=== PATIENT | female | born 1940 | race Caucasian/White ===

== ENCOUNTER → 2017-03-11 | Outpatient (CLI) | payer MEDICARE ==
[~2017-03-11] MED LIST: ALBU0.63 IH; ASPI-808 PO; CITA10TA7 PO; FLUT1AER IH; FLUT9.9S NS; HYDR-3812 PO; HYDR12.5 PO; HYDR25TA4 PO; LEVO25TA5 PO; LORA0.5T PO; LORA1TAB PO; PRD10T PO; RT-ALBUINH IH; TIOT18CA2 IH; TRAZ-28 PO; TRAZ150T72 PO
--- NOTE | 2017-03-11 12:02 | Diagnostic Imaging Report ---
INDICATION: Abdominal distention. FINDINGS: A supine view of the abdomen reveals gaseous distention of the stomach and small bowel. There is a moderate amount of stool in the right colon. There is no evidence of transition point or pneumoperitoneum. There is mild left basilar atelectasis or scarring. IMPRESSION: Gaseous distention of the stomach. Consideration could be given to nasogastric tube decompression or an upper GI series. Otherwise, no acute abnormality is seen in the abdomen although there does appear to be mild left basilar atelectasis and/or scarring. Dictated by: Dictated on workstation # [id number]
== END ==
LOC: RAD 11:43
PROVIDERS: ATTEND Nurse Practitioner Family
DX: K31.89 Other diseases of stomach and duodenum (principal)
CPT/HCPCS: 74000

== ENCOUNTER → 2018-01-01 | Outpatient (CLI) | payer MEDICARE ==
[~2018-01-01] MED LIST changes: +ACHD5005 PO; +BARIUM SUSPENSION 105% (LIQUID POLIBAR PLUS) 240 ML/DOSE PO ONE; +BARIUM SUSPENSION 60% (LIQUID EZ PAQUE) 240 ML DOSE PO ONE; -HYDR-3812 PO
--- NOTE | 2018-01-01 11:39 | Diagnostic Imaging Report ---
INDICATION: Dysphagia and history of gastroesophageal reflux disease. FINDINGS: The patient ingested effervescent crystals as well as thin and thick barium and imaging of the esophagus was performed. One minute and 43 seconds of fluoroscopic time was utilized. The esophagus has a fairly smooth contour. No mass or strictures identified. Occasional tertiary contractions are noted. There is a small hiatal hernia present. No significant gastroesophageal reflux was demonstrated during today's exam. IMPRESSION: Small hiatal hernia. The study is otherwise unremarkable. Dictated by: Dictated on workstation # [id number]
== END ==
LOC: RAD 09:58
PROVIDERS: ATTEND Nurse Practitioner Family
DX: K44.9 Diaphragmatic hernia without obstruction or gangrene (principal); K21.9 Gastro-esophageal reflux disease without esophagitis
CPT/HCPCS: 74220

== ENCOUNTER → 2019-03-24 | Outpatient (CLI) | payer MEDICARE ==
[~2019-03-24] MED LIST changes: -BARIUM SUSPENSION 105% (LIQUID POLIBAR PLUS) 240 ML/DOSE PO ONE; -BARIUM SUSPENSION 60% (LIQUID EZ PAQUE) 240 ML DOSE PO ONE; +HOLD METFORMIN - RECEIVED CONTRAST 20 ML VIAL IV SCH; +IOHEXOL 350 MG/ML 100 ML (OMNIPAQUE 350) VIAL IV ONE; +TRAZ-189 PO; -TRAZ-28 PO
--- NOTE | 2019-03-24 11:11 | Diagnostic Imaging Report ---
PROCEDURE: CT abdomen and pelvis with contrast. TECHNIQUE: Multiple contiguous axial images were obtained through the abdomen and pelvis after administration of intravenous contrast. Auto Exposure Controls were utilized during the CT exam to meet ALARA standards for radiation dose reduction. INDICATION: Generalized abdominal pain. Constipation. COMPARISON: CT chest dated 07/03/2016. FINDINGS: Included portions of lung bases show course interstitial lung markings as well as bibasilar atelectasis. Subpleural micronodule is noted within the lateral margins of the left lower lobe. Measures 6 mm. This is stable compared to 07/03/2016. CT ABDOMEN: Small bowel loops are nondistended. Normal appendix is identified. The kidneys, adrenal glands, spleen, pancreas, and liver have a normal CT appearance. There is no loculated fluid collection, free fluid, nor free air within the abdomen. No abnormal mesenteric or retroperitoneal adenopathy is seen. There is moderate diffuse calcified aortic and arterial atherosclerosis. Bony structures show no acute abnormalities. CT PELVIS: Urinary bladder is grossly unremarkable. There is no loculated fluid collection, free fluid, or free air within the pelvis. No abnormal lymph nodes are identified. Osseous structures show no acute abnormalities. IMPRESSION: 1. No acute abnormality within the abdomen or pelvis. 2. Bibasilar chronic appearing interstitial lung disease and atelectasis. 3. Small micronodule within the left lower lobe. Stability compared to 07/03/2016 suggest benignity. Dictated by: Dictated on workstation # [id number]
== END ==
LOC: RAD 10:00
PROVIDERS: ATTEND Nurse Practitioner Family
DX: K59.00 Constipation, unspecified (principal); J98.11 Atelectasis; R91.1 Solitary pulmonary nodule
CPT/HCPCS: 74177

== ENCOUNTER 2019-08-09 10:07 | Emergency (ER) | payer MEDICARE ==
[~2019-08-09] VITALS: Ht 165.1 cm; Wt 77.2 kg
[~2019-08-09 10:07] MED LIST changes: -HOLD METFORMIN - RECEIVED CONTRAST 20 ML VIAL IV SCH; -IOHEXOL 350 MG/ML 100 ML (OMNIPAQUE 350) VIAL IV ONE; -TRAZ-189 PO; +TRAZ-222 PO
--- NOTE | 2019-08-09 10:41 | ED Lower Extremity ---
General Chief Complaint: Lower Extremity Stated Complaint: R FOOT INJ Nursing Triage Note: Pt to ED in wheelchair. Pt reports tripping and falling over oxygen tubing last night at approximately 2355. Pt reports pain is on outer top of foot. Pt reports taking aleve at 0530 this am. Pt had foot and ankle wrapped upon arrival to ED. Nursing Sepsis Screen: No Definite Risk Source: patient Exam Limitations: no limitations History of Present Illness Date Seen by Provider: Aug 09, 2019 Time Seen by Provider: 10:22 Initial Comments Here with report of right ankle and foot pain after tripping over her oxygen tubing last night and rolling her ankle medially. Denies other injury. States that she did not hit her head or hurt anything else. Pain got worse but now is a little better after ice packs at home. Her friend gave her right here. Onset: other (last night just before midnight.) Pain/Injury Location: right foot, right ankle Method of Injury: fell, twisted Modifying Factors: Improves With Immobilization; Worse With Movement; Improves With Pain Medication Allergies and Home Medications Allergies Coded Allergies: No Known Drug Allergies (Unverified , 02/28/16) Home Medications Albuterol Sulfate 0.63 Mg/3 Ml Vial.neb, 0.63 MG IH Q4H PRN for SHORTNESS OF B REATH, (Reported) Albuterol Sulfate 18 Gm Hfa.aer.ad, 1-2 PUFF IH Q4H PRN for SHORTNESS OF BREATH, (Reported) Aspirin 325 Mg Tablet, 650 MG PO DAILY PRN for PAIN, (Reported) Citalopram Hydrobromide 10 Mg Tablet, 10 MG PO DAILY, (Reported) Fluticasone Propionate 9.9 Ml [place]ura [place].susp, 2 SPRAYS NS DAILY, (Reported) Fluticasone/Vilanterol 1 Each Blst.w.dev, 1 PUFF IH DAILY, (Reported) Hydrochlorothiazide 25 Mg Tablet, 12.5 MG PO DAILY, (Reported) Levothyroxine Sodium 25 Mcg Tablet, 25 MCG PO DAILY, (Reported) Lorazepam 1 Mg Tablet, 0.5 MG PO BID, (Reported) TAKES 1/2 OF A (1 MG) TABLET Tiotropium [place] 1 Inh Aerp, 1 PUFF IH DAILY, (Reported) Trazodone HCl 150 Mg Tablet, 50 MG PO HS, (Reported) TAKES 1/3 OF A (150 MG) TABLET Patient Home Medication List Home Medication List Reviewed: Yes Review of Systems Constitutional: no symptoms reported Respiratory: No hemoptysis; wheezing Cardiovascular: no symptoms reported Gastrointestinal: no symptoms reported Musculoskeletal: see HPI, joint pain, joint swelling, muscle pain Skin: change in color; No lesions Psychiatric/Neurological: Denies Numbness, Denies Tingling Past Qcputnd-Yxkkbc-Ftobop Hx Past Med/Social Hx: Reviewed Nursing Past Med/Soc Hx Patient Social History Alcohol Use: Denies Use Recreational Drug Use: No Smoking Status: Current Everyday Smoker Type Used: Cigarettes 2nd Hand Smoke Exposure: Yes Recent Foreign Travel: No Contact w/Someone Who Travel: No Recent Infectious Disease Expo: No Physical Abuse: No Sexual Abuse: No Immunizations Up To Date Date of Pneumonia Vaccine: Mar 01, 2016 Seasonal Allergies Seasonal Allergies: No Past Medical History Surgeries: Yes Hysterectomy Respiratory: Yes (WEARS 2L O2 AT NIGHT AND DURGING THE DAY PRN) Sleep Apnea, COPD, Emphysema Currently Using CPAP: No Currently Using BIPAP: No Cardiac: Yes (HX OF SLIGHT HEART MURMUR) Neurological: No Reproductive Disorders: No Female Reproductive Disorders: Denies Sexually Transmitted Disease: No HIV/AIDS: No Gastrointestinal: Yes (TAKES MIRILAX NEEDED) Gastroesophageal Reflux, Chronic Constipation Musculoskeletal: Yes (COMP FX T6) Arthritis, Chronic Back Pain Endocrine: Yes Hypothyroidsim Loss of Vision: Bilateral Hearing Impairment: Hard of Hearing, Bilateral Hearing Aide Cancer: No Psychosocial: Yes Sleep Difficulties, Anxiety, Depression Integumentary: No Blood Disorders: No Adverse Reaction/Blood Tranf: No Family Medical History Reviewed Nursing Family Hx Hypertension G8 SISTER Neoplasm 19 MOTHER (LUNG CA) G8 BROTHER (LUNG CA) Heart Disease, Hypertension Physical Exam Vital Signs Vital Signs - First Documented 08/09/19 10:10 Temp 37.7 Pulse 85 Resp 20 B/P (MAP) 112/75 (87) Pulse Ox 93 O2 Delivery Room Air Capillary Refill : Less Than 3 Seconds Height, Weight, BMI Height: 5'0.00" Weight: 159lbs. 0.0oz. 72.301796qw; 23.00 BMI Method: General Appearance: WD/WN, no apparent distress Cardiovascular: regular rate, rhythm, no murmur Respiratory: no accessory muscle use, wheezing, expiration (scattered) Knees: right knee non-tender, right knee normal inspection, right knee normal range of motion Ankles: right ankle pain (lateral aspect), right ankle soft tissue tenderness (lateral and forefoot), right ankle swelling (lateral aspect) Feet: right foot pain, right foot soft tissue tenderness (forefoot over the fourth and fifth metatarsal base.) Neurologic/Psychiatric: alert, oriented x 3 Skin: normal color, warm/dry Progress/Results/Core Measures Results/Orders My Orders Orders - SEDRICK SEGURA MD Foot, Right, 3 View (08/09/19 10:30) Ankle, Right, 3 Views (08/09/19 10:30) Vital Signs/I&O 08/09/19 10:10 Temp 37.7 Pulse 85 Resp 20 B/P (MAP) 112/75 (87) Pulse Ox 93 O2 Delivery Room Air Blood Pressure Mean: 87 Progress Progress Note : Progress Note Seen and evaluated. X-ray right foot and ankle. Patient declined pain medicine. Monitor patient. 1135: No acute fracture. Perez wrap and gel splint applied. Patient has access to a walker and will use that at home and will continue ice at home. Discharged home with return precautions. Patient verbalize understanding instructions and agreement with plan. Diagnostic Imaging Diagonstic Imaging: Xray Plain Films/CT/US/NM/MRI: other Comments NAME: ZHAO RICHARDSON MED REC#: [id number] PT STATUS: REG ER : 1940 PHYSICIAN: SEDRICK SEGURA MD ADMIT DATE: 08/09/19/ER Draft Date of Exam:08/09/19 FOOT, RIGHT, 3 VIEW INDICATION: Fall. Pain to the right foot. FINDINGS: 3 views. There are no fractures or dislocation. There is degenerative disease of the first MP joint. No periosteal reactive changes. IMPRESSION: Degenerative changes right foot with no acute abnormality. Dictated on workstation # [id number] Dict: 08/09/19 1120 Trans: 08/09/19 1128 [facility] [id number] Interpreted by: RACHEL PEREZ MD Electronically signed by: Diagonstic Imaging: Xray Plain Films/CT/US/NM/MRI: ankle Comments [facility], [place] NAME: ZHAO RICHARDSON [facility] REC#: [id number] PT STATUS: REG ER : 1940 PHYSICIAN: SEDRICK SEGURA MD ADMIT DATE: 08/09/19/ER Draft Date of Exam:08/09/19 ANKLE, RIGHT, 3 VIEWS INDICATION: Tripped. Right ankle pain. FINDINGS: Three views. There is some swelling over the lateral malleolus. Ankle mortise is intact. Articulating surfaces are smooth. No fractures are demonstrated. IMPRESSION: Soft tissue swelling over the lateral malleolus otherwise negative. Dictated on workstation # [id number] Dict: 08/09/19 1121 Trans: 08/09/19 1130 [id number] Interpreted by: RACHEL PEREZ MD Electronically signed by: Departure Impression Primary Impression: Right ankle sprain Qualified Codes: S93.491A - Sprain of other ligament of right ankle, initial encounter Disposition: HOME, SELF-CARE Condition: Stable Departure-Patient Inst. Decision time for Depature: 11:39 Referrals: ANABELA PORTER MD (PCP/Family) Primary Care Physician Patient Instructions: Ankle Sprain (DC) Add. Discharge Instructions: All discharge instructions reviewed with patient and/or family. Voiced understanding. Use Perez wrap and splint as needed over the next several days. Use good supporting shoes when walking. You may use ice pack over area of concern 20 minutes per hour for the next 24-36 hours as needed. Elevate the foot as much as possible. Return for worse pain, weakness, numbness, difficulty with walking or other concerns as needed. You may take Tylenol/acetaminophen 1000 mg every 6-8 hours as needed for pain. SEDRICK SEGURA MD Aug 09, 2019 10:41
--- NOTE | 2019-08-09 11:29 | Diagnostic Imaging Report ---
INDICATION: Fall. Pain to the right foot. FINDINGS: 3 views. There are no fractures or dislocation. There is degenerative disease of the first MP joint. No periosteal reactive changes. IMPRESSION: Degenerative changes right foot with no acute abnormality. Dictated by: Dictated on workstation # [id number]
--- NOTE | 2019-08-09 11:30 | Diagnostic Imaging Report ---
INDICATION: Tripped. Right ankle pain. FINDINGS: Three views. There is some swelling over the lateral malleolus. Ankle mortise is intact. Articulating surfaces are smooth. No fractures are demonstrated. IMPRESSION: Soft tissue swelling over the lateral malleolus otherwise negative. Dictated by: Dictated on workstation # [id number]
[2019-08-09 11:45] VITALS: BP 112/75
== END 2019-08-09 11:45 | disposition home or self-care (01) ==
LOC: EDUNIT# 10:07 → ER 10:08
DX: S93.491A Sprain of other ligament of right ankle, initial encounter (principal); J43.9 Emphysema, unspecified; K21.9 Gastro-esophageal reflux disease without esophagitis; E03.9 Hypothyroidism, unspecified; F41.9 Anxiety disorder, unspecified; F32.9 Major depressive disorder, single episode, unspecified; F17.210 Nicotine dependence, cigarettes, uncomplicated; Z99.81 Dependence on supplemental oxygen; Z90.710 Acquired absence of both cervix and uterus; Z79.82 Long term (current) use of aspirin; Z79.51 Long term (current) use of inhaled steroids; Z82.49 Family history of ischemic heart disease and other diseases of the circulatory system; Z80.1 Family history of malignant neoplasm of trachea, bronchus and lung; W01.0XXA Fall on same level from slipping, tripping and stumbling without subsequent striking against object, initial encounter; X50.1XXA Overexertion from prolonged static or awkward postures, initial encounter
CPT/HCPCS: 73610; 73630

== ENCOUNTER → 2021-01-26 | Outpatient (CLI) | payer MEDICARE ==
[~2021-01-26] MED LIST changes: -TRAZ-222 PO; +TRZ50T PO
--- NOTE | 2021-01-26 12:19 | Diagnostic Imaging Report ---
INDICATION: COPD and cough. Time of exam 12:08 p.m. Comparison is made to prior chest from 03/06/2016. Heart size is normal. Lungs are hyperinflated consistent with COPD. No infiltrates are seen. There is no effusion or pneumothorax. Kyphoplasty changes in the upper thoracic spine are noted. IMPRESSION: COPD. No acute cardiopulmonary process is detected. Dictated by: Dictated on workstation # [id number]
== END ==
LOC: RAD 11:32
PROVIDERS: ATTEND Nurse Practitioner Family
DX: J44.9 Chronic obstructive pulmonary disease, unspecified (principal)
CPT/HCPCS: 71046

== ENCOUNTER → 2021-03-20 | Outpatient (CLI) | payer MEDICARE ==
--- NOTE | 2021-03-20 19:18 | Diagnostic Imaging Report ---
PROCEDURE: CT sinuses without contrast TECHNIQUE: Multiple contiguous axial images were obtained through the sinuses without the use of intravenous contrast. Coronal and sagittal reformations were then performed. Auto Exposure Controls were utilized during the CT exam to meet ALARA standards for radiation dose reduction. INDICATION: Chronic sinusitis, chronic nasal drainage COMPARISON: None available FINDINGS: The frontal sinuses are clear. Frontoethmoidal recesses are clear. Very minimal mucosal thickening within scattered ethmoidal air cells. Mucosal thickening versus small mucous retention cyst within the left sphenoid sinus. The maxillary sinuses are clear. No significant mariano bullosa. The visualized portions of the mastoid air cells and middle ear cavities are clear. Mild leftward nasal septal deviation. The ostiomeatal complexes are patent. The patient is edentulous within the [id number]-[id number]-ihjo. No temporomandibular joint dislocation with significant degenerative changes of the right temporomandibular joint. No acute facial fracture. The right ocular lens is absent. The left orbit is unremarkable. Parapharyngeal fat appears symmetric. Visualized portions of the muscles of mastication are unremarkable. IMPRESSION: Minimal mucosal thickening/mucous retention cyst within the left sphenoid sinus laterally. No significant air-fluid level within the paranasal sinuses. Additional findings as described above. Dictated by: Dictated on workstation # [id number]
== END ==
LOC: RAD 14:49
PROVIDERS: ATTEND Otolaryngology Otolaryngology/Facial Plastic Surgery
DX: J34.1 Cyst and mucocele of nose and nasal sinus (principal); J32.9 Chronic sinusitis, unspecified; J34.89 Other specified disorders of nose and nasal sinuses
CPT/HCPCS: 70486

== ENCOUNTER 2021-07-26 10:16 | Outpatient (CLI) | payer MEDICARE ==
[~2021-07-26] VITALS: Ht 154.9 cm; Wt 74.8 kg
[2021-07-26] MEDS ORDERED: MONT10TA32 PO (11:08)
[2021-07-26] MEDS ORDERED: HYDR25TA4 PO (11:08)
[2021-07-26] MEDS ORDERED: LORA-405 SL (11:08)
[2021-07-26] MEDS ORDERED: LEVO50CA4 PO (11:08)
== END 2021-07-26 14:04 | disposition home or self-care (01) ==
LOC: PREOP 10:16
PROVIDERS: ATTEND Surgery
DX: Z01.818 Encounter for other preprocedural examination (principal)

== ENCOUNTER 2021-07-28 11:41 | Day surgery (SDC) | payer MEDICARE ==
[~2021-07-28] VITALS: Ht 154.9 cm; Wt 74.8 kg
[~2021-07-28 11:41] MED LIST changes: +LEVO50CA4 PO; +LORA-405 SL; +MONT10TA32 PO
[2021-07-28] MEDS ORDERED: LACTATED RINGERS 1,000 ML IV ONE (12:01)
[2021-07-28] MEDS ORDERED: LACTATED RINGERS 1,000 ML IV STA (12:14)
[2021-07-28] MEDS ORDERED: LIDOCAINE JELLY 2% 6 ML SYRINGE MM PRN (12:15)
--- NOTE | 2021-07-28 12:25 | Progress Note-Pre Operative ---
Pre-Operative Progress Note H&P Reviewed The H&P was reviewed, patient examined and no changes noted. Date Seen by Provider: Jul 28, 2021 Time Seen by Provider: 12:00 Date H&P Reviewed: Jul 28, 2021 Time H&P Reviewed: 12:00 Pre-Operative Diagnosis: screening PRIETO Dickens MD Jul 28, 2021 12:25
--- NOTE | 2021-07-28 12:26 | Discharge Inst-Surgical ---
D/C Lap Instructions-GIANLUCA Follow Up Activity as tolerated High Fiber Diet 25g or more per day Avoid Alcohol, Caffeine, Spicy [place] and Acid foods. Drink 64 fluid oz or more of fluids per day. Symptoms to Report: Fever over 101 degree F, Nausea/Vomiting If any problems/questions: Contact your physician or go to Emergency Room PRIETO HOUGH MD Jul 28, 2021 12:26
[2021-07-28] MEDS ORDERED: ONDANSETRON 4 MG/2 ML (SDV) Z0FRAN IVP PRN (12:30)
[2021-07-28] MEDS ORDERED: ONDANSETRON 4 MG (ZOFRAN) ORAL DISSOLVE TAB PO PRN (12:30)
[2021-07-28 12:34] VITALS: BP 112/76
[2021-07-28] MEDS ORDERED: PROPOFOL INJECTION 50 ML IV ONE (13:03)
[2021-07-28 13:30] VITALS: BP 86/54
[2021-07-28 13:35] VITALS: BP 97/55
[2021-07-28 13:40] VITALS: BP 122/60
[2021-07-28 13:45] VITALS: BP 122/60
[2021-07-28 14:03] VITALS: BP 115/62
--- NOTE | 2021-07-28 14:16 | Anesthesia-General Post-Op ---
MAC Patient Condition Mental Status/LOC: Same as Preop Cardiovascular: Satisfactory Nausea/Vomiting: Absent Respiratory: Satisfactory Pain: Controlled Complications: Absent Post Op Complications Complications None Follow Up Care/Instructions Patient Instructions None needed. Anesthesiology Discharge Order Discharge Order Patient is doing well, no complaints, stable vital signs, no apparent adverse anesthesia problems. No complications reported per nursing. JR CHAMORRO CRNA Jul 28, 2021 14:16
--- NOTE | 2021-07-28 16:37 | OPERATIVE REPORT ---
DATE OF SERVICE: 07/28/2021 ATTENDING PRIMARY CARE PHYSICIAN: Tamra Campos MD PREOPERATIVE DIAGNOSIS: Screening colonoscopy. POSTOPERATIVE DIAGNOSIS: Chronic between stage II and III external and internal hemorrhoids. PROCEDURE: Colonoscopy. SURGEON: Prieto Hough MD. ANESTHESIA: Monitored anesthesia care. ESTIMATED BLOOD LOSS: Minimal. FINDINGS: Same as postoperative diagnosis. DISPOSITION: The patient tolerated the procedure well. INDICATIONS: The patient is a 81-year-old female referred over to us for screening colonoscopy. She reports that her last colonoscopy was greater than 10 years ago and does not report any lesions identified. She states she does have some issues with hemorrhoids with occasional bleeding. She does not report any major issues with diarrhea nor constipation as well as no red blood per rectum nor any dark tarry stools. She also does not report any recent inadvertent weight loss. She also does not have a family history of colon cancer. DESCRIPTION OF PROCEDURE: The patient was brought to the endoscopy suite, laid in left lateral decubitus position. After adequate IV pain and sedative medications and monitored anesthesia care, a digital rectal examination was performed. Chronic between stage II and III external and internal hemorrhoids were identified, which were not actively edematous nor inflamed and no bleeding. Normal sphincter tone was felt and there were no palpable masses. The endoscope was then intubated and anus and rectum gently insufflated. The endoscope was then advanced through the valves of [place] of the rectum with no polyps or any neoplasms identified. We then proceeded through the sigmoid colon where no diverticulosis identified. We then proceeded through the remainder of the descending, transverse and ascending colon to the cecum. These segments were normal. No polyps or any neoplasms identified throughout the colon or rectum. The endoscope was then slowly withdrawn while taking a second look and suctioning of residual air with no additional findings. The patient tolerated the procedure well. We will recommend continued medical management with incorporation of a high-fiber diet with a fiber supplement, which should equal or exceed 25 grams daily and promote soft stools on a daily basis and prevent episodes of hard formed stools. She does not need another colonoscopy for another 10 years. Job ID: [id number] DocumentID: [id number] Dictated Date: 07/28/2021 13:32:02 Moss Picker Date: 07/28/2021 16:36:29 Dictated By: PRIETO HOUGH MD
--- NOTE | 2021-07-28 17:59 | Progress Note-Post Operative ---
Post-Operative Progess Note Surgeon (s)/Spun Paste Machine Operator (s) Surgeon PRIETO HOUGH MD Spun Paste Machine Operator: none Pre-Operative Diagnosis screening colo Post-Operative Diagnosis chronic stage 3 ext and int hemorrhoids. Procedure & Operative Findings Date of Procedure 07/28/21 Procedure Performed/Findings colonoscopy. Anesthesia Type mac Estimated Blood Loss Estimated blood loss (mL): minimal Specimens/Packing Specimens Removed none PRIETO HOUGH MD Jul 28, 2021 17:59
== END 2021-07-28 14:10 | disposition home or self-care (01) ==
LOC: ENDO 11:41
PROVIDERS: ATTEND Surgery
DX: Z12.11 Encounter for screening for malignant neoplasm of colon (principal); K64.2 Third degree hemorrhoids; I10 Essential (primary) hypertension; F17.210 Nicotine dependence, cigarettes, uncomplicated; G47.33 Obstructive sleep apnea (adult) (pediatric); J44.9 Chronic obstructive pulmonary disease, unspecified; E11.9 Type 2 diabetes mellitus without complications; E03.9 Hypothyroidism, unspecified; F41.9 Anxiety disorder, unspecified; Z79.899 Other long term (current) drug therapy; Z99.81 Dependence on supplemental oxygen

== ENCOUNTER 2021-10-25 04:02 | Inpatient (IN) | payer MEDICARE ==
[~2021-10-25] VITALS: Ht 165 cm; Wt 77.0 kg
[2021-10-25] VITALS (10 sets, daily range): BP systolic 124–148; BP diastolic 62–82
[~2021-10-25 04:02] MED LIST changes: -CITA10TA7 PO; +CITA10TA9 PO; -FLUT9.9S NS; +FLUT9.9S NSEACH; +MONT-40 PO; -MONT10TA32 PO
[2021-10-25] MEDS ORDERED: fentaNYL INJ 100 MCG/2 ML AMP IVP STA (04:06)
--- NOTE | 2021-10-25 04:14 | ED Abdominal Pain ---
General Stated Complaint: UPPER ABD PAIN,LOW O2 SAT,ELEVATED HR Source of Information: Patient (VERY HARD OF HEARING), EMS History of Present Illness Date Seen by Provider: Oct 25, 2021 Time Seen by Provider: 03:59 Initial Comments PT ARRIVES VIA EMS FROM HOME C/O ABDOMINAL PAIN AND DISTENTION SINCE YESTERDAY C/O NAUSEA, NO VOMITING. DECREASED APPETITE HAD BM YESTERDAY, BUT NOT IS NOT PASSING ANY GAS NO FEVER NO URINARY SYMPTOMS AND VOIDING A NORMAL AMOUNT PT WEARS HOME O2 AT 2L/NC--O2 SAT 94% FOR EMS, 100% ON 5L/NC ON ARRIVAL HERE PCP: DR. PORTER Allergies and Home Medications Allergies Coded Allergies: No Known Drug Allergies (Unverified , 02/28/16) Patient Home Medication List Home Medication List Reviewed: Yes Albuterol Sulfate (Ventolin Hfa) 18 Gm Hfa.aer.ad, 1-2 PUFF IH Q4H PRN for SHORTNESS OF BREATH, (Reported) Entered as Reported by: SHERI RIOS on 02/21/16 1415 Citalopram Hydrobromide (Citalopram HBr) 10 Mg Tablet, 10 MG PO DAILY, (Reported) Entered as Reported by: SHERI RIOS on 02/21/16 1415 Fluticasone Propionate (Flonase Allergy Relief) 9.9 Ml [place].susp, 2 SPRAYS NS DAILY, (Reported) Entered as Reported by: SHERI RIOS on 02/21/16 1415 Hydrochlorothiazide (Hydrochlorothiazide) 25 Mg Tablet, 25 MG PO DAILY, (Reported) Entered as Reported by: CARMEN OLIVER on 07/26/21 110 Levothyroxine Sodium (Levothyroxine) 50 Mcg Capsule, 50 MCG PO DAILY, (Reported) Entered as Reported by: CARMEN OLIVER on 07/26/21 110 Lorazepam (Ativan) 1 Mg Tablet, 1 MG SL PRN, (Reported) Entered as Reported by: CARMEN OLIVER on 07/26/21 110 Montelukast Sodium (Montelukast Sodium) 10 Mg Tablet, 10 MG PO DAILY, (Reported) Entered as Reported by: CARMEN OLIVER on 07/26/21 110 Trazodone HCl (Trazodone HCl) 150 Mg Tablet, 50 MG PO HS, (Reported) Entered as Reported by: MARKO TORRES on 02/29/16 1056 Review of Systems Review of Systems Constitutional: no symptoms reported EENTM: Other (HARD OF HEARING ) Respiratory: See HPI; Denies Cough, Denies Shortness of Air Cardiovascular: No Symptoms Reported; Denies Chest Pain Gastrointestinal: See HPI, Abdomen Distended, Abdominal Pain, Nausea, Poor Appetite; Denies Vomiting Genitourinary: No Symptoms Reported Musculoskeletal: no symptoms reported Skin: no symptoms reported Psychiatric/Neurological: No Symptoms Reported Endocrine: No Symptoms Reported Hematologic/Lymphatic: No Symptoms Reported Past [id number] Hx Patient Social History Tobacco Use?: Yes Tobacco type used: Cigarettes Seasonal Allergies Seasonal Allergies: No Past Medical History Surgeries: Yes Hysterectomy, Orthopedic Respiratory: Yes (WEARS 3L O2 AT NIGHT AND 2L/NC CONTINOUSLY; R PNEUMOTHORAX P OST OP) Sleep Apnea, COPD, Emphysema Currently Using CPAP: No Currently Using BIPAP: No Cardiac: Yes Hypertension Neurological: No Reproductive Disorders: No Female Reproductive Disorders: Denies Sexually Transmitted Disease: No HIV/AIDS: No Genitourinary: No Gastrointestinal: Yes (TAKES MIRILAX NEEDED) Gastroesophageal Reflux, Chronic Constipation Musculoskeletal: Yes (COMP FX T6) Arthritis, Chronic Back Pain, Fractures Endocrine: Yes Hypothyroidsim HEENT: Yes Loss of Vision: Bilateral Hearing Impairment: Hard of Hearing, Bilateral Hearing Aide Cancer: No Psychosocial: Yes Sleep Difficulties, Anxiety, Depression Integumentary: No Blood Disorders: No Adverse Reaction/Blood Tranf: No Family Medical History Hypertension G8 SISTER Neoplasm 19 MOTHER (LUNG CA) G8 BROTHER (LUNG CA) Heart Disease, Hypertension SOCIAL HISTORY: -SMOKED HEAVY X 72 YEARS. -DENIES ETOH PAST SURGICAL HISTORY: -T6 VERTEBROPLASTY 2015, WITH POST OP RIGHT PNEUMOTHORAX AND RIGHT CHEST TUBE PLACEMENT -HYSTERECTOMY -COLONOSCOPY 07/28/[address] HOUGH Physical Exam Vital Signs Vital Signs - First Documented 10/25/21 04:02 Temp 36.6 Pulse 67 Resp 16 B/P (MAP) 137/72 (93) Pulse Ox 98 O2 Delivery Nasal Cannula O2 Flow Rate 3.00 Capillary Refill : Height/Weight/BMI Height: 5'0.00" Weight: 159lbs. 0.0oz. 72.291201gm; 31.17 BMI Method: General Appearance: WD/WN, no apparent distress, other (KEEPS EYES CLOSED AT ALL TIMES; EXTREMELY HARD OF HEARING) Respiratory: normal breath sounds, no respiratory distress, no accessory muscle use Cardiovascular: regular rate, rhythm, no murmur Gastrointestinal: abnormal bowel sounds (RARE, HIGH PITCHED), distended, tenderness (DIFFUSE TENDERNESS), other (DISTENDED, FIRM) Extremities: normal inspection, no pedal edema, normal capillary refill Back: no CVA tenderness Neurologic/Psychiatric: no motor/sensory deficits, alert, normal mood/affect, oriented x 3 Skin: normal color, warm/dry Focused Exam Lactate Level 10/25/21 04:20: Lactic Acid Level 0.83 Lactic Acid Level Laboratory Tests Test 10/25/21 04:20 Lactic Acid Level 0.83 MMOL/L (0.50-2.00) Progress/Results/Core Measures Results/Orders Lab Results Laboratory Tests Test 10/25/21 04:20 10/25/21 04:30 Range/Units White Blood Count 10.9 4.3-11.0 10^3/uL Red Blood Count 5.06 3.80-5.11 10^6/uL Hemoglobin 14.5 11.5-16.0 g/dL Hematocrit 47 35-52 % Mean Corpuscular Volume 92 80-99 fL Mean Corpuscular Hemoglobin 29 25-34 pg Mean Corpuscular Hemoglobin Concent 31 L 32-36 g/dL Red Cell Distribution Width 14.1 10.0-14.5 % Platelet Count 202 130-400 10^3/uL Mean Platelet Volume 10.5 9.0-12.2 fL Immature Granulocyte % (Auto) 0 % Neutrophils (%) (Auto) 89 H 42-75 % Lymphocytes (%) (Auto) 8 L 12-44 % Monocytes (%) (Auto) 3 0-12 % Eosinophils (%) (Auto) 0 0-10 % Basophils (%) (Auto) 0 0-10 % Neutrophils # (Auto) 9.7 H 1.8-7.8 10^3/uL Lymphocytes # (Auto) 0.8 L 1.0-4.0 10^3/uL Monocytes # (Auto) 0.3 0.0-1.0 10^3/uL Eosinophils # (Auto) 0.0 0.0-0.3 10^3/uL Basophils # (Auto) 0.0 0.0-0.1 10^3/uL Immature Granulocyte # (Auto) 0.0 0.0-0.1 10^3/uL Sodium Level 138 135-145 MMOL/L Potassium Level 4.2 3.6-5.0 MMOL/L Chloride Level 95 L 98-107 MMOL/L Carbon Dioxide Level 28 21-32 MMOL/L Anion Gap 15 H 5-14 MMOL/L Blood Urea Nitrogen 19 H 7-18 MG/DL Creatinine 1.02 0.60-1.30 MG/DL Estimat Glomerular Filtration Rate 52 BUN/Creatinine Ratio 19 Glucose Level 166 H 70-105 MG/DL Lactic Acid Level 0.83 0.50-2.00 MMOL/L Calcium Level 10.3 H 8.5-10.1 MG/DL Corrected Calcium 10.1 8.5-10.1 MG/DL Magnesium Level 2.3 1.6-2.4 MG/DL Total Bilirubin 0.4 0.1-1.0 MG/DL Aspartate Amino Transf (AST/SGOT) 18 5-34 U/L Alanine Aminotransferase (ALT/SGPT) 19 0-55 U/L Alkaline Phosphatase 71 40-136 U/L Total Protein 8.8 H 6.4-8.2 GM/DL Albumin 4.2 3.2-4.5 GM/DL Amylase Level 57 25-125 U/L Lipase 11 8-78 U/L Procalcitonin 0.06 <0.10 NG/ML Urine Color YELLOW Urine Clarity CLEAR Urine pH 5.5 5-9 Urine Specific [place] >=1.030 1.016-1.022 Urine Protein TRACE H NEGATIVE Urine Glucose (UA) NEGATIVE NEGATIVE Urine Ketones NEGATIVE NEGATIVE Urine Nitrite NEGATIVE NEGATIVE Urine Bilirubin 1+ H NEGATIVE Urine Urobilinogen 1.0 < = 1.0 MG/DL Urine Leukocyte Esterase NEGATIVE NEGATIVE Urine RBC (Auto) NEGATIVE NEGATIVE Urine RBC NONE /HPF Urine WBC NONE /HPF Urine Squamous Epithelial Cells RARE /HPF Urine Crystals NONE /LPF Urine Bacteria NEGATIVE /HPF Urine Casts NONE /LPF Urine Mucus LARGE H /LPF Urine Culture Indicated NO My Orders Orders - RENATO SALAZAR DO Ed Iv/Invasive Line Start (10/25/21 04:06) Catheter(Urinary) Insert & Ass 03,15 (10/25/21 04:06) O2 (10/25/21 04:06) Monitor-Rhythm Ecg Trace Only (10/25/21 04:06) Amylase (10/25/21 04:06) Cbc With Automated Diff (10/25/21 04:06) Comprehensive Metabolic Panel (10/25/21 04:06) Lipase (10/25/21 04:06) Magnesium (10/25/21 04:06) Ua Culture If Indicated (10/25/21 04:06) Ct Abdomen/Pelvis Wo (10/25/21 04:06) Chest 1 View, Ap/Pa Only (10/25/21 04:06) Ed Iv/Invasive Line Start (10/25/21 04:06) Lactated Ringers (Lr 1000 Ml Iv Solution (10/25/21 04:15) Ondansetron Injection (Zofran Injectio (10/25/21 04:15) Fentanyl Inj (Sublimaze Injection) (10/25/21 04:06) Lactic Acid Analyzer (10/25/21 04:19) Procalcitonin (Pct) (10/25/21 04:19) Medications Given in ED Current Medications Medications Dose Ordered Sig/Joao Route Start Time Stop Time Status Last Admin Dose Admin Lactated Ringer's 1,000 ml @ 0 mls/hr Q0M ONCE IV 10/25/21 04:15 10/25/21 04:16 DC 10/25/21 04:25 999 MLS/HR Ondansetron HCl 4 mg ONCE ONCE IVP 10/25/21 04:15 10/25/21 04:16 DC 10/25/21 04:25 4 MG Vital Signs/I&O 10/25/21 10/25/21 04:02 04:02 Temp 36.6 Pulse 67 Resp 16 B/P (MAP) 137/72 (93) Pulse Ox 98 O2 Delivery Nasal Cannula Nasal Cannula O2 Flow Rate 3.00 3.00 Progress Progress Note : Progress Note GIVEN ZOFRAN AND FENTANYL WITH MUCH IMPROVEMENT IN SYMPTOMS NO DETERIORATION IN PT'S CONDITION DURING ER STAY Diagnostic Imaging Comments CT ABDOMEN/PELVIS--PER RADIOLOGIST REPORT AT 0525 FINDINGS: There are diffusely distended and fluid-filled small bowel loops throughout the abdomen with normal caliber seen in the right lower quadrant extending to the level of the terminal ileum. There appears to be a likely transition point within the right aspect of the pelvis on images 61 through 64. There is no evidence for free air. There is no significant free fluid. Minimal free fluid noted in the pelvis. The colon appears decompressed. The appendix is unremarkable. Small fat-containing anterior abdominal wall hernia noted. There is atherosclerotic disease. There are multiple stones within the gallbladder without surrounding inflammatory change. The liver, spleen, and pancreas unremarkable. Adrenal glands unremarkable. There is no acute process in either kidney. Within the visualized lung bases diffuse coarsened interstitial markings noted bilaterally with areas of atelectasis and/or scarring. There is mild bronchiectasis in the left lower lobe. There are tiny nodules subpleural in nature, left greater than right. There is no acute osseous abnormality. IMPRESSION: 1. Findings suspicious for small bowel obstruction with transition point in the right lower quadrant. 2. Coarsened interstitial markings and areas of bronchiectasis within the visualized lung bases, left greater than right. An atypical pneumonia is not excluded. Additionally tiny nodule seen at both lung bases which should be followed using the Fleischner criteria. 3. Cholelithiasis with other incidental findings as above. CXR--PER RADIOLOGIST REPORT AT 0525 FINDINGS: There are coarsened interstitial markings at both lung bases, left worse than right. The heart is unremarkable. Pulmonary vasculature normal. No pneumothorax. IMPRESSION: 1. Suspected infiltrate at the left lung base, otherwise chronic findings noted. Reviewed: Reviewed by Me Departure Communication (Admissions) 525--SPOKE WITH DR. SOLIS, SURGEON, ADVISES TO ADMIT TO MEDICINE AND HE WILL SEE PT IN CONSULT 526--SPOKE WITH DR. PORTER, ACCEPTS PT FOR ADMIT Impression Primary Impression: Small bowel obstruction Disposition: ADMITTED INPATIENT Condition: Improved Admissions Decision to Admit Reason: Admit from ER (General) Decision to Admit/Date: Oct 25, 2021 Time/Decision to Admit Time: 05:30 Departure-Patient Inst. Referrals: ANABELA PORTER MD (PCP/Family) Primary Care Physician RENATO SALAZAR DO Oct 25, 2021 04:14
[2021-10-25] MEDS ORDERED: ONDANSETRON 4 MG/2 ML (SDV) Z0FRAN IVP ONE (04:15)
[2021-10-25] MEDS ORDERED: LACTATED RINGERS 1,000 ML IV ONE (04:15)
[2021-10-25 04:32] LABS: BASOPHILS % (AUTO) 0 % (0-10); EOSINOPHILS % (AUTO) 0 % (0-10); HEMATOCRIT 47 % (35-52); HEMOGLOBIN 14.5 g/dL (11.5-16.0); LYMPHOCYTES # (AUTO) 0.8 10^3/uL (1.0-4.0); LYMPHOCYTES % (AUTO) 8 % (12-44); MEAN CORPUSCULAR HEMOGLOBIN 29 pg (25-34); MEAN CORPUSCULAR HGB CONC 31 g/dL (32-36); MEAN CORPUSCULAR VOLUME 92 fL (80-99); MEAN PLATELET VOLUME 10.5 fL (9.0-12.2); MONOCYTES # (AUTO) 0.3 10^3/uL (0.0-1.0); MONOCYTES % (AUTO) 3 % (0-12); NEUTROPHILS # (AUTO) 9.7 10^3/uL (1.8-7.8); NEUTROPHILS % (AUTO) 89 % (42-75); PLATELET COUNT 202 10^3/uL (130-400); WHITE BLOOD COUNT 10.9 10^3/uL (4.3-11.0)
[2021-10-25 04:42] LABS: CLARITY,URINE CLEAR; COLOR,URINE YELLOW; GLUCOSE, URINE (UA) NEGATIVE (NEGATIVE); KETONES,URINE NEGATIVE (NEGATIVE); LEUKOCYTE ESTERASE ,URINE NEGATIVE (NEGATIVE); NITRITE,URINE NEGATIVE (NEGATIVE); PH,URINE 5.5 (5-9); PROTEIN,URINE TRACE (NEGATIVE)
[2021-10-25 04:50] LABS: BACTERIA,URINE NEGATIVE /HPF; BILIRUBIN,URINE 1+ (NEGATIVE); SQUAMOUS EPITHELIAL CELL,UR RARE /HPF
[2021-10-25 05:14] LABS: ALBUMIN 4.2 GM/DL (3.2-4.5); BILIRUBIN,TOTAL 0.4 MG/DL (0.1-1.0); CALCIUM 10.3 MG/DL (8.5-10.1); CREATININE SERUM 1.02 MG/DL (0.60-1.30); MAGNESIUM 2.3 MG/DL (1.6-2.4); POTASSIUM 4.2 MMOL/L (3.6-5.0); TOTAL PROTEIN 8.8 GM/DL (6.4-8.2)
--- NOTE | 2021-10-25 05:20 | Diagnostic Imaging Report ---
PROCEDURE: CT abdomen and pelvis without contrast. TECHNIQUE: Multiple contiguous axial images were obtained through the abdomen and pelvis without the use of intravenous contrast. Auto Exposure Controls were utilized during the CT exam to meet ALARA standards for radiation dose reduction. INDICATION: Abdominal pain and distention EXAMINATION: CT abdomen and pelvis without contrast 10/25/2021 COMPARISON: 03/24/2019 FINDINGS: There are diffusely distended and fluid-filled small bowel loops throughout the abdomen with normal caliber seen in the right lower quadrant extending to the level of the terminal ileum. There appears to be a likely transition point within the right aspect of the pelvis on images 61 through 64. There is no evidence for free air. There is no significant free fluid. Minimal free fluid noted in the pelvis. The colon appears decompressed. The appendix is unremarkable. Small fat-containing anterior abdominal wall hernia noted. There is atherosclerotic disease. There are multiple stones within the gallbladder without surrounding inflammatory change. The liver, spleen, and pancreas unremarkable. Adrenal glands unremarkable. There is no acute process in either kidney. Within the visualized lung bases diffuse coarsened interstitial markings noted bilaterally with areas of atelectasis and/or scarring. There is mild bronchiectasis in the left lower lobe. There are tiny nodules subpleural in nature, left greater than right. There is no acute osseous abnormality. IMPRESSION: 1. Findings suspicious for small bowel obstruction with transition point in the right lower quadrant. 2. Coarsened interstitial markings and areas of bronchiectasis within the visualized lung bases, left greater than right. An atypical pneumonia is not excluded. Additionally tiny nodule seen at both lung bases which should be followed using the Fleischner criteria. 3. Cholelithiasis with other incidental findings as above. Dictated by: Dictated on workstation # [id number]
--- NOTE | 2021-10-25 05:22 | Diagnostic Imaging Report ---
INDICATION: Dyspnea EXAMINATION: Chest 10/25/2021 FINDINGS: There are coarsened interstitial markings at both lung bases, left worse than right. The heart is unremarkable. Pulmonary vasculature normal. No pneumothorax. IMPRESSION: 1. Suspected infiltrate at the left lung base, otherwise chronic findings noted. Dictated by: Dictated on workstation # [id number]
[2021-10-25] MEDS ORDERED: ONDANSETRON 4 MG/2 ML (SDV) Z0FRAN IV PRN (06:15)
[2021-10-25] MEDS: D5 1/2 NS W/KCL 20 MEQ/L 1,000 ML IV SCH ×4 (06:33→23:29)
--- NOTE | 2021-10-25 07:43 | Consultation - Surgery ---
ANSHUL STACK 10/25/21 0743: History of Present Illness History of Present Illness Patient Consulted On(james/time) 10/25/21 07:36 Date Seen by Provider: Oct 25, 2021 Time Seen by Provider: 07:01 History of Present Illness Vilma Thorpe is a 81y/o F with a PMH of COPD, HTN, hypothyroidism, and hysterectomy that presents with abdominal pain. Pt reports that she began having abdominal pain yesterday morning after she ate breakfast. States that the pain worsened throughout the day until eventually last night the pain become severe. Rates the pain at its worst last night as a 10/10. Says that her abdomen was very distended last night. Also had severe nausea with the abdominal pain. Denies any vomiting. The abdominal pain and nausea has improved since she was given pain medications and Zofran. States that the abdominal distention has improved since NG tube has been placed. Had 1 small BM yesterday. Reports having one episode of flatus this morning.Currently NPO Denies any other concerns when asked. Allergies and Home Medications Allergies Coded Allergies: No Known Drug Allergies (Unverified , 02/28/16) Patient Home Medication List Albuterol Sulfate (Ventolin Hfa) 18 Gm Hfa.aer.ad, 1-2 PUFF IH Q4H PRN for SHORTNESS OF BREATH, (Reported) Entered as Reported by: SHERI RIOS on 02/21/161414 Citalopram Hydrobromide (Citalopram HBr) 10 Mg Tablet, 10 MG PO DAILY, (Reported) Entered as Reported by: SHERI RIOS on 02/21/16 141 Fluticasone Propionate (Flonase Allergy Relief) 9.9 Ml [place].susp, 2 SPRAYS NS DAILY, (Reported) Entered as Reported by: SHERI RIOS on 02/21/16 141 Hydrochlorothiazide (Hydrochlorothiazide) 25 Mg Tablet, 25 MG PO DAILY, (Reported) Entered as Reported by: CARMEN OLIVER on 07/26/21 110 Levothyroxine Sodium (Levothyroxine) 50 Mcg Capsule, 50 MCG PO DAILY, (Reported) Entered as Reported by: CARMEN OLIVER on 07/26/211107 Lorazepam (Ativan) 1 Mg Tablet, 1 MG SL PRN, (Reported) Entered as Reported by: CARMEN OLIVER on 07/26/21 1108 Montelukast Sodium (Montelukast Sodium) 10 Mg Tablet, 10 MG PO DAILY, (Reported) Entered as Reported by: CARMEN OLIVER on 07/26/21 1108 Trazodone HCl (Trazodone HCl) 150 Mg Tablet, 50 MG PO HS, (Reported) Entered as Reported by: MARKO TORRES on 02/29/16 1056 Past Nofgdkf-Ngwzsm-Hbfzpx Hx Patient Social History Smoking Status: Current Everyday Smoker Type Used: Cigarettes 2nd Hand Smoke Exposure: Yes Recent Hopitalizations: No Alcohol Use?: No Have you traveled recently?: No Immunizations Up To Date Date of Pneumonia Vaccine: Mar 01, 2016 Date of Influenza Vaccine: Oct 14, 2021 Seasonal Allergies Seasonal Allergies: No Surgeries History of Surgeries: Yes Surgeries: Hysterectomy, Orthopedic Respiratory History of Respiratory Disorde: Yes (WEARS 3L O2 AT NIGHT AND 2L/NC CONTINOUSLY; R PNEUMOTHORAX POST OP) Respiratory Disorders: Sleep Apnea, COPD, Emphysema Cardiovascular History of Cardiac Disorders: Yes Cardiac Disorders: Hypertension Neurological History of Neurological Disord: No Reproductive System Hx Reproductive Disorders: No Sexually Transmitted Disease: No HIV/AIDS: No Female Reproductive Disorders: Denies Genitourinary History of Genitourinary Disor: No Gastrointestinal History of Gastrointestinal Di: Yes (TAKES MIRILAX NEEDED) Gastrointestinal Disorders: Gastroesophageal Reflux, Chronic Constipation Musculoskeletal History of Musculoskeletal Dis: Yes (COMP FX T6) Musculoskeletal Disorders: Arthritis, Chronic Back Pain, Fractures Endocrine History of Endocrine Disorders: Yes Endocrine Disorders: Hypothyroidsim HEENT History of HEENT Disorders: Yes Loss of Vision: Bilateral Hearing Impairment: Hard of Hearing, Bilateral Hearing Aide Cancer History of Cancer: No Psychosocial History of Psychiatric Problem: Yes Behavioral Health Disorders: Sleep Difficulties, Anxiety, Depression Integumentary History of Skin or Integumenta: No Blood Transfusions History of Blood Disorders: No Adverse Reaction to a Blood Tr: No Family Medical History Significant Family History: Heart Disease, Hypertension Family Medial History: Hypertension G8 SISTER Neoplasm 19 MOTHER (LUNG CA) G8 BROTHER (LUNG CA) Review of Systems-General Constitutional: No chills, No fever EENTM: hearing loss; No ear pain, No blurred vision Respiratory: No cough, No short of breath Cardiovascular: No chest pain, No palpitations Gastrointestinal: abdominal pain, nausea; No vomiting Genitourinary: No discharge, No dysuria, No frequency Musculoskeletal: back pain; No joint pain, No muscle pain; muscle cramps Psychiatric/Neurological: Denies Numbness, Denies Paresthesia Physical Exam-General Problems Physical Exam Vital Signs Vital Signs - First Documented 10/25/21 04:02 Temp 36.6 Pulse 67 Resp 16 B/P (MAP) 137/72 (93) Pulse Ox 98 O2 Delivery Nasal Cannula O2 Flow Rate 3.00 Capillary Refill : Less Than 3 Seconds General Appearance: WD/WN, no apparent distress HEENT: PERRL/EOMI; No photophobia Neck: non-tender, supple Respiratory: lungs clear, normal breath sounds, no respiratory distress Cardiovascular: normal peripheral pulses, regular rate, rhythm Gastrointestinal: abnormal bowel sounds (hyperactive BS both lower quadrants), distended, tenderness (diffuse, worse LLQ) Extremities: non-tender, no pedal edema, normal capillary refill Neurologic/Psychiatric: alert, normal mood/affect Skin: normal color, warm/dry Lymphatic: no adenopathy (cervical) Data Review Labs Laboratory Tests 10/25/21 04:20: White Blood Count 10.9, Red Blood Count 5.06, Hemoglobin 14.5, Hematocrit 47, Mean Corpuscular Volume 92, Mean Corpuscular Hemoglobin 29, Mean Corpuscular Hem oglobin Concent 31L, Red Cell Distribution Width 14.1, Platelet Count 202, Mean Platelet Volume 10.5, Immature Granulocyte % (Auto) 0, Neutrophils (%) (Auto) 89H, Lymphocytes (%) (Auto) 8L, Monocytes (%) (Auto) 3, Eosinophils (%) (Auto) 0, Basophils (%) (Auto) 0, Neutrophils # (Auto) 9.7H, Lymphocytes # (Auto) 0.8L, Monocytes # (Auto) 0.3, Eosinophils # (Auto) 0.0, Basophils # (Auto) 0.0, Immature Granulocyte # (Auto) 0.0, Sodium Level 138, Potassium Level 4.2, Chloride Level 95L, Carbon Dioxide Level 28, Anion Gap 15H, Blood Urea Nitrogen 19H, Creatinine 1.02, Estimat Glomerular Filtration Rate 52, BUN/Creatinine Ratio 19, Glucose Level 166H, Lactic Acid Level 0.83, Calcium Level 10.3H, Corrected Calcium 10.1, Magnesium Level 2.3, Total Bilirubin 0.4, Aspartate Amino Transf (AST/SGOT) 18, Alanine Aminotransferase (ALT/SGPT) 19, Alkaline Phosphatase 71, Total Protein 8.8H, Albumin 4.2, Amylase Level 57, Lipase 11, Procalcitonin 0.06 10/25/21 04:30: Urine Color YELLOW, Urine Clarity CLEAR, Urine pH 5.5, Urine Specific [place] >=1.030, Urine Protein TRACEH, Urine Glucose (UA) NEGATIVE, Urine Ketones NEGATIVE, Urine Nitrite NEGATIVE, Urine Bilirubin 1+H, Urine Urobilinogen 1.0, Urine Leukocyte Esterase NEGATIVE, Urine RBC (Auto) NEGATIVE, Urine RBC NONE, Urine WBC NONE, Urine Squamous Epithelial Cells RARE, Urine Crystals NONE, Urine Bacteria NEGATIVE, Urine Casts NONE, Urine Mucus LARGEH, Urine Culture Indicated NO Radiology CXR 10/25- IMPRESSION: 1. Suspected infiltrate at the left lung base, otherwise chronic findings noted. CT abdomen/pelvis 10/25 IMPRESSION: 1. Findings suspicious for small bowel obstruction with transition point in the right lower quadrant. 2. Coarsened interstitial markings and areas of bronchiectasis within the visualized lung bases, left greater than right. An atypical pneumonia is not excluded. Additionally tiny nodule seen at both lung bases which should be followed using the Fleischner criteria. 3. Cholelithiasis with other incidental findings as above. Assessment/Plan Assessment/Plan Assessment/Plan Assessment Abdominal pain SBO Nausea COPD HTN GERD Arthritis Hypothyroidism Anxiety, Depression Plan Continue NG tube suctioning, NPO diet. Continue pain medications and anti-emetic PRN. Continue monitoring for episodes of flatus and bowel movements Do abdominal XR tomorrow morning RACHEL SOLIS DO 10/25/21 1330: History of Present Illness History of Present Illness Time Seen by Provider: 12:55 History of Present Illness Surgery asked to consult regarding PSBO. HPI per ED: PT ARRIVES VIA EMS FROM HOME C/O ABDOMINAL PAIN AND DISTENTION SINCE YESTERDAY, C/O NAUSEA, NO VOMITING. DECREASED APPETITE, HAD BM YESTERDAY, BUT NOT IS NOT PASSING ANY GAS NO FEVER, NO URINARY SYMPTOMS AND VOIDING A NORMAL AMOUNT, PT WEARS HOME O2 AT 2L/NC--O2 SAT 94% FOR EMS, 100% ON 5L/NC ON ARRIVAL HERE When I saw pt this afternoon she was starting to have increasing pain again, the only thing that helps is pain meds. She denies ever having pain like this before. Pain is all across the abdomen and associated with nausea. Son states she usually has to watch what she eats, "she gets bad indigestion". Pt actually asked me if we could take out her gallbladder at the same time, "cause I have gallstones and don't want to have to come back.". Allergies and Home Medications Allergies Coded Allergies: No Known Drug Allergies (Unverified , 02/28/16) Patient Home Medication List Home Medication List Reviewed: Yes Albuterol Sulfate (Ventolin Hfa) 18 Gm Hfa.aer.ad, 1-2 PUFF IH Q4H PRN for SHORTNESS OF BREATH, (Reported) Entered as Reported by: SHERI RIOS on 02/21/16 141 Citalopram Hydrobromide (Citalopram HBr) 10 Mg Tablet, 10 MG PO DAILY, (Reported) Entered as Reported by: SHERI RIOS on 02/21/16 141 Fluticasone Propionate (Flonase Allergy Relief) 9.9 Ml [place].susp, 2 SPRAYS NS DAILY, (Reported) Entered as Reported by: SHERI RIOS on 02/21/16 1415 Hydrochlorothiazide (Hydrochlorothiazide) 25 Mg Tablet, 25 MG PO DAILY, (Reported) Entered as Reported by: CARMEN OLIVER on 07/26/21 1108 Levothyroxine Sodium (Levothyroxine) 50 Mcg Capsule, 50 MCG PO DAILY, (Reported) Entered as Reported by: CARMEN OLIVER on 07/26/21 1108 Lorazepam (Ativan) 1 Mg Tablet, 1 MG SL PRN, (Reported) Entered as Reported by: CARMEN OLIVER on 07/26/21 1108 Montelukast Sodium (Montelukast Sodium) 10 Mg Tablet, 10 MG PO DAILY, (Reported) Entered as Reported by: CARMEN OLIVER on 07/26/21 1108 Trazodone HCl (Trazodone HCl) 150 Mg Tablet, 50 MG PO HS, (Reported) Entered as Reported by: MARKO TORRES on 02/29/16 1056 Past Isjwwyp-Iautnp-Spnzab Hx Patient Social History Smoking Status: Current Everyday Smoker Sexual Abuse: No Surgeries History of Surgeries: Yes Surgeries: Hysterectomy, Orthopedic Respiratory History of Respiratory Disorde: Yes Respiratory Disorders: Sleep Apnea, COPD, Emphysema Cardiovascular History of Cardiac Disorders: Yes Cardiac Disorders: Hypertension Gastrointestinal History of Gastrointestinal Di: Yes Gastrointestinal Disorders: Gastroesophageal Reflux, Chronic Constipation, Gall Bladder Disease Musculoskeletal History of Musculoskeletal Dis: Yes Musculoskeletal Disorders: Arthritis, Chronic Back Pain, Fractures Endocrine History of Endocrine Disorders: Yes Endocrine Disorders: Hypothyroidsim HEENT History of HEENT Disorders: No Loss of Vision: Denies Hearing Impairment: Hard of Hearing, Bilateral Hearing Aide Cancer History of Cancer: No Psychosocial History of Psychiatric Problem: Yes Behavioral Health Disorders: Sleep Difficulties, Anxiety, Depression Family Medical History Significant Family History: Heart Disease, Hypertension Family Medial History: Hypertension G8 SISTER Neoplasm 19 MOTHER (LUNG CA) G8 BROTHER (LUNG CA) Review of Systems-General Constitutional: No chills, No fever EENTM: hearing loss; No ear pain, No blurred vision, No epistaxis Respiratory: No cough, No short of breath Cardiovascular: No chest pain, No palpitations Gastrointestinal: abdominal pain, heartburn, nausea; No vomiting Genitourinary: No discharge, No dysuria, No frequency Musculoskeletal: back pain; No joint pain; joint swelling; No muscle pain; mus melissa stiffness, muscle cramps Skin: No change in color, No change in hair/nails Psychiatric/Neurological: Denies Anxiety; Depressed; Denies Numbness, Denies Paresthesia Physical Exam-General Problems Physical Exam General Appearance: WD/WN Eyes: Bilateral Eye PERRL, Bilateral Eye EOMI HEENT: pharynx normal; No scleral icterus (R), No scleral icterus (L), No photophobia Neck: non-tender, supple Respiratory: lungs clear, normal breath sounds, no respiratory distress Cardiovascular: regular rate, rhythm, no murmur Gastrointestinal: abnormal bowel sounds (hyperactive BS both lower quadrants), distended, tenderness (diffuse, worse LLQ), hernia (umbilical) Back: no CVA tenderness, no vertebral tenderness Extremities: non-tender, no pedal edema, no calf tenderness, normal capillary refill Neurologic/Psychiatric: alert, normal mood/affect, oriented x 3 Skin: normal color, warm/dry Lymphatic: no adenopathy (neck, axilla or groin) Data Review Radiology Date of Exam:10/25/21 CT ABDOMEN/PELVIS WO PROCEDURE: CT abdomen and pelvis without contrast. TECHNIQUE: Multiple contiguous axial images were obtained through the abdomen and pelvis without the use of intravenous contrast. Auto Exposure Controls were utilized during the CT exam to meet ALARA standards for radiation dose reduction. INDICATION: Abdominal pain and distention EXAMINATION: CT abdomen and pelvis without contrast 10/25/2021 COMPARISON: 03/24/2019 FINDINGS: There are diffusely distended and fluid-filled small bowel loops throughout the abdomen with normal caliber seen in the right lower quadrant extending to the level of the terminal ileum. There appears to be a likely transition point within the right aspect of the pelvis on images 61 through 64. There is no evidence for free air. There is no significant free fluid. Minimal free fluid noted in the pelvis. The colon appears decompressed. The appendix is unremarkable. Small fat-containing anterior abdominal wall hernia noted. There is atherosclerotic disease. There are multiple stones within the gallbladder without surrounding inflammatory change. The liver, spleen, and pancreas unremarkable. Adrenal glands unremarkable. There is no acute process in either kidney. Within the visualized lung bases diffuse coarsened interstitial markings noted bilaterally with areas of atelectasis and/or scarring. There is mild bronchiectasis in the left lower lobe. There are tiny nodules subpleural in nature, left greater than right. There is no acute osseous abnormality. IMPRESSION: 1. Findings suspicious for small bowel obstruction with transition point in the right lower quadrant. 2. Coarsened interstitial markings and areas of bronchiectasis within the visualized lung bases, left greater than right. An atypical pneumonia is not excluded. Additionally tiny nodule seen at both lung bases which should be followed using the Fleischner criteria. 3. Cholelithiasis with other incidental findings as above. Dictated by: Dictated on workstation # [id number] Dict: 10/25/21 0507 Trans: 10/25/21 0722 [facility] [id number] Interpreted by: SIA KAY MD Electronically signed by: SIA KAY MD 10/25/21 0722 Assessment/Plan Assessment/Plan Assessment/Plan SBO probable complete Nausea COPD HTN GERD Arthritis Hypothyroidism Anxiety, Depression Plan Continue NG tube suctioning, NPO, Continue pain medications and anti-emetic PRN. I reviewed the CT myself and the decompressed small bowel is very small and I don't believe this is going to resolve on its own. I recommended pt have surgery to relieve this with probable small bowel resection. Discussed risks and complications, not limited to pain, bleeding, infection, scar, damage to bowel and need for further procedure. All questions answered to her satisfaction. Will get consent for Exploratory laparotomy with possible small bowel resection. Supervisory-Addendum Brief Verification & Attestation Participated in pt care: history, MDM, physical Personally performed: exam, history, MDM, supervision of care Care discussed with: Medical Student Procedures: n/a Verification and Attestation of Medical Student E/M Service A medical student performed and documented this service. I then reviewed and verified all information documented by the medical student and made modifications to such information, when appropriate. I personally performed a physical exam, medical decision making and then discussed any differences between the notes and made revisions as necessary to create one note. Rachel Solis , 10/25/21 , 13:35 ANSHUL STACK Oct 25, 2021 07:43 RACHEL SOLIS DO Oct 25, 2021 13:30
--- NOTE | 2021-10-25 08:04 | History & Physical ---
History of Present Illness History of Present Illness Reason for visit/HPI PT IS A 81 Y/O FEMALE WHO IS KNOWN TO ME FROM CLINIC. SHE REPORTS THAT SHE WAS FEELING FINE ON Saturday NIGHT, HOWEVER SHE STARTED to haVE PAIN ON SATURDAY. SHE REPORTS THAT ON Saturday MORNING SHE HAD ABDOMINAL DISCOMFORT THAT SLOWLY ESCALATED AND SHE THEN STARTED TO HAVE BLOATING THAT WORSENED TO THE POINT THAT SHe WAS UNABLE TO EAT AND WAS IN so MUCH PAIN THAT SHE CALLED THE AMBULANCE TO P ICK HER UP. SHE DENIES HAVING ANY EXPOSURE TO OTHER INDiVIDUALS WITH ILLNESS OR COVID. SHE DENIES DIARRHEA. Date of Admission Oct 25, 2021 at 05:30 Date Seen by a Provider: Oct 25, 2021 Time Seen by a Provider: 08:00 I consulted on this patient on 10/25/21 08:04 Attending Physician Anabela Campos MD Admitting Physician Anabela Campos MD Consult DR. SOLIS Allergies and Home Medications Allergies Coded Allergies: No Known Drug Allergies (Unverified , 02/28/16) Patient Home Medication List Home Medication List Reviewed: Yes Albuterol Sulfate (Ventolin Hfa) 18 Gm Hfa.aer.ad, 1-2 PUFF IH Q4H PRN for SHORTNESS OF BREATH, (Reported) Entered as Reported by: SHERI RIOS on 02/21/161414 Last Action: Held Citalopram Hydrobromide (Citalopram HBr) 10 Mg Tablet, 10 MG PO DAILY, (Reported) Entered as Reported by: SHERI RIOS on 02/21/161414 Last Action: Held Fluticasone Propionate (Flonase Allergy Relief) 9.9 Ml [place].susp, 2 SPRAYS NS DAILY, (Reported) Entered as Reported by: SHERI RIOS on 02/21/161414 Last Action: Held Hydrochlorothiazide (Hydrochlorothiazide) 25 Mg Tablet, 25 MG PO DAILY, (Reported) Entered as Reported by: CARMEN OLIVER on 07/26/211107 Last Action: Held Levothyroxine Sodium (Levothyroxine) 50 Mcg Capsule, 50 MCG PO DAILY, (Reported) Entered as Reported by: CARMEN OLIVER on 07/26/211107 Last Action: Held Lorazepam (Ativan) 1 Mg Tablet, 1 MG SL PRN, (Reported) Entered as Reported by: CARMEN OLIVER on 07/26/21 110 Last Action: Held Montelukast Sodium (Montelukast Sodium) 10 Mg Tablet, 10 MG PO DAILY, (Reported) Entered as Reported by: CARMEN OLIVER on 07/26/21 110 Last Action: Held Trazodone HCl (Trazodone HCl) 150 Mg Tablet, 50 MG PO HS, (Reported) Entered as Reported by: MARKO TORRES on 02/29/16 105 Last Action: Held Past Wfzpkvq-Vbvubc-Fctzym Hx Patient Social History Marrital Status: Living Status: LIVES AT HOME WITH HER son Employed/Student: retired Tobacco Use?: Yes Tobacco type used: Cigarettes Smoking Status: Current Everyday Smoker Substance use?: No Alcohol Use?: No Pt feels they are or have been: No Immunizations Up To Date Date of Influenza Vaccine: Oct 14, 2021 First/Initial COVID19 Vaccinat: STATES HAS HAD "3 COVID SHOTS" Second COVID19 Vaccination Vishnu: STATES HAS HAD "3 COVID SHOTS" Date of Pneumonia Vaccine: Mar 01, 2016 Seasonal Allergies Seasonal Allergies: No Current Status status: No status: No Communicates: Verbally Primary Language: Moroccan Preferred Spoken Language: Moroccan Sensory deficits: Vision impairment, Hearing impairment Implanted or Applied Medical D: None Past Medical History Surgeries: Hysterectomy, Orthopedic Sleep Apnea, COPD, Emphysema Currently Using CPAP: No Currently Using BIPAP: No Hypertension Sexually Transmitted Disease: No HIV/AIDS: No Gastroesophageal Reflux, Chronic Constipation Arthritis, Chronic Back Pain, Fractures Hypothyroidsim Loss of Vision: Bilateral Hearing Impairment: Hard of Hearing, Bilateral Hearing Aide Sleep Difficulties, Anxiety, Depression Blood Disorders: No Adverse Reaction/Blood Tranf: No Family Medical History Reviewed and Corrections made Hypertension G8 SISTER Neoplasm 19 MOTHER (LUNG CA) G8 BROTHER (LUNG CA) Heart Disease, Cancer, Hypertension SOCIAL HISTORY: -SMOKED HEAVY X 72 YEARS. -DENIES ETOH PAST SURGICAL HISTORY: -T6 VERTEBROPLASTY 2015, WITH POST OP RIGHT PNEUMOTHORAX AND RIGHT CHEST TUBE PLACEMENT -HYSTERECTOMY -COLONOSCOPY 07/28/[address] HOUGH Review of Systems Constitutional: No chills, No diaphoresis, No dizziness, No fever, No malaise, No weakness EENTM: hearing loss; No hoarseness, No throat pain Respiratory: No cough, No dyspnea on exertion Cardiovascular: No chest pain, No edema, No syncope; other Gastrointestinal: abdominal pain (DIfFUSELy), loss of appetite, nausea Genitourinary: no symptoms reported Musculoskeletal: joint pain (ARTHRITIS) Skin: no symptoms reported Psychiatric/Neurological: No Symptoms Reported All Other Systems Reviewed Negative Unless Noted: Yes Physical Exam Vital Signs Vital Signs - First Documented 10/25/21 04:02 Temp 36.6 Pulse 67 Resp 16 B/P (MAP) 137/72 (93) Pulse Ox 98 O2 Delivery Nasal Cannula O2 Flow Rate 3.00 Capillary Refill : Less Than 3 Seconds Height, Weight, BMI Height: 5'0.00" Weight: 159lbs. 0.0oz. 72.961632gh; 27.43 BMI Method: General Appearance: WD/WN, Mild Distress (DUE TO ABDOMINAL PAIN) HEENT: PERRL/EOMI, Pharynx Normal Neck: Full Range of Motion, Non Tender, Supple Respiratory: Chest Non Tender, Lungs Clear, Normal Breath Sounds, No Accessory Muscle Use, No Respiratory Distress Cardiovascular: Regular Rate, Rhythm, Systolic Murmur (II/ GUILHERME) Gastrointestinal: Guarding, Tenderness (DIFFUSELY), Other (NG TUBE IN RIGHT NARE) Rectal: Deferred Back: No CVA Tenderness Extremity: Normal Capillary Refill, Normal Inspection, Normal Range of Motion, Non Tender, No Calf Tenderness, No Pedal Edema Neurologic/Psychiatric: Alert, Oriented x3, No Motor/Sensory Deficits, Normal Mood/Affect, pharmacy service associate II-XII Norm as Tested Skin: Normal Color, Warm/Dry Lymphatic: No Adenopathy Assessment/Plan Assessment and Plan SMALL BOWEL OBSTRUCTION ABDOMINAL PAIN NAUSEA HYPOTHYROIDISM HYPERTENSION DEPRESSION SMALL BOWEL OBSTRUCTION WITH NAUSEA AND ABDOMINAL PAIN - DEFER TO DR. SOLIS - NG TUBE IN PLACE - MONITOR SYMPTOMS CLOSELY HYPOTHYROIDISM - PT TO CONTINUE WITH LEVOTHYROXINE SOON SHE IS ABLE TO TAKE PO HYPERTENSION - HOLD HCTZ AND MONITOR BP, WILL TREAT NEEDED DEPRESSION - HOLD SSRI FOR NOW, ONCE ABLE TO TAKE PO MEDICATIONS WILL RESTART. DVT PROPHYLAXIS - WILL START LOVENOX TOMORROW START ON SCD'S TONIGHT GI PROPHYLAXIS WITH PPI Admission Diagnosis SMALL BOWEL OBSTRUCTION ABDOMINAL PAIN NAUSEA HYPOTHYROIDISM HYPERTENSION DEPRESSION Admission Status: Inpatient Order (span 2 midnights) Reason for Inpatient Admission: INpT ADMISSION FOR SMALL BOWEl OBSTRUCTION -wILL REQUIRE AT LEAST 48 -72 HOURS [facility] ANABELA CAMPOS MD Oct 25, 2021 08:04
[2021-10-25] MEDS: fentaNYL INJ 100 MCG/2 ML AMP IV PRN ×4 (09:50→21:19)
[2021-10-25] MEDS ORDERED: ONDANSETRON 4 MG/2 ML (SDV) Z0FRAN ONE (13:20)
[2021-10-25] MEDS ORDERED: LIDOCAINE PF 2% 5 ML (XYLOCAINE) VIAL ONE (13:20)
[2021-10-25] MEDS ORDERED: ROCURONIUM 50 MG/5 ML (ZEMURON) VIAL IV ONE (13:20)
[2021-10-25] MEDS ORDERED: SEVOFLURANE (ULTANE) 15 ML INHAL SOLN ONE (13:20)
[2021-10-25] MEDS ORDERED: proPOfol 200 MG/20 ML (DIPRIVAN) VIAL IV ONE (13:20)
[2021-10-25] MEDS ORDERED: fentaNYL INJ 100 MCG/2 ML AMP ONE ×2 (13:21→15:29)
[2021-10-25] MEDS ORDERED: LACTATED RINGERS 1,000 ML IV PRN (14:00)
[2021-10-25] MEDS ORDERED: ceFAZolin INJECTION 2,000 MG ONE (14:19)
[2021-10-25] MEDS ORDERED: NALOXONE 0.4 MG/ML 1 ML (NARCAN) VIAL ONE (15:01)
--- NOTE | 2021-10-25 15:02 | Progress Note-Post Operative ---
Post-Operative Progess Note Surgeon (s)/Foster Care Social Worker (s) Surgeon RACHEL SOLIS DO Foster Care Social Worker: Miles Pre-Operative Diagnosis small bowel obstruction Post-Operative Diagnosis same secondary to adhesions Procedure & Operative Findings Date of Procedure 10/25/21 Procedure Performed/Findings 1) Ex lap with MARCO 2) Manual decompression of small bowel Anesthesia Type GET Estimated Blood Loss Estimated blood loss (mL): less than 50ml Specimens/Packing Specimens Removed none Packing: appx 1L of fecal material out of small bowel, thru NGT RACHEL SOLIS DO Oct 25, 2021 15:02
[2021-10-25] MEDS ORDERED: ONDANSETRON 4 MG/2 ML (SDV) Z0FRAN IVP PRN (15:45)
[2021-10-25] MEDS ORDERED: fentaNYL INJ 100 MCG/2 ML AMP IVP ONE (15:45)
[2021-10-25] MEDS ORDERED: morphine INJ 10 MG/ML 1ML (SYR OR VIAL) IVP ONE (15:45)
[2021-10-26 00:11] VITALS: BP 125/75
--- NOTE | 2021-10-26 00:24 | OPERATIVE REPORT ---
DATE OF SERVICE: 10/25/2021 PREOPERATIVE DIAGNOSES: Partial small bowel obstruction, almost complete as well as hypertension, hypothyroid. POSTOPERATIVE DIAGNOSES: Partial small bowel obstruction, almost complete as well as hypertension, hypothyroid. PROCEDURE: 1. Exploratory laparotomy with lysis of adhesion. 2. Manual decompression of small bowel. SURGEON: Jeremiah Dixon DO JIG BORE OPERATOR: Mauricio Aquino DO. ANESTHESIA: General endotracheal tube. SPECIMENS: None. BLOOD LOSS: Less than 50 mL. FLUIDS: Per anesthesia. POSTOPERATIVE CONDITION: Stable. INDICATION FOR PROCEDURE: The patient is a 81-year-old female who came in with severe abdominal pain, not really getting better except with pain medications. CT showed at least partial small-bowel obstruction. I thought it might be almost complete and probably would not resolve on its own. FINDINGS: The patient had two adhesions one down in the pelvis and one in the middle, almost like an internal hernia or small intestine basically like wrapped around itself. These were very decompressed. This was not going to resolve on its own. PROCEDURE NOTE: After informed consent was obtained, the patient was brought to the operating room, placed on the table in supine position. She was sterilely prepped and draped in normal fashion. I made a midline incision #10 blade, carried down through the skin into subcutaneous tissue, then deepened down to subcutaneous tissue with Bovie electrocautery down to the fascia and then bluntly entered the abdomen and then increased the incision superiorly and inferiorly with Bovie electrocautery down to just above the abdominal crease and about 1 to 2 inches above the umbilicus. Upon entering, encountered some very distended small bowel. There was also omentum that was stuck on the abdominal wall. This was carefully taken down, so we could get into the abdomen. Once in the abdomen, felt an adhesion down the pelvis, able to get down here and then cut this off. This was a portion of small bowel and terminal ileum proximal to this. This adhesion was cut off, it was attached to the portion of small bowel that was basically terminal ileum and proximal to this was completely decompressed, allow this to then pull-up. We started running the small bowel, found another adhesion. This was almost in the middle. Almost like it was wrapped around itself like an internal hernia and released this adhesion and then able to run the small bowel all the way up to the ligament of Treitz. No other adhesions, no other obvious pathology was found. At this point, then elected to manually decompress the small bowel and milked the small bowel from the terminal ileum all the way to ligament of Treitz, pushed all of this liquid and air into the stomach. Stomach very distended, able to have the TRICK RODEO RIDER change position of the NG tube and then we got out about 1100 mL of fecal fluid. Small bowel was very decompressed and at this point, we then elected to end the procedure. We irrigated with a liter of warm normal saline, suctioned this out. I then brought the omentum down over the intestine and then closed the midline incision with #1 double stranded PDS suture running from the superior portion to inferior portion tying to itself. Irrigated the incision, then closed the incision with shmuel. The area was cleaned and dried, pressure dressing placed. The patient tolerated the procedure. Sponge, instrument and needle count correct at the end of the case. Dr. Aquino assisted in this case helping to make incisions, close the incision, identify anatomy, hold anatomy out of the way. Job ID: [id number] DocumentID: [id number] Dictated Date: 10/25/2021 16:59:46 Voltage Inspector Date: 10/26/2021 00:23:17 Dictated By: JEREMIAH DIXON DO
[2021-10-26] MEDS: fentaNYL INJ 100 MCG/2 ML AMP IV PRN ×5 (01:18→20:57)
[2021-10-26] MEDS ORDERED: CHLORASEPTIC SPRAY 177 ML LIQUID MC PRN (01:45)
[2021-10-26 03:37] VITALS: BP 121/59
[2021-10-26] MEDS: D5 1/2 NS W/KCL 20 MEQ/L 1,000 ML IV SCH ×3 (06:15→20:51)
[2021-10-26 06:39] LABS: BASOPHILS % (AUTO) 0 % (0-10); EOSINOPHILS % (AUTO) 0 % (0-10); HEMATOCRIT 41 % (35-52); HEMOGLOBIN 12.6 g/dL (11.5-16.0); LYMPHOCYTES # (AUTO) 0.9 10^3/uL (1.0-4.0); LYMPHOCYTES % (AUTO) 18 % (12-44); MEAN CORPUSCULAR HEMOGLOBIN 28 pg (25-34); MEAN CORPUSCULAR HGB CONC 31 g/dL (32-36); MEAN CORPUSCULAR VOLUME 92 fL (80-99); MEAN PLATELET VOLUME 10.4 fL (9.0-12.2); MONOCYTES # (AUTO) 0.6 10^3/uL (0.0-1.0); MONOCYTES % (AUTO) 11 % (0-12); NEUTROPHILS # (AUTO) 3.7 10^3/uL (1.8-7.8); NEUTROPHILS % (AUTO) 70 % (42-75); PLATELET COUNT 183 10^3/uL (130-400); WHITE BLOOD COUNT 5.2 10^3/uL (4.3-11.0)
[2021-10-26 06:56] LABS: CALCIUM 8.3 MG/DL (8.5-10.1); CREATININE SERUM 0.74 MG/DL (0.60-1.30); POTASSIUM 4.6 MMOL/L (3.6-5.0)
--- NOTE | 2021-10-26 07:24 | Progress Note - Surgery ---
ANSHUL STACK 10/26/21 0724: Subjective Date Seen by a Provider: Oct 26, 2021 Time Seen by a Provider: 06:31 Subjective/Events-last exam Pt reports that she had quite a bit of pain last night. Improved slightly this morning after receiving her pain medication. She states that she did not have an y episodes of flatus or bowel movements last night or this morning. NG tube is still in place and draining stomach contents. Pt is NPO. Complaining of a sore throat that does improve with phenol spray. Review of Systems General: Chills, Fatigue HEENT: No Head Aches, No Visual Changes Pulmonary: No Dyspnea, No Cough Cardiovascular: No: Chest Pain, Palpitations Gastrointestinal: Abdominal Pain; No: Nausea, Vomiting Neurological: No: Weakness, Numbness Focused Exam Lactate Level 10/25/21 04:20: Lactic Acid Level 0.83 Objective Exam Vital Signs Date Time Temp Pulse Resp B/P (MAP) Pulse Ox O2 Delivery O2 Flow Rate FiO2 10/26/21 03:37 36.4 64 18 121/59 (79) 96 Nasal Cannula 2.00 10/26/21 01:00 60 10/26/21 00:11 36.3 81 18 125/75 (92) 95 Nasal Cannula 2.00 10/25/21 20:00 37.0 70 20 133/66 (88) 94 Nasal Cannula 2.00 10/25/21 19:50 Nasal Cannula 2.00 10/25/21 19:00 62 10/25/21 16:00 36.1 21 125/72 (89) 99 3 10/25/21 16:00 37.2 63 22 133/62 (85) 92 Nasal Cannula 5.00 10/25/21 16:00 OxyMask 3 10/25/21 15:50 OxyMask 3 10/25/21 15:50 22 140/71 (94) 98 OxyMask 3 10/25/21 15:40 OxyMask 4 10/25/21 15:40 16 140/76 (97) 97 OxyMask 4 10/25/21 15:30 19 148/77 (100) 98 OxyMask 10 10/25/21 15:23 OxyMask 10 10/25/21 15:20 22 131/82 (98) 98 OxyMask 10 10/25/21 15:08 36.1 16 148/79 (102) 100 OxyMask 10 10/25/21 15:08 OxyMask 10 10/25/21 13:00 69 10/25/21 12:00 36.6 65 18 124/78 (93) 98 Nasal Cannula 5.00 10/25/21 09:18 Nasal Cannula 4.00 10/25/21 08:00 Nasal Cannula 4.00 10/25/21 08:00 36.6 66 20 130/79 (96) 98 Nasal Cannula 5.00 I & O 10/26/21 07:00 Intake Total 2020 ml Output Total 1855 ml Balance 165 ml Capillary Refill : Less Than 3 SecondsLess Than 3 Seconds General Appearance: WD/WN, Mild Distress (due to abdominal pain) Neck: Non Tender, Supple Respiratory: Lungs Clear, Normal Breath Sounds, No Accessory Muscle Use, No Respiratory Distress Cardiovascular: Regular Rate, Rhythm, Normal Peripheral Pulses Gastrointestinal: abnormal bowel sounds (hypoactive bowel sounds), distended, tenderness (diffuse) Extremity: Normal Capillary Refill, Non Tender, No Calf Tenderness, No Pedal Edema Neurologic/Psychiatric: Alert, Oriented x3 Skin: Normal Color, Warm/Dry Lymphatic: No Adenopathy (cervical ) Results Lab Laboratory Tests 10/26/21 06:07: White Blood Count 5.2, Red Blood Count 4.45, Hemoglobin 12.6, Hematocrit 41, Mean Corpuscular Volume 92, Mean Corpuscular Hemoglobin 28, Mean Corpuscular Hemoglobin Concent 31L, Red Cell Distribution Width 14.2, Platelet Count 183, Mean Platelet Volume 10.4, Immature Granulocyte % (Auto) 0, Neutrophils (%) (Auto) 70, Lymphocytes (%) (Auto) 18, Monocytes (%) (Auto) 11, Eosinophils (%) (Auto) 0, Basophils (%) (Auto) 0, Neutrophils # (Auto) 3.7, Lymphocytes # (Auto) 0.9L, Monocytes # (Auto) 0.6, Eosinophils # (Auto) 0.0, Basophils # (Auto) 0.0, Immature Granulocyte # (Auto) 0.0, Sodium Level 137, Potassium Level 4.6, Chlor manuel Level 102, Carbon Dioxide Level 26, Anion Gap 9, Blood Urea Nitrogen 10, Creatinine 0.74, Estimat Glomerular Filtration Rate 76, BUN/Creatinine Ratio 14, Glucose Level 139H, Calcium Level 8.3L Assessment/Plan Assessment/Plan Assessment/Plan SBO S/P ex lap 10/25 COPD HTN GERD Arthritis Hypothyroidism Anxiety, Depression Plan Continue NG tube suctioning, NPO until pt is able to have episodes of flatus and bowel movements Continue pain medications and anti-emetic PRN. Continue monitoring of incision site and dressing changes JEREMIAH DIXON DO 10/26/21 1012: Subjective Time Seen by a Provider: 09:21 Subjective/Events-last exam Pt seen and examined, states she is too weak to move and has abdominal pain. Denies flatus or BM. She really wants her NGT out. Review of Systems General: Fatigue Pulmonary: No Dyspnea, No Cough Cardiovascular: No: Chest Pain, Palpitations Gastrointestinal: Abdominal Pain; No: Nausea, Vomiting Objective Exam General Appearance: Mild Distress (due to abdominal pain), Obese Respiratory: Lungs Clear, Normal Breath Sounds, No Accessory Muscle Use, No Respiratory Distress Cardiovascular: Regular Rate, Rhythm, No Murmur Gastrointestinal: soft, abnormal bowel sounds (hypoactive bowel sounds), tenderness (diffuse) Assessment/Plan Assessment/Plan Assessment/Plan SBO - S/P ex lap 10/25 COPD, HTN, GERD, Arthritis Hypothyroidism Anxiety, Depression Plan Continue NG tube suctioning, NPO until pt is able to have episodes of flatus and bowel movements Continue pain medications and anti-emetic PRN. Continue monitoring of incision site and dressing changes Supervisory-Addendum Brief Verification & Attestation Participated in pt care: history, MDM, physical Personally performed: exam, history, MDM, supervision of care Care discussed with: Medical Student Procedures: n/a Verification and Attestation of Medical Student E/M Service A medical student performed and documented this service. I then reviewed and verified all information documented by the medical student and made modifications to such information, when appropriate. I personally performed a physical exam, medical decision making and then discussed any differences between the notes and made revisions as necessary to create one note. Jeremiah Dixon , 10/26/21 , 10:13 ANSHUL STACK Oct 26, 2021 07:24 JEREMIAH DIXON DO Oct 26, 2021 10:12
[2021-10-26 08:00] VITALS: BP 127/61
--- NOTE | 2021-10-26 08:40 | Progress Note ---
Subjective Subjective Date Seen by Provider: Oct 26, 2021 Time Seen by Provider: 08:30 PT IRRITABLE THIS MORNING PT COMPLAINING OF SIGNIFICANT PAIN IN HER STOMACH. SHE DENIES CHEST PAIN SHE DENIES DIZZINESS, NAUSEA, COMPLAINS OF PAIN FROM NG TUBE Review of Systems General: Chills, Fatigue HEENT: No Head Aches, No Visual Changes Pulmonary: No Dyspnea, No Cough Cardiovascular: No: Chest Pain, Palpitations Gastrointestinal: Abdominal Pain; No: Nausea, Vomiting Neurological: No: Weakness, Numbness All Other Systems Reviewed All Other Systems Reviewed: Yes Objective Exam Vital Signs Vital Signs Date Time Temp Pulse Resp B/P (MAP) Pulse Ox O2 Delivery O2 Flow Rate FiO2 10/26/21 08:00 36.4 77 14 127/61 (83) 96 Nasal Cannula 2.00 10/26/21 07:57 Nasal Cannula 2.00 10/26/21 07:00 68 10/26/21 03:37 36.4 64 18 121/59 (79) 96 Nasal Cannula 2.00 10/26/21 01:00 60 10/26/21 00:11 36.3 81 18 125/75 (92) 95 Nasal Cannula 2.00 10/25/21 20:00 37.0 70 20 133/66 (88) 94 Nasal Cannula 2.00 10/25/21 19:50 Nasal Cannula 2.00 10/25/21 19:00 62 10/25/21 16:00 36.1 21 125/72 (89) 99 3 10/25/21 16:00 37.2 63 22 133/62 (85) 92 Nasal Cannula 5.00 10/25/21 16:00 OxyMask 3 10/25/21 15:50 OxyMask 3 10/25/21 15:50 22 140/71 (94) 98 OxyMask 3 10/25/21 15:40 OxyMask 4 10/25/21 15:40 16 140/76 (97) 97 OxyMask 4 10/25/21 15:30 19 148/77 (100) 98 OxyMask 10 10/25/21 15:23 OxyMask 10 10/25/21 15:20 22 131/82 (98) 98 OxyMask 10 10/25/21 15:08 36.1 16 148/79 (102) 100 OxyMask 10 10/25/21 15:08 OxyMask 10 10/25/21 13:00 69 10/25/21 12:00 36.6 65 18 124/78 (93) 98 Nasal Cannula 5.00 10/25/21 09:18 Nasal Cannula 4.00 I & O 10/26/21 07:00 Intake Total 2020 ml Output Total 1855 ml Balance 165 ml General Appearance: WD/WN, Mild Distress (due to abdominal pain) Eyes: Bilateral Eye PERRL, Bilateral Eye EOMI Neck: Non Tender, Supple Respiratory: Lungs Clear, Normal Breath Sounds, No Accessory Muscle Use, No Respiratory Distress Cardiovascular: Regular Rate, Rhythm, Normal Peripheral Pulses Gastrointestinal: Guarding, Tenderness (DIFFUSELY), Other (NG TUBE IN RIGHT NARE) Rectal: Deferred Back: No CVA Tenderness Extremity: Normal Capillary Refill, Non Tender, No Calf Tenderness, No Pedal Edema Neurologic/Psychiatric: Alert, Oriented x3 Skin: Normal Color, Warm/Dry Lymphatic: No Adenopathy (cervical ) Results Lab Laboratory Tests 10/26/21 06:07: White Blood Count 5.2, Red Blood Count 4.45, Hemoglobin 12.6, Hematocrit 41, Mean Corpuscular Volume 92, Mean Corpuscular Hemoglobin 28, Mean Corpuscular Hemoglobin Concent 31L, Red Cell Distribution Width 14.2, Platelet Count 183, Mean Platelet Volume 10.4, Immature Granulocyte % (Auto) 0, Neutrophils (%) (Auto) 70, Lymphocytes (%) (Auto) 18, Monocytes (%) (Auto) 11, Eosinophils (%) (Auto) 0, Basophils (%) (Auto) 0, Neutrophils # (Auto) 3.7, Lymphocytes # (Auto) 0.9L, Monocytes # (Auto) 0.6, Eosinophils # (Auto) 0.0, Basophils # (Auto) 0.0, Immature Granulocyte # (Auto) 0.0, Sodium Level 137, Potassium Level 4.6, Chloride Level 102, Carbon Dioxide Level 26, Anion Gap 9, Blood Urea Nitrogen 10, Creatinine 0.74, Estimat Glomerular Filtration Rate 76, BUN/Creatinine Ratio 14, Glucose Level 139H, Calcium Level 8.3L Assessment/Plan Assessment/Plan Admission Dx SMALL BOWEL OBSTRUCTION ABDOMINAL PAIN NAUSEA HYPOTHYROIDISM HYPERTENSION DEPRESSION Assessment and Plan SMALL BOWEL OBSTRUCTION ABDOMINAL PAIN NAUSEA HYPOTHYROIDISM HYPERTENSION DEPRESSION ANXIOLYTIC THROAT PAIN SMALL BOWEL OBSTRUCTION WITH NAUSEA AND ABDOMINAL PAIN - DEFER TO DR. SOLIS - NG TUBE IN PLACE - MONITOR SYMPTOMS CLOSELY HYPOTHYROIDISM - PT TO CONTINUE WITH LEVOTHYROXINE SOON SHE IS ABLE TO TAKE PO HYPERTENSION - HOLD HCTZ AND MONITOR BP, WILL TREAT NEEDED WITH IV MEDICATIONS DEPRESSION - HOLD SSRI FOR NOW, ONCE ABLE TO TAKE PO MEDICATIONS WILL RESTART. EXTREME ANXIETY - PT RECEIVING PRN ANXIOLYTICS DVT PROPHYLAXIS - WILL START LOVENOX TOMORROW START ON SCD'S TONIGHT GI PROPHYLAXIS WITH PPI Admission Dx SMALL BOWEL OBSTRUCTION ABDOMINAL PAIN NAUSEA HYPOTHYROIDISM HYPERTENSION DEPRESSION Clinical Quality Measures Admission Status Admission Dx SMALL BOWEL OBSTRUCTION ABDOMINAL PAIN NAUSEA HYPOTHYROIDISM HYPERTENSION DEPRESSION ANABELA PORTER MD Oct 26, 2021 08:40
[2021-10-26] MEDS: PANTOPRAZOLE 40 MG (PROTONIX) VIAL IV SCH (09:40)
[2021-10-26] MEDS: ENOXAPARIN 40 MG/0.4 ML (LOVENOX) SYR SC SCH (09:40)
[2021-10-26] MEDS: LORazepam INJ 2 MG/ML (ATIVAN) VIAL IVP PRN ×3 (10:00→23:38)
[2021-10-26] MEDS ORDERED: TRZ50T PO (10:37)
[2021-10-26] MEDS ORDERED: ARFO15VI3 IH (10:37)
[2021-10-26] MEDS ORDERED: LEVO50TA6 PO (10:37)
[2021-10-26] MEDS ORDERED: POLY17PO6 PO (10:37)
[2021-10-26] MEDS ORDERED: LORA-405 PO (10:37)
[2021-10-26] MEDS ORDERED: NAPR220T66 PO (10:37)
[2021-10-26 12:00] VITALS: BP 120/58
--- NOTE | 2021-10-26 14:40 | Anesthesia-General Post-Op ---
General Patient Condition Mental Status/LOC: Same as Preop Cardiovascular: Satisfactory Nausea/Vomiting: Absent Respiratory: Satisfactory Pain: Controlled Complications: Absent Post Op Complications Complications None Follow Up Care/Instructions Patient Instructions None needed. Anesthesia/Patient Condition Patient Condition Patient is doing well, no complaints, stable vital signs, no apparent adverse anesthesia problems. No complications reported per nursing. ARIANA NOLEN CRNA Oct 26, 2021 14:40
[2021-10-26 16:00] VITALS: BP 127/78
[2021-10-26 20:00] VITALS: BP 143/80
[2021-10-27 00:02] VITALS: BP 132/80
[2021-10-27 03:39] VITALS: BP 150/85
[2021-10-27] MEDS: fentaNYL INJ 100 MCG/2 ML AMP IV PRN ×6 (03:59→22:39)
[2021-10-27] MEDS ORDERED: CHLORASEPTIC LOZENGE MM PRN (05:45)
[2021-10-27] MEDS ORDERED: RT-ALBUTEROL SULF 2.5 MG/3 ML PRE-MIX VIAL INH PRN (05:45)
[2021-10-27] MEDS: LORazepam INJ 2 MG/ML (ATIVAN) VIAL IVP PRN ×5 (06:33→20:19)
--- NOTE | 2021-10-27 07:37 | Progress Note - Surgery ---
ANSHUL STACK 10/27/21 0737: Subjective Date Seen by a Provider: Oct 27, 2021 Time Seen by a Provider: 06:46 Subjective/Events-last exam Pt reports that she has not had any episodes of flatus or bowel movements in the last 24 hours. She is still NPO. NG tube is still in place States that her abd ominal pain is better than it was yesterday. Says that the pain medications helps to reduce the pain when she gets it. Unsure if her abdomen is more distended than it was yesterday. She is having some throat pain from the NG tube. Reports that the chloraseptic lozenge she is getting has helped with the throat pain. Review of Systems General: No Chills, No Night Sweats HEENT: No Head Aches, No Visual Changes; Sore Throat Pulmonary: No Dyspnea, No Cough Cardiovascular: No: Chest Pain, Palpitations Gastrointestinal: Abdominal Pain; No: Nausea, Vomiting Musculoskeletal: No: shoulder pain, back pain Neurological: No: Weakness, Numbness Focused Exam Lactate Level 10/25/21 04:20: Lactic Acid Level 0.83 Objective Exam Vital Signs Date Time Temp Pulse Resp B/P (MAP) Pulse Ox O2 Delivery O2 Flow Rate FiO2 10/27/21 06:15 93 Nasal Cannula 2.00 10/27/21 03:39 37.1 94 20 150/85 (106) 95 Nasal Cannula 2.00 10/27/21 01:00 96 10/27/21 00:02 36.5 94 20 132/80 (97) 94 Nasal Cannula 2.00 10/26/21 20:00 36.7 105 20 143/80 (101) 92 Nasal Cannula 2.00 10/26/21 20:00 Nasal Cannula 2.00 10/26/21 19:00 112 10/26/21 16:00 37.1 82 20 127/78 (94) 95 Nasal Cannula 2.00 10/26/21 13:00 81 10/26/21 12:00 36.9 83 16 120/58 (78) 94 Nasal Cannula 2.00 10/26/21 08:00 36.4 77 14 127/61 (83) 96 Nasal Cannula 2.00 10/26/21 07:57 Nasal Cannula 2.00 I & O 10/27/21 07:00 Intake Total 0 ml Output Total 1550 ml Balance -1550 ml Capillary Refill : Less Than 3 SecondsLess Than 3 Seconds General Appearance: No Apparent Distress, WD/WN HEENT: PERRL/EOMI; No Photophobia Neck: Non Tender, Supple Respiratory: Lungs Clear, No Respiratory Distress, Wheezing (late expiratory wheeze) Cardiovascular: Regular Rate, Rhythm, No Murmur, Normal Peripheral Pulses Gastrointestinal: soft, abnormal bowel sounds (hypoactive bowel sounds), distended, tenderness (both lower quadrants) Extremity: Normal Capillary Refill, Non Tender, No Calf Tenderness, No Pedal Edema Neurologic/Psychiatric: Alert, Oriented x3 Skin: Normal Color, Warm/Dry Lymphatic: No Adenopathy (cervical ) Assessment/Plan Assessment/Plan Assessment/Plan SBO S/P ex lap 10/25 COPD, HTN, GERD, Arthritis Hypothyroidism Anxiety, Depression Plan Continue NG tube suctioning, NPO until pt is able to have episodes of flatus and bowel movements Continue pain medications and anti-emetic PRN. Continue monitoring of incision site and dressing changes SARAY AQUINO DO 10/27/212037: Subjective Subjective/Events-last exam Patient n.p.o.. NG tube in place. No flatus or bowel movement. Patient abdominal pain is tolerable at this time. Mild distention. Patient sitting up in chair. Has complaints of pain in her throat from NG tube. Not using incentive spirometer. Objective Exam General Appearance: No Apparent Distress (Sitting in chair), WD/WN HEENT: PERRL/EOMI Neck: Non Tender, Supple Respiratory: Chest Non Tender, No Accessory Muscle Use, No Respiratory Distress Cardiovascular: Regular Rate, Rhythm, No JVD Gastrointestinal: distended, tenderness (Mostly incisional) Extremity: Normal Capillary Refill, Non Tender, No Calf Tenderness Neurologic/Psychiatric: Alert, Oriented x3 Skin: Normal Color, Warm/Dry Lymphatic: No Adenopathy (cervical ) Assessment/Plan Assessment/Plan Assessment/Plan SBO - S/P ex lap 10/25 COPD, HTN, GERD, Arthritis Hypothyroidism Anxiety, Depression Plan Continue NG tube suctioning, NPO until flatus or BM Continue pain medications and anti-emetic PRN. Continue monitoring of incision site and dressing changes Encourage patient to use incentive spirometer. Encourage patient to continue to increase activity. Supervisory-Addendum Brief Verification & Attestation Participated in pt care: history, MDM, physical Personally performed: exam, history, MDM, supervision of care Care discussed with: Medical Student Procedures: n/a Results interpretation: Verified all documentation Verification and Attestation of Medical Student E/M Service A medical student performed and documented this service in my presence. I reviewed and verified all information documented by the medical student and made modifications to such information, when appropriate. I personally performed the physical exam and medical decision making. Saray Aquino, Oct 27, 2021,20:38 ANSHUL STACK Oct 27, 2021 07:37 SARAY AQUINO DO Oct 27, 2021 20:38
[2021-10-27] MEDS: D5 1/2 NS W/KCL 20 MEQ/L 1,000 ML IV SCH ×3 (07:49→19:02)
[2021-10-27 08:00] VITALS: BP 141/83
[2021-10-27] MEDS: PANTOPRAZOLE 40 MG (PROTONIX) VIAL IV SCH (08:12)
[2021-10-27] MEDS: ENOXAPARIN 40 MG/0.4 ML (LOVENOX) SYR SC SCH (08:12)
[2021-10-27] MEDS ORDERED: FUROSEMIDE 40 MG/4 ML INJ (LASIX) IVP ONE (09:30)
--- NOTE | 2021-10-27 09:57 | Progress Note ---
Subjective Subjective Date Seen by Provider: Oct 27, 2021 Time Seen by Provider: 09:10 PT IRRITABLE THIS MORNING PT COMPLAINING OF SIGNIFICANT PAIN IN HER STOMACH. AND SHE COMPLAINS ABOUT ANXIETY AND THROAT PAIN. SHE STATES "I WOULD BE BETTER IF PEOPLE EVER CAME INTO THE ROOM OR IF THEY COULD GET AHOLD OF YOU AT NIGHT" - BUT NOTE SHOULD BE MADE THAT I WAS CALLED LAST NIGHT ABOUT HER ANXIETY. Review of Systems General: Chills, Fatigue HEENT: No Head Aches, No Visual Changes Pulmonary: No Dyspnea, No Cough Cardiovascular: No: Chest Pain, Palpitations Gastrointestinal: Abdominal Pain; No: Nausea, Vomiting Musculoskeletal: No: shoulder pain, back pain Neurological: No: Weakness, Numbness All Other Systems Reviewed All Other Systems Reviewed: Yes Objective Exam Vital Signs Vital Signs Date Time Temp Pulse Resp B/P (MAP) Pulse Ox O2 Delivery O2 Flow Rate FiO2 10/27/21 08:00 36.6 91 20 141/83 (102) 94 Nasal Cannula 2.00 10/27/21 07:00 95 10/27/21 06:15 93 Nasal Cannula 2.00 10/27/21 03:39 37.1 94 20 150/85 (106) 95 Nasal Cannula 2.00 10/27/21 01:00 96 10/27/21 00:02 36.5 94 20 132/80 (97) 94 Nasal Cannula 2.00 10/26/21 20:00 36.7 105 20 143/80 (101) 92 Nasal Cannula 2.00 10/26/21 20:00 Nasal Cannula 2.00 10/26/21 19:00 112 10/26/21 16:00 37.1 82 20 127/78 (94) 95 Nasal Cannula 2.00 10/26/21 13:00 81 10/26/21 12:00 36.9 83 16 120/58 (78) 94 Nasal Cannula 2.00 I & O 10/27/21 07:00 Intake Total 0 ml Output Total 1550 ml Balance -1550 ml General Appearance: WD/WN, Mild Distress (DUE TO ABDOMINAL PAIN AND ANXIETY) Eyes: Bilateral Eye PERRL, Bilateral Eye EOMI HEENT: PERRL/EOMI; No Photophobia Neck: Non Tender, Supple Respiratory: Lungs Clear, Normal Breath Sounds, No Accessory Muscle Use, No Respiratory Distress Cardiovascular: Regular Rate, Rhythm, Normal Peripheral Pulses Gastrointestinal: Guarding, Tenderness (DIFFUSELY), Other (NG TUBE IN RIGHT NARE) Rectal: Deferred Back: No CVA Tenderness Extremity: Normal Capillary Refill, Non Tender, No Calf Tenderness, No Pedal Edema Neurologic/Psychiatric: Alert, Oriented x3 Skin: Normal Color, Warm/Dry Lymphatic: No Adenopathy (cervical ) Assessment/Plan Assessment/Plan Admission Dx SMALL BOWEL OBSTRUCTION ABDOMINAL PAIN NAUSEA HYPOTHYROIDISM HYPERTENSION DEPRESSION Assessment and Plan SMALL BOWEL OBSTRUCTION ABDOMINAL PAIN NAUSEA HYPOTHYROIDISM HYPERTENSION DEPRESSION ANXIOLYTIC THROAT PAIN SMALL BOWEL OBSTRUCTION WITH NAUSEA AND ABDOMINAL PAIN - DEFER TO DR. SOLIS - NG TUBE IN PLACE - MONITOR SYMPTOMS CLOSELY HYPOTHYROIDISM - PT TO CONTINUE WITH LEVOTHYROXINE SOON SHE IS ABLE TO TAKE PO HYPERTENSION - HOLD HCTZ AND MONITOR BP, WILL TREAT NEEDED WITH IV MEDICATIONS DEPRESSION - HOLD SSRI FOR NOW, ONCE ABLE TO TAKE PO MEDICATIONS WILL RESTART. EXTREME ANXIETY - PT RECEIVING PRN ANXIOLYTICS IV AND WILL INCREASE FREQUENCY SINCE SHE IS HAVING SO MUCH TROUBLE WITH HER ANXIETY. THROAT PAIN - PRN CHLORASEPTIC LOZENGES AND SPRAY - DUE TO NG TUBE, WILL DEFER REMOVAL TO DR. SOLIS DVT PROPHYLAXIS - WILL START LOVENOX TOMORROW START ON SCD'S TONIGHT GI PROPHYLAXIS WITH PPI Admission Dx SMALL BOWEL OBSTRUCTION ABDOMINAL PAIN NAUSEA HYPOTHYROIDISM HYPERTENSION DEPRESSION Clinical Quality Measures Admission Status Admission Dx SMALL BOWEL OBSTRUCTION ABDOMINAL PAIN NAUSEA HYPOTHYROIDISM HYPERTENSION DEPRESSION ANABELA PORTER MD Oct 27, 2021 09:57
[2021-10-27] MEDS ORDERED: RT-ALBUTEROL SULF 2.5 MG/3 ML PRE-MIX VIAL IH PRN (10:00)
[2021-10-27] MEDS ORDERED: ARFORMOTEROL 15 MCG/2 ML (BROVANA) INH SOLUTIION IH PRN (10:00)
[2021-10-27] MEDS ORDERED: LORazepam INJ 2 MG/ML (ATIVAN) VIAL IVP ONE (10:15)
--- NOTE | 2021-10-27 10:29 | Physical Therapy Progress Note ---
Therapy Progress Note Order for PT fausto received. Nurse requests that PT come back in the afternoon because patient has extreme anxiety now and she just got back to bed. Will check back this afternoon. ULISES MIRANDA PT Oct 27, 2021 10:29
--- NOTE | 2021-10-27 10:40 | Occ Therapy Progress Note ---
Therapy Progress Note OT orders received, chart reviewed. Pt's nurse requests OT to check back later today, as pt has extreme anxiety and just returned to bed. OT will attempt evaluation later today. ROSY CARD OT Oct 27, 2021 10:40
--- NOTE | 2021-10-27 13:36 | Physical Therapy Evaluation ---
PT Evaluation-General Medical Diagnosis Admission Date Oct 25, 2021 at 05:30 Medical Diagnosis: SBO s/p ex lap Onset Date: Oct 25, 2021 Therapy Diagnosis Therapy Diagnosis: impaired mobility, strength, endurance Height/Weight Height (Feet): 5 Height (Inches): 0.00 Weight (Pounds): 159 Weight (Ounces): 0.0 Precautions Precautions/Isolations: Fall Prevention, Standard Precautions Referral Physician: Beth Reason for Referral: Evaluation/Treatment Medical History Pertinent Medical History: Arthritis, GERD, Hypothroidism, Smoking Additional Medical History Past Medical History Surgeries: Hysterectomy, Orthopedic Sleep Apnea, COPD, Emphysema Currently Using CPAP: No Currently Using BIPAP: No Hypertension Sexually Transmitted Disease: No HIV/AIDS: No Gastroesophageal Reflux, Chronic Constipation Arthritis, Chronic Back Pain, Fractures Hypothyroidsim Loss of Vision: Bilateral Hearing Impairment: Hard of Hearing, Bilateral Hearing Aide Sleep Difficulties, Anxiety, Depression Reviewed History: Yes Social History unsure, patient had difficulty communicating due to [place]GO[place] and/or anxiousness Prior Prior Level of Function SCALE: Activities may be completed with or without assistive devices. 5-Bkmndirefi-zkofbtq completes the activity by him/herself with no assistance from a helper. 5-Set-up or Clean-up Assistance-helper sets up or cleans up; patient completes activity. [place] assists only prior to or following the activity. 4-Supervision or Touching Assistance-helper provides verbal cues and/or touching/steadying and/or contact guard assistance as patient completes activity. Assistance may be provided throughout the activity or intermittently. 3-Partial/Moderate Assistance-helper does LESS THAN HALF the effort. [place] lifts, holds or supports trunk or limbs, but provides less than half the effort. 2-Substantial/Maximal Assistance-helper does MORE THAN HALF the effort. [place] lifts or holds trunk or limbs and provides more than half the effort. 0-Zurbblwrh-xawtuv does ALL the effort. Patient does none of the effort to complete the activity. Or, the assistance of 2 or more helpers is required for the patient to complete the activity. If activity was not attempted, code reason: 7-Patient Refused. 9-Not Applicable-not attempted and the patient did not perform the activity before the current illness, exacerbation or injury. 10-Not Attempted due to Environmental Limitations-(lack of equipment, weather restraints, etc.). 88-Not Attempted due to Medical Conditions or Safety Concerns. unknown PT Evaluation-Current Subjective Patient in bed pre tx, agrees to PT, has unrated abdominal pain Pt/Family Goals none stated Objective Patient Orientation: Person, Unable to Assess Attachments: NG Tube, SCD's, Oxygen, Guzman Catheter Transfers Roll Left to Right (QC): 3 Lying to Sitting/Side of Bed(Q: 3 Sit to Stand (QC): 4 Chair/Tcv-oy-Gfonm Xfer(QC): 4 Gait Distance: 5' Gait Assistive Device: Handheld Assist Balance Sitting Static: Normal Sitting Dynamic: Normal Standing Static: Fair Standing Dynamic: Poor Assessment/Needs Patient in recliner post tx, has family in the room, family member states he will stay in the room with her to take care of her needs and notify the nurse if she needs to get up. He says she wont or cant use the nurse button. Nurse notified she is in the recliner. She has impaired mobility, strength, endurance. Patient has extreme anxiety, and is impulsive, she stands up from the bed impulsively, seemingly unaware of her lines and ignores safety cues, ambulates to the recliner grabbing onto therapist and basically whatever she can grap onto. Poor safety awareness. Rehab Potential: Guarded PT Land Planner Goals Land Planner Goals PT Snf Goals Time Frame: Nov 03, 2021 Roll Left & Right (QC): 4 Sit to Lying (QC): 4 Lying-Sitting on Side/Bed(QC): 4 Sit to Stand (QC): 5 Chair/Mnv-hb-Cbxea Xfer(QC): 5 Walk 10 feet (QC): 5 Walk 50ft with 2 Turns (QC): 5 PT Plan Problem List Problem List: Activity Tolerance, Functional Strength, Safety, Balance, Gait, Transfer, Bed Mobility, ROM Treatment/Plan Treatment Plan: Continue Plan of Care Treatment Plan: Bed Mobility, Education, Functional Activity Garo, Functional Strength, Gait, Safety, Therapeutic Exercise, Transfers Treatment Duration: Nov 03, 2021 Frequency: 6 times per week Estimated Hrs Per Day: .25 hour per day Patient and/or Family Agrees t: Yes Safety Risks/Education Patient Education: Gait Training, Transfer Techniques, Correct Positioning, Safety Issues Teaching Recipient: Patient Teaching Methods: Demonstration, Discussion Response to Teaching: Reinforcement Needed Discharge Recommendations Plan Patient will perform bed mobility and transfer training, balance and endurance training, functional strengthening, gait training, and education, to improve functional mobility and independence at home. Therapy Discharge Recommendati: Scheduled Assistance, Home & Family, Post Acute PT Time/GCodes Time In: 1302 Time Out: 1310 Total Billed Treatment Time: 8 Total Billed Treatment 1 visit KUMAR 8' ULISES MIRANDA PT Oct 27, 2021 13:36
--- NOTE | 2021-10-27 13:42 | Occupational Therapy Eval ---
OT Evaluation-General/PLF Medical Diagnosis Admission Date Oct 25, 2021 at 05:30 Medical Diagnosis: small bowel obstruction Onset Date: Oct 25, 2021 Therapy Diagnosis Therapy Diagnosis: decreased ADL Status Height/Weight Height (Feet): 5 Height (Inches): 0.00 Weight (Pounds): 159 Weight (Ounces): 0.0 Precautions Precautions/Isolations: Fall Prevention, Standard Precautions Referral Physician: Leandra Referral Reason: Evaluation/Treatment Medical History Pertinent Medical History: Arthritis, GERD, Hypothroidism, Smoking Additional Medical History chronic back pain, anxiety/depression Current History pain Tues with Abdominal discomfort, slowly escalated, bloating, unable to eat. Called EMS. 10/25 s/p EX Lap with MARCO, manual decompression small bowel Social History Home: Single Level ADL-Prior Level of Function SCALE: Activities may be completed with or without assistive devices. 9-Sixthowjnw-zbngigr completes the activity by him/herself with no assistance from a helper. 5-Set-up or Clean-up Assistance-helper sets up or cleans up; patient completes activity. [place] assists only prior to or following the activity. 4-Supervision or Touching Assistance-helper provides verbal cues and/or jenifer candelario/steadying and/or contact guard assistance as patient completes activity. Assistance may be provided throughout the activity or intermittently. 3-Partial/Moderate Assistance-helper does LESS THAN HALF the effort. [place] lifts, holds or supports trunk or limbs, but provides less than half the effort. 2-Substantial/Maximal Assistance-helper does MORE THAN HALF the effort. [place] lifts or holds trunk or limbs and provides more than half the effort. 3-Imshwmoxt-oaynfy does ALL the effort. Patient does none of the effort to complete the activity. Or, the assistance of 2 or more helpers is required for the patient to complete the activity. If activity was not attempted, code reason: 7-Patient Refused. 9-Not Applicable-not attempted and the patient did not perform the activity before the current illness, exacerbation or injury. 10-Not Attempted due to Environmental Limitations-(lack of equipment, weather restraints, etc.). 88-Not Attempted due to Medical Conditions or Safety Concerns. ADL PLOF Comments Pt does not provide information about PLOF or home set up. Self Care: Unknown Functional Cognition: Unknown OT Current Status Subjective Pt laying in bed, during tx pt appeared anxious. She requests this therapist to talk slower and not talk so loud. Pt has unrated abdominal pain with movement. Mental Status/Objective Patient Orientation: Person, Place, Time, Situation Attachments: Guzman Catheter, IV, NG Tube, Oxygen, SCD's Current Upper Extremity ROM WFL, BUE shoulder flexion to approx 140 degrees Upper Extremity Coordination WFL Upper Extremity Strength grossly 3/5 ADL-Treatment Lower Body Dressing (QC): 7 On/Off Footwear (QC): 7 Toileting Hygiene (QC): 1 (catheter) Other Treatments Pt in bed, transferred supine to sit EOB, QC 3. Pt completed sit to stand and transferred to recliner with OPTICAL LABORATORY MANAGER, 5'. Pt impulsive, unaware of lines and ignoring safety cues. Pt transferred to recliner, grabbing onto the therapist and whatever else she can grab onto, poor safety awareness. Pt appears extremely anxious. Family member present in the room, states he will take care of pt's needs. Pt declined having the call light beside her, prefers it on bed out of reach. Pt's family member says she won't/can't use the call light and will notify nurse if she needs to get up. Post tx, pt in recliner, all needs met. Education OT Patient Education: Correct positioning, Energy conservation, Modified ADL techniques, Progress toward Goal/Update tx plan, Purpose of tx/functional activities, Rehab process Teaching Recipient: Patient Teaching Methods: Discussion Response to Teaching: Verbalize Understanding, Reinforcement Needed OT Adjunct Art History Instructor Goals Retirement Goals Time Frame: Nov 10, 2021 Eating (QC): 6 Oral Hygiene (QC): 6 Toileting Hygiene (QC): 4 Shower/Bathe Self (QC): 5 Upper Body Dressing (QC): 4 Lower Body Dressing (QC): 4 On/Off Footwear (QC): 4 Additional Goals: 1-Demonstrate ADL Tasks, 2-Verbalize Understanding, 3- ImproveStrength/Garo 1=Demonstrate adherence to instructed precautions during ADL tasks. 2=Patient will verbalize/demonstrate understanding of assistive devices/modifications for ADL. 3=Patient will improve strength/tolerance for activity to enable patient to perform ADL's. OT Education/Plan Problem List/Assessment Assessment: Decreased Activ Tolerance, Decreased Safety Aware, Decreased UE Strength, Impaired Funct Balance, Impaired I ADL's, Impaired Self-Care Skills Discharge Recommendations Plan/Recommendations: Continue POC Treatment Plan/Plan of Care Patient would benefit from OT for education, treatment and training to promote independence in ADL's, mobility, safety and/or upper extremity function for ADL's. Plan of Care: ADL Retraining, Functional Mobility, UE Funct Exercise/Act Treatment Duration: Nov 10, 2021 Frequency: 3 times per week (3-5 times per week) Estimated Hrs Per Day: .25 hour per day Rehab Potential: Guarded Time/GCodes Start Time: 13:02 Stop Time: 13:10 Total Time Billed (hr/min): 8 Billed Treatment Time 1, ROSY BERGERON OT Oct 27, 2021 13:41
[2021-10-27] MEDS: RT-ALBUTEROL SULF 2.5 MG/3 ML PRE-MIX VIAL IH PRN (14:36)
[2021-10-27 16:00] VITALS: BP 138/67
[2021-10-27 19:58] VITALS: BP 144/73
[2021-10-28] VITALS (8 sets, daily range): BP systolic 114–145; BP diastolic 56–85
[2021-10-28] MEDS: LORazepam INJ 2 MG/ML (ATIVAN) VIAL IVP PRN (04:39)
[2021-10-28] MEDS: fentaNYL INJ 100 MCG/2 ML AMP IV PRN ×2 (05:34→13:41)
[2021-10-28 07:21] LABS: HEMATOCRIT 42 % (35-52); HEMOGLOBIN 12.6 g/dL (11.5-16.0); MEAN CORPUSCULAR HEMOGLOBIN 29 pg (25-34); MEAN CORPUSCULAR HGB CONC 30 g/dL (32-36); MEAN CORPUSCULAR VOLUME 96 fL (80-99); MEAN PLATELET VOLUME 10.5 fL (9.0-12.2); PLATELET COUNT 193 10^3/uL (130-400); WHITE BLOOD COUNT 12.4 10^3/uL (4.3-11.0)
--- NOTE | 2021-10-28 07:37 | Progress Note - Surgery ---
GAURANGKATHERINELANRE HUNG 10/28/21 0737: Subjective Date Seen by a Provider: Oct 28, 2021 Time Seen by a Provider: 06:46 Subjective/Events-last exam Today when I visited the pt, she was sleeping in bed and could not be easily roused. Pt is 3days SPO ex lap with adhesion take down on 10/25/21 Her abdomen remains soft and slightly distended with few bowl sounds, the incision site appears healthy & free of purulence or other evidence of infection. Nursing confirms that the pt has not yet passed flatus or a BM and is reluctant to participate in PT, stating that the patient is very anxious about moving at all. Pt also continues to have pain and discomfort in her throat which is associated with NG tube. Review of Systems General: No Chills, No Night Sweats; Fatigue, Malaise HEENT: No Head Aches, No Visual Changes; Sore Throat Pulmonary: No Dyspnea, No Cough Cardiovascular: No: Chest Pain, Palpitations Gastrointestinal: Abdominal Pain; No: Nausea, Vomiting Genitourinary: No Dysuria Musculoskeletal: No: neck pain, shoulder pain, arm pain Neurological: Weakness; No: Change in speech, Seizures Objective Exam Vital Signs Date Time Temp Pulse Resp B/P (MAP) Pulse Ox O2 Delivery O2 Flow Rate FiO2 10/28/21 04:14 37.0 105 20 144/77 (99) 91 Nasal Cannula 2.00 10/28/21 01:27 36.9 10/28/21 00:11 37.6 104 20 145/69 (94) 91 Nasal Cannula 2.00 10/27/21 20:20 Nasal Cannula 2.00 10/27/21 19:58 37.0 100 20 144/73 (96) 93 Nasal Cannula 2.00 10/27/21 16:00 36.3 96 20 138/67 (90) 94 Nasal Cannula 2.00 10/27/21 14:37 90 Nasal Cannula 2.00 10/27/21 10:37 Nasal Cannula 2.00 10/27/21 08:00 Nasal Cannula 2.00 10/27/21 08:00 36.6 91 20 141/83 (102) 94 Nasal Cannula 2.00 I & O 10/28/21 07:00 Intake Total 0 ml Output Total 2975 ml Balance -2975 ml Capillary Refill : Less Than 3 SecondsLess Than 3 Seconds General Appearance: No Apparent Distress (Sitting in chair), WD/WN Neck: Non Tender, Supple Respiratory: Chest Non Tender, No Accessory Muscle Use, No Respiratory Distress Cardiovascular: Regular Rate, Rhythm, No Murmur, Normal Peripheral Pulses Peripheral Pulses: 2+ Radial Pulses (R), 2+ Radial Pulses (L) Gastrointestinal: distended, tenderness (Mostly incisional) Extremity: Normal Capillary Refill, Normal Range of Motion, Non Tender, No Calf Tenderness Neurologic/Psychiatric: No Motor/Sensory Deficits Skin: Normal Color, Warm/Dry Lymphatic: No Adenopathy (cervical and axillary) Results Lab Laboratory Tests 10/28/21 06:45: White Blood Count 12.4H, Red Blood Count 4.39, Hemoglobin 12.6, Hematocrit 42, Mean Corpuscular Volume 96, Mean Corpuscular Hemoglobin 29, Mean Corpuscular Hemoglobin Concent 30L, Red Cell Distribution Width 14.0, Platelet Count 193, Mean Platelet Volume 10.5 Assessment/Plan Assessment/Plan Assessment/Plan SBO - S/P ex lap 10/25 COPD, HTN, GERD, Arthritis Hypothyroidism Anxiety, Depression Plan Continue NG tube suctioning, NPO until flatus or BM Continue pain medications and anti-emetic PRN. Continue monitoring of incision site and dressing changes Encourage patient to use incentive spirometer. PT with increased activity - this is really important for her recovery SARAY AQUINO DO 10/28/21 1115: Subjective Subjective/Events-last exam Chest x ray worsening bibasilar infiltrates. Patient on bipap due to decreasing 02 saturation. Patient not providing much information. No bowel function. Abdomen still distended and has ng tube in place. Son at bedside. Objective Exam General Appearance: No Apparent Distress (fatigued and on bipap), WD/WN HEENT: Normal ENT Inspection, Pharynx Normal Neck: Non Tender, Supple Respiratory: Chest Non Tender, Other (on bipap) Cardiovascular: Regular Rate, Rhythm, No JVD Gastrointestinal: distended, tenderness (Mostly incisional c/d/i) Extremity: Non Tender, No Calf Tenderness Neurologic/Psychiatric: Alert, No Motor/Sensory Deficits Skin: Normal Color, Warm/Dry Lymphatic: No Adenopathy (cervical and axillary) Assessment/Plan Assessment/Plan Assessment/Plan SBO - S/P ex lap 10/25 COPD, HTN, GERD, Arthritis Hypothyroidism Anxiety, Depression bibasilar infiltrates WBC increasing Ng tube to liws await bowel function bipap to help improve resp status start zosyn npo Supervisory-Addendum Brief Verification & Attestation Participated in pt care: history, MDM, physical Personally performed: exam, history, MDM, supervision of care Care discussed with: Medical Student Procedures: n/a Results interpretation: Verified all documentation Verification and Attestation of Medical Student E/M Service A medical student performed and documented this service in my presence. I reviewed and verified all information documented by the medical student and made modifications to such information, when appropriate. I personally performed the physical exam and medical decision making. Saray Aquino, Oct 28, 2021,11:15 LANRE MCDANIEL Oct 28, 2021 07:37 SARAY AQUINO DO Oct 28, 2021 11:15
[2021-10-28 07:40] LABS: ALBUMIN 3.3 GM/DL (3.2-4.5); BILIRUBIN,TOTAL 0.4 MG/DL (0.1-1.0); CALCIUM 8.4 MG/DL (8.5-10.1); CREATININE SERUM 0.71 MG/DL (0.60-1.30); POTASSIUM 4.1 MMOL/L (3.6-5.0); TOTAL PROTEIN 7.3 GM/DL (6.4-8.2)
[2021-10-28] MEDS ORDERED: methylPREDNISolone 125 MG (Solu-MEDROL) VIAL IM STA (07:48)
[2021-10-28] MEDS ORDERED: FUROSEMIDE 40 MG/4 ML INJ (LASIX) IVP STA (07:48)
[2021-10-28] MEDS ORDERED: FUROSEMIDE 40 MG/4 ML INJ (LASIX) ONE (07:50)
[2021-10-28] MEDS ORDERED: methylPREDNISolone 125 MG (Solu-MEDROL) VIAL ONE (07:50)
[2021-10-28] MEDS: RT-ALBUTEROL SULF 2.5 MG/3 ML PRE-MIX VIAL IH PRN (07:56)
--- NOTE | 2021-10-28 08:21 | Diagnostic Imaging Report ---
Indication: Dyspnea. Comparison: 10/25/2021. Discussion: Single portable upright view of the chest was obtained. Infiltrates within the lung bases are nonspecific and could be seen with atelectasis or pneumonia, increased on the right. Cannot exclude a small right pleural effusion. Normal heart size. No pneumothorax or osseous abnormality. Impression: 1. Worsening bibasal infiltrates. Dictated by: Dictated on workstation # [id number]
[2021-10-28] MEDS: PANTOPRAZOLE 40 MG (PROTONIX) VIAL IV SCH (08:56)
[2021-10-28] MEDS: ENOXAPARIN 40 MG/0.4 ML (LOVENOX) SYR SC SCH (08:56)
--- NOTE | 2021-10-28 10:09 | Physical Therapy Daily Note ---
PT Daily Note-Current Subjective Patient very sleepy, son in room upon PT arrival, agreeable to treatment but notes his mother has been sleeping hard this morning. Nurse enters room and requests no OOB activity for patient as she had some respiratory issues earlier. Transfers SCALE: Activities may be completed with or without assistive devices. 2-Kputhfgopo-sgqciot completes the activity by him/herself with no assistance from a helper. 5-Set-up or Clean-up Assistance-helper sets up or cleans up; patient completes activity. [place] assists only prior to or following the activity. 4-Supervision or Touching Assistance-helper provides verbal cues and/or touching/steadying and/or contact guard assistance as patient completes activity. Assistance may be provided throughout the activity or intermittently. 3-Partial/Moderate Assistance-helper does LESS THAN HALF the effort. [place] lifts, holds or supports trunk or limbs, but provides less than half the effort. 2-Substantial/Maximal Assistance-helper does MORE THAN HALF the effort. [place] lifts or holds trunk or limbs and provides more than half the effort. 1-Wcaartpcl-gqopmp does ALL the effort. Patient does none of the effort to complete the activity. Or, the assistance of 2 or more helpers is required for the patient to complete the activity. If activity was not attempted, code reason: 7-Patient Refused. 9-Not Applicable-not attempted and the patient did not perform the activity bef ore the current illness, exacerbation or injury. 10-Not Attempted due to Environmental Limitations-(lack of equipment, weather r estraints, etc.). 88-Not Attempted due to Medical Conditions or Safety Concerns. Gait Training Does the Patient Walk?: No and Walking Goal IS indicated Exercises Supine Ex: Ankle pumps, Heel Slides, Short Arc Quads, Straight leg raise, Hip abd/add Supine Reps: 20 Assessment Current Status: Poor Progress Patient opened her eyes on a few occasions, however did not reply much to verbal or tactile stimuli. She did not assist with any of the LE exercises. Patient in bed post treatment with all needs met, nursing notified, call light in hand and son in the room. PT Workforce Development Specialist Goals Workforce Development Specialist Goals PT Workforce Development Specialist Goals Time Frame: Nov 03, 2021 Roll Left & Right (QC): 4 Sit to Lying (QC): 4 Lying-Sitting on Side/Bed(QC): 4 Sit to Stand (QC): 5 Chair/Evi-cp-Ipsey Xfer(QC): 5 Walk 10 feet (QC): 5 Walk 50ft with 2 Turns (QC): 5 PT Plan Treatment/Plan Treatment Plan: Continue Plan of Care Treatment Plan: Bed Mobility, Education, Functional Activity Garo, Functional Strength, Gait, Safety, Therapeutic Exercise, Transfers Treatment Duration: Nov 03, 2021 Frequency: 6 times per week Estimated Hrs Per Day: .25 hour per day Patient and/or Family Agrees t: Yes Time/GCodes Time In: 948 Time Out: 1005 Total Billed Treatment Time: 17 Total Billed Treatment Visit, EX ERMELINDA GRANT PT Oct 28, 2021 10:09
[2021-10-28] MEDS ORDERED: meTOprolol 5 MG/5 ML (LOPRESSOR) VIAL IV PRN (11:45)
[2021-10-28] MEDS ORDERED: PIPERACILLIN SODIUM/TAZOBACTAM 4.5 GM in NS (IVPB) 100 ML IV NR (12:00)
--- NOTE | 2021-10-28 13:21 | Progress Note ---
Subjective Subjective Date Seen by Provider: Oct 28, 2021 Time Seen by Provider: 13:12 Upon follow-up for SBO s/p small bowel resection, Vilma is resting supine in bed, with BiPAP and NG tube in place. Patient experienced acute respiratory distress this AM, as evidenced by significant dyspnea and desaturation into the 50s. She also had an elevated WBC of 12.4. CXR demonstrated worsening bibasilar infiltrates since 10/25, suggestive of pneumonia secondary to atelectasis. Vilma was asleep and non-communicative for a majority of the visit, however, she did motion that she was experiencing discomfort from the NG tube and BiPAP mask. She has not had a bowel movement or passed flatus. Urine output is at 250 ml and straw-colored, and has been increased 2/2 to diuresis. Has 150 ml of NG tube output. She is accompanied by her son, Louis. Review of Systems ROS Unable to Obtain: ROS limited as Patient on BiPAP General: Chills, Night Sweats, Fatigue, Malaise HEENT: Sore Throat Pulmonary: Dyspnea Gastrointestinal: Abdominal Pain Neurological: Weakness All Other Systems Reviewed All Other Systems Reviewed: Yes Objective Exam Vital Signs Vital Signs Date Time Temp Pulse Resp B/P (MAP) Pulse Ox O2 Delivery O2 Flow Rate FiO2 10/28/21 11:57 37.2 95 22 126/67 (86) 97 Non Rebreather 15.00 10/28/21 10:23 92 24 95 40.00 10/28/21 08:12 107 27 97 40.00 10/28/21 08:00 NIV Bilevel 40 10/28/21 07:52 98 Non Rebreather 15.00 10/28/21 07:29 37.4 109 26 144/73 (96) 99 Non Rebreather 15.00 10/28/21 04:14 37.0 105 20 144/77 (99) 91 Nasal Cannula 2.00 10/28/21 01:27 36.9 10/28/21 00:11 37.6 104 20 145/69 (94) 91 Nasal Cannula 2.00 10/27/21 20:20 Nasal Cannula 2.00 10/27/21 19:58 37.0 100 20 144/73 (96) 93 Nasal Cannula 2.00 10/27/21 16:00 36.3 96 20 138/67 (90) 94 Nasal Cannula 2.00 10/27/21 14:37 90 Nasal Cannula 2.00 I & O 10/28/21 07:00 Intake Total 0 ml Output Total 2975 ml Balance -2975 ml General Appearance: No Apparent Distress (fatigued and on bipap), WD/WN, Chronically ill Eyes: Bilateral Eye PERRL, Bilateral Eye EOMI HEENT: Normal ENT Inspection, Pharynx Normal Neck: Non Tender, Supple Respiratory: Chest Non Tender, Crackles, Decreased Breath Sounds, Respiratory Distress, Other (on bipap) Cardiovascular: Regular Rate, Rhythm, No JVD Gastrointestinal: Guarding, Tenderness (DIFFUSELY), Other (NG TUBE IN RIGHT NARE) Rectal: Deferred Back: No CVA Tenderness Extremity: Non Tender, No Calf Tenderness Neurologic/Psychiatric: No Motor/Sensory Deficits, Depressed Affect, Disoriented Skin: Normal Color, Warm/Dry Lymphatic: No Adenopathy (cervical and axillary) Results Lab Laboratory Tests 10/28/21 06:45: White Blood Count 12.4H, Red Blood Count 4.39, Hemoglobin 12.6, Hematocrit 42, Mean Corpuscular Volume 96, Mean Corpuscular Hemoglobin 29, Mean Corpuscular Hemoglobin Concent 30L, Red Cell Distribution Width 14.0, Platelet Count 193, Mean Platelet Volume 10.5, Sodium Level 138, Potassium Level 4.1, Chloride Level 98, Carbon Dioxide Level 29, Anion Gap 11, Blood Urea Nitrogen 7, Creatinine 0.71, Estimat Glomerular Filtration Rate 79, BUN/Creatinine Ratio 10, Glucose Level 144H, Calcium Level 8.4L, Corrected Calcium 9.0, Magnesium Level 2.0, Total Bilirubin 0.4, Aspartate Amino Transf (AST/SGOT) 12, Alanine Aminotransferase (ALT/SGPT) 13, Alkaline Phosphatase 65, Troponin I < 0.028, B- Type Natriuretic Peptide 74.4, Total Protein 7.3, Albumin 3.3 Meds Item Value Date Time Piperacillin Sod/ 100 ml @ 25 mls/hr 10/28/21 1800 Tazobactam Sod Q8H/IV 4.5 gm/Sodium Chloride Piperacillin Sod/ 100 ml @ 200 mls/hr 10/28/21 1200 Tazobactam Sod 1200/IV 10/28/21 1138 4.5 gm/Sodium Chloride Metoprolol 5 mg 10/28/21 1145 Tartrate Q6HR PRN/IV (Lopressor Injection) Albuterol Sulfate 2.5 mg 10/27/21 1800 (Proventil Q4H PRN/IH 10/28/21 0756 Pre-Mix Nebs (Rt)) Lorazepam 0.5 mg 10/27/21 1015 (Ativan Q2H PRN/IVP 10/28/21 0439 Injection) Phenol 1 estela 10/27/21 0545 (Chloraseptic Q4H PRN/MM 10/27/21 0633 Lozenge) Pantoprazole 40 mg 10/26/21 0900 (Protonix DAILY/IV 10/28/21 0856 Injection) Enoxaparin Sodium 40 mg 10/26/21 0900 (Lovenox Q24H/SC 10/28/21 0856 Injection) Phenol SPRAY TO THROAT 10/26/21 0145 (Chloraseptic Q2H PRN/MC 10/26/21 0157 Paragon) Fentanyl Citrate 25-50 mcg 10/26/21 0145 (Sublimaze Q2H PRN/IV 10/28/21 0534 Injection) Ondansetron HCl 4 mg 10/25/21 1545 (Zofran Q10M PRN/IVP Injection (Sdv)) Lactated Ringer's 1,000 ml @ 0 mls/hr 10/25/21 1400 Ondansetron HCl 4 mg 10/25/21 0615 (Zofran Q4H PRN/IV Injection (Sdv)) Potassium 1,000 ml @ 50 mls/hr 10/25/21 0615 Chloride/Dextrose/ Q20H/IV 10/27/21 1902 Sod Cl Radiology Date of Exam:10/28/21 CHEST 1 VIEW, AP/PA ONLY Indication: Dyspnea. Comparison: 10/25/2021. Discussion: Single portable upright view of the chest was obtained. Infiltrates within the lung bases are nonspecific and could be seen with atelectasis or pneumonia, increased on the right. Cannot exclude a small right pleural effusion. Normal heart size. No pneumothorax or osseous abnormality. Impression: 1. Worsening bibasal infiltrates. Assessment/Plan Assessment/Plan Admission Dx Admission Status: Inpatient Order (span 2 midnights) Reason for Inpatient Admission: Assessment and Plan 1. Small Bowel Obstruction S/P bowel resection -Managed by Dr. Dixon -Monitor closely -NG tube in place -On LR and Elyte supplementation -Await bowel function 2. Abdominal Pain with Nausea -Zofran 4mg PRN nausea -On pain regimen 3. Acute respiratory Distress -Stable on BiPAP -Monitor Closely 4. Pneumonia -Started Zosyn -Repeat CBC and Chem 7 Q24H -Consider repeat CXR -Monitor very closely 5. Hypothyroidism -Will resume once patient can tolerate PO 6. Hypertension with tachycardia -IV Metoprolol 5mg Q6H PRN when BP >150/90 or HR > 100 7. Depression -Will resume once patient can tolerate PO 8. DVT prophylaxis -SC Lovenox 40 mg Q24H -Has calf compressors on 9. GI prophylaxis -IV Pantoprazole 40 mg daily 10. Throat irritation 2/2 to NG tube -Chloraseptic spray PRN Supervisory-Addendum Brief Verification & Attestation Participated in pt care: history, physical Personally performed: exam, history, supervision of care Care discussed with: Medical Student Procedures: n/a Results interpretation: Verified all documentation Patient seen and assessed. Oxygen saturation much better on BIPAP. Son was not sure is she had a living will and if Dr. Campos may have a copy. I told him Dr. Campos would be back tomorrow. Agree with above assessment and plan. DEEPIKA PERDUE Oct 28, 2021 13:21 FLIP CHRISTIANSEN DO Oct 28, 2021 16:58
[2021-10-28] MEDS: D5 1/2 NS W/KCL 20 MEQ/L 1,000 ML IV SCH (13:42)
[2021-10-28] MEDS: PIPERACILLIN SODIUM/TAZOBACTAM 4.5 GM in NS (IVPB) 100 ML IV SCH (18:19)
[2021-10-29] MEDS: PIPERACILLIN SODIUM/TAZOBACTAM 4.5 GM in NS (IVPB) 100 ML IV SCH ×3 (01:50→17:56)
[2021-10-29] MEDS: RT-ALBUTEROL SULF 2.5 MG/3 ML PRE-MIX VIAL IH PRN ×3 (02:26→12:02)
[2021-10-29 04:00] VITALS: BP 115/72
[2021-10-29 06:08] LABS: BASOPHILS % (AUTO) 0 % (0-10); EOSINOPHILS % (AUTO) 0 % (0-10); HEMATOCRIT 38 % (35-52); HEMOGLOBIN 11.2 g/dL (11.5-16.0); LYMPHOCYTES # (AUTO) 0.8 10^3/uL (1.0-4.0); LYMPHOCYTES % (AUTO) 10 % (12-44); MEAN CORPUSCULAR HEMOGLOBIN 28 pg (25-34); MEAN CORPUSCULAR HGB CONC 30 g/dL (32-36); MEAN CORPUSCULAR VOLUME 95 fL (80-99); MEAN PLATELET VOLUME 10.3 fL (9.0-12.2); MONOCYTES # (AUTO) 0.8 10^3/uL (0.0-1.0); MONOCYTES % (AUTO) 10 % (0-12); NEUTROPHILS # (AUTO) 6.5 10^3/uL (1.8-7.8); NEUTROPHILS % (AUTO) 79 % (42-75); PLATELET COUNT 177 10^3/uL (130-400); WHITE BLOOD COUNT 8.2 10^3/uL (4.3-11.0)
[2021-10-29 06:28] LABS: POTASSIUM 3.9 MMOL/L (3.6-5.0)
[2021-10-29 06:29] LABS: CALCIUM 8.1 MG/DL (8.5-10.1)
[2021-10-29 06:33] LABS: CREATININE SERUM 0.73 MG/DL (0.60-1.30)
[2021-10-29] MEDS: D5 1/2 NS W/KCL 20 MEQ/L 1,000 ML IV SCH (07:56)
[2021-10-29 08:00] VITALS: BP 107/72
--- NOTE | 2021-10-29 08:18 | Progress Note - Surgery ---
VIOLETALANRE 10/29/21 0818: Subjective Date Seen by a Provider: Oct 29, 2021 Time Seen by a Provider: 07:21 Subjective/Events-last exam Pt sitting up in bed and complaining of dry throat due to Bi-PAP RT was in room and giving pt a breathing treatment. Pt continues to have respiratory difficulty with sats droping in to upper 80's and requiring Bi-PAP She has not passed flatus or BM, her abdomen is distended and tender. The incision site is bloody as a result of the pt coughing and disruption of vasculature, but remains closed and free of signs of infection. NG tube remains in place with minimal production. Review of Systems General: No Chills, No Night Sweats; Fatigue HEENT: No Head Aches, No Eye Pain, No Ear Pain; Sinus Congestion, Sore Throat Pulmonary: No Dyspnea; Cough; No Pleuritic Chest Pain Cardiovascular: No: Chest Pain, Palpitations, Orthopnea Gastrointestinal: Abdominal Pain; No: Nausea, Vomiting Genitourinary: No Dysuria; Frequency; No Incontinence Musculoskeletal: No: neck pain, shoulder pain, back pain Neurological: Weakness; No: Numbness, Change in speech, Confusion ross in place Objective Exam Vital Signs Date Time Temp Pulse Resp B/P (MAP) Pulse Ox O2 Delivery O2 Flow Rate FiO2 10/29/21 07:36 96 High Flow N/C 10.00 10/29/21 04:00 36.2 79 20 115/72 (86) 96 High Flow N/C 2.00 10/29/21 02:27 98 High Flow N/C 4.00 10/29/21 00:06 18 10/28/21 23:35 36.7 98 28 134/67 (89) 93 High Flow N/C 6.00 10/28/21 21:35 High Flow N/C 6.00 10/28/21 19:50 36.2 83 20 114/73 (87) 96 Nasal Cannula 10.00 10/28/21 16:00 36.6 86 20 137/85 (102) 98 Nasal Cannula 10.00 10/28/21 14:55 82 16 94 40.00 10/28/21 11:57 37.2 95 22 126/67 (86) 97 Non Rebreather 15.00 10/28/21 10:23 92 24 95 40.00 I & O 10/29/21 07:00 Intake Total 0 ml Output Total 1925 ml Balance -1925 ml Capillary Refill : Less Than 3 SecondsLess Than 3 Seconds General Appearance: No Apparent Distress (fatigued and on bipap), WD/WN, Chronically ill HEENT: Normal ENT Inspection, Pharynx Normal Neck: Full Range of Motion, Non Tender, Supple Respiratory: Chest Non Tender, Crackles, Decreased Breath Sounds, Respiratory Distress, Other (on bipap) Cardiovascular: Regular Rate, Rhythm, No JVD, No Murmur, Normal Peripheral Pulses Peripheral Pulses: 2+ Radial Pulses (R), 2+ Radial Pulses (L) Gastrointestinal: distended, tenderness (Now feeling diffuse abd tenderness) Extremity: Normal Capillary Refill, Normal Range of Motion, Non Tender, No Calf Tenderness Neurologic/Psychiatric: Alert, No Motor/Sensory Deficits, Depressed Affect Skin: Normal Color, Warm/Dry Lymphatic: No Adenopathy (cervical and axillary) Results Lab Laboratory Tests 10/29/21 05:48: White Blood Count 8.2, Red Blood Count 3.94, Hemoglobin 11.2L, Hematocrit 38, Mean Corpuscular Volume 95, Mean Corpuscular Hemoglobin 28, Mean Corpuscular Hemoglobin Concent 30L, Red Cell Distribution Width 13.6, Platelet Count 177, Mean Platelet Volume 10.3, Immature Granulocyte % (Auto) 1, Neutrophils (%) (Auto) 79H, Lymphocytes (%) (Auto) 10L, Monocytes (%) (Auto) 10, Eosinophils (%) (Auto) 0, Basophils (%) (Auto) 0, Neutrophils # (Auto) 6.5, Lymphocytes # (Auto) 0.8L, Monocytes # (Auto) 0.8, Eosinophils # (Auto) 0.0, Basophils # (Auto) 0.0, Immature Granulocyte # (Auto) 0.1, Sodium Level 142, Potassium Level 3.9, Chloride Level 96L, Carbon Dioxide Level 35H, Anion Gap 11, Blood Urea Nitrogen 13, Creatinine 0.73, Estimat Glomerular Filtration Rate 77, BUN/Creatinine Ratio 18, Glucose Level 123H, Calcium Level 8.1L Assessment/Plan Assessment/Plan Assessment/Plan SBO - S/P ex lap 10/25 COPD, HTN, GERD, Arthritis Hypothyroidism Anxiety, Depression PNA w/ bibasilar infiltrates WBC increasing Plan: Continue abx Ng tube to liws await bowel function bipap to help improve resp status npo SARAY AQUINO DO 10/29/21 1117: Subjective Subjective/Events-last exam Patient with some bleeding from incision. Breathing better this morning than yesterday. Off bipap currently. No bm or flatus. Pain controlled. NG tube. Objective Exam General Appearance: No Apparent Distress (fatigued ), Chronically ill HEENT: Normal ENT Inspection, Pharynx Normal Neck: Non Tender, Supple Respiratory: Chest Non Tender, No Accessory Muscle Use, No Respiratory Distress Cardiovascular: Regular Rate, Rhythm, No JVD Gastrointestinal: distended, tenderness (distended, currently incsision is clean dry and intact) Neurologic/Psychiatric: Alert, No Motor/Sensory Deficits, Depressed Affect Skin: Normal Color, Warm/Dry Lymphatic: No Adenopathy (cervical and axillary) Assessment/Plan Assessment/Plan Assessment/Plan SBO - S/P ex lap 10/25 COPD, HTN, GERD, Arthritis Hypothyroidism Anxiety, Depression PNA w/ bibasilar infiltrates continue abx, holding anticoagualation, encouraged IS and increasing ambulation/activity to help with bowel function NPO-await bowel function. Supervisory-Addendum Brief Verification & Attestation Participated in pt care: history, MDM, physical Personally performed: exam, history, MDM, supervision of care Care discussed with: Medical Student Procedures: n/a Results interpretation: Verified all documentation Verification and Attestation of Medical Student E/M Service A medical student performed and documented this service in my presence. I reviewed and verified all information documented by the medical student and made modifications to such information, when appropriate. I personally performed the physical exam and medical decision making. Saray Aquino, Oct 29, 2021,11:23 LANRE MCDANIEL Oct 29, 2021 08:18 SARAY AQUINO DO Oct 29, 2021 11:17
--- NOTE | 2021-10-29 08:53 | Progress Note ---
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 SHE REPORTS THAT SHE IS HAVING TROUBLE BREATHING WHEN SHE GETS UP AND MOVES AROUND. SHE REPORTS THAT SHE REFUSED THE BIPAP AFTER IT "PULLED ON THE TUBE IN MY NOSE" AND ALSO "BECAUSE IT MADE ALL OF THE STUFF IN MY MOUTH AND NOSE CHOKE ME UP AND I COULD NOT GET THE MASK OFF TO SUCTION IT OUT". SHE REPORTS THAT SHE "DID NOT GO THROUGH ALL OF THIS TO JUST GIVE UP" AND SHE WANTS TO BE A FULL CODE. Review of Systems ROS Unable to Obtain: ROS limited as Patient on BiPAP General: No Chills, No Night Sweats; Fatigue HEENT: No Head Aches, No Eye Pain, No Ear Pain; Sinus Congestion, Sore Throat Pulmonary: Dyspnea (WORSE WITH EXERTION), Cough; No Pleuritic Chest Pain Cardiovascular: No: Chest Pain, Palpitations, Orthopnea Gastrointestinal: Abdominal Pain; No: Nausea, Vomiting Genitourinary: No Dysuria; Frequency; No Incontinence Musculoskeletal: back pain; No: neck pain, shoulder pain Neurological: Weakness; No: Numbness, Change in speech, Confusion IRRITABLE, ANGRY BECAUSE SHE CANNOT HEAR/UNDERSTAND PEOPLE WHEN THEY COME IN THE ROOM All Other Systems Reviewed All Other Systems Reviewed: Yes Objective Exam Vital Signs Vital Signs Date Time Temp Pulse Resp B/P (MAP) Pulse Ox O2 Delivery O2 Flow Rate FiO2 10/29/21 07:36 96 High Flow N/C 10.00 10/29/21 04:00 36.2 79 20 115/72 (86) 96 High Flow N/C 2.00 10/29/21 02:27 98 High Flow N/C 4.00 10/29/21 00:06 18 10/28/21 23:35 36.7 98 28 134/67 (89) 93 High Flow N/C 6.00 10/28/21 21:35 High Flow N/C 6.00 10/28/21 19:50 36.2 83 20 114/73 (87) 96 Nasal Cannula 10.00 10/28/21 16:00 36.6 86 20 137/85 (102) 98 Nasal Cannula 10.00 10/28/21 14:55 82 16 94 40.00 10/28/21 11:57 37.2 95 22 126/67 (86) 97 Non Rebreather 15.00 10/28/21 10:23 92 24 95 40.00 I & O 10/29/21 07:00 Intake Total 0 ml Output Total 1925 ml Balance -1925 ml General Appearance: No Apparent Distress, WD/WN, Chronically ill Eyes: Bilateral Eye PERRL, Bilateral Eye EOMI HEENT: Normal ENT Inspection, Pharynx Normal Neck: Full Range of Motion, Non Tender, Supple Respiratory: Chest Non Tender, Crackles, Decreased Breath Sounds, Respiratory Distress Cardiovascular: Regular Rate, Rhythm, No JVD, No Murmur, Normal Peripheral Pulses Gastrointestinal: Guarding, Tenderness (DIFFUSELY), Other (NG TUBE IN RIGHT NARE) Rectal: Deferred Extremity: Normal Capillary Refill, Normal Range of Motion, Non Tender, No Calf Tenderness, No Pedal Edema Neurologic/Psychiatric: Alert, Oriented x3, No Motor/Sensory Deficits, Other (IRRITABLE, YELLS TO TALK) Skin: Normal Color, Warm/Dry Lymphatic: No Adenopathy (cervical and axillary) Results Lab Laboratory Tests 10/29/21 05:48: White Blood Count 8.2, Red Blood Count 3.94, Hemoglobin 11.2L, Hematocrit 38, Mean Corpuscular Volume 95, Mean Corpuscular Hemoglobin 28, Mean Corpuscular Hemoglobin Concent 30L, Red Cell Distribution Width 13.6, Platelet Count 177, Mean Platelet Volume 10.3, Immature Granulocyte % (Auto) 1, Neutrophils (%) (Auto) 79H, Lymphocytes (%) (Auto) 10L, Monocytes (%) (Auto) 10, Eosinophils (%) (Auto) 0, Basophils (%) (Auto) 0, Neutrophils # (Auto) 6.5, Lymphocytes # (Auto) 0.8L, Monocytes # (Auto) 0.8, Eosinophils # (Auto) 0.0, Basophils # (Auto) 0.0, Immature Granulocyte # (Auto) 0.1, Sodium Level 142, Potassium Level 3.9, Chloride Level 96L, Carbon Dioxide Level 35H, Anion Gap 11, Blood Urea Nitrogen 13, Creatinine 0.73, Estimat Glomerular Filtration Rate 77, BUN/Creatinine Ratio 18, Glucose Level 123H, Calcium Level 8.1L Assessment/Plan Assessment/Plan Admission Dx SMALL BOWEL OBSTRUCTION ABDOMINAL PAIN NAUSEA HYPOTHYROIDISM HYPERTENSION DEPRESSION Assessment and Plan SMALL BOWEL OBSTRUCTION ABDOMINAL PAIN NAUSEA HYPOTHYROIDISM HYPERTENSION DEPRESSION ANXIOLYTIC THROAT PAIN SURGICAL SITE BLEEDING RESPIRATORY DISTRESS BIBASILAR INFILTRATES - PNEUMONIA SMALL BOWEL OBSTRUCTION WITH NAUSEA AND ABDOMINAL PAIN - DEFER TO DR. SOLIS - NG TUBE STILL IN PLACE DUE TO NO BOWEL FUNCTION /GAS, STOOL OUTPUT - MONITOR SYMPTOMS CLOSELY BIBASILAR INFILTRATES - PNEUMONIA - PT ON ZOSYN - WILL ASK RT TO BRING IN INCENTIVE SPIROMETRY AND AUTOPAP DEVICE FOR PT TO USE TO HELP IMPROVE AIR FLOW IN BASE OF LUNGS - REPEAT CXR TOMORROW HYPOTHYROIDISM - PT TO CONTINUE WITH LEVOTHYROXINE SOON SHE IS ABLE TO TAKE PO HYPERTENSION - HOLD HCTZ AND MONITOR BP, WILL TREAT NEEDED WITH IV MEDICATIONS DEPRESSION - HOLD SSRI FOR NOW, ONCE ABLE TO TAKE PO MEDICATIONS WILL RESTART. EXTREME ANXIETY - PT RECEIVING PRN ANXIOLYTICS IV AND WILL INCREASE FREQUENCY SINCE SHE IS HAVING SO MUCH TROUBLE WITH HER ANXIETY. THROAT PAIN - PRN CHLORASEPTIC LOZENGES AND SPRAY - DUE TO NG TUBE, WILL DEFER REMOVAL TO DR. SOLIS SURGICAL SITE BLEEDING - WILL HOLD LOVENOX UNTIL 11/01/2021 - FREQUENT DRESSING CHANGES DVT PROPHYLAXIS - WILL START LOVENOX TOMORROW START ON SCD'S TONIGHT GI PROPHYLAXIS WITH PPI DISCUSSION TODAY WITH PT AND HER SON IN THE ROOM - SHE UNDERSTANDS HOW SICK SHE IS, AND CONTINUES TO DESIRE TO BE FULL CODE Admission Dx SMALL BOWEL OBSTRUCTION ABDOMINAL PAIN NAUSEA HYPOTHYROIDISM HYPERTENSION DEPRESSION Clinical Quality Measures Admission Status Admission Dx SMALL BOWEL OBSTRUCTION ABDOMINAL PAIN NAUSEA HYPOTHYROIDISM HYPERTENSION DEPRESSION ANABELA PORTER MD Oct 29, 2021 08:52
[2021-10-29] MEDS ORDERED: SALIVA STIMULANT MOUTH SPRAY (BIOTENE) 1.5 OZ MM PRN (09:00)
[2021-10-29] MEDS: LORazepam INJ 2 MG/ML (ATIVAN) VIAL IVP PRN ×3 (09:38→20:47)
[2021-10-29] MEDS: PANTOPRAZOLE 40 MG (PROTONIX) VIAL IV SCH (09:38)
[2021-10-29] MEDS: ENOXAPARIN 40 MG/0.4 ML (LOVENOX) SYR SC SCH (09:39)
[2021-10-29 16:14] VITALS: BP 111/72
[2021-10-29 20:00] VITALS: BP 115/70
[2021-10-30] VITALS: BP 121/72
[2021-10-30] MEDS: PIPERACILLIN SODIUM/TAZOBACTAM 4.5 GM in NS (IVPB) 100 ML IV SCH ×3 (01:41→18:43)
[2021-10-30 04:00] VITALS: BP 121/73
[2021-10-30 05:43] LABS: HEMATOCRIT 37 % (35-52); HEMOGLOBIN 10.8 g/dL (11.5-16.0); MEAN CORPUSCULAR HEMOGLOBIN 28 pg (25-34); MEAN CORPUSCULAR HGB CONC 29 g/dL (32-36); MEAN CORPUSCULAR VOLUME 97 fL (80-99); PLATELET COUNT 176 10^3/uL (130-400); WHITE BLOOD COUNT 7.1 10^3/uL (4.3-11.0)
[2021-10-30 06:06] LABS: ALBUMIN 2.9 GM/DL (3.2-4.5); POTASSIUM 3.8 MMOL/L (3.6-5.0)
[2021-10-30 06:07] LABS: CALCIUM 8.3 MG/DL (8.5-10.1)
[2021-10-30 06:09] LABS: TOTAL PROTEIN 6.4 GM/DL (6.4-8.2)
[2021-10-30 06:10] LABS: BILIRUBIN,TOTAL 0.6 MG/DL (0.1-1.0)
[2021-10-30 06:12] LABS: CREATININE SERUM 0.73 MG/DL (0.60-1.30)
--- NOTE | 2021-10-30 06:20 | Diagnostic Imaging Report ---
INDICATION: Respiratory distress. Compared 10/28. FINDINGS: There are bibasilar infiltrates, greater right, unchanged. Perihilar and upper lobe pulmonary opacities have cleared. No pneumothorax. OG catheter extends into the stomach. IMPRESSION: Improvements in bilateral infiltrates at the upper lobe levels. No adverse development. OG in good position where visualized. Dictated by: Dictated on workstation # [id number]
[2021-10-30] MEDS: D5 1/2 NS W/KCL 20 MEQ/L 1,000 ML IV SCH (07:00)
--- NOTE | 2021-10-30 07:29 | Progress Note - Surgery ---
LANRE MCDANIEL 10/30/21 0729: Subjective Date Seen by a Provider: Oct 30, 2021 Time Seen by a Provider: 06:36 Subjective/Events-last exam Pt sleeping in bed, easily roused. She states her breathing is improved - CXR also indicates decreasing infiltrates. She has not yet passed flatus or BM. Bleeding yesterday from her abdominal incision has stopped. She reports no diffuse pain from her abdomen, only incisional pain. Review of Systems General: No Chills, No Night Sweats; Fatigue HEENT: No Head Aches, No Visual Changes, No Eye Pain, No Ear Pain Pulmonary: No Dyspnea; Cough Cardiovascular: No: Chest Pain, Palpitations, Orthopnea Gastrointestinal: No: Nausea, Vomiting, Abdominal Pain Genitourinary: No Dysuria, No Frequency Musculoskeletal: No: neck pain, shoulder pain Neurological: No: Weakness, Numbness, Change in speech, Confusion ross in place Objective Exam Vital Signs Date Time Temp Pulse Resp B/P (MAP) Pulse Ox O2 Delivery O2 Flow Rate FiO2 10/30/21 04:00 36.4 91 19 121/73 (89) 97 Nasal Cannula 10.00 10/30/21 00:00 36.1 69 19 121/72 (88) 98 Nasal Cannula 10.00 10/29/21 20:50 High Flow N/C 10.00 10/29/21 20:00 36.6 77 20 115/70 (85) 97 Nasal Cannula 10.00 10/29/21 16:14 36.7 81 18 111/72 (85) 98 High Flow N/C 12.00 10/29/21 12:09 98 High Flow N/C 10.00 10/29/21 12:00 78 22 99 High Flow N/C 2.00 10/29/21 08:00 35.8 82 24 107/72 (84) 97 High Flow N/C 2.00 10/29/21 08:00 High Flow N/C 10.00 10/29/21 07:36 96 High Flow N/C 10.00 I & O 10/30/21 07:00 Intake Total 1200 ml Output Total 1550 ml Balance -350 ml Capillary Refill : Less Than 3 SecondsLess Than 3 Seconds General Appearance: No Apparent Distress (fatigued ), WD/WN, Chronically ill HEENT: PERRL/EOMI, Pharynx Normal Neck: Full Range of Motion, Non Tender, Supple Respiratory: Chest Non Tender, No Accessory Muscle Use, No Respiratory Distress, Crackles, Inspiration Cardiovascular: Regular Rate, Rhythm, No Gallop, No Murmur, Normal Peripheral Pulses Peripheral Pulses: 2+ Radial Pulses (R), 2+ Radial Pulses (L) Gastrointestinal: soft, no organomegaly, no pulsatile mass, distended, tenderness (distended, currently incsision is clean dry and intact), other (Abdominal incision - bandage changed - bleeding stopped) Extremity: Normal Capillary Refill, Normal Range of Motion, Non Tender, No Calf Tenderness, No Pedal Edema Neurologic/Psychiatric: Alert, No Motor/Sensory Deficits, Depressed Affect Skin: Normal Color, Warm/Dry Lymphatic: No Adenopathy (cervical and axillary) Results Lab Laboratory Tests 10/30/21 05:10: White Blood Count 7.1, Red Blood Count 3.81, Hemoglobin 10.8L, Hematocrit 37, Mean Corpuscular Volume 97, Mean Corpuscular Hemoglobin 28, Mean Corpuscular Hemoglobin Concent 29L, Red Cell Distribution Width 13.8, Platelet Count 176, Mean Platelet Volume 10.0, Sodium Level 141, Potassium Level 3.8, Chloride Level 98, Carbon Dioxide Level 35H, Anion Gap 8, Blood Urea Nitrogen 13, Creatinine 0.73, Estimat Glomerular Filtration Rate 77, BUN/Creatinine Ratio 18, Glucose Level 90, Calcium Level 8.3L, Corrected Calcium 9.2, Total Bilirubin 0.6, Aspartate Amino Transf (AST/SGOT) 15, Alanine Aminotransferase (ALT/SGPT) 11, Alkaline Phosphatase 56, Total Protein 6.4, Albumin 2.9L Assessment/Plan Assessment/Plan Assessment/Plan SBO - S/P ex lap 10/25 COPD, HTN, GERD, Arthritis Hypothyroidism Anxiety, Depression PNA w/ bibasilar infiltrates continue abx, holding anticoagualation for one more day, encouraged IS and increasing ambulation/activity to help with bowel function - Pt agrees NPO-await bowel function. SARAY AQUINO DO 10/30/21 1502: Subjective Subjective/Events-last exam Patient sitting in chair. Patient breathing is improved. No bowel function. NPO. No bleeding from incision at this time. Denies nausea vomiting fever sweats chills shortness of breath or chest pain at this time. Son at bedside. Not using incentive spirometer much and not increasing activity much. Objective Exam General Appearance: No Apparent Distress (fatigued ), Chronically ill HEENT: PERRL/EOMI, Normal ENT Inspection Neck: Non Tender, Supple Respiratory: Chest Non Tender, No Accessory Muscle Use, No Respiratory Distress Cardiovascular: Regular Rate, Rhythm, No JVD Gastrointestinal: soft, distended (Minimal), tenderness (distended, currently incsision is clean dry and intact) Extremity: Non Tender, No Calf Tenderness Neurologic/Psychiatric: Alert, No Motor/Sensory Deficits, Depressed Affect Skin: Normal Color, Warm/Dry Lymphatic: No Adenopathy (cervical and axillary) Assessment/Plan Assessment/Plan Assessment/Plan SBO - S/P ex lap 10/25 COPD, HTN, GERD, Arthritis Hypothyroidism Anxiety, Depression PNA w/ bibasilar infiltrates continue abx, holding anticoagualation for one more day, encouraged IS and increasing ambulation/activity to help with bowel function - Pt agrees NPO-await bowel function. If bowel function does not return soon may need to start TPN Supervisory-Addendum Brief Verification & Attestation Participated in pt care: history, MDM, physical Personally performed: exam, history, MDM, supervision of care Care discussed with: Medical Student Procedures: n/a Results interpretation: Verified all documentation Verification and Attestation of Medical Student E/M Service A medical student performed and documented this service in my presence. I reviewed and verified all information documented by the medical student and made modifications to such information, when appropriate. I personally performed the physical exam and medical decision making. Saray Aquino, Oct 30, 2021,15:01 LANRE MCDANIEL Oct 30, 2021 07:29 SARAY AQUINO DO Oct 30, 2021 15:02
[2021-10-30 08:01] VITALS: BP 127/81
--- NOTE | 2021-10-30 08:24 | Progress Note ---
Subjective Subjective Date Seen by Provider: Oct 30, 2021 Time Seen by Provider: 08:20 PT REPORTS THAT SHE IS FRUSTRATED BECAUSE SHE WANTS TO HAVE THE NG TUBE REMOVED. PT REPORTS THAT SHE IS NOT HAVING ANY BOWEL MOVEMENTS OR PASSING GAS THAT SHE CAN FEEL. SHE DENIES CHEST PAIN, ABDOMINAL PAIN IS BETTER. THERAPY NOTES THAT SHE WAS ABLE TO WALK FROM ROOM TO THE END OF THE GILL AND BACK. Review of Systems General: No Chills, No Night Sweats; Fatigue HEENT: No Head Aches, No Visual Changes, No Eye Pain, No Ear Pain Pulmonary: No Dyspnea; Cough Cardiovascular: No: Chest Pain, Palpitations, Orthopnea Gastrointestinal: No: Nausea, Vomiting, Abdominal Pain Genitourinary: No Dysuria, No Frequency Musculoskeletal: No: neck pain, shoulder pain Neurological: No: Weakness, Numbness, Change in speech, Confusion All Other Systems Reviewed All Other Systems Reviewed: Yes Objective Exam Vital Signs Vital Signs Date Time Temp Pulse Resp B/P (MAP) Pulse Ox O2 Delivery O2 Flow Rate FiO2 10/30/21 08:01 36.5 79 20 127/81 (96) 97 High Flow N/C 10.00 10/30/21 04:00 36.4 91 19 121/73 (89) 97 Nasal Cannula 10.00 10/30/21 00:00 36.1 69 19 121/72 (88) 98 Nasal Cannula 10.00 10/29/21 20:50 High Flow N/C 10.00 10/29/21 20:00 36.6 77 20 115/70 (85) 97 Nasal Cannula 10.00 10/29/21 16:14 36.7 81 18 111/72 (85) 98 High Flow N/C 12.00 10/29/21 12:09 98 High Flow N/C 10.00 10/29/21 12:00 78 22 99 High Flow N/C 2.00 I & O 10/30/21 07:00 Intake Total 1200 ml Output Total 1550 ml Balance -350 ml General Appearance: No Apparent Distress (fatigued ), WD/WN, Chronically ill Eyes: Bilateral Eye PERRL, Bilateral Eye EOMI HEENT: PERRL/EOMI, Pharynx Normal Neck: Full Range of Motion, Non Tender, Supple Respiratory: Chest Non Tender, No Accessory Muscle Use, No Respiratory Distress, Crackles, Inspiration Cardiovascular: Regular Rate, Rhythm, No Gallop, No Murmur, Normal Peripheral Pulses Gastrointestinal: Abnormal Bowel Sounds (DECREASED), Tenderness (DIFFUSELY), Other (NG TUBE IN RIGHT NARE) Rectal: Deferred Extremity: Normal Capillary Refill, Normal Range of Motion, Non Tender, No Calf Tenderness, No Pedal Edema Neurologic/Psychiatric: Alert, No Motor/Sensory Deficits, Depressed Affect Skin: Normal Color, Warm/Dry Lymphatic: No Adenopathy (cervical and axillary) Results Lab Laboratory Tests 10/30/21 05:10: White Blood Count 7.1, Red Blood Count 3.81, Hemoglobin 10.8L, Hematocrit 37, Mean Corpuscular Volume 97, Mean Corpuscular Hemoglobin 28, Mean Corpuscular Hemoglobin Concent 29L, Red Cell Distribution Width 13.8, Platelet Count 176, Mean Platelet Volume 10.0, Sodium Level 141, Potassium Level 3.8, Chloride Level 98, Carbon Dioxide Level 35H, Anion Gap 8, Blood Urea Nitrogen 13, Creatinine 0.73, Estimat Glomerular Filtration Rate 77, BUN/Creatinine Ratio 18, Glucose Level 90, Calcium Level 8.3L, Corrected Calcium 9.2, Total Bilirubin 0.6, Aspartate Amino Transf (AST/SGOT) 15, Alanine Aminotransferase (ALT/SGPT) 11, Alkaline Phosphatase 56, Total Protein 6.4, Albumin 2.9L Assessment/Plan Assessment/Plan Admission Dx SMALL BOWEL OBSTRUCTION ABDOMINAL PAIN NAUSEA HYPOTHYROIDISM HYPERTENSION DEPRESSION Assessment and Plan SMALL BOWEL OBSTRUCTION ABDOMINAL PAIN NAUSEA HYPOTHYROIDISM HYPERTENSION DEPRESSION ANXIOLYTIC THROAT PAIN SURGICAL SITE BLEEDING RESPIRATORY DISTRESS BIBASILAR INFILTRATES - PNEUMONIA SMALL BOWEL OBSTRUCTION WITH NAUSEA AND ABDOMINAL PAIN - DEFER TO DR. SOLIS - NG TUBE STILL IN PLACE DUE TO NO BOWEL FUNCTION /GAS, STOOL OUTPUT - MONITOR SYMPTOMS CLOSELY BIBASILAR INFILTRATES - PNEUMONIA - PT ON ZOSYN - WILL ASK RT TO BRING IN INCENTIVE SPIROMETRY AND AUTOPAP DEVICE FOR PT TO USE TO HELP IMPROVE AIR FLOW IN BASE OF LUNGS - REPEAT CXR HYPOTHYROIDISM - PT TO CONTINUE WITH LEVOTHYROXINE SOON SHE IS ABLE TO TAKE PO HYPERTENSION - HOLD HCTZ AND MONITOR BP, WILL TREAT NEEDED WITH IV MEDICATIONS DEPRESSION - HOLD SSRI FOR NOW, ONCE ABLE TO TAKE PO MEDICATIONS WILL RESTART. EXTREME ANXIETY - PT RECEIVING PRN ANXIOLYTICS IV AND WILL INCREASE FREQUENCY SINCE SHE IS HAVING SO MUCH TROUBLE WITH HER ANXIETY. THROAT PAIN - PRN CHLORASEPTIC LOZENGES AND SPRAY - DUE TO NG TUBE, WILL DEFER REMOVAL TO DR. SOLIS SURGICAL SITE BLEEDING - WILL HOLD LOVENOX UNTIL 11/01/2021 - FREQUENT DRESSING CHANGES DVT PROPHYLAXIS - SCD'S, START LOVENOX ON 11/01/2021 GI PROPHYLAXIS WITH PPI Admission Dx SMALL BOWEL OBSTRUCTION ABDOMINAL PAIN NAUSEA HYPOTHYROIDISM HYPERTENSION DEPRESSION Clinical Quality Measures Admission Status Admission Dx SMALL BOWEL OBSTRUCTION ABDOMINAL PAIN NAUSEA HYPOTHYROIDISM HYPERTENSION DEPRESSION ANABELA OPRTER MD Oct 30, 2021 08:23
[2021-10-30] MEDS: PANTOPRAZOLE 40 MG (PROTONIX) VIAL IV SCH (09:23)
[2021-10-30 11:55] VITALS: BP 117/75
[2021-10-30] MEDS: LORazepam INJ 2 MG/ML (ATIVAN) VIAL IVP PRN (12:41)
--- NOTE | 2021-10-30 13:51 | Physical Therapy Daily Note ---
PT Daily Note-Current Subjective Patient in recliner pre tx, agrees to PT, voices no complaints of pain. Appearance Patient in bed post tx with nurse call, phone, tray, all needs met. Mental Status Patient Orientation: Person, Confused Attachments: Oxygen, Guzman Catheter, IV Transfers SCALE: Activities may be completed with or without assistive devices. 6-Hlqeureask-mabumoj completes the activity by him/herself with no assistance from a helper. 5-Set-up or Clean-up Assistance-helper sets up or cleans up; patient completes activity. [place] assists only prior to or following the activity. 4-Supervision or Touching Assistance-helper provides verbal cues and/or touching/steadying and/or contact guard assistance as patient completes activit y. Assistance may be provided throughout the activity or intermittently. 3-Partial/Moderate Assistance-helper does LESS THAN HALF the effort. [place] lifts, holds or supports trunk or limbs, but provides less than half the effort. 2-Substantial/Maximal Assistance-helper does MORE THAN HALF the effort. [place] lifts or holds trunk or limbs and provides more than half the effort. 6-Taazsftun-rogpls does ALL the effort. Patient does none of the effort to complete the activity. Or, the assistance of 2 or more helpers is required for the patient to complete the activity. If activity was not attempted, code reason: 7-Patient Refused. 9-Not Applicable-not attempted and the patient did not perform the activity before the current illness, exacerbation or injury. 10-Not Attempted due to Environmental Limitations-(lack of equipment, weather restraints, etc.). 88-Not Attempted due to Medical Conditions or Safety Concerns. Roll Left & Right (QC): 4 Sit to Lying (QC): 3 Sit to Stand (QC): 4 Chair/Hle-qc-Vzvpt Xfer(QC): 4 Gait Training Distance: 100' Walk 10 feet (QC): 4 Walk 50 ft with 2 Turns(QC): 4 Gait Persons Needed: 1 Gait Assistive Device: FWW CGA, patient has unsteady moments and needs steadying assist, she also needs some assist guiding her walker, she tends to drift to the left side Exercises Supine Reps: 20 Treatments bed mobility and transfers, ambulation Assessment Current Status: Fair Progress improving functional mobility PT Communications Project Manager Goals Snf Goals PT Snf Goals Time Frame: Nov 03, 2021 Roll Left & Right (QC): 4 Sit to Lying (QC): 4 Lying-Sitting on Side/Bed(QC): 4 Sit to Stand (QC): 5 Chair/Jlm-gq-Rboic Xfer(QC): 5 Walk 10 feet (QC): 5 Walk 50ft with 2 Turns (QC): 5 PT Plan Problem List Problem List: Activity Tolerance, Functional Strength, Safety, Balance, Gait, Transfer, Bed Mobility, ROM Treatment/Plan Treatment Plan: Continue Plan of Care Treatment Plan: Bed Mobility, Education, Functional Activity [place], Functional Strength, Gait, Safety, Therapeutic Exercise, Transfers Treatment Duration: Nov 03, 2021 Frequency: 6 times per week Estimated Hrs Per Day: .25 hour per day Patient and/or Family Agrees t: Yes Safety Risks/Education Patient Education: Gait Training, Transfer Techniques, Correct Positioning, Safety Issues Teaching Recipient: Patient Teaching Methods: Demonstration, Discussion Response to Teaching: Reinforcement Needed Time/GCodes Time In: 1311 Time Out: 1327 Total Billed Treatment Time: 16 Total Billed Treatment 1 visit FA 16' ULISES MIRANDA PT Oct 30, 2021 13:51
--- NOTE | 2021-10-30 14:17 | Occupational Ther Daily Note ---
OT Current Status-Daily Note Subjective [place], requires repetition of commands. Requesting to walk. Appearance Left supine in bed at OT departure. Mental Status/Objective Patient Orientation: Person, Confused Attachments: Guzman Catheter, IV, Oxygen ADL-Treatment Therapy Code Descriptions/Definitions Functional [place] Measure: 0=Not Assessed/NA 4=Minimal Assistance 1=Total Assistance 5=Supervision or Setup 2=Maximal Assistance 6=Modified [place] 3=Moderate Assistance 7=Complete IndependenceSCALE: Activities may be completed with or without assistive devices. 3-Jjsxzxgkng-zjnptvy completes the activity by him/herself with no assistance from a helper. 5-Set-up or Clean-up Assistance-helper sets up or cleans up; patient completes activity. [place] assists only prior to or following the activity. 4-Supervision or Touching Assistance-helper provides verbal cues and/or touching/steadying and/or contact guard assistance as patient completes activity. Assistance may be provided throughout the activity or intermittently. 3-Partial/Moderate Assistance-helper does LESS THAN HALF the effort. [place] lifts, holds or supports trunk or limbs, but provides less than half the effort. 2-Substantial/Maximal Assistance-helper does MORE THAN HALF the effort. [place] lifts or holds trunk or limbs and provides more than half the effort. 0-Xesawevxv-ykpngk does ALL the effort. Patient does none of the effort to complete the activity. Or, the assistance of 2 or more helpers is required for the patient to complete the activity. If activity was not attempted, code reason: 7-Patient Refused. 9-Not Applicable-not attempted and the patient did not perform the activity b efore the current illness, exacerbation or injury. 10-Not Attempted due to Environmental Limitations-(lack of equipment, weather restraints, etc.). 88-Not Attempted due to Medical Conditions or Safety Concerns. On/Off Footwear: 1 Toilet Transfer (QC): 3 Sitting in recliner at therapy arrival. Dep to don socks. Declines ADLs, requests only to walk. Sit<>stand: Min A. Pt ambulated within room and rogers with CGA-Min A. Multiple episodes of unsteadiness needing min a to recover. Intermittent tactile cues for walker management as pt has tendency to drift towards left. Poor obstacle avoidance. Education OT Patient Education: Correct positioning, Progress toward Goal/Update tx plan, Purpose of tx/functional activities, Safety issues, Use of adapted equipment Teaching Recipient: Patient, Family Teaching Methods: Discussion Response to Teaching: Reinforcement Needed OT Social Sciences Chair Goals Social Sciences Chair Goals Time Frame: Nov 10, 2021 Eating (QC): 6 Oral Hygiene (QC): 6 Toileting Hygiene (QC): 4 Shower/Bathe Self (QC): 5 Upper Body Dressing (QC): 4 Lower Body Dressing (QC): 4 On/Off Footwear (QC): 4 Additional Goals: 1-Demonstrate ADL Tasks, 2-Verbalize Understanding, 3-I mproveStrength/[place] 1=Demonstrate adherence to instructed precautions during ADL tasks. 2=Patient will verbalize/demonstrate understanding of assistive devices/modifications for ADL. 3=Patient will improve strength/tolerance for activity to enable patient to perform ADL's. OT Education/Plan Problem List/Assessment Assessment: Decreased Activ Tolerance, Decreased Safety Aware, Decreased UE Strength, Impaired Bed Mobility, Impaired Cognition, Impaired Funct Balance, Impaired Self-Care Skills Discharge Recommendations Plan/Recommendations: Continue POC Treatment Plan/Plan of Care Treatment,Training & Education: Yes Patient would benefit from OT for education, treatment and training to promote independence in ADL's, mobility, safety and/or upper extremity function for ADL's. Plan of Care: ADL Retraining, Functional Mobility, UE Funct Exercise/Act Treatment Duration: Nov 10, 2021 Frequency: 3 times per week (3-5 times per week) Estimated Hrs Per Day: .25 hour per day Rehab Potential: Guarded Time/GCodes Start Time: 13:11 Stop Time: 13:27 Total Time Billed (hr/min): 16 Billed Treatment Time 1 visit Kelle Redman OT Oct 30, 2021 14:17
[2021-10-30 16:00] VITALS: BP 118/76
[2021-10-30] MEDS: RT-ALBUTEROL SULF 2.5 MG/3 ML PRE-MIX VIAL IH PRN (18:28)
[2021-10-30 20:16] VITALS: BP 118/79
[2021-10-31] VITALS: BP 124/75
[2021-10-31] MEDS: LORazepam INJ 2 MG/ML (ATIVAN) VIAL IVP PRN ×3 (02:07→18:34)
[2021-10-31] MEDS: PIPERACILLIN SODIUM/TAZOBACTAM 4.5 GM in NS (IVPB) 100 ML IV SCH ×3 (02:08→17:15)
[2021-10-31 04:22] VITALS: BP 128/77
[2021-10-31] MEDS: D5 1/2 NS W/KCL 20 MEQ/L 1,000 ML IV SCH (06:53)
--- NOTE | 2021-10-31 07:33 | Progress Note - Surgery ---
LANRE MCDANIEL 10/31/21 0733: Subjective Date Seen by a Provider: Oct 31, 2021 Time Seen by a Provider: 06:51 Subjective/Events-last exam Pt sleeping bed and easily roused. Pt reports breathing is much easier today. She also reports regular ICS use and walking down the rogers 1x yesterday. Her abdomen remains dissented but soft and non-tender. She denies BM or Flatus, but feels like something is coming soon. She voiced concern of her long stay and is wanting to eat some broth and go home soon. Review of Systems General: No Chills, No Night Sweats, No Fatigue; Appetite HEENT: No Head Aches, No Visual Changes, No Dysphasia, No Sore Throat Pulmonary: No Dyspnea; Cough; No Pleuritic Chest Pain Cardiovascular: No: Chest Pain, Orthopnea, Lt Headedness Gastrointestinal: No: Nausea, Vomiting, Abdominal Pain Genitourinary: No Dysuria, No Frequency Musculoskeletal: No: neck pain, shoulder pain, back pain Neurological: No: Weakness, Numbness, Change in speech, Confusion ross in place Objective Exam Vital Signs Date Time Temp Pulse Resp B/P (MAP) Pulse Ox O2 Delivery O2 Flow Rate FiO2 10/31/21 04:22 36.4 78 19 128/77 (94) 98 High Flow N/C 3.00 10/31/21 00:00 36.7 81 19 124/75 (91) 97 High Flow N/C 3.00 10/30/21 20:16 36.8 87 18 118/79 (92) 91 Nasal Cannula 2.00 10/30/21 20:00 High Flow N/C 4.00 10/30/21 18:28 97 High Flow N/C 2.00 10/30/21 16:00 36.4 79 20 118/76 (90) 97 Nasal Cannula 2.00 10/30/21 11:55 36.8 74 20 117/75 (89) 100 High Flow N/C 10.00 10/30/21 08:01 36.5 79 20 127/81 (96) 97 High Flow N/C 10.00 10/30/21 08:00 High Flow N/C 10.00 I & O 10/31/21 07:00 Intake Total 100 ml Output Total 1125 ml Balance -1025 ml Capillary Refill : Less Than 3 SecondsLess Than 3 Seconds General Appearance: No Apparent Distress, WD/WN, Chronically ill HEENT: PERRL/EOMI, Normal ENT Inspection Neck: Full Range of Motion, Non Tender, Supple Respiratory: Chest Non Tender, No Accessory Muscle Use, No Respiratory Distress Cardiovascular: No Edema, No JVD, No Murmur, Normal Peripheral Pulses, Irregularly Irregular Peripheral Pulses: 2+ Radial Pulses (R), 2+ Radial Pulses (L) Gastrointestinal: normal bowel sounds, non tender, soft, no organomegaly, no pulsatile mass, distended (Minimal), tenderness (incisional pain, currently incsision is clean dry and intact) Extremity: Normal Capillary Refill, Non Tender, No Calf Tenderness Neurologic/Psychiatric: Alert, Oriented x3, No Motor/Sensory Deficits, Depressed Affect Skin: Normal Color, Warm/Dry Lymphatic: No Adenopathy (cervical and axillary) Assessment/Plan Assessment/Plan Assessment/Plan SBO - S/P ex lap 10/25 COPD, HTN, GERD, Arthritis Hypothyroidism Anxiety, Depression PNA w/ bibasilar infiltrates D/C ross cath PT & OT continue abx, holding anticoagualation until 09/01 encouraged IS and increasing ambulation/activity to help with bowel function - Pt agrees NPO-await bowel function. If bowel function does not return soon may need to start TPN SARAY MCNALLY DO 10/31/21 1722: Subjective Subjective/Events-last exam No bm or flatus. Pain controlled. Breathing easier. NPO. NG tube in place. Denies n/v fever sweats chills shortness of breath or chest pain at ths time. Objective Exam General Appearance: No Apparent Distress, WD/WN, Chronically ill HEENT: PERRL/EOMI, Normal ENT Inspection, Other (ng tube) Neck: Non Tender, Supple Respiratory: Chest Non Tender, No Accessory Muscle Use, No Respiratory Distress Cardiovascular: No JVD, Irregularly Irregular Gastrointestinal: distended (Minimal), tenderness (incisional pain, currently incsision is clean dry and intact) Extremity: Non Tender, No Calf Tenderness Neurologic/Psychiatric: Alert, Oriented x3, No Motor/Sensory Deficits Skin: Normal Color, Warm/Dry Lymphatic: No Adenopathy (cervical and axillary) Assessment/Plan Assessment/Plan Assessment/Plan SBO - S/P ex lap 10/25 COPD, HTN, GERD, Arthritis Hypothyroidism Anxiety, Depression PNA w/ bibasilar infiltrates PT & OT continue abx, holding anticoagualation until 09/01 encouraged IS and increasing ambulation/activity to help with bowel function NPO-await bowel function. If bowel function does not return soon may need to start TPN Supervisory-Addendum Brief Verification & Attestation Participated in pt care: history, MDM, physical Personally performed: exam, history, MDM, supervision of care Care discussed with: Medical Student Procedures: n/a Results interpretation: Verified all documentation Verification and Attestation of Medical Student E/M Service A medical student performed and documented this service in my presence. I reviewed and verified all information documented by the medical student and made modifications to such information, when appropriate. I personally performed the physical exam and medical decision making. Saray Mcnally, Oct 31, 2021,17:22 LANRE MCDANIEL Oct 31, 2021 07:33 SARAY MCNALLY DO Oct 31, 2021 17:22
[2021-10-31 07:50] VITALS: BP 138/83
--- NOTE | 2021-10-31 08:40 | Progress Note ---
Subjective Subjective Date Seen by Provider: Oct 31, 2021 Time Seen by Provider: 08:40 PT CONTINUES TO HAVE SOME ABDOMINAL DISCOMFORT, BUT STILL NOT PASSING GAS OR BOWEL MOVEMENT. SHE CONTINUES TO BE UPSET BECAUSE SHE WANTS THE NG TUBE REMOVED. SHE DENIES CHEST PAIN, SHORTNESS OF BREATH. Review of Systems General: No Chills, No Night Sweats, No Fatigue; Appetite HEENT: No Head Aches, No Visual Changes, No Dysphasia, No Sore Throat Pulmonary: No Dyspnea; Cough; No Pleuritic Chest Pain Cardiovascular: No: Chest Pain, Orthopnea, Lt Headedness Gastrointestinal: Abdominal Pain; No: Nausea, Vomiting Genitourinary: No Dysuria, No Frequency Musculoskeletal: No: neck pain, shoulder pain, back pain Neurological: Other (IRRITABLE/ANGRY); No: Weakness, Numbness, Change in speech, Confusion All Other Systems Reviewed All Other Systems Reviewed: Yes Objective Exam Vital Signs Vital Signs Date Time Temp Pulse Resp B/P (MAP) Pulse Ox O2 Delivery O2 Flow Rate FiO2 10/31/21 07:50 36.4 74 18 138/83 (101) 98 Nasal Cannula 3.00 10/31/21 04:22 36.4 78 19 128/77 (94) 98 High Flow N/C 3.00 10/31/21 00:00 36.7 81 19 124/75 (91) 97 High Flow N/C 3.00 10/30/21 20:16 36.8 87 18 118/79 (92) 91 Nasal Cannula 2.00 10/30/21 20:00 High Flow N/C 4.00 10/30/21 18:28 97 High Flow N/C 2.00 10/30/21 16:00 36.4 79 20 118/76 (90) 97 Nasal Cannula 2.00 10/30/21 11:55 36.8 74 20 117/75 (89) 100 High Flow N/C 10.00 I & O 10/31/21 07:00 Intake Total 100 ml Output Total 1125 ml Balance -1025 ml General Appearance: No Apparent Distress, WD/WN, Chronically ill Eyes: Bilateral Eye PERRL, Bilateral Eye EOMI HEENT: PERRL/EOMI, Normal ENT Inspection Neck: Full Range of Motion, Non Tender, Supple Respiratory: Chest Non Tender, No Accessory Muscle Use, No Respiratory Distress Cardiovascular: No Edema, No JVD, No Murmur, Normal Peripheral Pulses, Irregularly Irregular Gastrointestinal: Tenderness (DIFFUSELY), Other (NG TUBE RIGHT NARE, MINIMAL BOWEL SOUNDS) Rectal: Deferred Extremity: Normal Capillary Refill, Non Tender, No Calf Tenderness Neurologic/Psychiatric: Alert, Oriented x3, No Motor/Sensory Deficits, Other (ANGRY, IRRITABLE) Skin: Normal Color, Warm/Dry Lymphatic: No Adenopathy (cervical and axillary) Assessment/Plan Assessment/Plan Admission Dx SMALL BOWEL OBSTRUCTION ABDOMINAL PAIN NAUSEA HYPOTHYROIDISM HYPERTENSION DEPRESSION Assessment and Plan SMALL BOWEL OBSTRUCTION ABDOMINAL PAIN NAUSEA HYPOTHYROIDISM HYPERTENSION DEPRESSION ANXIOLYTIC THROAT PAIN SURGICAL SITE BLEEDING RESPIRATORY DISTRESS BIBASILAR INFILTRATES - PNEUMONIA SMALL BOWEL OBSTRUCTION WITH NAUSEA AND ABDOMINAL PAIN - DEFER TO DR. SOLIS - NG TUBE STILL IN PLACE DUE TO NO BOWEL FUNCTION /GAS, STOOL OUTPUT - MONITOR SYMPTOMS CLOSELY - WILL HAVE TO START PT ON TPN DUE TO NO INTAKE FOR THE LAST 5 DAYS. BIBASILAR INFILTRATES - PNEUMONIA - PT ON ZOSYN -CONTINUE WITH INCENTIVE SPIROMETRY AND REPEAT IMAGING. HYPOTHYROIDISM - PT TO CONTINUE WITH LEVOTHYROXINE SOON SHE IS ABLE TO TAKE PO HYPERTENSION - HOLD HCTZ AND MONITOR BP, WILL TREAT NEEDED WITH IV MEDICATIONS DEPRESSION - HOLD SSRI FOR NOW, ONCE ABLE TO TAKE PO MEDICATIONS WILL RESTART. EXTREME ANXIETY - PT RECEIVING PRN ANXIOLYTICS IV AND WILL INCREASE FREQUENCY SINCE SHE IS HAVING SO MUCH TROUBLE WITH HER ANXIETY. THROAT PAIN - PRN CHLORASEPTIC LOZENGES AND SPRAY - DUE TO NG TUBE, WILL DEFER REMOVAL TO DR. SOLIS/DALI SURGICAL SITE BLEEDING - WILL HOLD LOVENOX UNTIL 11/01/2021 DVT PROPHYLAXIS - SCD'S AND RESTART LOVENOX ON 11/01/2021 GI PROPHYLAXIS WITH PPI WILL ASK FOR SWING BED EVAL TO SEE IF SHE CAN BE MOVED TO SWING BED TOMORROW. PT WILL NOT QUALIFY FOR INPT REHAB DUE TO HER REFUSAL TO COMPLY WITH NEED FOR THERAPY CONSISTENTLY PT MAY NEED TO BE ADMITTED TO A ALF IF SHE DOES NOT IMPROVE ENOUGH TO BE SAFE AT HOME. Admission Dx SMALL BOWEL OBSTRUCTION ABDOMINAL PAIN NAUSEA HYPOTHYROIDISM HYPERTENSION DEPRESSION Clinical Quality Measures Admission Status Admission Dx SMALL BOWEL OBSTRUCTION ABDOMINAL PAIN NAUSEA HYPOTHYROIDISM HYPERTENSION DEPRESSION ANABELA PORTER MD Oct 31, 2021 08:40
[2021-10-31] MEDS ORDERED: TPN IV SCH (08:45)
[2021-10-31 09:12] LABS: HEMATOCRIT 39 % (35-52); HEMOGLOBIN 11.5 g/dL (11.5-16.0); MEAN CORPUSCULAR HEMOGLOBIN 29 pg (25-34); MEAN CORPUSCULAR HGB CONC 30 g/dL (32-36); MEAN CORPUSCULAR VOLUME 97 fL (80-99); MEAN PLATELET VOLUME 9.8 fL (9.0-12.2); PLATELET COUNT 183 10^3/uL (130-400); WHITE BLOOD COUNT 6.2 10^3/uL (4.3-11.0)
[2021-10-31 09:24] LABS: CALCIUM 8.4 MG/DL (8.5-10.1)
[2021-10-31 09:25] LABS: TOTAL PROTEIN 6.7 GM/DL (6.4-8.2)
[2021-10-31 09:27] LABS: BILIRUBIN,TOTAL 0.8 MG/DL (0.1-1.0)
[2021-10-31 09:28] LABS: PHOSPHORUS 2.8 MG/DL (2.3-4.7)
[2021-10-31 09:29] LABS: CREATININE SERUM 0.66 MG/DL (0.60-1.30)
[2021-10-31 09:31] LABS: MAGNESIUM 2.2 MG/DL (1.6-2.4)
--- NOTE | 2021-10-31 10:20 | Diagnostic Imaging Report ---
INDICATION: Respiratory distress. COMPARISON: 10/30/2021. FINDINGS: There has been slight improvement in aeration. There continue to be bilateral basilar alveolar infiltrates with mild diffuse interstitial infiltrates. The heart is not enlarged. Probable small bilateral pleural effusions. No pneumothorax. The heart is not enlarged. The NG tube remains present. IMPRESSION: Persistent infiltrates with bilateral basilar alveolar infiltrates. No significant overall change in appearance. Dictated by: Dictated on workstation # [id number]
[2021-10-31] MEDS: PANTOPRAZOLE 40 MG (PROTONIX) VIAL IV SCH (10:31)
--- NOTE | 2021-10-31 11:21 | Occupational Ther Daily Note ---
OT Current Status-Daily Note Subjective Pt sleepy at OT arrival but becomes more alert as session continues. Son enters room 1/2 way through session and verbalizes that pt's speech is more "slurring and mumbling" than usual. Appearance Left supine in bed,all needs within reach. Mental Status/Objective Patient Orientation: Person Attachments: Guzman Catheter, IV, NG Tube, Oxygen, Telemetry ADL-Treatment Therapy Code Descriptions/Definitions Functional [place] Measure: 0=Not Assessed/NA 4=Minimal Assistance 1=Total Assistance 5=Supervision or Setup 2=Maximal Assistance 6=Modified [place] 3=Moderate Assistance 7=Complete IndependenceSCALE: Activities may be completed with or without assistive devices. 3-Zkaymymugz-oinbmdn completes the activity by him/herself with no assistance from a helper. 5-Set-up or Clean-up Assistance-helper sets up or cleans up; patient completes activity. [place] assists only prior to or following the activity. 4-Supervision or Touching Assistance-helper provides verbal cues and/or touching/steadying and/or contact guard assistance as patient completes activity. Assistance may be provided throughout the activity or intermittently. 3-Partial/Moderate Assistance-helper does LESS THAN HALF the effort. [place] lifts, holds or supports trunk or limbs, but provides less than half the effort. 2-Substantial/Maximal Assistance-helper does MORE THAN HALF the effort. [place] lifts or holds trunk or limbs and provides more than half the effort. 5-Oxybmqeqn-pbvjcj does ALL the effort. Patient does none of the effort to complete the activity. Or, the assistance of 2 or more helpers is required for the patient to complete the activity. If activity was not attempted, code reason: 7-Patient Refused. 9-Not Applicable-not attempted and the patient did not perform the activity before the current illness, exacerbation or injury. 10-Not Attempted due to Environmental Limitations-(lack of equipment, weather restraints, etc.). 88-Not Attempted due to Medical Conditions or Safety Concerns. Other Treatment Pt initially very sleepy, requires extra time to arouse. Pt participated in UE AROM exercises with goal to promote increases strength and endurance needed for adls and transfers. AAROM required for bilateral shoulders secondary to weakness. Full range noted. Elbow-distally AROM. 10x1 in all planes. Dep x2 to supine scoot to HOB. Education OT Patient Education: Correct positioning, Exercise program, Rehab process Teaching Recipient: Patient Teaching Methods: Discussion Response to Teaching: Reinforcement Needed OT Mcfp Goals Nuclear Plant Operator Goals Time Frame: Nov 10, 2021 Eating (QC): 6 Oral Hygiene (QC): 6 Toileting Hygiene (QC): 4 Shower/Bathe Self (QC): 5 Upper Body Dressing (QC): 4 Lower Body Dressing (QC): 4 On/Off Footwear (QC): 4 Additional Goals: 1-Demonstrate ADL Tasks, 2-Verbalize Understanding, 3-ImproveStrength/Garo 1=Demonstrate adherence to instructed precautions during ADL tasks. 2=Patient will verbalize/demonstrate understanding of assistive devices/modifications for ADL. 3=Patient will improve strength/tolerance for activity to enable patient to perform ADL's. OT Education/Plan Problem List/Assessment Assessment: Decreased Activ Tolerance, Decreased Safety Aware, Decreased UE Strength, Impaired Cognition, Impaired Funct Balance, Impaired Self-Care Skills Discharge Recommendations Plan/Recommendations: Continue POC Therapy Discharge Recommendati: Post Acute OT Treatment Plan/Plan of Care Treatment,Training & Education: Yes Patient would benefit from OT for education, treatment and training to promote independence in ADL's, mobility, safety and/or upper extremity function for ADL's. Plan of Care: ADL Retraining, Functional Mobility, UE Funct Exercise/Act Treatment Duration: Nov 10, 2021 Frequency: 3 times per week (3-5 times per week) Estimated Hrs Per Day: .25 hour per day Rehab Potential: Guarded Time/GCodes Start Time: 09:35 Stop Time: 09:46 Total Time Billed (hr/min): 11 Billed Treatment Time 1 visit EX Kelle Higgins OT Oct 31, 2021 11:21
--- NOTE | 2021-10-31 11:48 | Physical Therapy Daily Note ---
PT Daily Note-Current Subjective Patient in recliner pre tx, agrees to PT, voices no complaints of pain. Appearance Patient in recliner post tx with nurse call, phone, tray, all needs met, family in room. Mental Status Patient Orientation: Person, Unable to Assess, Mumbles Attachments: NG Tube, Oxygen, Guzman Catheter, IV Transfers SCALE: Activities may be completed with or without assistive devices. 1-Mlbsplqaan-ahkatbz completes the activity by him/herself with no assistance from a helper. 5-Set-up or Clean-up Assistance-helper sets up or cleans up; patient completes activity. [place] assists only prior to or following the activity. 4-Supervision or Touching Assistance-helper provides verbal cues and/or touching/steadying and/or contact guard assistance as patient completes activity. Assistance may be provided throughout the activity or intermittently. 3-Partial/Moderate Assistance-helper does LESS THAN HALF the effort. [place] lifts, holds or supports trunk or limbs, but provides less than half the effort. 2-Substantial/Maximal Assistance-helper does MORE THAN HALF the effort. [place] lifts or holds trunk or limbs and provides more than half the effort. 3-Cawzyoknc-jbivow does ALL the effort. Patient does none of the effort to comp lete the activity. Or, the assistance of 2 or more helpers is required for the patient to complete the activity. If activity was not attempted, code reason: 7-Patient Refused. 9-Not Applicable-not attempted and the patient did not perform the activity before the current illness, exacerbation or injury. 10-Not Attempted due to Environmental Limitations-(lack of equipment, weather restraints, etc.). 88-Not Attempted due to Medical Conditions or Safety Concerns. Sit to Stand (QC): 3 Chair/Iro-go-Ipxgd Xfer(QC): 3 Gait Training Distance: 200' Walk 10 feet (QC): 3 Walk 50 ft with 2 Turns(QC): 3 Walk 150 ft (QC): 3 Gait Assistive Device: FWW Patient ambulates slowly, is very unsteady, had several losses of balance that n eeded therapist assist to keep from falling. Treatments transfers, ambulation Assessment Current Status: Poor Progress Patient is very unsteady, poor safety awareness PT Continuous Vulcanizing Machine Operator Goals Continuous Vulcanizing Machine Operator Goals PT Continuous Vulcanizing Machine Operator Goals Time Frame: Nov 03, 2021 Roll Left & Right (QC): 4 Sit to Lying (QC): 4 Lying-Sitting on Side/Bed(QC): 4 Sit to Stand (QC): 5 Chair/Pdz-as-Okzqg Xfer(QC): 5 Walk 10 feet (QC): 5 Walk 50ft with 2 Turns (QC): 5 PT Plan Problem List Problem List: Activity Tolerance, Functional Strength, Safety, Balance, Gait, Transfer, Bed Mobility, ROM Treatment/Plan Treatment Plan: Continue Plan of Care Treatment Plan: Bed Mobility, Education, Functional Activity Garo, Functional Strength, Gait, Safety, Therapeutic Exercise, Transfers Treatment Duration: Nov 03, 2021 Frequency: 6 times per week Estimated Hrs Per Day: .25 hour per day Patient and/or Family Agrees t: Yes Safety Risks/Education Patient Education: Gait Training, Transfer Techniques, Correct Positioning, Safety Issues Teaching Recipient: Patient Teaching Methods: Demonstration, Discussion Response to Teaching: Reinforcement Needed Time/GCodes Time In: 1121 Time Out: 1139 Total Billed Treatment Time: 18 Total Billed Treatment 1 visit GT 18' ULISES MIRANDA PT Oct 31, 2021 11:48
[2021-10-31 11:52] VITALS: BP 130/81
[2021-10-31] MEDS ORDERED: CATHETER FLUSH 10 ML SYR IV PRN (12:15)
[2021-10-31] MEDS: ARTIFICAL TEARS 0.4 ML UNIT DOSE (REFRESH PLUS) OU PRN (13:10)
--- NOTE | 2021-10-31 13:49 | Physical Therapy Daily Note ---
PT Daily Note-Current Subjective Patient in recliner pre tx, agrees to PT, has no complaints of pain. Appearance Patient in bed post tx with nurse call, phone, tray, all needs met. Mental Status Patient Orientation: Person, Confused, Mumbles Attachments: NG Tube, SCD's, Oxygen, Guzman Catheter, IV Transfers SCALE: Activities may be completed with or without assistive devices. 3-Bkfdtudsys-sglbhyz completes the activity by him/herself with no assistance from a helper. 5-Set-up or Clean-up Assistance-helper sets up or cleans up; patient completes activity. [place] assists only prior to or following the activity. 4-Supervision or Touching Assistance-helper provides verbal cues and/or touching/steadying and/or contact guard assistance as patient completes activity. Assistance may be provided throughout the activity or intermittently. 3-Partial/Moderate Assistance-helper does LESS THAN HALF the effort. [place] lifts, holds or supports trunk or limbs, but provides less than half the effort. 2-Substantial/Maximal Assistance-helper does MORE THAN HALF the effort. [place] lifts or holds trunk or limbs and provides more than half the effort. 1-Qftslyegj-oxxjcv does ALL the effort. Patient does none of the effort to complete the activity. Or, the assistance of 2 or more helpers is required for the patient to complete the activity. If activity was not attempted, code reason: 7-Patient Refused. 9-Not Applicable-not attempted and the patient did not perform the activity before the current illness, exacerbation or injury. 10-Not Attempted due to Environmental Limitations-(lack of equipment, weather restraints, etc.). 88-Not Attempted due to Medical Conditions or Safety Concerns. Roll Left & Right (QC): 4 Sit to Lying (QC): 4 Sit to Stand (QC): 3 Chair/Sag-ms-Xkprj Xfer(QC): 4 cues for hand placement and positioning during transfers Gait Training Distance: 200' Walk 10 feet (QC): 3 Walk 50 ft with 2 Turns(QC): 3 Walk 150 ft (QC): 3 Gait Persons Needed: 1 Gait Assistive Device: FWW less LOB but still had a couple of instances that required therapist assist to maintain balance, slow ambulation. During ambulation patient states she needs to have a BM, turns around, however when she gets back to the room she says she no longer needs to have a BM. Treatments bed mobility and transfers, ambulation Assessment Current Status: Fair Progress slightly improved balance from this morning but still had LOB PT Fdc Goals Fdc Goals PT Licensed Prosthetist/Orthotist Goals Time Frame: Nov 03, 2021 Roll Left & Right (QC): 4 Sit to Lying (QC): 4 Lying-Sitting on Side/Bed(QC): 4 Sit to Stand (QC): 5 Chair/Gxe-hi-Cehrb Xfer(QC): 5 Walk 10 feet (QC): 5 Walk 50ft with 2 Turns (QC): 5 PT Plan Problem List Problem List: Activity Tolerance, Functional Strength, Safety, Balance, Gait, Transfer, Bed Mobility, ROM Treatment/Plan Treatment Plan: Continue Plan of Care Treatment Plan: Bed Mobility, Education, Functional Activity Garo, Functional Strength, Gait, Safety, Therapeutic Exercise, Transfers Treatment Duration: Nov 03, 2021 Frequency: 6 times per week Estimated Hrs Per Day: .25 hour per day Patient and/or Family Agrees t: Yes Safety Risks/Education Patient Education: Gait Training, Transfer Techniques, Correct Positioning, Safety Issues Teaching Recipient: Patient Teaching Methods: Demonstration, Discussion Response to Teaching: Reinforcement Needed Time/GCodes Time In: 1325 Time Out: 1339 Total Billed Treatment Time: 14 Total Billed Treatment 1 visit FA ULISES CHING PT Oct 31, 2021 13:49
[2021-10-31 16:00] VITALS: BP 135/66
[2021-10-31] MEDS: RT-ALBUTEROL SULF 2.5 MG/3 ML PRE-MIX VIAL IH PRN (16:56)
[2021-10-31] MEDS ORDERED: POTASSIUM CHLORIDE IV SCH ×10 (17:00)
[2021-10-31] MEDS ORDERED: SODIUM CHLORIDE IV SCH ×10 (17:00)
[2021-10-31] MEDS ORDERED: [UNRECOGNIZED DRUG - OTHER] IV SCH ×10 (17:00)
[2021-10-31] MEDS ORDERED: 1/2 NS IV SOLUTION 1,000 ML IV SCH (17:00)
[2021-10-31 19:49] VITALS: BP 137/64
[2021-11-01 00:06] VITALS: BP 104/63
[2021-11-01] MEDS: PIPERACILLIN SODIUM/TAZOBACTAM 4.5 GM in NS (IVPB) 100 ML IV SCH (01:15)
[2021-11-01 03:44] VITALS: BP 120/71
[2021-11-01] MEDS: ARTIFICAL TEARS 0.4 ML UNIT DOSE (REFRESH PLUS) OU PRN (04:52)
[2021-11-01] MEDS: LORazepam INJ 2 MG/ML (ATIVAN) VIAL IVP PRN (04:52)
[2021-11-01 06:14] LABS: ALBUMIN 2.8 GM/DL (3.2-4.5); POTASSIUM 4.1 MMOL/L (3.6-5.0)
[2021-11-01 06:15] LABS: CALCIUM 8.2 MG/DL (8.5-10.1)
[2021-11-01 06:17] LABS: TOTAL PROTEIN 6.4 GM/DL (6.4-8.2)
[2021-11-01 06:19] LABS: BILIRUBIN,TOTAL 0.6 MG/DL (0.1-1.0)
[2021-11-01 06:20] LABS: CREATININE SERUM 0.64 MG/DL (0.60-1.30); PHOSPHORUS 2.8 MG/DL (2.3-4.7)
[2021-11-01 06:23] LABS: MAGNESIUM 2.2 MG/DL (1.6-2.4)
--- NOTE | 2021-11-01 07:17 | Progress Note - Surgery ---
Subjective Date Seen by a Provider: Nov 01, 2021 Time Seen by a Provider: 07:15 Subjective/Events-last exam Patient laying in bed. No bowel function. Pain controlled. Using IS minimally. Ambulating minimally. NG tube and ross. NPO. Denies fever sweats chills shortness of breath or chest pain at this time. Objective Exam Vital Signs Date Time Temp Pulse Resp B/P (MAP) Pulse Ox O2 Delivery O2 Flow Rate FiO2 11/01/21 03:44 36.0 81 18 120/71 (87) 96 Nasal Cannula 3.00 11/01/21 00:06 35.8 73 18 104/63 (77) 99 Nasal Cannula 3.00 10/31/21 19:57 High Flow N/C 3.00 10/31/21 19:49 36.3 84 18 137/64 (88) 83 Nasal Cannula 3.00 10/31/21 16:56 96 High Flow N/C 3.00 10/31/21 16:00 36.5 80 20 135/66 (89) 97 Nasal Cannula 3.00 10/31/21 11:52 36.4 79 20 130/81 (97) 98 Nasal Cannula 3.00 10/31/21 10:10 Nasal Cannula 3.00 10/31/21 08:00 98 Nasal Cannula 3.00 10/31/21 07:50 36.4 74 18 138/83 (101) 98 Nasal Cannula 3.00 I & O 11/01/21 07:00 Intake Total 300 ml Output Total 1325 ml Balance -1025 ml Capillary Refill : Less Than 3 SecondsLess Than 3 Seconds General Appearance: No Apparent Distress, WD/WN, Chronically ill HEENT: PERRL/EOMI, Normal ENT Inspection Neck: Full Range of Motion, Non Tender, Supple Respiratory: Chest Non Tender, No Accessory Muscle Use, No Respiratory Distress Cardiovascular: No JVD, Irregularly Irregular Peripheral Pulses: 2+ Radial Pulses (R), 2+ Radial Pulses (L) Gastrointestinal: distended (Minimal), tenderness (incisional pain, currently incsision is clean dry and intact) Extremity: Normal Capillary Refill, Non Tender, No Calf Tenderness Neurologic/Psychiatric: Alert, Oriented x3, No Motor/Sensory Deficits, Other (ANGRY, IRRITABLE) Skin: Normal Color, Warm/Dry Lymphatic: No Adenopathy (cervical and axillary) Results Lab Laboratory Tests 10/31/21 09:05: White Blood Count 6.2, Red Blood Count 3.98, Hemoglobin 11.5, Hematocrit 39, Mean Corpuscular Volume 97, Mean Corpuscular Hemoglobin 29, Mean Corpuscular Hemoglobin Concent 30L, Red Cell Distribution Width 13.7, Platelet Count 183, Mean Platelet Volume 9.8, Sodium Level 142, Potassium Level 4.0, Chloride Level 98, Carbon Dioxide Level 35H, Anion Gap 9, Blood Urea Nitrogen 10, Creatinine 0.66, Estimat Glomerular Filtration Rate 86, BUN/Creatinine Ratio 15, Glucose Level 101, Calcium Level 8.4L, Corrected Calcium 9.2, Phosphorus Level 2.8, Magnesium Level 2.2, Total Bilirubin 0.8, Aspartate Amino Transf (AST/SGOT) 30, Alanine Aminotransferase (ALT/SGPT) 26, Alkaline Phosphatase 79, Total Protein 6.7, Albumin 3.0L, Prealbumin 10.3L, Triglycerides Level 96 10/31/21 11:59: Glucometer 91 10/31/21 19:11: Glucometer 144H 11/01/21 00:23: Glucometer 94 11/01/21 05:40: Sodium Level 141, Potassium Level 4.1, Chloride Level 99, Carbon Dioxide Level 34H, Anion Gap 8, Blood Urea Nitrogen 9, Creatinine 0.64, Estimat Glomerular Filtration Rate 90, BUN/Creatinine Ratio 14, Glucose Level 86, Calcium Level 8.2L, Corrected Calcium 9.2, Phosphorus Level 2.8, Magnesium Level 2.2, Total Bilirubin 0.6, Aspartate Amino Transf (AST/SGOT) 20, Alanine Aminotransferase (ALT/SGPT) 21, Alkaline Phosphatase 65, Total Protein 6.4, Albumin 2.8L Assessment/Plan Assessment/Plan Assessment/Plan SMALL BOWEL OBSTRUCTION s/p ex lap and release of sbo ABDOMINAL PAIN NAUSEA HYPOTHYROIDISM HYPERTENSION DEPRESSION ANXIOLYTIC THROAT PAIN SURGICAL SITE BLEEDING RESPIRATORY DISTRESS BIBASILAR INFILTRATES - PNEUMONIA Encouraged ambulation and IS use. Sergo ross from surgical standpoint PICC Line for TPN SARAY TIPTON DO Nov 01, 2021 07:17
[2021-11-01 07:31] VITALS: BP 140/75
--- NOTE | 2021-11-01 08:51 | Physical Therapy Daily Note ---
PT Daily Note-Current Subjective Patient in bed pre tx, agrees to PT, has no complaints of pain. Appearance Patient in recliner post tx with nurse call, phone, tray, all needs met. Mental Status Patient Orientation: Person, Place, Situation, [place] Attachments: Oxygen, IV Transfers SCALE: Activities may be completed with or without assistive devices. 1-Vtjpglujat-qrlhyds completes the activity by him/herself with no assistance from a helper. 5-Set-up or Clean-up Assistance-helper sets up or cleans up; patient completes activity. [place] assists only prior to or following the activity. 4-Supervision or Touching Assistance-helper provides verbal cues and/or touching/steadying and/or contact guard assistance as patient completes activity. Assistance may be provided throughout the activity or intermittently. 3-Partial/Moderate Assistance-helper does LESS THAN HALF the effort. [place] lifts, holds or supports trunk or limbs, but provides less than half the effort. 2-Substantial/Maximal Assistance-helper does MORE THAN HALF the effort. [place] lifts or holds trunk or limbs and provides more than half the effort. 0-Nnbzcfiyd-darscu does ALL the effort. Patient does none of the effort to complete the activity. Or, the assistance of 2 or more helpers is required for the patient to complete the activity. If activity was not attempted, code reason: 7-Patient Refused. 9-Not Applicable-not attempted and the patient did not perform the activity before the current illness, exacerbation or injury. 10-Not Attempted due to Environmental Limitations-(lack of equipment, weather restraints, etc.). 88-Not Attempted due to Medical Conditions or Safety Concerns. Roll Left & Right (QC): 3 Lying to Sitting/Side of Bed(Q: 3 Sit to Stand (QC): 4 Chair/Gkt-ls-Sotdb Xfer(QC): 4 Gait Training Distance: 200' Walk 10 feet (QC): 4 Walk 50 ft with 2 Turns(QC): 4 Walk 150 ft (QC): 4 Gait Persons Needed: 1 Gait Assistive Device: FWW improving steadiness, no LOB that required therapist assist Treatments bed mobility and transfers, ambulation Assessment Current Status: Fair Progress improving balance and endurance PT Wool Merchant Goals Wool Merchant Goals PT Senior Care Goals Time Frame: Nov 03, 2021 Roll Left & Right (QC): 4 Sit to Lying (QC): 4 Lying-Sitting on Side/Bed(QC): 4 Sit to Stand (QC): 5 Chair/Pav-ip-Kcqxz Xfer(QC): 5 Walk 10 feet (QC): 5 Walk 50ft with 2 Turns (QC): 5 PT Plan Problem List Problem List: Activity Tolerance, Functional Strength, Safety, Balance, Gait, Transfer, Bed Mobility, ROM Treatment/Plan Treatment Plan: Continue Plan of Care Treatment Plan: Bed Mobility, Education, Functional Activity Garo, Functional Strength, Gait, Safety, Therapeutic Exercise, Transfers Treatment Duration: Nov 03, 2021 Frequency: 6 times per week Estimated Hrs Per Day: .25 hour per day Patient and/or Family Agrees t: Yes Safety Risks/Education Patient Education: Gait Training, Transfer Techniques, Correct Positioning, Safety Issues Teaching Recipient: Patient Teaching Methods: Demonstration, Discussion Response to Teaching: Reinforcement Needed Time/GCodes Time In: 809 Time Out: 826 Total Billed Treatment Time: 17 Total Billed Treatment 1 visit GT 17' ULISES MIRANDA PT Nov 01, 2021 08:51
--- NOTE | 2021-11-01 08:53 | Diagnostic Imaging Report ---
INDICATION: Small bowel obstruction. FINDINGS: A supine view of the abdomen shows post operative changes with skin shmuel seen in the midline. An OG tube is in the distal stomach. The bowel gas pattern is within normal limits. There is no unsuspected foreign body. IMPRESSION: Satisfactory post operative abdomen. Dictated by: Dictated on workstation # [id number]
--- NOTE | 2021-11-01 08:56 | Discharge Summary ---
Diagnosis/Chief Complaint Date of Admission Oct 25, 2021 at 05:30 Date of Discharge Reason Hospital Visit PT IS A 81 Y/O FEMALE WHO IS KNOWN TO ME FROM CLINIC. SHE REPORTS THAT SHE WAS FEELING FINE ON Saturday NIGHT, HOWEVER SHE STARTED to haVE PAIN ON SATURDAY. SHE REPORTS THAT ON Saturday MORNING SHE HAD ABDOMINAL DISCOMFORT THAT SLOWLY ESCALATED AND SHE THEN STARTED TO HAVE BLOATING THAT WORSENED TO THE POINT THAT SHe WAS UNABLE TO EAT AND WAS IN so MUCH PAIN THAT SHE CALLED THE AMBULANCE TO PICK HER UP. SHE DENIES HAVING ANY EXPOSURE TO OTHER INDiVIDUALS WITH ILLNESS OR COVID. SHE DENIES DIARRHEA. Discharge Summary Discharge Physical Examination Allergies: Coded Allergies: No Known Drug Allergies (Unverified , 02/28/16) Vitals & I&Os Vital Signs Date Time Temp Pulse Resp B/P (MAP) Pulse Ox O2 Delivery O2 Flow Rate FiO2 11/01/21 07:31 36.7 77 20 140/75 (96) 99 Nasal Cannula 3.00 10/28/21 08:00 40 Hospital Course Pending Labs Laboratory Tests 11/01/21 05:40: Sodium Level 141, Potassium Level 4.1, Chloride Level 99, Carbon Dioxide Level 34, Anion Gap 8, Blood Urea Nitrogen 9, Creatinine 0.64, Estimat Glomerular Filtration Rate 90, BUN/Creatinine Ratio 14, Glucose Level 86, Calcium Level 8.2, Corrected Calcium 9.2, Phosphorus Level 2.8, Magnesium Level 2.2, Total Bilirubin 0.6, Aspartate Amino Transf (AST/SGOT) 20, Alanine Aminotransferase (ALT/SGPT) 21, Alkaline Phosphatase 65, Total Protein 6.4, Albumin 2.8 Discharge Instructions to patient/family Please see electronic discharge instructions given to patient. Discharge Medications Reviewed and agree with Discharge Medication list on patient's Discharge Instruction sheet ANABELA PORTER MD Nov 01, 2021 08:56
[2021-11-01] MEDS ORDERED: BISACODYL 10 MG SUPP (DULCOLAX) PR ONE (09:00)
--- NOTE | 2021-11-01 09:07 | Occupational Ther Daily Note ---
OT Current Status-Daily Note Subjective Pt requesting to get out of bed and walk today. Appearance Left sitting in recliner, all needs within reach. Mental Status/Objective Patient Orientation: Person Attachments: Drains, Guzman Catheter, IV, NG Tube, Oxygen ADL-Treatment Therapy Code Descriptions/Definitions Functional [place] Measure: 0=Not Assessed/NA 4=Minimal Assistance 1=Total Assistance 5=Supervision or Setup 2=Maximal Assistance 6=Modified [place] 3=Moderate Assistance 7=Complete IndependenceSCALE: Activities may be completed with or without assistive devices. 8-Kgqftcnuqn-nzbwnap completes the activity by him/herself with no assistance from a helper. 5-Set-up or Clean-up Assistance-helper sets up or cleans up; patient completes activity. [place] assists only prior to or following the activity. 4-Supervision or Touching Assistance-helper provides verbal cues and/or touching/steadying and/or contact guard assistance as patient completes activity. Assistance may be provided throughout the activity or intermittently. 3-Partial/Moderate Assistance-helper does LESS THAN HALF the effort. [place] lifts, holds or supports trunk or limbs, but provides less than half the effort. 2-Substantial/Maximal Assistance-helper does MORE THAN HALF the effort. [place] lifts or holds trunk or limbs and provides more than half the effort. 3-Xyhimmnne-qbrlfm does ALL the effort. Patient does none of the effort to c omplete the activity. Or, the assistance of 2 or more helpers is required for the patient to complete the activity. If activity was not attempted, code reason: 7-Patient Refused. 9-Not Applicable-not attempted and the patient did not perform the activity before the current illness, exacerbation or injury. 10-Not Attempted due to Environmental Limitations-(lack of equipment, weather restraints, etc.). 88-Not Attempted due to Medical Conditions or Safety Concerns. Lower Body Dressing (QC): 3 On/Off Footwear: 1 Toilet Transfer (QC): 3 Supine>sit: Min A. Initial retropulsion in sitting and standing, requires cues to adjust. While sitting EOB, assist needed to lift/cross RLE over contralateral knee as pt threaded foot into brief. Intermittent Min a for dynamic sitting balance. Pt able to thread LLE without assist. CGA-Min a for balance as she stood to manage clothing up to waist secondary to being retropulsive. She ambulated within rogers and room with CGA-min A. Slight improvement in walker use, but continues to require cues. Minimal unsteadiness but improvement from last session with this therapist. Pt often verbalizes need to have BM but then is unsuccessful when sitting on toilet. Education OT Patient Education: Correct positioning, Energy conservation, Modified ADL techniques, Progress toward Goal/Update tx plan, Purpose of tx/functional activities, Safety issues, Transfer techniques Teaching Recipient: Patient Teaching Methods: Demonstration, Discussion Response to Teaching: Verbalize Understanding, Reinforcement Needed OT Mapping Editor Goals Mapping Editor Goals Time Frame: Nov 10, 2021 Eating (QC): 6 Oral Hygiene (QC): 6 Toileting Hygiene (QC): 4 Shower/Bathe Self (QC): 5 Upper Body Dressing (QC): 4 Lower Body Dressing (QC): 4 On/Off Footwear (QC): 4 Additional Goals: 1-Demonstrate ADL Tasks, 2-Verbalize Understanding, 3- ImproveStrength/Garo 1=Demonstrate adherence to instructed precautions during ADL tasks. 2=Patient will verbalize/demonstrate understanding of assistive devices/modifications for ADL. 3=Patient will improve strength/tolerance for activity to enable patient to perform ADL's. OT Education/Plan Problem List/Assessment Assessment: Decreased Activ Tolerance, Decreased Safety Aware, Decreased UE Strength, Impaired Cognition, Impaired Funct Balance, Impaired Self-Care Skills Discharge Recommendations Plan/Recommendations: Continue POC Therapy Discharge Recommendati: Post Acute OT Treatment Plan/Plan of Care Treatment,Training & Education: Yes Patient would benefit from OT for education, treatment and training to promote independence in ADL's, mobility, safety and/or upper extremity function for ADL's. Plan of Care: ADL Retraining, Functional Mobility, UE Funct Exercise/Act Treatment Duration: Nov 10, 2021 Frequency: 3 times per week (3-5 times per week) Estimated Hrs Per Day: .25 hour per day Rehab Potential: Guarded Time/GCodes Start Time: 08:10 Stop Time: 08:28 Total Time Billed (hr/min): 18 Billed Treatment Time 1 visit Kelle Redman OT Nov 01, 2021 09:07
== END 2021-11-01 09:06 | disposition swing bed (61) | DRG 335 ==
LOC: EDUNIT# 04:02 → ER 04:04 → 4TH 05:30
PROVIDERS: ADMIT Family Medicine; ATTEND Family Medicine
PROC: 0D988ZZ Drainage of Small Intestine, Via Natural or Artificial Opening Endoscopic (ICD-10-PCS; 2021-10-25)
PROC: 0DN80ZZ Release Small Intestine, Open Approach (ICD-10-PCS; principal; 2021-10-25 14:09)
DX: K56.52 Intestinal adhesions [bands] with complete obstruction (principal); J18.9 Pneumonia, unspecified organism; K91.840 Postprocedural hemorrhage of a digestive system organ or structure following a digestive system procedure; R11.0 Nausea; E03.9 Hypothyroidism, unspecified; I10 Essential (primary) hypertension; R07.0 Pain in throat; R06.03 Acute respiratory distress; J44.9 Chronic obstructive pulmonary disease, unspecified; K21.9 Gastro-esophageal reflux disease without esophagitis; M19.90 Unspecified osteoarthritis, unspecified site
CPT/HCPCS: 36415; 51702; 71045; 74018; 74176; 80048; 80053; 81000; 82150; 82947; 83605; 83690; 83735; 83880; 84100; 84134; 84145; 84478; 84484; 85025; 85027; 93005; 93041; 94640; 94660; 94760; 96361; 96374; 96375

== ENCOUNTER 2021-11-01 09:16 | Inpatient (IN) | payer MEDICARE ==
[~2021-11-01] VITALS: Ht 165 cm; Wt 74.8 kg
[~2021-11-01 09:16] MED LIST changes: +ARFO15VI3 IH; +LEVO50TA6 PO; +LORA-405 PO; +NAPR220T66 PO; +POLY17PO6 PO
--- NOTE | 2021-11-01 09:23 | History & Physicial ---
History of Present Illness History of Present Illness Reason for visit/HPI PT IS A 81 Y/O FEMALE WHO IS KNOWN TO ME FROM CLINIC. SHE INITIALLY PRESENTED TO THE ER FOR ABDOMINAL PAIN, NAUSEA AND WAS FOUND TO HAVE A SMALL BOWEL OBSTRUCTION. SHE WAS TAKEN FOR PARTIAL SMALL BOWEL OBSTRUCTION WITH ADHESIONS. PT REPORTS THAT SHE IS FEELING SLIGHTLY BETTER THIS MORNING. Date of Admission 11/01/2021 Date Seen by a Provider: Nov 01, 2021 Time Seen by a Provider: 09:20 I consulted on this patient on 11/01/21 09:22 Attending Physician Anabela Campos MD Admitting Physician Anabela Campos MD Consult Allergies and Home Medications Allergies Coded Allergies: No Known Drug Allergies (Unverified , 02/28/16) Patient Home Medication List Home Medication List Reviewed: Yes Albuterol Sulfate (Ventolin Hfa) 18 Gm Hfa.aer.ad, 1-2 PUFF IH Q4H PRN for SHOR TNESS OF BREATH, (Reported) Entered as Reported by: SHERI RIOS on 02/21/16 1415 Arformoterol Tartrate (Brovana) 15 Mcg/2 Ml Vial.neb, 2 ML IH BID PRN for SHORTNESS OF BREATH, (Reported) Entered as Reported by: NATHAN REDDY on 10/26/21 1037 Citalopram Hydrobromide (Citalopram HBr) 10 Mg Tablet, 10 MG PO DAILY, (Reported) Entered as Reported by: SHERI RIOS on 02/21/16 1415 Fluticasone Propionate (Flonase Allergy Relief) 9.9 Ml Loiza.susp, 2 SPRAYS NSEACH DAILY PRN for CONGESTION, (Reported) Entered as Reported by: SHERI RIOS on 02/21/16 1415 Hydrochlorothiazide (Hydrochlorothiazide) 25 Mg Tablet, 12.5 MG PO DAILY, (Reported) Entered as Reported by: CARMEN OLIVER on 07/26/21 1108 Levothyroxine Sodium (Levothyroxine Sodium) 50 Mcg Tablet, 50 MCG PO DAILY, (Reported) Entered as Reported by: NATHAN REDDY on 10/26/21 1037 Lorazepam (Ativan) 1 Mg Tablet, 1 MG PO BID PRN for ANXIETY, (Reported) Entered as Reported by: NATHAN REDDY on 10/26/21 1037 Montelukast Sodium (Montelukast Sodium) 10 Mg Tablet, 10 MG PO DAILY, (Reported) Entered as Reported by: CARMEN OLIVER on 07/26/21 1108 Naproxen Sodium (Aleve) 220 Mg Tablet, 220-440 MG PO BID PRN for PAIN-MILD (1- 4), (Reported) Entered as Reported by: NATHAN REDDY on 10/26/21 1037 Polyethylene Glycol 3350 (Miralax) 17 Gm Powd.pack, 17 GM PO DAILY PRN for CONSTIPATION-2ND LINE, (Reported) Entered as Reported by: NATHAN REDDY on 10/26/21 1037 Trazodone HCl (Trazodone HCl) 50 Mg Tablet, 25 MG PO HS, (Reported) Entered as Reported by: NATHAN REDDY on 10/26/21 1037 Discontinued Medications Levothyroxine Sodium (Levothyroxine) 50 Mcg Capsule, 50 MCG PO DAILY, (Reported) Discontinued Reason: Duplicate Order Entered as Reported by: CARMEN OLIVER on 07/26/21 1108 Lorazepam (Ativan) 1 Mg Tablet, 1 MG SL PRN, (Reported) Discontinued Reason: Duplicate Order Entered as Reported by: CARMEN OLIVER on 07/26/21 1108 Trazodone HCl (Trazodone HCl) 150 Mg Tablet, 50 MG PO HS, (Reported) Discontinued Reason: No Longer Taking Entered as Reported by: MARKO TORRES on 02/29/16 1056 Past Hrgscml-Gvvupm-Ifgnaq Hx Patient Social History Marrital Status: Living Status: LIVES WITH SON IN THEIR HOME Employed/Student: retired 2[employer] Smoke Exposure: Yes Recent Hopitalizations: No Immunizations Up To Date Date of Pneumonia Vaccine: Mar 01, 2016 Date of Influenza Vaccine: Oct 14, 2021 Seasonal Allergies Seasonal Allergies: No Surgeries Yes Bowel Surgery, Hysterectomy, Orthopedic Respiratory Yes Currently Using CPAP: No Currently Using BIPAP: No Cardiovascular Yes Hypertension Neurological No Reproductive System Hx Reproductive Disorders: No Sexually Transmitted Disease: No HIV/AIDS: No Female Reproductive Disorders: Denies Genitourinary No Gastrointestinal Yes Gastroesophageal Reflux, Chronic Constipation, Gall Bladder Disease Musculoskeletal Yes Arthritis, Chronic Back Pain, Fractures Endocrine History of Endocrine Disorders: Yes Endocrine Disorders: Hypothyroidsim HEENT History of HEENT Disorders: No Loss of Vision: Denies Hearing Impairment: Hard of Hearing, Bilateral Hearing Aide Cancer No Psychosocial History of Psychiatric Problem: Yes Behavioral Health Disorders: Sleep Difficulties, Anxiety, Depression Integumentary History of Skin or Integumenta: No Blood Transfusions History of Blood Disorders: No Adverse Reaction to a Blood Tr: No Reviewed Nursing Assessment Reviewed/Agree w Nursing PMH: Yes Family Medical History Significant Family History: Heart Disease, Cancer, Hypertension Other Significan Family Hx: SOCIAL HISTORY: -SMOKED HEAVY X 70 YEARS. -DENIES ETOH PAST SURGICAL HISTORY: -T6 VERTEBROPLASTY 2015, WITH POST OP RIGHT PNEUMOTHORAX AND RIGHT CHEST TUBE PLACEMENT -HYSTERECTOMY -COLONOSCOPY 07/28/[address] HOUGH Family Hx: Hypertension G8 SISTER Neoplasm 19 MOTHER (LUNG CA) G8 BROTHER (LUNG CA) Review of Systems Constitutional: No chills, No fever, No malaise; weakness EENTM: other (DRY MOUTH); No hoarseness, No throat pain Respiratory: No cough; dyspnea on exertion, short of breath Gastrointestinal: No abdominal pain, No constipation, No diarrhea, No nausea, No vomiting Genitourinary: no symptoms reported, other (WILLAMS REMOVED) Musculoskeletal: muscle weakness Skin: no symptoms reported Psychiatric/Neurological: Denies Anxiety, Denies Depressed; Weakness All Other Systems Reviewed Negative Unless Noted: Yes Physical Exam Vital Signs Vital Signs - First Documented 11/01/21 11/01/21 10:27 12:06 Temp 36.7 Pulse 82 Resp 22 B/P (MAP) 129/76 (93) Pulse Ox 98 O2 Delivery Nasal Cannula O2 Flow Rate 3.00 Capillary Refill : Height, Weight, BMI Height: 5'0.00" Weight: 159lbs. 0.0oz. [id number]; 27.43 BMI Method: General Appearance: No Apparent Distress, WD/WN Eyes: Bilateral Eye Normal Inspection, Bilateral Eye PERRL, Bilateral Eye EOMI HEENT: PERRL/EOMI, Pharynx Normal Neck: Full Range of Motion, Normal Inspection, Non Tender, Supple Respiratory: Chest Non Tender, Decreased Breath Sounds (IN BASES) Cardiovascular: Regular Rate, Rhythm Gastrointestinal: Normal Bowel Sounds, No Organomegaly, No Pulsatile Mass, Non Tender, Soft Rectal: Deferred Back: Normal Inspection, No Vertebral Tenderness Extremity: Normal Capillary Refill, Normal Inspection, Normal Range of Motion, Non Tender, No Calf Tenderness, No Pedal Edema Neurologic/Psychiatric: Alert, Oriented x3, No Motor/Sensory Deficits, Normal Mood/Affect Skin: Normal Color, Warm/Dry Lymphatic: No Adenopathy Assessment/Plan Assessment and Plan SMALL BOWEL OBSTRUCTION ABDOMINAL PAIN NAUSEA HYPOTHYROIDISM HYPERTENSION DEPRESSION ANXIOLYTIC THROAT PAIN SURGICAL SITE BLEEDING RESPIRATORY DISTRESS BIBASILAR INFILTRATES - PNEUMONIA SMALL BOWEL OBSTRUCTION WITH NAUSEA AND ABDOMINAL PAIN - DEFER TO DR. SOLIS/DALI - NG TUBE STILL IN PLACE DUE TO NO BOWEL FUNCTION /GAS, STOOL OUTPUT - MONITOR SYMPTOMS CLOSELY - STARTED PT ON TPN DUE TO NO INTAKE FOR THE LAST 6 DAYS. - PICC LINE PLACED TODAY BIBASILAR INFILTRATES - PNEUMONIA - PT ON ZOSYN -CONTINUE WITH INCENTIVE SPIROMETRY AND REPEAT IMAGING. HYPOTHYROIDISM - PT TO CONTINUE WITH LEVOTHYROXINE SOON SHE IS ABLE TO TAKE PO HYPERTENSION - HOLD HCTZ AND MONITOR BP, WILL TREAT NEEDED WITH IV MEDICATIONS DEPRESSION - HOLD SSRI FOR NOW, ONCE ABLE TO TAKE PO MEDICATIONS WILL RESTART. EXTREME ANXIETY - PT RECEIVING PRN ANXIOLYTICS IV AND WILL INCREASE FREQUENCY SINCE SHE IS HAVING SO MUCH TROUBLE WITH HER ANXIETY. THROAT PAIN - PRN CHLORASEPTIC LOZENGES AND SPRAY - DUE TO NG TUBE, WILL DEFER REMOVAL TO DR. SOLIS/DALI SURGICAL SITE BLEEDING - RESOLVED - RESTARTED LOVENOX TODAY DVT PROPHYLAXIS - SCD'S AND RESTARTED LOVENOX ON 11/01/2021 GI PROPHYLAXIS WITH PPI Admission Diagnosis SMALL BOWEL OBSTRUCTION ABDOMINAL PAIN NAUSEA HYPOTHYROIDISM HYPERTENSION DEPRESSION ANXIOLYTIC THROAT PAIN SURGICAL SITE BLEEDING RESPIRATORY DISTRESS BIBASILAR INFILTRATES - PNEUMONIA Admission Status: Other (Swing Bed) ANABELA CAMPOS MD Nov 01, 2021 09:23
[2021-11-01] MEDS ORDERED: BISACODYL 10 MG SUPP (DULCOLAX) PR ONE (09:30)
[2021-11-01] MEDS ORDERED: ARFORMOTEROL 15 MCG/2 ML (BROVANA) INH SOLUTIION IH PRN (09:30)
[2021-11-01] MEDS ORDERED: ENOXAPARIN 40 MG/0.4 ML (LOVENOX) SYR SC SCH (09:30)
[2021-11-01] MEDS ORDERED: LACTATED RINGERS 1,000 ML IV PRN (09:30)
[2021-11-01] MEDS ORDERED: fentaNYL INJ 100 MCG/2 ML AMP IV PRN (09:30)
[2021-11-01] MEDS ORDERED: SALIVA STIMULANT MOUTH SPRAY (BIOTENE) 1.5 OZ MM PRN (09:30)
[2021-11-01] MEDS ORDERED: ONDANSETRON 4 MG/2 ML (SDV) Z0FRAN IVP PRN (09:30)
[2021-11-01] MEDS ORDERED: CHLORASEPTIC LOZENGE MM PRN (09:30)
[2021-11-01] MEDS ORDERED: TPN IV SCH (09:30)
[2021-11-01] MEDS ORDERED: meTOprolol 5 MG/5 ML (LOPRESSOR) VIAL IV PRN (09:30)
[2021-11-01] MEDS ORDERED: CHLORASEPTIC SPRAY 177 ML LIQUID MC PRN (09:30)
[2021-11-01] MEDS ORDERED: ACETAMINOPHEN 650 MG SUPP (TYLENOL) PR NR (10:09)
[2021-11-01] MEDS: PIPERACILLIN SODIUM/TAZOBACTAM 4.5 GM in NS (IVPB) 100 ML IV SCH ×2 (10:37→16:32)
--- NOTE | 2021-11-01 11:51 | Diagnostic Imaging Report ---
Indication: PICC line placement. TIME OF EXAM: 11:47 AM Comparison is made prior chest from the earlier. Right upper extremity PICC line has tip in good position overlying SVC. Basilar infiltrates, small right effusion persists. There is NG tube passes below the diaphragm. There is no pneumothorax. IMPRESSION: Satisfactory PICC line placement. Dictated by: Dictated on workstation # [id number]
[2021-11-01 12:06] VITALS: BP 129/76
--- NOTE | 2021-11-01 13:19 | Occupational Therapy Eval ---
OT Evaluation-General/PLF Medical Diagnosis Admission Date Nov 01, 2021 at 09:16 Medical Diagnosis: SBO Onset Date: Oct 25, 2021 Therapy Diagnosis Therapy Diagnosis: Impaired balance, endurance, safety, adls Height/Weight Height (Feet): 5 Height (Inches): 0.00 Weight (Pounds): 159 Weight (Ounces): 0.0 Precautions Precautions/Isolations: Fall Prevention, Standard Precautions Referral Physician: Beth Referral Reason: Evaluation/Treatment Medical History Pertinent Medical History: Arthritis, GERD, Hypothroidism, Smoking Additional Medical History chronic back pain, anxiety/depression Current History 10/25 s/p EX Lap with MARCO, manual decompression small bowel. Now swing bed status for continued need of PT and OT (SBO with debility). Pt has also been unable to have oral intake due to awaiting bowel function return. She will begin TPN for nutritional support. She currently has an NG in place. Per son: Pt lives with son in single story home. She was indep with adls but does have supervision with bathing. She was not using any AD prior to admission and does participate some in iadls such as laundry and simple meal prep. Reviewed History: Yes Social History Home: Single Level Current Living Status: Children ADL-Prior Level of Function SCALE: Activities may be completed with or without assistive devices. 9-Ecbtiooaqg-hfnafhi completes the activity by him/herself with no assistance from a helper. 5-Set-up or Clean-up Assistance-helper sets up or cleans up; patient completes activity. [place] assists only prior to or following the activity. 4-Supervision or Touching Assistance-helper provides verbal cues and/or touching/steadying and/or contact guard assistance as patient completes activity. Assistance may be provided throughout the activity or intermittently. 3-Partial/Moderate Assistance-helper does LESS THAN HALF the effort. [place] lifts, holds or supports trunk or limbs, but provides less than half the effort. 2-Substantial/Maximal Assistance-helper does MORE THAN HALF the effort. [place] lifts or holds trunk or limbs and provides more than half the effort. 9-Bdxycipie-lwgycl does ALL the effort. Patient does none of the effort to complete the activity. Or, the assistance of 2 or more helpers is required for the patient to complete the activity. If activity was not attempted, code reason: 7-Patient Refused. 9-Not Applicable-not attempted and the patient did not perform the activity before the current illness, exacerbation or injury. 10-Not Attempted due to Environmental Limitations-(lack of equipment, weather restraints, etc.). 88-Not Attempted due to Medical Conditions or Safety Concerns. Self Care: Independent Functional Cognition: Needed Some Help DME/Equipment: Bath Chair, Tub/Shower Drive Self: No OT Current Status Subjective Pt is very [place], requires repetition and simplification of commands. Pt often repeating self and appears irritable when requests do not happen quickly enough. ("I need lotion.") Appearance Pt returned to supine, all needs within reach. Son in room. Mental Status/Objective Patient Orientation: Person, Confused, Place Attachments: IV, NG Tube, Oxygen Current Glasses/Contacts: Yes Hearing Aids: Yes Dentures/Partials: No Hand Dominance: Right ADL-Treatment Eating (QC): 1 (Pt currently NPO, NG tube. ) Oral Hygiene (QC): 7 (Son reports he completed task for pt earlier in day. ) Shower/Bathe Self (QC): 3 (min) Upper Body Dressing (QC): 3 Lower Body Dressing (QC): 3 (min) On/Off Footwear (QC): 4 Toileting Hygiene (QC): 3 Pt supine in bed at OT arrival. Requires repetition of instructions multiple times due to being [place] despite having hearing aids in. Sponge bath completed seated EOB due to multiple lines/tubes. Pt moves slowly with all tasks and often gets irritable when therapist suggest she move on to next body part. "I know how to wash myself." No retropulsion this afternoon when compared to session earlier in am. CGA-Min a for balance as she stood to wash manas area. Assist needed to wash backside. Son reports that pt often will place feet on side of tub in order to reach/wash. OT had pt place feet on foot of recliner to simulate task. With feet on recliner, pt able to reach without difficulty. Improved ability to perform cross over method to don brief and socks over feet. Intermittent min a for sitting balance only. She stood to manage over waist with CGA. Min a to return to supine. Education OT Patient Education: Correct positioning, Disease process, Modified ADL techniques, Progress toward Goal/Update tx plan, Purpose of tx/functional activities, Rehab process, Safety issues, Transfer techniques Teaching Recipient: Patient, Family Teaching Methods: Demonstration, Discussion Response to Teaching: Verbalize Understanding, Reinforcement Needed OT Short Term Goals Short Term Goals Time Frame: Nov 08, 2021 Eatin Oral hygiene: 5 Toileting hygiene: 4 Shower/bathe self: 4 Upper body dressin Lower body dressin Putting on/taking off footwear: 5 OT System Software Developer Goals Group Home Goals Time Frame: Nov 22, 2021 Eating (QC): 5 Oral Hygiene (QC): 5 Toileting Hygiene (QC): 5 Shower/Bathe Self (QC): 5 Upper Body Dressing (QC): 5 Lower Body Dressing (QC): 5 On/Off Footwear (QC): 5 1=Demonstrate adherence to instructed precautions during ADL tasks. 2=Patient will verbalize/demonstrate understanding of assistive devices/modifications for ADL. 3=Patient will improve strength/tolerance for activity to enable patient to per form ADL's. OT Education/Plan Problem List/Assessment Assessment: Decreased Activ Tolerance, Decreased Safety Aware, Decreased UE Strength, Impaired Bed Mobility, Impaired Cognition, Impaired Funct Balance, Imp aired I ADL's, Impaired Self-Care Skills Discharge Recommendations Plan/Recommendations: Continue POC Therapy Discharge Recommendati: Post Acute OT Comment ongoing assessment. Treatment Plan/Plan of Care Treatment,Training & Education: Yes Patient would benefit from OT for education, treatment and training to promote independence in ADL's, mobility, safety and/or upper extremity function for ADL's. Plan of Care: ADL Retraining, Functional Mobility, Group Exercise/Act as Ind, UE Funct Exercise/Act Treatment Duration: Nov 22, 2021 Frequency: 5 times per week Estimated Hrs Per Day: .25 hour per day Time/GCodes Start Time: 12:44 Stop Time: 13:12 Total Time Billed (hr/min): 28 Billed Treatment Time 1 visit EVM (10 min) ADL (18 min) Kelle Higgins OT Nov 01, 2021 13:19
--- NOTE | 2021-11-01 14:09 | Physical Therapy Evaluation ---
PT Evaluation-General Medical Diagnosis Admission Date Nov 01, 2021 at 09:16 Medical Diagnosis: SBO Onset Date: Oct 25, 2021 Therapy Diagnosis Therapy Diagnosis: Gait deficit, strength deficit Height/Weight Height (Feet): 5 Height (Inches): 0.00 Weight (Pounds): 159 Weight (Ounces): 0.0 Precautions Precautions/Isolations: Fall Prevention, Standard Precautions Referral Physician: Beth Reason for Referral: Evaluation/Treatment Medical History Pertinent Medical History: Arthritis, GERD, Hypothroidism, Smoking Reviewed History: Yes Social History Home: Single Level Current Living Status: Children Entry Into Home: Stairs With Railing PT Steps Into Home: 3 Prior Prior Level of Function SCALE: Activities may be completed with or without assistive devices. 0-Hsyqeyzeji-azakmkk completes the activity by him/herself with no assistance from a helper. 5-Set-up or Clean-up Assistance-helper sets up or cleans up; patient completes activity. [place] assists only prior to or following the activity. 4-Supervision or Touching Assistance-helper provides verbal cues and/or touching/steadying and/or contact guard assistance as patient completes activity. Assistance may be provided throughout the activity or intermittently. 3-Partial/Moderate Assistance-helper does LESS THAN HALF the effort. [place] lifts, holds or supports trunk or limbs, but provides less than half the effort. 2-Substantial/Maximal Assistance-helper does MORE THAN HALF the effort. [place] lifts or holds trunk or limbs and provides more than half the effort. 4-Uwlgdhjsn-ojyrhr does ALL the effort. Patient does none of the effort to complete the activity. Or, the assistance of 2 or more helpers is required for the patient to complete the activity. If activity was not attempted, code reason: 7-Patient Refused. 9-Not Applicable-not attempted and the patient did not perform the activity before the current illness, exacerbation or injury. 10-Not Attempted due to Environmental Limitations-(lack of equipment, weather restraints, etc.). 88-Not Attempted due to Medical Conditions or Safety Concerns. Bed Mobility: 6 Transfers (B,C,W/C): 6 Gait: 6 Stairs: 6 Indoor Mobility (Ambulation): Independent Stairs: Independent Patients son reports that she uses a 4WW at times, but mostly around the house does not use anything. Reports she has an electric scooter that she uses "for is we go to [facility] for example." PT Evaluation-Current Subjective Patient lying supine in bed upon PT arrival, agreeable to treatment. Patient reports no pain currently. Objective Patient Orientation: Person, Place, Time, Situation Attachments: NG Tube, Oxygen, Guzman Catheter, IV ROM/Strength ROM Lower Extremities WFLs Bilateral LEs to all planes. Strength Lower Extremities 4-/5 bilaterally all hip, knee and ankle planes. Sensory Hand Dominance: Right Sensation Right Lower Extremit: Intact Sensation Left Lower Extremity: Intact Transfers Roll Left & Right (QC): 4 Sit to Lying (QC): 4 Lying to Sitting/Side of Bed(Q: 4 Sit to Stand (QC): 4 Chair/Aim-by-Hoblv Xfer(QC): 4 Toilet Transfer (QC): 4 Car Transfer (QC): 4 Gait Does the Patient Walk?: Yes Mode of Locomotion: Walk Anticipated Mode of Locomotion: Walk Walk 10 feet (QC): 5 Walk 50 ft with 2 Turns(QC): 4 Walk 150 ft (QC): 4 Walking 10ft/uneven surface-QC: 88 Distance: 200 Gait Assistive Device: FWW Wheelchair Training Does the Pt Use a Wheelchair?: No Wheel 50 ft with 2 turns (QC): 88 Wheel 150 ft (QC): 88 Stairs #of Steps: 0 1 Step (curb) (QC): 88 4 Steps (QC): 88 12 Steps (QC): 88 Balance Sitting Static: Good Sitting Dynamic: Good Standing Static: Fair Standing Dynamic: Fair Picking up an Object (QC): 88 Assessment/Needs Patient tolerated treatment well. Demonstrates fair overall improvement in bed mobility and transfers from previous treatment. Patient performs all bed mobility and transfers with SBA/CGA. She ambulates 200 feet with FWW, with CGA and verbal cues for safety, progression, posture and proper use of the FWW. Patient in bed post treatment with all needs met, nursing notified, call light in hand. Rehab Potential: Good PT Mcc Goals Mcc Goals PT Curriculum Advisory Teacher Goals Time Frame: Nov 10, 2021 Roll Left & Right (QC): 6 Sit to Lying (QC): 6 Lying-Sitting on Side/Bed(QC): 6 Sit to Stand (QC): 6 Chair/Isf-sc-Whgyw Xfer(QC): 6 Toilet Transfer (QC): 6 Car Transfer (QC): 5 Does the Patient Walk: Yes Walk 10 feet (QC): 6 Walk 50ft with 2 Turns (QC): 6 Walk 150 ft (QC): 6 Walking 10ft on Uneven Surface: 88 1 Step (curb) (QC): 4 4 Steps (QC): 4 12 Steps (QC): 88 Picking up an Object (QC): 5 Does the Pt use WC or Scooter?: No Wheel 50 feet with 2 turns (QC: 88 Wheel 150 feet: 88 PT Plan Problem List Problem List: Activity Tolerance, Functional Strength, Safety, Balance, Gait, Transfer, Bed Mobility, ROM Treatment/Plan Treatment Plan: Continue Plan of Care Treatment Plan: Bed Mobility, Education, Functional Activity Garo, Functional Strength, Group Therapy, Gait, Safety, Therapeutic Exercise, Transfers Treatment Duration: Dec 09, 2021 Frequency: 6 times per week Estimated Hrs Per Day: .25 hour per day Safety Risks/Education Patient Education: Gait Training, Transfer Techniques Teaching Recipient: Patient, Family Teaching Methods: Demonstration, Discussion Response to Teaching: Verbalize Understanding, Return Demonstration Discharge Recommendations Target Placement Home with assistance prn Time/GCodes Time In: 1327 Time Out: 1357 Total Billed Treatment Time: 30 Total Billed Treatment Visit, griffin Lynn JOHN A PT Nov 01, 2021 14:09
[2021-11-01 16:00] VITALS: BP 126/60
[2021-11-01] MEDS: LORazepam INJ 2 MG/ML (ATIVAN) VIAL IVP PRN ×2 (16:21→23:41)
[2021-11-01] MEDS: ENOXAPARIN 40 MG/0.4 ML (LOVENOX) SYR SC SCH (16:32)
[2021-11-01] MEDS ORDERED: [UNRECOGNIZED DRUG - OTHER] IV SCH ×20 (17:00)
[2021-11-01] MEDS ORDERED: POTASSIUM CHLORIDE IV SCH ×20 (17:00)
[2021-11-01] MEDS ORDERED: SODIUM CHLORIDE IV SCH ×20 (17:00)
[2021-11-01 19:40] VITALS: BP 132/62
[2021-11-01] MEDS: RT-ALBUTEROL SULF 2.5 MG/3 ML PRE-MIX VIAL IH PRN (22:50)
[2021-11-01 23:28] VITALS: BP 127/77
[2021-11-01] MEDS: 1/2 NS IV SOLUTION 1,000 ML IV SCH (23:40)
[2021-11-02] MEDS: PIPERACILLIN SODIUM/TAZOBACTAM 4.5 GM in NS (IVPB) 100 ML IV SCH ×3 (00:33→17:20)
[2021-11-02 03:20] VITALS: BP 127/62
[2021-11-02] MEDS: LORazepam INJ 2 MG/ML (ATIVAN) VIAL IVP PRN ×3 (03:25→22:37)
[2021-11-02 04:10] LABS: HEMATOCRIT 36 % (35-52); HEMOGLOBIN 10.5 g/dL (11.5-16.0); MEAN CORPUSCULAR HEMOGLOBIN 29 pg (25-34); MEAN CORPUSCULAR HGB CONC 29 g/dL (32-36); MEAN CORPUSCULAR VOLUME 97 fL (80-99); MEAN PLATELET VOLUME 9.8 fL (9.0-12.2); PLATELET COUNT 180 10^3/uL (130-400); WHITE BLOOD COUNT 6.1 10^3/uL (4.3-11.0)
[2021-11-02 04:18] LABS: ALBUMIN 2.7 GM/DL (3.2-4.5)
[2021-11-02 04:19] LABS: POTASSIUM 3.6 MMOL/L (3.6-5.0)
[2021-11-02 04:20] LABS: CALCIUM 8.1 MG/DL (8.5-10.1)
[2021-11-02 04:21] LABS: TOTAL PROTEIN 6.1 GM/DL (6.4-8.2)
[2021-11-02 04:23] LABS: BILIRUBIN,TOTAL 0.5 MG/DL (0.1-1.0)
[2021-11-02 04:24] LABS: PHOSPHORUS 2.2 MG/DL (2.3-4.7)
[2021-11-02 04:25] LABS: CREATININE SERUM 0.67 MG/DL (0.60-1.30)
[2021-11-02 04:27] LABS: MAGNESIUM 2.1 MG/DL (1.6-2.4)
--- NOTE | 2021-11-02 07:35 | Consultation - Surgery ---
VIOLETALANRE 11/02/21 0735: History of Present Illness History of Present Illness Patient Consulted On(james/time) 11/02/21 07:29 Date Seen by Provider: Nov 02, 2021 Time Seen by Provider: 07:02 History of Present Illness Pt sleeping in bed and easily roused. Pt is SPO for adhesion take down causing SBO on 10/25/21. Awaiting bowel function to return - pt states that she pooped a little yesterday but flushed it before anyone had a chance to see it. She denies any flatus. Her abdomen appears less distended than yesterday and is slightly tender to palpation in the RLQ, bowel sounds a present x4Q. NG tube remains in place, ross is removed and pt is getting up regularly to use the commode and/or toilet. Pt is breathing without distress on 3L O2 via nasal canula and lung sounds are improved, but still a little phlemy in the upper air way. Pt is asking to remove NG tube and go home. Allergies and Home Medications Allergies Coded Allergies: No Known Drug Allergies (Unverified , 02/28/16) Patient Home Medication List Albuterol Sulfate (Ventolin Hfa) 18 Gm Hfa.aer.ad, 1-2 PUFF IH Q4H PRN for SHORTNESS OF BREATH, (Reported) Entered as Reported by: SHERI RISO on 02/21/16 1415 Arformoterol Tartrate (Brovana) 15 Mcg/2 Ml Vial.neb, 2 ML IH BID PRN for SHORTNESS OF BREATH, (Reported) Entered as Reported by: NATHAN REDDY on 10/26/21 1037 Citalopram Hydrobromide (Citalopram HBr) 10 Mg Tablet, 10 MG PO DAILY, (Reported) Entered as Reported by: SHERI RIOS on 02/21/16 1415 Fluticasone Propionate (Flonase Allergy Relief) 9.9 Ml Deane.susp, 2 SPRAYS NSEACH DAILY PRN for CONGESTION, (Reported) Entered as Reported by: SHERI RIOS on 02/21/16 1415 Hydrochlorothiazide (Hydrochlorothiazide) 25 Mg Tablet, 12.5 MG PO DAILY, (Reported) Entered as Reported by: CARMEN OLIVER on 07/26/21 1108 Levothyroxine Sodium (Levothyroxine Sodium) 50 Mcg Tablet, 50 MCG PO DAILY, (Reported) Entered as Reported by: NATHAN REDDY on 10/26/21 1037 Lorazepam (Ativan) 1 Mg Tablet, 1 MG PO BID PRN for ANXIETY, (Reported) Entered as Reported by: NATHAN REDDY on 10/26/21 1037 Montelukast Sodium (Montelukast Sodium) 10 Mg Tablet, 10 MG PO DAILY, (Reported) Entered as Reported by: CARMEN OLIVER on 07/26/21 1108 Naproxen Sodium (Aleve) 220 Mg Tablet, 220-440 MG PO BID PRN for PAIN-MILD (1- 4), (Reported) Entered as Reported by: NATHAN REDDY on 10/26/21 1037 Polyethylene Glycol 3350 (Miralax) 17 Gm Powd.pack, 17 GM PO DAILY PRN for CONSTIPATION-2ND LINE, (Reported) Entered as Reported by: NATHAN REDDY on 10/26/21 1037 Trazodone HCl (Trazodone HCl) 50 Mg Tablet, 25 MG PO HS, (Reported) Entered as Reported by: NATHAN REDDY on 10/26/21 1037 Discontinued Medications Levothyroxine Sodium (Levothyroxine) 50 Mcg Capsule, 50 MCG PO DAILY, (Reported) Discontinued Reason: Duplicate Order Entered as Reported by: CARMEN OLIVER on 07/26/21 1108 Lorazepam (Ativan) 1 Mg Tablet, 1 MG SL PRN, (Reported) Discontinued Reason: Duplicate Order Entered as Reported by: CARMEN OLIVER on 07/26/21 1108 Trazodone HCl (Trazodone HCl) 150 Mg Tablet, 50 MG PO HS, (Reported) Discontinued Reason: No Longer Taking Entered as Reported by: MARKO TORRES on 02/29/16 1056 Past Hoysiqv-Hdrogi-Txadme Hx Patient Social History Smoking Status: Current Everyday Smoker Type Used: Cigarettes 2nd Hand Smoke Exposure: Yes Recent Hopitalizations: No Alcohol Use?: No Have you traveled recently?: No Immunizations Up To Date Date of Pneumonia Vaccine: Mar 01, 2016 Date of Influenza Vaccine: Oct 14, 2021 Seasonal Allergies Seasonal Allergies: No Surgeries History of Surgeries: Yes Surgeries: Hysterectomy, Orthopedic Respiratory History of Respiratory Disorde: Yes Respiratory Disorders: Sleep Apnea, COPD, Emphysema Cardiovascular History of Cardiac Disorders: Yes Cardiac Disorders: Hypertension Neurological History of Neurological Disord: No Reproductive System Hx Reproductive Disorders: No Sexually Transmitted Disease: No HIV/AIDS: No Female Reproductive Disorders: Denies Genitourinary History of Genitourinary Disor: No Gastrointestinal History of Gastrointestinal Di: Yes Gastrointestinal Disorders: Gastroesophageal Reflux, Chronic Constipation, Gall Bladder Disease Musculoskeletal History of Musculoskeletal Dis: Yes Musculoskeletal Disorders: Arthritis, Chronic Back Pain, Fractures Endocrine History of Endocrine Disorders: Yes Endocrine Disorders: Hypothyroidsim HEENT History of HEENT Disorders: No Loss of Vision: Denies Hearing Impairment: Hard of Hearing, Bilateral Hearing Aide Cancer History of Cancer: No Psychosocial History of Psychiatric Problem: Yes Behavioral Health Disorders: Sleep Difficulties, Anxiety, Depression Integumentary History of Skin or Integumenta: No Blood Transfusions History of Blood Disorders: No Adverse Reaction to a Blood Tr: No Family Medical History Significant Family History: Heart Disease, Cancer, Hypertension Family Medial History: Hypertension G8 SISTER Neoplasm 19 MOTHER (LUNG CA) G8 BROTHER (LUNG CA) Review of Systems-General Constitutional: No chills, No dizziness, No fever, No malaise EENTM: ear pain (righ side), throat pain (irritation from NG tube); No blurred vision, No vision loss, No mouth pain Respiratory: cough; No dyspnea on exertion, No hemoptysis; phlegm, short of breath, wheezing Cardiovascular: No chest pain, No palpitations Gastrointestinal: abdominal pain (RLQ - mild tenderness to palpation); No melena, No nausea, No vomiting Genitourinary: No discharge, No dysuria, No frequency, No hematuria Musculoskeletal: No back pain, No muscle pain, No muscle weakness Skin: No change in color, No change in hair/nails, No pruritus, No rash Psychiatric/Neurological: Anxiety; Denies Headache, Denies Numbness, Denies Tingling, Denies Tremors Physical Exam-General Problems Physical Exam Vital Signs Vital Signs - First Documented 11/01/21 11/01/21 10:27 12:06 Temp 36.7 Pulse 82 Resp 22 B/P (MAP) 129/76 (93) Pulse Ox 98 O2 Delivery Nasal Cannula O2 Flow Rate 3.00 Capillary Refill : General Appearance: WD/WN, no apparent distress Eyes: Bilateral Eye PERRL, Bilateral Eye EOMI HEENT: PERRL/EOMI, pharynx normal, other (complians of pain in right ear) Neck: non-tender, full range of motion, supple Respiratory: chest non-tender, no respiratory distress, no accessory muscle use, wheezing Cardiovascular: normal peripheral pulses, regular rate, rhythm, no gallop, no JVD, no murmur Peripheral Pulses: 2+ Radial Pulses (R), 2+ Radial Pulses (L) Gastrointestinal: normal bowel sounds, soft, no organomegaly, no pulsatile mass, tenderness (Slight tenderness to palpation in RLQ) Rectal: deferred Back: no CVA tenderness, no vertebral tenderness Extremities: normal range of motion, no calf tenderness, normal capillary refill Neurologic/Psychiatric: ground instructor advanced II-XII nml as tested, alert, oriented x 3 Reflexes: 2+ Bicep (R), 2+ Bicep (L) Skin: normal color, warm/dry Lymphatic: no adenopathy (cervical and axillary) Data Review Labs Laboratory Tests 11/01/21 17:35: Glucometer 121H 11/01/21 23:41: Glucometer 189H 11/02/21 04:00: White Blood Count 6.1, Red Blood Count 3.68L, Hemoglobin 10.5L, Hematocrit 36, Mean Corpuscular Volume 97, Mean Corpuscular Hemoglobin 29, Mean Corpuscular Hemoglobin Concent 29L, Red Cell Distribution Width 13.4, Platelet Count 180, Mean Platelet Volume 9.8, Sodium Level 142, Potassium Level 3.6, Chloride Level 98, Carbon Dioxide Level 36H, Anion Gap 8, Blood Urea Nitrogen 11, Creatinine 0.67, Estimat Glomerular Filtration Rate 85, BUN/Creatinine Ratio 16, Glucose Level 227H, Calcium Level 8.1L, Corrected Calcium 9.1, Phosphorus Level 2.2L, Magnesium Level 2.1, Total Bilirubin 0.5, Aspartate Amino Transf (AST/SGOT) 13, Alanine Aminotransferase (ALT/SGPT) 17, Alkaline Phosphatase 56, Total Protein 6.1L, Albumin 2.7L Assessment/Plan Assessment/Plan Assessment/Plan SMALL BOWEL OBSTRUCTION s/p ex lap and release of sbo 10/25/21 ABDOMINAL PAIN NAUSEA HYPOTHYROIDISM HYPERTENSION DEPRESSION ANXIOLYTIC THROAT PAIN SURGICAL SITE BLEEDING RESPIRATORY DISTRESS BIBASILAR INFILTRATES - PNEUMONIA Malnutrition - prolonged NPO bowel rest Encouraged continued ambulation and IS use TPN KUB - if no evidence of continued SBO, then DC NG tube and advance diet to liquids Monitor for bowel function SARAY MCNALLY DO 11/02/21 1146: History of Present Illness History of Present Illness History of Present Illness Patient sitting in chair. Patient no flatus or bowel function. Patient on TPN. NG tube in place. Patient limited activity. Pain controlled. Denies nausea vomiting fever sweats chills shortness of breath or chest pain at this time. Allergies and Home Medications Allergies Coded Allergies: No Known Drug Allergies (Unverified , 02/28/16) Patient Home Medication List Home Medication List Reviewed: Yes Albuterol Sulfate (Ventolin Hfa) 18 Gm Hfa.aer.ad, 1-2 PUFF IH Q4H PRN for SHORTNESS OF BREATH, (Reported) Entered as Reported by: SHERI RIOS on 02/21/16 1415 Arformoterol Tartrate (Brovana) 15 Mcg/2 Ml Vial.neb, 2 ML IH BID PRN for SHORTNESS OF BREATH, (Reported) Entered as Reported by: NATHAN REDDY on 10/26/21 1037 Citalopram Hydrobromide (Citalopram HBr) 10 Mg Tablet, 10 MG PO DAILY, (Reported) Entered as Reported by: SHERI RIOS on 02/21/16 1415 Fluticasone Propionate (Flonase Allergy Relief) 9.9 Ml Deane.susp, 2 SPRAYS NSEACH DAILY PRN for CONGESTION, (Reported) Entered as Reported by: SHERI RIOS on 02/21/16 1415 Hydrochlorothiazide (Hydrochlorothiazide) 25 Mg Tablet, 12.5 MG PO DAILY, (Reported) Entered as Reported by: CARMEN OLIVER on 07/26/21 1108 Levothyroxine Sodium (Levothyroxine Sodium) 50 Mcg Tablet, 50 MCG PO DAILY, (Reported) Entered as Reported by: NATHAN REDDY on 10/26/21 1037 Lorazepam (Ativan) 1 Mg Tablet, 1 MG PO BID PRN for ANXIETY, (Reported) Entered as Reported by: NATHAN REDDY on 10/26/21 1037 Montelukast Sodium (Montelukast Sodium) 10 Mg Tablet, 10 MG PO DAILY, (Reported) Entered as Reported by: CARMEN OLIVER on 07/26/21 1108 Naproxen Sodium (Aleve) 220 Mg Tablet, 220-440 MG PO BID PRN for PAIN-MILD (1- 4), (Reported) Entered as Reported by: NATHAN REDDY on 10/26/21 1037 Polyethylene Glycol 3350 (Miralax) 17 Gm Powd.pack, 17 GM PO DAILY PRN for CONSTIPATION-2ND LINE, (Reported) Entered as Reported by: NATHAN REDDY on 10/26/21 1037 Trazodone HCl (Trazodone HCl) 50 Mg Tablet, 25 MG PO HS, (Reported) Entered as Reported by: NATHAN REDDY on 10/26/21 1037 Discontinued Medications Levothyroxine Sodium (Levothyroxine) 50 Mcg Capsule, 50 MCG PO DAILY, (Reported) Discontinued Reason: Duplicate Order Entered as Reported by: CARMEN OLIVER on 07/26/21 1108 Lorazepam (Ativan) 1 Mg Tablet, 1 MG SL PRN, (Reported) Discontinued Reason: Duplicate Order Entered as Reported by: CARMEN OLIVER on 07/26/21 1108 Trazodone HCl (Trazodone HCl) 150 Mg Tablet, 50 MG PO HS, (Reported) Discontinued Reason: No Longer Taking Entered as Reported by: MARKO TORRES on 02/29/16 1056 Past Wymttbm-Tlokls-Nesvli Hx Reviewed Nursing Assessment Reviewed/Agree w Nursing PMH: Yes Family Medical History Significant Family History: No Pertinent Family Hx Family Medial History: Hypertension G8 SISTER Neoplasm 19 MOTHER (LUNG CA) G8 BROTHER (LUNG CA) Review of Systems-General Constitutional: No chills, No fever EENTM: No blurred vision, No mouth pain Respiratory: cough; No dyspnea on exertion; short of breath Gastrointestinal: abdominal pain (RLQ - mild tenderness to palpation); No nausea, No vomiting Genitourinary: No discharge, No frequency Musculoskeletal: No back pain, No muscle pain Skin: No change in color, No change in hair/nails, No pruritus, No rash Psychiatric/Neurological: Anxiety; Denies Numbness All Other Systems Reviewed Negative Unless Noted: Yes (Negative excepted noted.) Physical Exam-General Problems Physical Exam General Appearance: WD/WN, no apparent distress HEENT: PERRL/EOMI, normal ENT inspection, other (NG tube) Neck: full range of motion, supple Respiratory: chest non-tender, no respiratory distress Cardiovascular: regular rate, rhythm, no JVD Gastrointestinal: soft, tenderness (Minimal tenderness incisional, clean dry intact incision) Rectal: deferred Back: no CVA tenderness, no vertebral tenderness Extremities: normal range of motion Neurologic/Psychiatric: alert, oriented x 3 Skin: normal color, warm/dry Lymphatic: no adenopathy (cervical and axillary) Assessment/Plan Assessment/Plan Assessment/Plan SMALL BOWEL OBSTRUCTION s/p ex lap and release of sbo 10/25/21 ABDOMINAL PAIN NAUSEA HYPOTHYROIDISM HYPERTENSION DEPRESSION ANXIOLYTIC THROAT PAIN SURGICAL SITE BLEEDING RESPIRATORY DISTRESS BIBASILAR INFILTRATES - PNEUMONIA Malnutrition - prolonged NPO bowel rest Encourage increase activity Continue medical management. TPN for nutritional support Abdominal x-ray yesterday demonstrating normal postoperative findings. Normal bowel gas pattern Await bowel function once bowel function returns for NG tube start on clears. Supervisory-Addendum Brief Verification & Attestation Participated in pt care: history, MDM, physical Personally performed: exam, history, MDM, supervision of care Care discussed with: Medical Student Procedures: n/a Results interpretation: Verified all documentation Verification and Attestation of Medical Student E/M Service A medical student performed and documented this service in my presence. I reviewed and verified all information documented by the medical student and made modifications to such information, when appropriate. I personally performed the physical exam and medical decision making. Saray Mcnally, Nov 02, 2021,11:45 LANRE MCDANIEL Nov 02, 2021 07:35 SARAY MCNALLY DO Nov 02, 2021 11:46
[2021-11-02 07:54] VITALS: BP 134/79
[2021-11-02] MEDS: 1/2 NS IV SOLUTION 1,000 ML IV SCH (08:32)
[2021-11-02] MEDS: PANTOPRAZOLE 40 MG (PROTONIX) VIAL IV SCH (08:32)
--- NOTE | 2021-11-02 08:49 | Progress Note ---
Subjective Subjective Date Seen by Provider: Nov 02, 2021 Time Seen by Provider: 08:40 PT IS A 81 Y/O FEMALE WHO IS HOSPITALIZED ON SWING BED STATUS AFTER SMALL BOWEL OBSTRUCTION WITH SLOW PROGRESS OF GI FUNCTION RETURN TO NORMAL. PT IS ON TPN AND TOLERATING THIS WITHOUT ISSUE PER NURSE REPORT. PT WAS UP AMBULATING IN THE [place] WITH PHYSICAL THERAPY, MOVING SLOWLY BUT STAFF REPORTS SHE APPEARS STRONGER. SHE DENIES CHEST PAIN, SHORTNESS OF BREATH. Review of Systems General: No Chills; Fatigue, Malaise HEENT: No Dysphasia Pulmonary: No Dyspnea, No Cough Cardiovascular: No: Chest Pain, Palpitations Gastrointestinal: Other (NO BOWEL FUNCTION) Genitourinary: No Dysuria Neurological: Weakness; No: Confusion All Other Systems Reviewed All Other Systems Reviewed: Yes Objective Exam Vital Signs Vital Signs Date Time Temp Pulse Resp B/P (MAP) Pulse Ox O2 Delivery O2 Flow Rate FiO2 11/02/21 07:54 36.7 79 24 134/79 (97) 99 High Flow N/C 3.00 11/02/21 03:20 79 22 127/62 (83) 95 High Flow N/C 3.00 11/01/21 23:28 36.0 81 20 127/77 (94) 92 High Flow N/C 3.00 11/01/21 19:40 36.4 83 20 132/62 (85) 98 Nasal Cannula 2.00 11/01/21 19:26 98 Nasal Cannula 2.00 11/01/21 16:00 35.9 74 18 126/60 (82) 99 Nasal Cannula 2.00 11/01/21 12:06 36.7 82 22 129/76 (93) 90 Nasal Cannula 2.00 11/01/21 10:32 Nasal Cannula 2.00 11/01/21 10:27 98 Nasal Cannula 3.00 I & O 11/02/21 07:00 Intake Total 100 ml Output Total 900 ml Balance -800 ml General Appearance: No Apparent Distress, WD/WN Eyes: Bilateral Eye Normal Inspection, Bilateral Eye PERRL, Bilateral Eye EOMI Neck: Full Range of Motion, Normal Inspection, Non Tender, Supple Respiratory: Chest Non Tender, Decreased Breath Sounds (IN BASES) Cardiovascular: Regular Rate, Rhythm Gastrointestinal: Non Tender, Soft, Abnormal Bowel Sounds (DECREASED) Rectal: Deferred Back: Normal Inspection, No Vertebral Tenderness Extremity: Normal Capillary Refill, Normal Inspection, Normal Range of Motion, Non Tender, No Calf Tenderness, No Pedal Edema Neurologic/Psychiatric: Alert, Oriented x3, No Motor/Sensory Deficits, Normal Mood/Affect Reflexes: 2+ Bicep (R), 2+ Bicep (L) Skin: Normal Color, Warm/Dry Lymphatic: No Adenopathy Results Lab Laboratory Tests 11/01/21 17:35: Glucometer 121H 11/01/21 23:41: Glucometer 189H 11/02/21 04:00: White Blood Count 6.1, Red Blood Count 3.68L, Hemoglobin 10.5L, Hematocrit 36, Mean Corpuscular Volume 97, Mean Corpuscular Hemoglobin 29, Mean Corpuscular Hemoglobin Concent 29L, Red Cell Distribution Width 13.4, Platelet Count 180, Mean Platelet Volume 9.8, Sodium Level 142, Potassium Level 3.6, Chloride Level 98, Carbon Dioxide Level 36H, Anion Gap 8, Blood Urea Nitrogen 11, Creatinine 0.67, Estimat Glomerular Filtration Rate 85, BUN/Creatinine Ratio 16, Glucose Level 227H, Calcium Level 8.1L, Corrected Calcium 9.1, Phosphorus Level 2.2L, Magnesium Level 2.1, Total Bilirubin 0.5, Aspartate Amino Transf (AST/SGOT) 13, Alanine Aminotransferase (ALT/SGPT) 17, Alkaline Phosphatase 56, Total Protein 6.1L, Albumin 2.7L Assessment/Plan Assessment/Plan Admission Dx SMALL BOWEL OBSTRUCTION ABDOMINAL PAIN NAUSEA HYPOTHYROIDISM HYPERTENSION DEPRESSION ANXIOLYTIC THROAT PAIN SURGICAL SITE BLEEDING RESPIRATORY DISTRESS BIBASILAR INFILTRATES - PNEUMONIA Assessment and Plan SMALL BOWEL OBSTRUCTION ABDOMINAL PAIN NAUSEA HYPOTHYROIDISM HYPERTENSION DEPRESSION ANXIOLYTIC THROAT PAIN SURGICAL SITE BLEEDING RESPIRATORY DISTRESS BIBASILAR INFILTRATES - PNEUMONIA SMALL BOWEL OBSTRUCTION WITH NAUSEA AND ABDOMINAL PAIN - DEFER TO DR. SOLIS/DALI - NG TUBE STILL IN PLACE DUE TO NO BOWEL FUNCTION /GAS, STOOL OUTPUT - MONITOR SYMPTOMS CLOSELY - STARTED PT ON TPN 11/01/2021 - PICC LINE PLACED FOR TPN BIBASILAR INFILTRATES - PNEUMONIA - PT ON ZOSYN -CONTINUE WITH INCENTIVE SPIROMETRY AND REPEAT IMAGING. CXR REPORT FOLLOWS: Correlation is made with prior chest from 01/26/2021. Right upper extremity PICC line has the tip overlying SVC. The NG tube passes below the diaphragm. There is some infiltrate in both lung bases. Both costophrenic angles are blunted suggestive of small effusions. There is no pneumothorax. IMPRESSION: Small bilateral pleural effusions and patchy bibasilar pulmonary infiltrates. HYPOTHYROIDISM - PT TO CONTINUE WITH LEVOTHYROXINE SOON SHE IS ABLE TO TAKE PO HYPERTENSION - HOLD HCTZ AND MONITOR BP, WILL TREAT NEEDED WITH IV MEDICATIONS DEPRESSION - HOLD SSRI FOR NOW, ONCE ABLE TO TAKE PO MEDICATIONS WILL RESTART. EXTREME ANXIETY - PT RECEIVING PRN ANXIOLYTICS IV AND WILL INCREASE FREQUENCY SINCE SHE IS HAVING SO MUCH TROUBLE WITH HER ANXIETY. THROAT PAIN - PRN CHLORASEPTIC LOZENGES AND SPRAY - DUE TO NG TUBE, WILL DEFER REMOVAL TO DR. SOLIS/DALI SURGICAL SITE BLEEDING - RESOLVED - RESTARTED LOVENOX 11/01/2021 DVT PROPHYLAXIS - SCD'S AND RESTARTED LOVENOX ON 11/01/2021 GI PROPHYLAXIS WITH PPI Admission Dx SMALL BOWEL OBSTRUCTION ABDOMINAL PAIN NAUSEA HYPOTHYROIDISM HYPERTENSION DEPRESSION ANXIOLYTIC THROAT PAIN SURGICAL SITE BLEEDING RESPIRATORY DISTRESS BIBASILAR INFILTRATES - PNEUMONIA Clinical Quality Measures Admission Status Admission Dx SMALL BOWEL OBSTRUCTION ABDOMINAL PAIN NAUSEA HYPOTHYROIDISM HYPERTENSION DEPRESSION ANXIOLYTIC THROAT PAIN SURGICAL SITE BLEEDING RESPIRATORY DISTRESS BIBASILAR INFILTRATES - PNEUMONIA ANABELA PORTER MD Nov 02, 2021 08:49
--- NOTE | 2021-11-02 09:35 | Diagnostic Imaging Report ---
Indication: Cough. TIME OF EXAM: 8:51 AM Correlation is made with prior chest from 01/26/2021. Right upper extremity PICC line has the tip overlying SVC. The NG tube passes below the diaphragm. There is some infiltrate in both lung bases. Both costophrenic angles are blunted suggestive of small effusions. There is no pneumothorax. IMPRESSION: Small bilateral pleural effusions and patchy bibasilar pulmonary infiltrates. Dictated by: Dictated on workstation # [id number]
--- NOTE | 2021-11-02 10:04 | Occupational Ther Daily Note ---
OT Current Status-Daily Note Subjective "I'm feeling cranky today and I don't know if the nurse gave me a cranky pill." Appearance Left sitting in recliner, all needs within reach. Mental Status/Objective Patient Orientation: Person, Place, Situation Attachments: Drains, IV, NG Tube, Oxygen ADL-Treatment Therapy Code Descriptions/Definitions Functional [place] Measure: 0=Not Assessed/NA 4=Minimal Assistance 1=Total Assistance 5=Supervision or Setup 2=Maximal Assistance 6=Modified [place] 3=Moderate Assistance 7=Complete IndependenceSCALE: Activities may be completed with or without assistive devices. 5-Tzigokdali-zcqxqjw completes the activity by him/herself with no assistance from a helper. 5-Set-up or Clean-up Assistance-helper sets up or cleans up; patient completes activity. [place] assists only prior to or following the activity. 4-Supervision or Touching Assistance-helper provides verbal cues and/or touching/steadying and/or contact guard assistance as patient completes activity. Assistance may be provided throughout the activity or intermittently. 3-Partial/Moderate Assistance-helper does LESS THAN HALF the effort. [place] lifts, holds or supports trunk or limbs, but provides less than half the effort. 2-Substantial/Maximal Assistance-helper does MORE THAN HALF the effort. [place] lifts or holds trunk or limbs and provides more than half the effort. 3-Yngnnsbpo-ddhanv does ALL the effort. Patient does none of the effort to complete the activity. Or, the assistance of 2 or more helpers is required for the patient to complete the activity. If activity was not attempted, code reason: 7-Patient Refused. 9-Not Applicable-not attempted and the patient did not perform the activity before the current illness, exacerbation or injury. 10-Not Attempted due to Environmental Limitations-(lack of equipment, weather restraints, etc.). 88-Not Attempted due to Medical Conditions or Safety Concerns. Other Treatment Pt reports already walking, using bathroom, and getting an x-ray this am. Agreeable to UE exercises. Able to complete all joints through full range except R elbow flexion due to picc/iv line. 12x1 in all planes. Min cues for correct technique. Appears to tolerate well and may be able to add light resistance next session. Pt verbalizes completing some of the exercises at home as well. Education OT Patient Education: Correct positioning, Exercise program, Purpose of tx/functional activities Teaching Methods: Demonstration, Discussion Response to Teaching: Verbalize Understanding, Return Demonstration OT Short Term Goals Short Term Goals Time Frame: Nov 08, 2021 Eatin Oral hygiene: 5 Toileting hygiene: 4 Shower/bathe self: 4 Upper body dressin Lower body dressin Putting on/taking off footwear: 5 OT Integrity Specialist Goals Integrity Specialist Goals Time Frame: Nov 22, 2021 Eating (QC): 5 Oral Hygiene (QC): 5 Toileting Hygiene (QC): 5 Shower/Bathe Self (QC): 5 Upper Body Dressing (QC): 5 Lower Body Dressing (QC): 5 On/Off Footwear (QC): 5 1=Demonstrate adherence to instructed precautions during ADL tasks. 2=Patient will verbalize/demonstrate understanding of assistive devices/modifications for ADL. 3=Patient will improve strength/tolerance for activity to enable patient to perform ADL's. OT Education/Plan Problem List/Assessment Assessment: Decreased Activ Tolerance, Decreased UE Strength, Impaired Cognition, Impaired Funct Balance, Impaired I ADL's Discharge Recommendations Plan/Recommendations: Continue POC Treatment Plan/Plan of Care Treatment,Training & Education: Yes Patient would benefit from OT for education, treatment and training to promote independence in ADL's, mobility, safety and/or upper extremity function for ADL's. Plan of Care: ADL Retraining, Functional Mobility, Group Exercise/Act as Ind, UE Funct Exercise/Act Treatment Duration: Nov 22, 2021 Frequency: 5 times per week Estimated Hrs Per Day: .25 hour per day Rehab Potential: Good Time/GCodes Start Time: 09:20 Stop Time: 09:35 Total Time Billed (hr/min): 15 Billed Treatment Time 1 visit EX Kelle Higgins OT Nov 02, 2021 10:04
[2021-11-02] MEDS: SODIUM PHOSPHATE INJ 7.5 MM in NS (IVPB) 50 ML INJ SCH ×3 (10:12→16:35)
--- NOTE | 2021-11-02 10:13 | Physical Therapy Daily Note ---
PT Daily Note-Current Subjective Patient reluctantly agrees to PT. Mental Status Patient Orientation: Normal For Age Attachments: Oxygen, Guzman Catheter, IV Transfers SCALE: Activities may be completed with or without assistive devices. 2-Pjnbzinpob-eykdkom completes the activity by him/herself with no assistance from a helper. 5-Set-up or Clean-up Assistance-helper sets up or cleans up; patient completes activity. [place] assists only prior to or following the activity. 4-Supervision or Touching Assistance-helper provides verbal cues and/or touching/steadying and/or contact guard assistance as patient completes activity. Assistance may be provided throughout the activity or intermittently. 3-Partial/Moderate Assistance-helper does LESS THAN HALF the effort. [place] lifts, holds or supports trunk or limbs, but provides less than half the effort. 2-Substantial/Maximal Assistance-helper does MORE THAN HALF the effort. [place] lifts or holds trunk or limbs and provides more than half the effort. 9-Oteqokrxu-htcwfr does ALL the effort. Patient does none of the effort to complete the activity. Or, the assistance of 2 or more helpers is required for the patient to complete the activity. If activity was not attempted, code reason: 7-Patient Refused. 9-Not Applicable-not attempted and the patient did not perform the activity before the current illness, exacerbation or injury. 10-Not Attempted due to Environmental Limitations-(lack of equipment, weather restraints, etc.). 88-Not Attempted due to Medical Conditions or Safety Concerns. Sit to Stand (QC): 4 Chair/Yqh-ao-Rounb Xfer(QC): 4 Gait Training Does the Patient Walk?: Yes Distance: 225' Walk 10 feet (QC): 4 Walk 50 ft with 2 Turns(QC): 4 Walk 150 ft (QC): 4 Gait Assistive Device: FWW slow, steady, functional gait sequence Exercises Seated Therapy Exercises: Ankle pumps, Long arc quads, Hip flexion Seated Reps: 15 Assessment Patient tolerated treatment well and is up in recliner with needs met. PT to increase activity as tolerated and allowed by patient. PT Mcc Goals Strip Roller Goals PT Mcc Goals Time Frame: Nov 10, 2021 Roll Left & Right (QC): 6 Sit to Lying (QC): 6 Lying-Sitting on Side/Bed(QC): 6 Sit to Stand (QC): 6 Chair/Oaw-nj-Aijcc Xfer(QC): 6 Toilet Transfer (QC): 6 Car Transfer (QC): 5 Does the Patient Walk: Yes Walk 10 feet (QC): 6 Walk 50ft with 2 Turns (QC): 6 Walk 150 ft (QC): 6 Walking 10ft on Uneven Surface: 88 1 Step (curb) (QC): 4 4 Steps (QC): 4 12 Steps (QC): 88 Picking up an Object (QC): 5 Does the Pt use WC or Scooter?: No Wheel 50 feet with 2 turns (QC: 88 Wheel 150 feet: 88 PT Plan Treatment/Plan Treatment Plan: Continue Plan of Care Treatment Plan: Bed Mobility, Education, Functional Activity Garo, Functional Strength, Group Therapy, Gait, Safety, Therapeutic Exercise, Transfers Treatment Duration: Dec 09, 2021 Frequency: 6 times per week Estimated Hrs Per Day: .25 hour per day Time/GCodes Time In: 856 Time Out: 911 Total Billed Treatment Time: 15 Total Billed Treatment 1 visit FA 15 min IWONA LOPEZ PT Nov 02, 2021 10:12
[2021-11-02 11:34] VITALS: BP 138/67
--- NOTE | 2021-11-02 14:07 | Physical Therapy Daily Note ---
PT Daily Note-Current Subjective Patient reluctantly agrees to PT. Does request toilet use. Mental Status Patient Orientation: Normal For Age Attachments: NG Tube, Oxygen, IV Transfers SCALE: Activities may be completed with or without assistive devices. 7-Ttqdxrupor-utlkopo completes the activity by him/herself with no assistance from a helper. 5-Set-up or Clean-up Assistance-helper sets up or cleans up; patient completes activity. [place] assists only prior to or following the activity. 4-Supervision or Touching Assistance-helper provides verbal cues and/or touching/steadying and/or contact guard assistance as patient completes a ctivity. Assistance may be provided throughout the activity or intermittently. 3-Partial/Moderate Assistance-helper does LESS THAN HALF the effort. [place] lifts, holds or supports trunk or limbs, but provides less than half the effort. 2-Substantial/Maximal Assistance-helper does MORE THAN HALF the effort. [place] lifts or holds trunk or limbs and provides more than half the effort. 8-Uamluiyjc-bensbh does ALL the effort. Patient does none of the effort to complete the activity. Or, the assistance of 2 or more helpers is required for the patient to complete the activity. If activity was not attempted, code reason: 7-Patient Refused. 9-Not Applicable-not attempted and the patient did not perform the activity before the current illness, exacerbation or injury. 10-Not Attempted due to Environmental Limitations-(lack of equipment, weather restraints, etc.). 88-Not Attempted due to Medical Conditions or Safety Concerns. Sit to Lying (QC): 4 Lying to Sitting/Side of Bed(Q: 4 Sit to Stand (QC): 4 Chair/Zhm-ov-Ixtik Xfer(QC): 4 SBA with all mobility Gait Training Does the Patient Walk?: Yes Distance: 225' Walk 10 feet (QC): 4 Walk 50 ft with 2 Turns(QC): 4 Walk 150 ft (QC): 4 Gait Assistive Device: FWW SBA with mobility Exercises Seated Therapy Exercises: Ankle pumps, Long arc quads Seated Reps: 15 Assessment Patient requires time to complete all functional tasks. Patient requires encouragement to participate with therapy and to increase activity. PT Accounts Payable Supervisor Goals Accounts Payable Supervisor Goals PT Group Home Goals Time Frame: Nov 10, 2021 Roll Left & Right (QC): 6 Sit to Lying (QC): 6 Lying-Sitting on Side/Bed(QC): 6 Sit to Stand (QC): 6 Chair/Wwe-li-Ajxzu Xfer(QC): 6 Toilet Transfer (QC): 6 Car Transfer (QC): 5 Does the Patient Walk: Yes Walk 10 feet (QC): 6 Walk 50ft with 2 Turns (QC): 6 Walk 150 ft (QC): 6 Walking 10ft on Uneven Surface: 88 1 Step (curb) (QC): 4 4 Steps (QC): 4 12 Steps (QC): 88 Picking up an Object (QC): 5 Does the Pt use WC or Scooter?: No Wheel 50 feet with 2 turns (QC: 88 Wheel 150 feet: 88 PT Plan Treatment/Plan Treatment Plan: Continue Plan of Care Treatment Plan: Bed Mobility, Education, Functional Activity [place], Functional Strength, Group Therapy, Gait, Safety, Therapeutic Exercise, Transfers Treatment Duration: Dec 09, 2021 Frequency: 6 times per week Estimated Hrs Per Day: .25 hour per day Time/GCodes Time In: 1300 Time Out: 1324 Total Billed Treatment Time: 24 Total Billed Treatment 1 visit FA x 2 24 min IWONA LOPEZ PT Nov 02, 2021 14:06
[2021-11-02] MEDS: ACETAMINOPHEN 650 MG SUPP (TYLENOL) PR PRN (15:51)
[2021-11-02 16:00] VITALS: BP 136/69
[2021-11-02] MEDS: RT-ALBUTEROL SULF 2.5 MG/3 ML PRE-MIX VIAL IH PRN ×2 (16:20→22:16)
[2021-11-02] MEDS: SODIUM CHLORIDE IV SCH ×10 (16:50)
[2021-11-02] MEDS: POTASSIUM CHLORIDE IV SCH ×10 (16:50)
[2021-11-02] MEDS: [UNRECOGNIZED DRUG - OTHER] IV SCH ×10 (16:50)
[2021-11-02] MEDS: ENOXAPARIN 40 MG/0.4 ML (LOVENOX) SYR SC SCH (17:21)
[2021-11-02 20:00] VITALS: BP 129/75
[2021-11-02] MEDS ORDERED: inSUlin ASPART (NovoLOG) 1 UNIT/0.01 ML (CHARGE PER UNIT) SC SCH (21:00)
[2021-11-02 23:30] VITALS: BP 125/78
[2021-11-03] MEDS: inSUlin ASPART (NovoLOG) 1 UNIT/0.01 ML (CHARGE PER UNIT) SC SCH ×4 (00:16→18:15)
[2021-11-03] MEDS: PIPERACILLIN SODIUM/TAZOBACTAM 4.5 GM in NS (IVPB) 100 ML IV SCH ×3 (01:34→17:54)
[2021-11-03 04:00] VITALS: BP 147/79
[2021-11-03] MEDS: LORazepam INJ 2 MG/ML (ATIVAN) VIAL IVP PRN ×4 (05:52→21:35)
--- NOTE | 2021-11-03 07:20 | Progress Note - Surgery ---
VIOLETALANRE 11/03/21 0720: Subjective Date Seen by a Provider: Nov 03, 2021 Time Seen by a Provider: 07:02 Subjective/Events-last exam Pt sleeping in bed, easily roused. Pt sates that she has passed non-bloody stool 3x, but this has not been observed by nursing. Pt has been up and walking the halls and urinating using the commode/toilet Her abdomen is soft, non-tender and non-distended. Pt is requesting broth and removal of NG tube. Review of Systems General: No Chills, No Night Sweats, No Fatigue; Appetite HEENT: No Head Aches, No Eye Pain, No Ear Pain, No Dysphasia Pulmonary: No Dyspnea, No Cough Cardiovascular: No: Chest Pain, Orthopnea, Lt Headedness Gastrointestinal: No: Nausea, Vomiting, Abdominal Pain, Diarrhea, Constipation, Melena, Hematochezia Genitourinary: No Dysuria, No Frequency, No Incontinence Musculoskeletal: No: neck pain, shoulder pain, back pain Neurological: No: Weakness, Numbness, Confusion, Seizures Objective Exam Vital Signs Date Time Temp Pulse Resp B/P (MAP) Pulse Ox O2 Delivery O2 Flow Rate FiO2 11/03/21 04:00 36.0 90 20 147/79 (101) 94 High Flow N/C 3.00 11/02/21 23:30 36.4 84 18 125/78 (94) 98 High Flow N/C 3.00 11/02/21 22:16 98 High Flow N/C 3.00 11/02/21 21:25 98 High Flow N/C 3.00 11/02/21 20:00 35.6 87 18 129/75 (93) 98 High Flow N/C 3.00 11/02/21 16:20 98 High Flow N/C 3.00 11/02/21 16:00 35.6 80 20 136/69 (91) 98 High Flow N/C 3.00 11/02/21 11:42 High Flow N/C 2.00 95 11/02/21 11:34 36.4 83 22 138/67 (90) 95 High Flow N/C 3.00 11/02/21 08:00 Nasal Cannula 2.00 11/02/21 07:54 36.7 79 24 134/79 (97) 99 High Flow N/C 3.00 I & O 11/03/21 07:00 Intake Total 0 ml Output Total 250 ml Balance -250 ml Capillary Refill : General Appearance: No Apparent Distress, WD/WN HEENT: PERRL/EOMI, Pharynx Normal Neck: Full Range of Motion, Normal Inspection, Non Tender, Supple Respiratory: Chest Non Tender, No Accessory Muscle Use, No Respiratory Distress, Decreased Breath Sounds Cardiovascular: Regular Rate, Rhythm, No Edema, No Gallop, No Murmur, Normal Peripheral Pulses Peripheral Pulses: 2+ Radial Pulses (R), 2+ Radial Pulses (L) Gastrointestinal: normal bowel sounds, soft, no organomegaly, no pulsatile mass, tenderness (Minimal tenderness incisional, clean dry intact incision) Extremity: Normal Capillary Refill, Normal Range of Motion, Non Tender, No Calf Tenderness, No Pedal Edema Neurologic/Psychiatric: Alert, Oriented x3, No Motor/Sensory Deficits, Normal Mood/Affect Skin: Normal Color, Warm/Dry Lymphatic: No Adenopathy (cervical and axillary) Results Lab Laboratory Tests 11/02/21 11:16: Glucometer 178H 11/02/21 18:49: Glucometer 163H 11/03/21 00:04: Glucometer 144H 11/03/21 05:21: Glucometer 140H Assessment/Plan Assessment/Plan Assessment/Plan SMALL BOWEL OBSTRUCTION s/p ex lap and release of sbo 10/25/21 ABDOMINAL PAIN NAUSEA HYPOTHYROIDISM HYPERTENSION DEPRESSION ANXIOLYTIC THROAT PAIN SURGICAL SITE BLEEDING RESPIRATORY DISTRESS BIBASILAR INFILTRATES - PNEUMONIA Malnutrition - prolonged NPO bowel rest PT & OT with increased activity & ICS use. Continue medical management. TPN for nutritional support Abdominal x-ray 11/01/21 demonstrates normal postoperative findings. Normal bowel gas pattern. Await bowel function - once bowel function returns D/C NG tube start on clears. SARAY AQUINO DO 11/03/21 1653: Subjective Subjective/Events-last exam Sitting in chair. Pain controlled. Having bowel function Wanting tube out. Denies n/v fever sweats chills shortness of breath or chest pain. Objective Exam General Appearance: No Apparent Distress, WD/WN HEENT: PERRL/EOMI, Pharynx Normal Neck: Non Tender, Supple Respiratory: Chest Non Tender, No Accessory Muscle Use, No Respiratory Distress Cardiovascular: Regular Rate, Rhythm, No JVD Gastrointestinal: soft, tenderness (Minimal tenderness incisional, clean dry intact incision) Extremity: Non Tender, No Calf Tenderness Neurologic/Psychiatric: Alert, No Motor/Sensory Deficits, Normal Mood/Affect Skin: Normal Color, Warm/Dry Lymphatic: No Adenopathy (cervical and axillary) Assessment/Plan Assessment/Plan Assessment/Plan SMALL BOWEL OBSTRUCTION s/p ex lap and release of sbo 10/25/21 ABDOMINAL PAIN NAUSEA HYPOTHYROIDISM HYPERTENSION DEPRESSION ANXIOLYTIC THROAT PAIN SURGICAL SITE BLEEDING RESPIRATORY DISTRESS BIBASILAR INFILTRATES - PNEUMONIA Malnutrition - prolonged NPO bowel rest PT & OT with increased activity & ICS use. Continue medical management. TPN for nutritional support Abdominal x-ray 11/01/21 demonstrates normal postoperative findings. Normal bowel gas pattern. + bowel function pull ng and start clears. Supervisory-Addendum Brief Verification & Attestation Participated in pt care: history, MDM, physical Personally performed: exam, history, MDM, supervision of care Care discussed with: Medical Student Procedures: n/a Results interpretation: Verified all documentation Verification and Attestation of Medical Student E/M Service A medical student performed and documented this service in my presence. I reviewed and verified all information documented by the medical student and made modifications to such information, when appropriate. I personally performed the physical exam and medical decision making. Saray Aquino, Nov 03, 2021,16:52 LANRE MCDANIEL Nov 03, 2021 07:20 SARAY AQUINO DO Nov 03, 2021 16:53
[2021-11-03 08:00] VITALS: BP 146/68
[2021-11-03] MEDS: PANTOPRAZOLE 40 MG (PROTONIX) VIAL IV SCH (08:03)
--- NOTE | 2021-11-03 09:05 | Diagnostic Imaging Report ---
Indication: Pneumonia. Compared: 11/02. Note is made of the film being mismarked regarding left and right. Findings: OG catheter is in the stomach, right PICC line at the lower SVC stable. Small bilateral pleural effusions unchanged. Very mild nodular patchy bibasilar infiltrates showed mild reduction. Background air trapping and COPD chronic. There has been no adverse development. Impression: Improvements in basilar infiltrates, stable support apparatus. No adverse development. Dictated by: Dictated on workstation # [id number]
--- NOTE | 2021-11-03 09:33 | Physical Therapy Daily Note ---
PT Daily Note-Current Subjective Patient reluctantly agrees to PT. Mental Status Patient Orientation: Normal For Age Attachments: NG Tube, Oxygen, IV Transfers SCALE: Activities may be completed with or without assistive devices. 4-Yaeooyuolg-abpikfa completes the activity by him/herself with no assistance from a helper. 5-Set-up or Clean-up Assistance-helper sets up or cleans up; patient completes activity. [place] assists only prior to or following the activity. 4-Supervision or Touching Assistance-helper provides verbal cues and/or touching/steadying and/or contact guard assistance as patient completes activity. Assistance may be provided throughout the activity or intermittently. 3-Partial/Moderate Assistance-helper does LESS THAN HALF the effort. [place] lifts, holds or supports trunk or limbs, but provides less than half the effort. 2-Substantial/Maximal Assistance-helper does MORE THAN HALF the effort. [place] lifts or holds trunk or limbs and provides more than half the effort. 1-Omkkomhsi-zobcth does ALL the effort. Patient does none of the effort to complete the activity. Or, the assistance of 2 or more helpers is required for the patient to complete the activity. If activity was not attempted, code reason: 7-Patient Refused. 9-Not Applicable-not attempted and the patient did not perform the activity before the current illness, exacerbation or injury. 10-Not Attempted due to Environmental Limitations-(lack of equipment, weather restraints, etc.). 88-Not Attempted due to Medical Conditions or Safety Concerns. Sit to Stand (QC): 4 Gait Training Distance: 300' Walk 10 feet (QC): 4 Walk 50 ft with 2 Turns(QC): 4 Walk 150 ft (QC): 4 Gait Assistive Device: FWW SBA for safety/safe and functional gait sequence Exercises Seated Therapy Exercises: Ankle pumps, Long arc quads, Hip flexion Seated Reps: 15 Assessment Patient instructed to perform activity independently, i.e. propping her pillow to where she wants it, reaching for the call light, etc. Patient voices understanding. PT Frame Gate Mortiser Operator Goals Prison Goals PT Frame Gate Mortiser Operator Goals Time Frame: Nov 10, 2021 Roll Left & Right (QC): 6 Sit to Lying (QC): 6 Lying-Sitting on Side/Bed(QC): 6 Sit to Stand (QC): 6 Chair/Vmu-sn-Jtoui Xfer(QC): 6 Toilet Transfer (QC): 6 Car Transfer (QC): 5 Does the Patient Walk: Yes Walk 10 feet (QC): 6 Walk 50ft with 2 Turns (QC): 6 Walk 150 ft (QC): 6 Walking 10ft on Uneven Surface: 88 1 Step (curb) (QC): 4 4 Steps (QC): 4 12 Steps (QC): 88 Picking up an Object (QC): 5 Does the Pt use WC or Scooter?: No Wheel 50 feet with 2 turns (QC: 88 Wheel 150 feet: 88 PT Plan Treatment/Plan Treatment Plan: Continue Plan of Care Treatment Plan: Bed Mobility, Education, Functional Activity Garo, Functional Strength, Group Therapy, Gait, Safety, Therapeutic Exercise, Transfers Treatment Duration: Dec 09, 2021 Frequency: 6 times per week Estimated Hrs Per Day: .25 hour per day Time/GCodes Time In: 847 Time Out: 904 Total Billed Treatment Time: 17 Total Billed Treatment 1 visit FA 17 min IWONA LOPEZ PT Nov 03, 2021 09:33
--- NOTE | 2021-11-03 11:24 | Occupational Ther Daily Note ---
OT Current Status-Daily Note Subjective Pt up in recliner, agreeable to OT tx. Mental Status/Objective Patient Orientation: Person, Place, Situation Attachments: IV, Oxygen ADL-Treatment Therapy Code Descriptions/Definitions Functional [place] Measure: 0=Not Assessed/NA 4=Minimal Assistance 1=Total Assistance 5=Supervision or Setup 2=Maximal Assistance 6=Modified [place] 3=Moderate Assistance 7=Complete IndependenceSCALE: Activities may be completed with or without assistive devices. 3-Vhetszeapz-rpjrwji completes the activity by him/herself with no assistance from a helper. 5-Set-up or Clean-up Assistance-helper sets up or cleans up; patient completes activity. [place] assists only prior to or following the activity. 4-Supervision or Touching Assistance-helper provides verbal cues and/or touching /steadying and/or contact guard assistance as patient completes activity. Assistance may be provided throughout the activity or intermittently. 3-Partial/Moderate Assistance-helper does LESS THAN HALF the effort. [place] lifts, holds or supports trunk or limbs, but provides less than half the effort. 2-Substantial/Maximal Assistance-helper does MORE THAN HALF the effort. [place] lifts or holds trunk or limbs and provides more than half the effort. 0-Drurldddp-suwvmx does ALL the effort. Patient does none of the effort to complete the activity. Or, the assistance of 2 or more helpers is required for the patient to complete the activity. If activity was not attempted, code reason: 7-Patient Refused. 9-Not Applicable-not attempted and the patient did not perform the activity before the current illness, exacerbation or injury. 10-Not Attempted due to Environmental Limitations-(lack of equipment, weather restraints, etc.). 88-Not Attempted due to Medical Conditions or Safety Concerns. Eating (QC): 5 (Pt able to take drink off of tray table with set up) Oral Hygiene (QC): 5 (Per pt and son report.) Shower/Bathe Self (QC): 3 (Per pt and son report, assist with washing feet and buttocks.) Toileting Hygiene (QC): 3 (Assist with wiping per report.) Other Treatment Pt up in recliner, in order to increase BUE strength and activity tolerance, pt completed x15 reps each of the following BUE exercises: shoulder flexion, shoulder abduction, front punch. Pt required encouragement to complete exercises and rest breaks between. Post tx pt up in recliner, call light in reach and all needs met. Pt refused out of chair activities at this time. Education OT Patient Education: Correct positioning, Modified ADL techniques, Progress toward Goal/Update tx plan, Purpose of tx/functional activities, Rehab process Teaching Recipient: Patient Teaching Methods: Discussion Response to Teaching: Verbalize Understanding OT Short Term Goals Short Term Goals Time Frame: Nov 08, 2021 Eatin Oral hygiene: 5 Toileting hygiene: 4 Shower/bathe self: 4 Upper body dressin Lower body dressin Putting on/taking off footwear: 5 OT Retirement Goals Undercollar Maker Goals Time Frame: Nov 22, 2021 Eating (QC): 5 Oral Hygiene (QC): 5 Toileting Hygiene (QC): 5 Shower/Bathe Self (QC): 5 Upper Body Dressing (QC): 5 Lower Body Dressing (QC): 5 On/Off Footwear (QC): 5 1=Demonstrate adherence to instructed precautions during ADL tasks. 2=Patient will verbalize/demonstrate understanding of assistive devices/modifications for ADL. 3=Patient will improve strength/tolerance for activity to enable patient to perform ADL's. OT Education/Plan Problem List/Assessment Assessment: Decreased Activ Tolerance, Decreased UE Strength, Impaired Funct Balance, Impaired I ADL's, Impaired Self-Care Skills Discharge Recommendations Plan/Recommendations: Continue POC Treatment Plan/Plan of Care Patient would benefit from OT for education, treatment and training to promote independence in ADL's, mobility, safety and/or upper extremity function for ADL's. Plan of Care: ADL Retraining, Functional Mobility, Group Exercise/Act as Ind, UE Funct Exercise/Act Treatment Duration: Nov 22, 2021 Frequency: 5 times per week Estimated Hrs Per Day: .25 hour per day Rehab Potential: Good Time/GCodes Start Time: 10:50 Stop Time: 11:05 Total Time Billed (hr/min): 15 Billed Treatment Time 1, EX ROSY CARD OT Nov 03, 2021 11:24
[2021-11-03 11:25] VITALS: BP 146/70
--- NOTE | 2021-11-03 14:07 | Physical Therapy Daily Note ---
PT Daily Note-Current Subjective Patient in recliner pre tx, agrees to PT, voices no complaints of pain. Appearance Patient in recliner post tx with nurse call, phone, tray, all needs met. Mental Status Patient Orientation: Person, Place, Situation Attachments: Oxygen, IV Transfers SCALE: Activities may be completed with or without assistive devices. 9-Faewpirnqp-akctgrt completes the activity by him/herself with no assistance from a helper. 5-Set-up or Clean-up Assistance-helper sets up or cleans up; patient completes activity. [place] assists only prior to or following the activity. 4-Supervision or Touching Assistance-helper provides verbal cues and/or touching/steadying and/or contact guard assistance as patient completes activity. Assistance may be provided throughout the activity or intermittently. 3-Partial/Moderate Assistance-helper does LESS THAN HALF the effort. [place] lifts, holds or supports trunk or limbs, but provides less than half the effort. 2-Substantial/Maximal Assistance-helper does MORE THAN HALF the effort. [place] lifts or holds trunk or limbs and provides more than half the effort. 8-Jydpzhqhq-fvbrch does ALL the effort. Patient does none of the effort to complete the activity. Or, the assistance of 2 or more helpers is required for the patient to complete the activity. If activity was not attempted, code reason: 7-Patient Refused. 9-Not Applicable-not attempted and the patient did not perform the activity before the current illness, exacerbation or injury. 10-Not Attempted due to Environmental Limitations-(lack of equipment, weather restraints, etc.). 88-Not Attempted due to Medical Conditions or Safety Concerns. Sit to Stand (QC): 4 Chair/Glz-rj-Etbgo Xfer(QC): 4 Gait Training Distance: 300' Walk 10 feet (QC): 4 Walk 50 ft with 2 Turns(QC): 4 Walk 150 ft (QC): 4 Gait Persons Needed: 1 Gait Assistive Device: FWW CGA, slow but steady ambulation Treatments transfers, ambulation Assessment Current Status: Fair Progress improving steadiness during ambulation PT Retirement Goals Retirement Goals PT Sales Assistants And Salespersons Goals Time Frame: Nov 10, 2021 Roll Left & Right (QC): 6 Sit to Lying (QC): 6 Lying-Sitting on Side/Bed(QC): 6 Sit to Stand (QC): 6 Chair/Swa-ji-Sbnfl Xfer(QC): 6 Toilet Transfer (QC): 6 Car Transfer (QC): 5 Does the Patient Walk: Yes Walk 10 feet (QC): 6 Walk 50ft with 2 Turns (QC): 6 Walk 150 ft (QC): 6 Walking 10ft on Uneven Surface: 88 1 Step (curb) (QC): 4 4 Steps (QC): 4 12 Steps (QC): 88 Picking up an Object (QC): 5 Does the Pt use WC or Scooter?: No Wheel 50 feet with 2 turns (QC: 88 Wheel 150 feet: 88 PT Plan Problem List Problem List: Activity Tolerance, Functional Strength, Safety, Balance, Gait, Transfer, Bed Mobility, ROM Treatment/Plan Treatment Plan: Continue Plan of Care Treatment Plan: Bed Mobility, Education, Functional Activity Garo, Functional Strength, Group Therapy, Gait, Safety, Therapeutic Exercise, Transfers Treatment Duration: Dec 09, 2021 Frequency: 6 times per week Estimated Hrs Per Day: .25 hour per day Safety Risks/Education Patient Education: Gait Training, Transfer Techniques, Correct Positioning, Safety Issues Teaching Recipient: Patient Teaching Methods: Demonstration, Discussion Response to Teaching: Reinforcement Needed Time/GCodes Time In: 1342 Time Out: 1359 Total Billed Treatment Time: 17 Total Billed Treatment 1 visit FA ULISES CAMARENA PT Nov 03, 2021 14:07
[2021-11-03] MEDS: 1/2 NS IV SOLUTION 1,000 ML IV SCH (14:54)
[2021-11-03 16:04] VITALS: BP 134/80
[2021-11-03] MEDS: [UNRECOGNIZED DRUG - OTHER] IV SCH ×10 (17:00)
[2021-11-03] MEDS: SODIUM CHLORIDE IV SCH ×10 (17:00)
[2021-11-03] MEDS: POTASSIUM CHLORIDE IV SCH ×10 (17:00)
[2021-11-03] MEDS: ENOXAPARIN 40 MG/0.4 ML (LOVENOX) SYR SC SCH (17:55)
[2021-11-03 19:41] VITALS: BP 141/63
[2021-11-04 00:45] VITALS: BP 151/69
[2021-11-04] MEDS: inSUlin ASPART (NovoLOG) 1 UNIT/0.01 ML (CHARGE PER UNIT) SC SCH ×2 (00:51→06:38)
[2021-11-04] MEDS: PIPERACILLIN SODIUM/TAZOBACTAM 4.5 GM in NS (IVPB) 100 ML IV SCH ×3 (01:28→17:38)
[2021-11-04 04:00] VITALS: BP 119/73
[2021-11-04] MEDS: ACETAMINOPHEN 650 MG SUPP (TYLENOL) PR PRN (04:32)
[2021-11-04 04:56] LABS: HEMATOCRIT 36 % (35-52); HEMOGLOBIN 10.5 g/dL (11.5-16.0); MEAN CORPUSCULAR HEMOGLOBIN 29 pg (25-34); MEAN CORPUSCULAR HGB CONC 29 g/dL (32-36); MEAN CORPUSCULAR VOLUME 99 fL (80-99); MEAN PLATELET VOLUME 9.6 fL (9.0-12.2); PLATELET COUNT 181 10^3/uL (130-400); WHITE BLOOD COUNT 6.5 10^3/uL (4.3-11.0)
[2021-11-04 05:46] LABS: ALBUMIN 2.8 GM/DL (3.2-4.5); POTASSIUM 4.1 MMOL/L (3.6-5.0)
[2021-11-04 05:47] LABS: CALCIUM 8.1 MG/DL (8.5-10.1)
[2021-11-04 05:48] LABS: TOTAL PROTEIN 6.1 GM/DL (6.4-8.2)
[2021-11-04 05:50] LABS: BILIRUBIN,TOTAL 0.4 MG/DL (0.1-1.0)
[2021-11-04 05:52] LABS: CREATININE SERUM 0.61 MG/DL (0.60-1.30)
[2021-11-04 08:09] VITALS: BP 123/74
[2021-11-04] MEDS: 1/2 NS IV SOLUTION 1,000 ML IV SCH (08:19)
[2021-11-04] MEDS: PANTOPRAZOLE 40 MG (PROTONIX) VIAL IV SCH (08:22)
[2021-11-04 11:59] VITALS: BP 132/76
--- NOTE | 2021-11-04 12:39 | Progress Note - Surgery ---
Subjective Date Seen by a Provider: Nov 04, 2021 Time Seen by a Provider: 12:37 Subjective/Events-last exam Patient tolerating liquids. Pain controlled. + bowel function Not wanting to use IS. Denies n/v fever sweats chills shortness of breath or chest pain. Objective Exam Vital Signs Date Time Temp Pulse Resp B/P (MAP) Pulse Ox O2 Delivery O2 Flow Rate FiO2 11/04/21 11:59 36.7 75 20 132/76 (94) 97 High Flow N/C 3.00 11/04/21 08:09 36.4 80 18 123/74 (90) 99 High Flow N/C 3.00 11/04/21 08:00 Nasal Cannula 3.00 11/04/21 05:06 36.2 11/04/21 04:00 36.4 82 18 119/73 (88) 96 High Flow N/C 3.00 11/04/21 00:45 36.2 94 20 151/69 (96) 96 High Flow N/C 3.00 11/03/21 19:55 99 High Flow N/C 3.00 11/03/21 19:41 36.6 96 22 141/63 (89) 99 High Flow N/C 3.00 11/03/21 16:04 36.8 87 20 134/80 (98) 99 High Flow N/C 3.00 I & O 11/04/21 07:00 Intake Total 1920 ml Output Total 250 ml Balance 1670 ml Capillary Refill : General Appearance: No Apparent Distress, WD/WN HEENT: PERRL/EOMI, Pharynx Normal Neck: Non Tender, Supple Respiratory: Chest Non Tender, No Accessory Muscle Use, No Respiratory Distress Cardiovascular: Regular Rate, Rhythm, No JVD Peripheral Pulses: 2+ Radial Pulses (R), 2+ Radial Pulses (L) Gastrointestinal: soft, tenderness (minimal incision c/d/i) Extremity: Non Tender, No Calf Tenderness Neurologic/Psychiatric: Alert, No Motor/Sensory Deficits, Normal Mood/Affect Skin: Normal Color, Warm/Dry Lymphatic: No Adenopathy Results Lab Laboratory Tests 11/03/21 17:13: Glucometer 113H 11/04/21 04:40: White Blood Count 6.5, Red Blood Count 3.66L, Hemoglobin 10.5L, Hematocrit 36, Mean Corpuscular Volume 99, Mean Corpuscular Hemoglobin 29, Mean Corpuscular Hemoglobin Concent 29L, Red Cell Distribution Width 14.2, Platelet Count 181, Mean Platelet Volume 9.6, Sodium Level 142, Potassium Level 4.1, Chloride Level 101, Carbon Dioxide Level 33H, Anion Gap 8, Blood Urea Nitrogen 8, Creatinine 0.61, Estimat Glomerular Filtration Rate 95, BUN/Creatinine Ratio 13, Glucose Level 100, Calcium Level 8.1L, Corrected Calcium 9.1, Total Bilirubin 0.4, Asp artate Amino Transf (AST/SGOT) 44H, Alanine Aminotransferase (ALT/SGPT) 33, Alkaline Phosphatase 62, Total Protein 6.1L, Albumin 2.8L Assessment/Plan Assessment/Plan Assessment/Plan SMALL BOWEL OBSTRUCTION s/p ex lap and release of sbo 10/25/21 ABDOMINAL PAIN NAUSEA HYPOTHYROIDISM HYPERTENSION DEPRESSION ANXIOLYTIC THROAT PAIN SURGICAL SITE BLEEDING RESPIRATORY DISTRESS BIBASILAR INFILTRATES - PNEUMONIA Malnutrition - prolonged NPO bowel rest PT & OT with increased activity & ICS use. Continue medical management. TPN for nutritional support Abdominal x-ray 11/01/21 demonstrates normal postoperative findings. Normal bowel gas pattern. + bowel function advance to soft. SARAY MCNALLY DO Nov 04, 2021 12:39
[2021-11-04 15:20] VITALS: BP 118/72
[2021-11-04] MEDS: ENOXAPARIN 40 MG/0.4 ML (LOVENOX) SYR SC SCH (17:38)
--- NOTE | 2021-11-04 17:38 | Progress Note - Hospitalist ---
Subjective HPI/CC On Admission Date Seen by Provider: Nov 04, 2021 Time Seen by Provider: 10:15 Subjective/Events-last exam She is doing better. She is eating and drinking. She is having bowel movements. She denies abdominal pain. She is not having nausea or vomiting. Objective Exam Vital Signs Vital Signs Date Time Temp Pulse Resp B/P (MAP) Pulse Ox O2 Delivery O2 Flow Rate FiO2 11/04/21 15:20 36.0 77 16 118/72 (87) 98 High Flow N/C 3.00 11/02/21 11:42 95 Capillary Refill : General Appearance: No Apparent Distress, WD/WN Respiratory: Lungs Clear, Normal Breath Sounds, No Respiratory Distress Cardiovascular: Regular Rate, Rhythm, No Murmur Gastrointestinal: Normal Bowel Sounds, Soft Extremity: Normal Inspection, No Pedal Edema Neurologic/Psychiatric: Alert, Normal Mood/Affect, Other (hearing impaired) Skin: Normal Color, Warm/Dry Results/Procedures Lab Laboratory Tests 11/04/21 04:40 Patient resulted labs reviewed. Assessment/Plan Assessment and Plan Assess & Plan/Chief Complaint Small bowel obstruction Surgery following Advancing diet Monitor Pneumonia Zosyn HTN Anxiety Depression Hypothyroidism Holding home meds DVT prophylaxis: Lovenox Diagnosis/Problems Diagnosis/Problems (1) Small bowel obstruction Status: Acute (2) PNA (pneumonia) Status: Acute (3) HTN (hypertension) Status: Chronic (4) Anxiety and depression Status: Chronic (5) Hypothyroidism Status: Chronic MARGOT BUSH MD Nov 04, 2021 17:38
[2021-11-04 19:29] VITALS: BP 120/75
[2021-11-04] MEDS: LORazepam INJ 2 MG/ML (ATIVAN) VIAL IVP PRN (20:40)
[2021-11-05] VITALS: BP 124/78
[2021-11-05] MEDS: PIPERACILLIN SODIUM/TAZOBACTAM 4.5 GM in NS (IVPB) 100 ML IV SCH ×3 (01:25→17:45)
[2021-11-05] MEDS: ARTIFICAL TEARS 0.4 ML UNIT DOSE (REFRESH PLUS) OU PRN ×2 (03:14→11:50)
[2021-11-05] MEDS: LORazepam INJ 2 MG/ML (ATIVAN) VIAL IVP PRN (03:14)
[2021-11-05 04:00] VITALS: BP 112/69
[2021-11-05 07:23] VITALS: BP 127/77
--- NOTE | 2021-11-05 08:07 | Progress Note - Surgery ---
LANRE MCDANIEL 11/05/21 0807: Subjective Date Seen by a Provider: Nov 05, 2021 Time Seen by a Provider: 07:23 Subjective/Events-last exam Pt doing well and tolerating her soft foods diet. She does note that her belly is slightly more distended, but it remains soft and free of pain. She also confirms flatus and BM Encouraged continued use of IS and walking. Review of Systems General: No Chills, No Night Sweats, No Fatigue; Appetite HEENT: No Head Aches, No Eye Pain, No Ear Pain, No Dysphasia, No Sore Throat Pulmonary: No Dyspnea, No Cough, No Pleuritic Chest Pain Cardiovascular: No: Chest Pain, Palpitations, Orthopnea Gastrointestinal: No: Nausea, Vomiting, Abdominal Pain, Constipation Genitourinary: No Dysuria, No Frequency, No Incontinence Musculoskeletal: No: neck pain, shoulder pain, back pain Neurological: No: Weakness, Numbness, Confusion Objective Exam Vital Signs Date Time Temp Pulse Resp B/P (MAP) Pulse Ox O2 Delivery O2 Flow Rate FiO2 11/05/21 07:34 Nasal Cannula 3.00 11/05/21 07:23 36.5 75 18 127/77 (94) 97 High Flow N/C 3.00 11/05/21 04:00 36.0 75 19 112/69 (83) 99 High Flow N/C 3.00 11/05/21 00:00 36.2 77 18 124/78 (93) 98 High Flow N/C 3.00 11/04/21 20:40 Nasal Cannula 3.00 11/04/21 19:29 36.4 83 20 120/75 (90) 96 High Flow N/C 3.00 11/04/21 15:20 36.0 77 16 118/72 (87) 98 High Flow N/C 3.00 11/04/21 11:59 36.7 75 20 132/76 (94) 97 High Flow N/C 3.00 11/04/21 08:09 36.4 80 18 123/74 (90) 99 High Flow N/C 3.00 I & O 11/05/21 07:00 Intake Total 1850 ml Balance 1850 ml Capillary Refill : General Appearance: No Apparent Distress, WD/WN HEENT: PERRL/EOMI, Pharynx Normal Neck: Full Range of Motion, Non Tender, Supple Respiratory: Chest Non Tender, No Accessory Muscle Use, No Respiratory Distress, Decreased Breath Sounds, Wheezing Cardiovascular: No Edema, No Gallop, No Murmur, Normal Peripheral Pulses, Irregularly Irregular Peripheral Pulses: 2+ Radial Pulses (R), 2+ Radial Pulses (L) Gastrointestinal: normal bowel sounds, non tender, soft, no organomegaly, no pulsatile mass, distended Extremity: Normal Capillary Refill, Non Tender, No Calf Tenderness, No Pedal Edema Neurologic/Psychiatric: Alert, Oriented x3, Normal Mood/Affect, Other (hearing impaired) Skin: Normal Color, Warm/Dry Lymphatic: No Adenopathy (Cervical and axillary) Assessment/Plan Assessment/Plan Assessment/Plan SMALL BOWEL OBSTRUCTION s/p ex lap and release of sbo 10/25/21 ABDOMINAL PAIN NAUSEA HYPOTHYROIDISM HYPERTENSION DEPRESSION ANXIOLYTIC THROAT PAIN SURGICAL SITE BLEEDING RESPIRATORY DISTRESS BIBASILAR INFILTRATES - PNEUMONIA Malnutrition - prolonged NPO bowel rest PT & OT with increased activity & ICS use. Continue medical management. Abdominal x-ray 11/01/21 demonstrates normal postoperative findings. Normal bowel gas pattern. + bowel function advance to soft. Continue soft diet and monitor bowl function. SARAY AQUINO DO 11/05/21 1226: Subjective Subjective/Events-last exam Patient doing well. She is tolerating diet. Pain controlled. Having bowel function. Family states she is more of her self. She denies any nausea vomiting fever sweats chills shortness of breath or chest pain at this time. Objective Exam General Appearance: No Apparent Distress, WD/WN HEENT: PERRL/EOMI Neck: Full Range of Motion, Non Tender Respiratory: Chest Non Tender, No Accessory Muscle Use, No Respiratory Distress Cardiovascular: No JVD, Irregularly Irregular Gastrointestinal: non tender, soft, distended (Minimal), tenderness (Incisional, clean dry intact incision no signs of infection) Extremity: Non Tender, No Calf Tenderness Neurologic/Psychiatric: Alert, Oriented x3, Normal Mood/Affect, Other (hearing impaired) Skin: Normal Color, Warm/Dry Lymphatic: No Adenopathy (Cervical and axillary) Assessment/Plan Assessment/Plan Assessment/Plan SMALL BOWEL OBSTRUCTION s/p ex lap and release of sbo 10/25/21 ABDOMINAL PAIN NAUSEA HYPOTHYROIDISM HYPERTENSION DEPRESSION ANXIOLYTIC THROAT PAIN SURGICAL SITE BLEEDING RESPIRATORY DISTRESS BIBASILAR INFILTRATES - PNEUMONIA Malnutrition - prolonged NPO bowel rest PT & OT with increased activity & ICS use. Continue medical management. Abdominal x-ray 11/01/21 demonstrates normal postoperative findings. Normal bowel gas pattern. + bowel function advance to soft. Continue soft diet and monitor bowl function. Supervisory-Addendum Brief Verification & Attestation Participated in pt care: history, MDM, physical Personally performed: exam, history, MDM, supervision of care Care discussed with: Medical Student Procedures: n/a Results interpretation: Verified all documentation Verification and Attestation of Medical Student E/M Service A medical student performed and documented this service in my presence. I reviewed and verified all information documented by the medical student and made modifications to such information, when appropriate. I personally performed the physical exam and medical decision making. Saray Aquino, Nov 05, 2021,12:26 LANRE MCDANIEL Nov 05, 2021 08:07 SARAY AQUINO DO Nov 05, 2021 12:26
[2021-11-05] MEDS: PANTOPRAZOLE 40 MG (PROTONIX) VIAL IV SCH (08:41)
[2021-11-05] MEDS: 1/2 NS IV SOLUTION 1,000 ML IV SCH (08:41)
[2021-11-05 12:03] VITALS: BP 122/75
[2021-11-05 15:30] VITALS: BP 134/63
[2021-11-05] MEDS: ENOXAPARIN 40 MG/0.4 ML (LOVENOX) SYR SC SCH (17:45)
[2021-11-05 20:09] VITALS: BP 139/65
[2021-11-05] MEDS: ACETAMINOPHEN 650 MG SUPP (TYLENOL) PR PRN (20:40)
[2021-11-05] MEDS ORDERED: RT-ALBUTEROL SULF 2.5 MG/3 ML PRE-MIX VIAL INH PRN (23:00)
[2021-11-06] VITALS: BP 146/69
[2021-11-06] MEDS: PIPERACILLIN SODIUM/TAZOBACTAM 4.5 GM in NS (IVPB) 100 ML IV SCH (01:33)
[2021-11-06 04:08] VITALS: BP 137/64
[2021-11-06] MEDS: ACETAMINOPHEN 650 MG SUPP (TYLENOL) PR PRN (04:44)
[2021-11-06] MEDS: ARTIFICAL TEARS 0.4 ML UNIT DOSE (REFRESH PLUS) OU PRN (05:19)
[2021-11-06 05:26] LABS: HEMATOCRIT 35 % (35-52); HEMOGLOBIN 10.2 g/dL (11.5-16.0); MEAN CORPUSCULAR HEMOGLOBIN 29 pg (25-34); MEAN CORPUSCULAR HGB CONC 29 g/dL (32-36); MEAN CORPUSCULAR VOLUME 98 fL (80-99); PLATELET COUNT 156 10^3/uL (130-400); WHITE BLOOD COUNT 5.3 10^3/uL (4.3-11.0)
[2021-11-06 05:34] LABS: ALBUMIN 2.8 GM/DL (3.2-4.5); POTASSIUM 3.7 MMOL/L (3.6-5.0)
[2021-11-06 05:35] LABS: CALCIUM 8.2 MG/DL (8.5-10.1)
[2021-11-06 05:37] LABS: TOTAL PROTEIN 6.1 GM/DL (6.4-8.2)
[2021-11-06 05:38] LABS: BILIRUBIN,TOTAL 0.4 MG/DL (0.1-1.0)
[2021-11-06 05:40] LABS: CREATININE SERUM 0.67 MG/DL (0.60-1.30)
--- NOTE | 2021-11-06 07:05 | Progress Note - Surgery ---
ANSHUL STACK 11/06/21 0705: Subjective Date Seen by a Provider: Nov 06, 2021 Time Seen by a Provider: 06:44 Subjective/Events-last exam Pt reports that she is doing well this morning and is asking when she can go home. States that she has been having frequent bowel movements. Says that recently her stools have been loose. Endorses having episodes of flatus often. Denies having any abdominal pain but is having some episodes of acid reflux. Reports that she has been using her incentive spirometer. Pt said she did not get up and walk around yesterday because she was not seen by PT. When asked she denied having any other concerns. Review of Systems General: No Chills, No Night Sweats HEENT: No Head Aches, No Visual Changes Pulmonary: No Dyspnea; Cough Cardiovascular: No: Chest Pain, Palpitations Gastrointestinal: Diarrhea; No: Nausea, Vomiting, Abdominal Pain Genitourinary: No Dysuria, No Frequency Musculoskeletal: No: neck pain, back pain Neurological: No: Weakness, Numbness Objective Exam Vital Signs Date Time Temp Pulse Resp B/P (MAP) Pulse Ox O2 Delivery O2 Flow Rate FiO2 11/06/21 04:08 36.4 68 17 137/64 (88) 98 High Flow N/C 3.00 11/06/21 00:00 36.6 77 18 146/69 (94) 95 High Flow N/C 3.00 11/05/21 20:40 Nasal Cannula 3.00 11/05/21 20:09 36.0 72 20 139/65 (89) 99 High Flow N/C 3.00 11/05/21 15:30 37.0 71 20 134/63 (86) 97 High Flow N/C 3.00 11/05/21 12:03 36.9 71 18 122/75 (91) 94 High Flow N/C 3.00 11/05/21 08:02 Nasal Cannula 3.00 11/05/21 07:34 Nasal Cannula 3.00 11/05/21 07:23 36.5 75 18 127/77 (94) 97 High Flow N/C 3.00 I & O 11/06/21 07:00 Intake Total 2400 ml Balance 2400 ml Capillary Refill : General Appearance: No Apparent Distress, WD/WN HEENT: PERRL/EOMI; No Photophobia Neck: Non Tender, Supple Respiratory: Lungs Clear, No Accessory Muscle Use, No Respiratory Distress Cardiovascular: Regular Rate, Rhythm, No Murmur, Normal Peripheral Pulses Peripheral Pulses: 2+ Radial Pulses (R), 2+ Radial Pulses (L) Gastrointestinal: soft, distended (Minimal), tenderness (Incisional. clean, dry, intact incision no signs of infection, mild RLQ tenderness) Extremity: Non Tender, No Calf Tenderness, No Pedal Edema Neurologic/Psychiatric: Alert, Normal Mood/Affect, Other (hearing impaired) Skin: Normal Color, Warm/Dry Lymphatic: No Adenopathy (Cervical) Results Lab Laboratory Tests 11/06/21 05:10: White Blood Count 5.3, Red Blood Count 3.58L, Hemoglobin 10.2L, Hematocrit 35, Mean Corpuscular Volume 98, Mean Corpuscular Hemoglobin 29, Mean Corpuscular Hemoglobin Concent 29L, Red Cell Distribution Width 14.0, Platelet Count 156, Mean Platelet Volume 10.0, Sodium Level 144, Potassium Level 3.7, Chloride Level 99, Carbon Dioxide Level 37H, Anion Gap 8, Blood Urea Nitrogen 5L, Creatinine 0.67, Estimat Glomerular Filtration Rate 85, BUN/Creatinine Ratio 7, Glucose Level 105, Calcium Level 8.2L, Corrected Calcium 9.2, Total Bilirubin 0.4, Asp artate Amino Transf (AST/SGOT) 34, Alanine Aminotransferase (ALT/SGPT) 53, Alkaline Phosphatase 64, Total Protein 6.1L, Albumin 2.8L Assessment/Plan Assessment/Plan Assessment/Plan Assessment SMALL BOWEL OBSTRUCTION s/p ex lap and release of sbo 10/25/21 ABDOMINAL PAIN NAUSEA HYPOTHYROIDISM HYPERTENSION DEPRESSION ANXIOLYTIC BIBASILAR INFILTRATES - PNEUMONIA Plan Pt is having bowel movements and episodes of flatus. Tolerating soft diet well. Consider starting normal diet. Continue monitoring of bowel function Continue PT, OT, and ICS use. Continue medical management. Abdominal x-ray 11/01/21 demonstrates normal postoperative findings. Normal bowel gas pattern. JEREMIAH DIXON DO 11/06/21 1154: Subjective Time Seen by a Provider: 11:47 Subjective/Events-last exam Pt seen and examined, asking to go home. Tolerating diet, with BMs and pain controlled. Review of Systems General: No Chills, No Night Sweats Cardiovascular: No: Chest Pain, Palpitations Gastrointestinal: No: Nausea, Vomiting, Abdominal Pain Objective Exam General Appearance: No Apparent Distress, WD/WN Respiratory: Lungs Clear, No Accessory Muscle Use, No Respiratory Distress Cardiovascular: Regular Rate, Rhythm, No Murmur Gastrointestinal: soft, distended (Minimal), tenderness (Incisional. clean, dry, intact incision no signs of infection, mild RLQ tenderness) Assessment/Plan Assessment/Plan Assessment/Plan SBO s/p ex lap and release of sbo 10/25/21 BIBASILAR INFILTRATES - PNEUMONIA HTN, Hypothryoid Plan Pt is having bowel movements and episodes of flatus. Tolerating soft diet well. D/C IV and D/C Home Supervisory-Addendum Brief Verification & Attestation Participated in pt care: history, MDM, physical Personally performed: exam, history, MDM, supervision of care Care discussed with: Medical Student Procedures: n/a Verification and Attestation of Medical Student E/M Service A medical student performed and documented this service. I then reviewed and verified all information documented by the medical student and made modifications to such information, when appropriate. I personally performed a physical exam, medical decision making and then discussed any differences between the notes and made revisions as necessary to create one note. Jeremiah Dixon , 11/06/21 , 11:54 ANSHUL STACK Nov 06, 2021 07:05 JEREMIAH DIXON DO Nov 06, 2021 11:54
[2021-11-06 07:56] VITALS: BP 127/72
[2021-11-06] MEDS: 1/2 NS IV SOLUTION 1,000 ML IV SCH (09:30)
--- NOTE | 2021-11-06 09:30 | Occupational Ther Daily Note ---
OT Current Status-Daily Note Subjective Pt alert, lying in bed. Pt agrees to therapy. Pt states that she wants to go home. Mental Status/Objective Patient Orientation: Person, Place, Time, Situation Attachments: IV, Oxygen ADL-Treatment Supine <--> EOB independent with HOB slightly raised. Ambulated to/from bathroom using FWW and assist only for O2 and IV tubing, SBA. Pt able to complete toileting hygiene and clothing manipulation with SBA. After set up, pt able to don/doff briefs by self with SBA for safety. Assist to don/doff socks. Pt able to set up own meal per clinical judgment, though son is in room and set up pt's meal. After session, pt lying in bed eating breakfast. Call light/phone in reach. Son present in room. Therapy Code Descriptions/Definitions Functional [place] Measure: 0=Not Assessed/NA 4=Minimal Assistance 1=Total Assistance 5=Supervision or Setup 2=Maximal Assistance 6=Modified [place] 3=Moderate Assistance 7=Complete IndependenceSCALE: Activities may be completed with or without assistive devices. 6-Goqrqkbfqf-qhtoxix completes the activity by him/herself with no assistance from a helper. 5-Set-up or Clean-up Assistance-helper sets up or cleans up; patient completes activity. [place] assists only prior to or following the activity. 4-Supervision or Touching Assistance-helper provides verbal cues and/or touching/steadying and/or contact guard assistance as patient completes activity. Assistance may be provided throughout the activity or intermittently. 3-Partial/Moderate Assistance-helper does LESS THAN HALF the effort. [place] lifts, holds or supports trunk or limbs, but provides less than half the effort. 2-Substantial/Maximal Assistance-helper does MORE THAN HALF the effort. [place] lifts or holds trunk or limbs and provides more than half the effort. 0-Auzrtcpyd-texpbl does ALL the effort. Patient does none of the effort to complete the activity. Or, the assistance of 2 or more helpers is required for the patient to complete the activity. If activity was not attempted, code reason: 7-Patient Refused. 9-Not Applicable-not attempted and the patient did not perform the activity before the current illness, exacerbation or injury. 10-Not Attempted due to Environmental Limitations-(lack of equipment, weather restraints, etc.). 88-Not Attempted due to Medical Conditions or Safety Concerns. Eating (QC): 5 Lower Body Dressing (QC): 4 On/Off Footwear: 2 Toileting Hygiene (QC): 4 Toilet Transfer (QC): 4 OT Short Term Goals Short Term Goals Time Frame: Nov 08, 2021 Eatin Oral hygiene: 5 Toileting hygiene: 4 Shower/bathe self: 4 Upper body dressin Lower body dressin Putting on/taking off footwear: 5 OT Legal Assistant Goals Jail Goals Time Frame: Nov 22, 2021 Eating (QC): 5 Oral Hygiene (QC): 5 Toileting Hygiene (QC): 5 Shower/Bathe Self (QC): 5 Upper Body Dressing (QC): 5 Lower Body Dressing (QC): 5 On/Off Footwear (QC): 5 1=Demonstrate adherence to instructed precautions during ADL tasks. 2=Patient will verbalize/demonstrate understanding of assistive devices/modifications for ADL. 3=Patient will improve strength/tolerance for activity to enable patient to perform ADL's. OT Education/Plan Problem List/Assessment Assessment: Decreased Activ Tolerance, Impaired Self-Care Skills Discharge Recommendations Plan/Recommendations: Continue POC Treatment Plan/Plan of Care Patient would benefit from OT for education, treatment and training to promote independence in ADL's, mobility, safety and/or upper extremity function for ADL's. Plan of Care: ADL Retraining, Functional Mobility, Group Exercise/Act as Ind, UE Funct Exercise/Act Treatment Duration: Nov 22, 2021 Frequency: 5 times per week Estimated Hrs Per Day: .25 hour per day Rehab Potential: Good Time/GCodes Start Time: 09:08 Stop Time: 09:23 Total Time Billed (hr/min): 15 Billed Treatment Time 1 visit-ADL 1 (15 min) JAMES SPEAR Nov 06, 2021 09:30
[2021-11-06] MEDS: PANTOPRAZOLE 40 MG (PROTONIX) VIAL IV SCH (10:17)
--- NOTE | 2021-11-06 11:17 | Physical Therapy Daily Note ---
PT Daily Note-Current Subjective Patient agrees to PT. Son present. Mental Status Patient Orientation: Normal For Age Attachments: Oxygen, IV Transfers SCALE: Activities may be completed with or without assistive devices. 1-Jwxocdsoql-lrchzlc completes the activity by him/herself with no assistance from a helper. 5-Set-up or Clean-up Assistance-helper sets up or cleans up; patient completes activity. Morton assists only prior to or following the activity. 4-Supervision or Touching Assistance-helper provides verbal cues and/or touching/steadying and/or contact guard assistance as patient completes activity. Assistance may be provided throughout the activity or intermittently. 3-Partial/Moderate Assistance-helper does LESS THAN HALF the effort. Morton lifts, holds or supports trunk or limbs, but provides less than half the effort. 2-Substantial/Maximal Assistance-helper does MORE THAN HALF the effort. [place] lifts or holds trunk or limbs and provides more than half the effort. 5-Qcsueiotm-ylkqks does ALL the effort. Patient does none of the effort to complete the activity. Or, the assistance of 2 or more helpers is required for the patient to complete the activity. If activity was not attempted, code reason: 7-Patient Refused. 9-Not Applicable-not attempted and the patient did not perform the activity before the current illness, exacerbation or injury. 10-Not Attempted due to Environmental Limitations-(lack of equipment, weather restraints, etc.). 88-Not Attempted due to Medical Conditions or Safety Concerns. Roll Left & Right (QC): 6 Sit to Lying (QC): 6 Lying to Sitting/Side of Bed(Q: 6 Sit to Stand (QC): 6 Chair/Jva-ah-Sznla Xfer(QC): 6 Toilet Transfer (QC): 6 Car Transfer (QC): 6 Gait Training Does the Patient Walk?: Yes Distance: 500' Walk 10 feet (QC): 6 Walk 50 ft with 2 Turns(QC): 6 Walk 150 ft (QC): 6 Walking 10ft/uneven surface-QC: 6 Gait Assistive Device: FWW safe and functional with no deviation Wheelchair Training Does the Pt Use a Wheelchair?: No Stair Training 1 Step (curb) (QC): 7 4 Steps (QC): 7 12 Steps (QC): 88 Balance Picking up an Object (QC): 7 (son will perform) Assessment Patient performs activity within her tolerance and as she allows. Patient has attained LTG with exception of stairs which she declined to perform. PT Street Light Lamp Cleaner Goals Group Home Goals PT Group Home Goals Time Frame: Nov 10, 2021 Roll Left & Right (QC): 6 (met 11/06/21) Sit to Lying (QC): 6 (met 11/06/21) Lying-Sitting on Side/Bed(QC): 6 (met 11/06/21) Sit to Stand (QC): 6 (met 11/06/21) Chair/Pve-wu-Ayypb Xfer(QC): 6 (met 11/06/21) Toilet Transfer (QC): 6 (met 11/06/21) Car Transfer (QC): 5 (met 11/06/21) Does the Patient Walk: Yes Walk 10 feet (QC): 6 (met 11/06/21) Walk 50ft with 2 Turns (QC): 6 (met 11/06/21) Walk 150 ft (QC): 6 (met 11/06/21) Walking 10ft on Uneven Surface: 88 1 Step (curb) (QC): 4 4 Steps (QC): 4 12 Steps (QC): 88 Picking up an Object (QC): 5 Does the Pt use WC or Scooter?: No Wheel 50 feet with 2 turns (QC: 88 Wheel 150 feet: 88 PT Plan Treatment/Plan Treatment Plan: Continue Plan of Care Treatment Plan: Bed Mobility, Education, Functional Activity Garo, Functional Strength, Group Therapy, Gait, Safety, Therapeutic Exercise, Transfers Treatment Duration: Dec 09, 2021 Frequency: 6 times per week Estimated Hrs Per Day: .25 hour per day Time/GCodes Time In: 1033 Time Out: 1058 Total Billed Treatment Time: 25 Total Billed Treatment 1 visit FA x 2 25 min IWONA LOPEZ PT Nov 06, 2021 11:16
[2021-11-06 11:39] VITALS: BP 119/75
[2021-11-06] MEDS ORDERED: ACETAMINOPHEN 325 MG TABLET PO PRN (11:45)
--- NOTE | 2021-11-06 11:55 | Discharge Inst-Surgical ---
Discharge Inst-Surgical Depart Medication/Instructions New, Converted or Re-Newed RX: Other (Use home meds) Patient Instructions Follow up Appt: Make appointment for 1 week. [phone] Instructions: No lifting greater than 20 pounds. No strenuous activity. May shower in 24 hours, no tub bath or soaking. Use incentive spirometer at home as directed. No Smoking Skin/Wound Care: May remove bandages in am. You need to leave the shmuel in place and come in to the office to have them removed. Symptoms to Report: Appetite Changes, Extremity Discoloration, Numbness/Tingling, Swelling Increased, Bleeding Excessive, Eyesight Changes, Pain Increased, Urine Color Change, Constipation(Persistent), Fever over 101 degree F, Pain/Pressure in chest, Urinating Difficulty, Cough Up/Vomit Blood, Heart Beat Irreg/Pounding, Pain/Pressure in jaw, Cramps in feet or legs, Lightheadedness, Pain/Pressure in shoulder, Diarrhea(Persistent), Memory Changes Suddenly, Questions/Concerns, Weight gain consecutive days, Dizziness/Fainting, Nausea/Vomiting, Shortness of Breath, Weight gain over 2 pounds If questions or concerns contact your physician Or seek help at emergency department. Activity Activity as Tolerated: Yes Driving Instructions: No Driving/Refer to Dr. Head Discharge Diet: No Restrictions Diet After 24 Hours: Clear Liquid if Nauseous If Any Problems/Questions/Issu: Contact Your Physician, Go to Emergency Room Skin/Wound Care Infection Signs and Symptoms: Increased Redness, Foul Odor of Wound, Increased Drainage, Skin Itchy or Has a Rash, Increased Swelling, Temperature Above 101 F Bathing Instructions: Shower Stitches/Shmuel/Dermabond Dis: Care of RACHEL Swenson DO Nov 06, 2021 11:55
--- NOTE | 2021-11-06 12:17 | Progress Note ---
Subjective Date Seen by a Provider: Nov 06, 2021 Time Seen by a Provider: 08:50 Subjective/Events-last exam Fwup small bowel obstruction, weakness, HTN, chronic oxygen dependence. Patient is passing stools and tolerating diet with no pain. Is upset that Dr. Campos is not seeing her today and that Dr. Dixon took away her anxiety medications. Wants to go home. Objective Exam Vital Signs Date Time Temp Pulse Resp B/P (MAP) Pulse Ox O2 Delivery O2 Flow Rate FiO2 11/06/21 11:39 37.0 65 18 119/75 (90) 97 High Flow N/C 3.00 11/06/21 09:00 High Flow N/C 3.00 11/06/21 07:56 36.6 65 18 127/72 (90) 97 High Flow N/C 3.00 11/06/21 07:02 99 High Flow N/C 3.00 11/06/21 04:08 36.4 68 17 137/64 (88) 98 High Flow N/C 3.00 11/06/21 00:00 36.6 77 18 146/69 (94) 95 High Flow N/C 3.00 11/05/21 20:40 Nasal Cannula 3.00 11/05/21 20:09 36.0 72 20 139/65 (89) 99 High Flow N/C 3.00 11/05/21 15:30 37.0 71 20 134/63 (86) 97 High Flow N/C 3.00 I & O 11/06/21 07:00 Intake Total 2400 ml Balance 2400 ml Capillary Refill : General Appearance: No Apparent Distress Respiratory: Lungs Clear, Decreased Breath Sounds Cardiovascular: Regular Rate, Rhythm, Systolic Murmur Gastrointestinal: normal bowel sounds, non tender, soft, other (wound healing well with shmuel in place) Extremity: Non Tender, No Calf Tenderness, No Pedal Edema Neurologic/Psychiatric: Alert, Oriented x3 Results Lab Laboratory Tests 11/06/21 05:10: White Blood Count 5.3, Red Blood Count 3.58L, Hemoglobin 10.2L, Hematocrit 35, Mean Corpuscular Volume 98, Mean Corpuscular Hemoglobin 29, Mean Corpuscular Hemoglobin Concent 29L, Red Cell Distribution Width 14.0, Platelet Count 156, Mean Platelet Volume 10.0, Sodium Level 144, Potassium Level 3.7, Chloride Level 99, Carbon Dioxide Level 37H, Anion Gap 8, Blood Urea Nitrogen 5L, Creatinine 0 .67, Estimat Glomerular Filtration Rate 85, BUN/Creatinine Ratio 7, Glucose Level 105, Calcium Level 8.2L, Corrected Calcium 9.2, Total Bilirubin 0.4, Aspartate Amino Transf (AST/SGOT) 34, Alanine Aminotransferase (ALT/SGPT) 53, Alkaline Phosphatase 64, Total Protein 6.1L, Albumin 2.8L Assessment/Plan Assessment/Plan Assess & Plan/Chief Complaint 1. Small Bowel Obstruction--S/P surgery--bowels have returned to normal 2. Weakness--much improved with PT/OT 3. Hypertension--stable 4. Acute on Chronic Respiratory Failure--back to baseline oxygen requirement 5. Bibasilar Infiltrates--resolved on last CXR 6. DC plans per surgery FLIP CHRISTIANSEN DO Nov 06, 2021 12:17
--- NOTE | 2021-11-06 13:05 | Therapy Team Discharge Summary ---
Therapy Discharge Summary Discharge Recommendations Date of Discharge Physical Therapy Upon initial evaluation,patient presents with CGA to SBA with all mobility. Patient wears O2 3L NC in home PLOF. Patient participated with PT and has progress to independent PLOF with all gross motor skills. Patient performs a ctivity within her tolerance and as she allows. Patient has attained LTG with exception of stairs which she declined to perform. Patient to dismiss to home with son. Occupational Therapy Decreased Activ Tolerance, Impaired Self-Care Skills PT Penitentiary Goals Penitentiary Goals PT Penitentiary Goals Time Frame: Nov 10, 2021 Roll Left to Right (QC): 6 (met 11/06/21) Sit to Lying (QC): 6 (met 11/06/21) Lying-Sitting on Side/Bed(QC): 6 (met 11/06/21) Sit to Stand (QC): 6 (met 11/06/21) Chair/Ecs-kd-Uevfv Xfer(QC): 6 (met 11/06/21) Car Transfer (QC): 5 (met 11/06/21) Does the Patient Walk: Yes Walk 10 feet (QC): 6 (met 11/06/21) Walk 10ft-Uneven Surface(QC): 88 Walk 50ft with 2 Turns (QC): 6 (met 11/06/21) Walk 150 ft (QC): 6 (met 11/06/21) Does the Pt use WC or Scooter?: No Wheel 50 feet with 2 turns (QC: 88 1 Step (curb) (QC): 4 4 Steps (QC): 4 12 Steps (QC): 88 Picking up an Object (QC): 5 OT Controller Mechanic Goals Controller Mechanic Goals Time Frame: Nov 22, 2021 Eating (QC): 5 Oral Hygiene (QC): 5 Shower/Bathe Self (QC): 5 Upper Body Dressing (QC): 5 Lower Body Dressing (QC): 5 On/Off Footwear (QC): 5 Toileting Hygiene (QC): 5 Toilet/Commode Transfer (QC): 6 (met 11/06/21) 1=Demonstrate adherence to instructed precautions during ADL tasks. 2=Patient will verbalize/demonstrate understanding of assistive devices/modifications for ADL. 3=Patient will improve strength/tolerance for activity to enable patient to perform ADL's. IWONA LOPEZ PT Nov 06, 2021 13:05
[2021-11-06 15:30] VITALS: BP 139/78
--- NOTE | 2021-11-06 17:54 | D/C HH Face to Face Order ---
D/C Face to Face Orders Reconcile Patient Problems Problems Reviewed?: Yes Instructions for Patient Via [facility], Patient Instructions/FollowUp: Fwup with Dr. Campos in 1 week Physician to follow Patient: Dr. Campos Discharge Diet for Home: Low Sodium Diet, Soft Diet Patient Data-Allergies,Ht & Wt Patient Allergies: Coded Allergies: No Known Drug Allergies (Unverified , 02/28/16) Height (Feet): 5 Height (Inches): 0.00 Weight (Pounds): 159 Weight (Ounces): 0.0 Home Health Need/Face to Face Date of Face to Face: Nov 06, 2021 Clinical Findings: Generalized weakness and fatigue, Muscle weakness, Shortness of breath I have seen Pt [id number]-[id number]: Yes Discharged To: Home Diagnosis/Conditions: Small Bowel Obstruction Weakness Chronic Respiratory Failure Patient is Homebound due to: Muscle weakness, Shortness of breath/distress Homebound Status Due to the above stated illness, injury or surgical procedure (medical condi tion or diagnosis) and associated clinical findings, the patient is homebound because of his/her inability to leave home except with aid of a supportive device and/or person AND leaving the home requires a considerable and taxing effort or is medically contraindicated. Pt req the following assistanc: Wheelchair Home Health Nursing Orders Home Health Services Order: Nursing Services, Clock Repairer-Evaluate & Treat, Physical Therapy-Evaluate & Treat Home Health Infusion Therapy Line Start Date: Nov 01, 2021 Certify Stmt I certify that this patient is under my care and that I, a nurse practitioner or a physician; a triage assistant working with me, had a face to face encounter that - meets the physician face to face encounter requirements with this patient as dated. FLIP CHRISTIANSEN DO Nov 06, 2021 17:54
--- NOTE | 2021-11-07 10:31 | Therapy Team Discharge Summary ---
Therapy Discharge Summary Discharge Recommendations Date of Discharge Nov 06, 2021 at 18:25 Therapy D/C Recommendations: Home w/ Family Support, Homemaker Support Occupational Therapy Pt swing bed status for continued need of PT and OT (SBO with debility). At time of eval, she was min a for bathing, upper body dressing, lower body dressing, toileting and sba for footwear. Pt 1 for eating due to being NPO. OT focused on improving strength, balance, endurance, and compensatory/energy conservation strategies for adls and transfers. Pt made good progress but did not meet her shelter goals as she requires sup/sba for all adls at time of discharge. Pt will be going home with her son who is able to assist as needed.Pt is now discharged from this facility and will be discharged from OT. Decreased Activ Tolerance, Impaired Self-Care Skills PT Poker Machine Attendant Goals Poker Machine Attendant Goals PT Poker Machine Attendant Goals Time Frame: Nov 10, 2021 Roll Left to Right (QC): 6 (met 11/06/21) Sit to Lying (QC): 6 (met 11/06/21) Lying-Sitting on Side/Bed(QC): 6 (met 11/06/21) Sit to Stand (QC): 6 (met 11/06/21) Chair/Scx-sx-Iutay Xfer(QC): 6 (met 11/06/21) Car Transfer (QC): 5 (met 11/06/21) Does the Patient Walk: Yes Walk 10 feet (QC): 6 (met 11/06/21) Walk 10ft-Uneven Surface(QC): 88 Walk 50ft with 2 Turns (QC): 6 (met 11/06/21) Walk 150 ft (QC): 6 (met 11/06/21) Does the Pt use WC or Scooter?: No Wheel 50 feet with 2 turns (QC: 88 1 Step (curb) (QC): 4 4 Steps (QC): 4 12 Steps (QC): 88 Picking up an Object (QC): 5 OT Poker Machine Attendant Goals [facility] Goals Time Frame: Nov 22, 2021 Eating (QC): 5 Oral Hygiene (QC): 5 Shower/Bathe Self (QC): 5 Upper Body Dressing (QC): 5 Lower Body Dressing (QC): 5 On/Off Footwear (QC): 5 Toileting Hygiene (QC): 5 Toilet/Commode Transfer (QC): 6 (met 11/06/21) 1=Demonstrate adherence to instructed precautions during ADL tasks. 2=Patient will verbalize/demonstrate understanding of assistive devices/modifications for ADL. 3=Patient will improve strength/tolerance for activity to enable patient to perform ADL's. Kelle Higgins OT Nov 07, 2021 10:31
== END 2021-11-06 18:25 | disposition home health service (06) | DRG 388 ==
LOC: 4TH 09:16
PROVIDERS: ADMIT Family Medicine; ATTEND Family Medicine
DX: K56.609 Unspecified intestinal obstruction, unspecified as to partial versus complete obstruction (principal); J18.9 Pneumonia, unspecified organism; J96.20 Acute and chronic respiratory failure, unspecified whether with hypoxia or hypercapnia; K91.840 Postprocedural hemorrhage of a digestive system organ or structure following a digestive system procedure; E46 Unspecified protein-calorie malnutrition; R53.1 Weakness; I10 Essential (primary) hypertension; Z99.81 Dependence on supplemental oxygen; K21.9 Gastro-esophageal reflux disease without esophagitis; M19.90 Unspecified osteoarthritis, unspecified site; G89.29 Other chronic pain; M54.9 Dorsalgia, unspecified; E03.9 Hypothyroidism, unspecified; F41.9 Anxiety disorder, unspecified; F32.A Depression, unspecified; R10.9 Unspecified abdominal pain; R11.0 Nausea; R07.0 Pain in throat; Z68.27 Body mass index [BMI] 27.0-27.9, adult
CPT/HCPCS: 36415; 36569; 71045; 71046; 76937; 80053; 82947; 83735; 84100; 85027; 94640; 94760

== ENCOUNTER 2022-06-26 14:28 | Emergency (ER) | payer MEDICARE ==
[~2022-06-26] VITALS: Ht 165.1 cm; Wt 72.6 kg
--- NOTE | 2022-06-26 15:22 | ED Respiratory ---
General Chief Complaint: Respiratory Problems Stated Complaint: CONSTIPATION Nursing Triage Note: pt to room by wheelchair with pt son. pt son reports pt has had urinating and constipation problems in the last week. 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 pt and pt son do report that her oxygen is not maintaining at home. pt has home oxygen, but has been increasing it to 4 or 5 liters. pt states she has seen her o2 drop to the 70s at home when she gets up and around. pt O2 sat dropped from 94 at rest to 80 when transferring from wheelchair to bed during triage while on 5L O2 by nasal cannula. pt O2 came back up to 95 at rest on 5L. pt and pt son report Dr. 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 She has had some constipation over the last several days with concern for "blockage". Her son actually states that she has had 2 large bowel movements today. She is concerned because of previous colonoscopy that her rectum was stenotic. She apparently does a lot of straining. She is not compliant with her daily stool softeners. She has had poor appetite over the last for 5 days with increasing shortness of breath with lesser and lesser amounts of exertion. She has had to turn her oxygen up to 5 L. She refuses to wear her mask during the day. No fevers or chills. Poor cough effort and she states phlegm gets caught in her throat and she cannot clear her secretions. She states over the last several days she has dried up quite a bit and her son suspects it is because she is a little dehydrated. No chest pain. No abdominal pain, nausea or vomiting. No urinary complaints. She has had prior UTI. Son reports that he feels like she has been a little bit more confused over the last several days, talking to people in the room who were not there. Son states that after she gets up and walks across the room to the bathroom her oxygen will drop in to the 50s to 70s. It takes her 15 minutes to recover. He denies that she has a history of congestive heart failure. She quit smoking in October. All other review of systems reviewed and negative except as stated. Timing/Duration: other (4-5 days) Severity: moderate Prior Episodes/Possible Cause: occasional episodes Associated Symptoms: shortness of breath, other (constipation) Allergies and Home Medications Allergies Coded Allergies: No Known Drug Allergies (Unverified , 02/28/16) Patient Home Medication List Home Medication List Reviewed: Yes Albuterol Sulfate (Ventolin Hfa) 18 Gm Hfa.aer.ad, 1-2 PUFF IH Q4H PRN for SHORTNESS OF BREATH, (Reported) Entered as Reported by: SHERI RIOS on 02/21/16 1415 Arformoterol Tartrate (Brovana) 15 Mcg/2 Ml Vial.neb, 2 ML IH BID PRN for SHORTNESS OF BREATH, (Reported) Entered as Reported by: NATHAN REDDY on 10/26/21 1037 Citalopram Hydrobromide (Citalopram HBr) 10 Mg Tablet, 10 MG PO DAILY, (Reported) Entered as Reported by: SHERI RIOS on 02/21/16 1415 Fluticasone Propionate (Flonase Allergy Relief) 9.9 Ml [place].susp, 2 SPRAYS NSEACH DAILY PRN for CONGESTION, (Reported) Entered as Reported by: SHERI RIOS on 02/21/16 1415 Hydrochlorothiazide (Hydrochlorothiazide) 25 Mg Tablet, 12.5 MG PO DAILY, (Reported) Entered as Reported by: CARMEN OLIVER on 07/26/21 1108 Levothyroxine Sodium (Levothyroxine Sodium) 50 Mcg Tablet, 50 MCG PO DAILY, (Reported) Entered as Reported by: NATHAN REDDY on 10/26/21 1037 Lorazepam (Ativan) 1 Mg Tablet, 1 MG PO BID PRN for ANXIETY, (Reported) Entered as Reported by: NATHAN REDDY on 10/26/21 1037 Montelukast Sodium (Montelukast Sodium) 10 Mg Tablet, 10 MG PO DAILY, (Reported) Entered as Reported by: CARMEN OLIVER on 07/26/21 1108 Naproxen Sodium (Aleve) 220 Mg Tablet, 220-440 MG PO BID PRN for PAIN-MILD (1- 4), (Reported) Entered as Reported by: NATHAN REDDY on 10/26/21 1037 Polyethylene Glycol 3350 (Miralax) 17 Gm Powd.pack, 17 GM PO DAILY PRN for CONSTIPATION-2ND LINE, (Reported) Entered as Reported by: NATHAN REDDY on 10/26/21 1037 Trazodone HCl (Trazodone HCl) 50 Mg Tablet, 25 MG PO HS, (Reported) Entered as Reported by: NATHAN REDDY on 10/26/21 1037 Review of Systems Review of Systems Constitutional: see HPI EENTM: other (phlegm) Respiratory: cough, phlegm, short of breath Cardiovascular: no symptoms reported Gastrointestinal: constipation, other (rectal discomfort) Genitourinary: no symptoms reported Musculoskeletal: no symptoms reported Skin: no symptoms reported All Other Systems Reviewed Negative Unless Noted: Yes Past Dqvlwpj-Glkybo-Gukuzf Hx Patient Social History Smoking Status: Former Smoker Use of E-Cig and/or Vaping dev: No Substance use?: No Alcohol Use?: No Immunizations Up To Date Influenza Vaccine Up-to-Date: No; Not Current First/Initial COVID19 Vaccinat: STATES "HAD ALL THREE COVID SHOTS" Second COVID19 Vaccination Vishnu: STATES HAS HAD "3 COVID SHOTS" Third COVID19 Vaccination Date: STATES HAS HAD "3 COVID SHOTS" Seasonal Allergies Seasonal Allergies: No Past Medical History Surgery/Hospitalization HX: HYSTERECTOMY Surgeries: Yes Bowel Surgery, Hysterectomy, Orthopedic Respiratory: Yes Sleep Apnea, COPD, Emphysema Currently Using CPAP: No Currently Using BIPAP: No Cardiac: Yes Hypertension Neurological: No Reproductive Disorders: No Female Reproductive Disorders: Denies Sexually Transmitted Disease: No HIV/AIDS: No Genitourinary: No Gastrointestinal: Yes Gastroesophageal Reflux, Chronic Constipation, Gall Bladder Disease Musculoskeletal: Yes Arthritis, Chronic Back Pain, Fractures Endocrine: Yes Hypothyroidsim HEENT: No Loss of Vision: Denies Hearing Impairment: Hard of Hearing, Bilateral Hearing Aide Cancer: No Psychosocial: Yes Sleep Difficulties, Anxiety, Depression Integumentary: No Blood Disorders: No Adverse Reaction/Blood Tranf: No Family Medical History Hypertension G8 SISTER Neoplasm 19 MOTHER (LUNG CA) G8 BROTHER (LUNG CA) No Pertinent Family Hx SOCIAL HISTORY: -SMOKED HEAVY X 70 YEARS. -DENIES ETOH PAST SURGICAL HISTORY: -T6 VERTEBROPLASTY 2016, WITH POST OP RIGHT PNEUMOTHORAX AND RIGHT CHEST TUBE PLACEMENT -HYSTERECTOMY -COLONOSCOPY 07/28/[address] HOUGH Physical Exam Vital Signs - First Documented 06/26/22 14:46 Temp 36.6 Pulse 79 Resp 24 B/P (MAP) 139/91 (107) Pulse Ox 95 O2 Delivery Nasal Cannula O2 Flow Rate 5.00 Capillary Refill : Height: 5'0.00" Weight: 159lbs. 0.0oz. 72.856457iv; 26.00 BMI Method: General Appearance: WD/WN, no apparent distress Eyes: Bilateral Eye Normal Inspection, Bilateral Eye PERRL, Bilateral Eye EOMI HEENT: PERRL/EOMI Neck: normal inspection Respiratory: no respiratory distress, no accessory muscle use, rales (throughout bilateral anterior lung regan; she is 90% while laying at 20-30deg in the bed. Up at 45 degrees her sats are better at 94-95%; no wheeze) Cardiovascular: regular rate, rhythm Gastrointestinal: normal bowel sounds, non tender, soft Extremities: normal range of motion, non-tender, normal inspection, no pedal edema, no calf tenderness, normal capillary refill Neurologic/Psychiatric: alert, normal mood/affect, oriented x 3 Skin: normal color, warm/dry Progress/Results/Core Measures Suspected Sepsis SIRS Temperature: Pulse: 79 Respiratory Rate: 24 Laboratory Tests 06/26/22 14:50: White Blood Count 9.3 Blood Pressure 139 /91 Mean: 107 Laboratory Tests 06/26/22 14:50: Platelet Count 219 06/26/22 15:20: Creatinine 0.80 Results/Orders Lab Results Laboratory Tests Test 06/26/22 14:50 06/26/22 15:20 06/26/22 15:48 Range/Units White Blood Count 9.3 4.3-11.0 10^3/uL Red Blood Count 4.43 3.80-5.11 10^6/uL Hemoglobin 12.5 11.5-16.0 g/dL Hematocrit 43 35-52 % Mean Corpuscular Volume 98 80-99 fL Mean Corpuscular Hemoglobin 28 25-34 pg Mean Corpuscular Hemoglobin Concent 29 L 32-36 g/dL Red Cell Distribution Width 14.9 H 10.0-14.5 % Platelet Count 219 130-400 10^3/uL Mean Platelet Volume 9.9 9.0-12.2 fL Immature Granulocyte % (Auto) 1 % Neutrophils (%) (Auto) 80 H 42-75 % Lymphocytes (%) (Auto) 11 L 12-44 % Monocytes (%) (Auto) 7 0-12 % Eosinophils (%) (Auto) 1 0-10 % Basophils (%) (Auto) 0 0-10 % Neutrophils # (Auto) 7.5 1.8-7.8 10^3/uL Lymphocytes # (Auto) 1.0 1.0-4.0 10^3/uL Monocytes # (Auto) 0.6 0.0-1.0 10^3/uL Eosinophils # (Auto) 0.1 0.0-0.3 10^3/uL Basophils # (Auto) 0.0 0.0-0.1 10^3/uL Immature Granulocyte # (Auto) 0.1 0.0-0.1 10^3/uL Sodium Level 137 135-145 MMOL/L Potassium Level 4.3 3.6-5.0 MMOL/L Chloride Level 86 L 98-107 MMOL/L Carbon Dioxide Level 42 H 21-32 MMOL/L Anion Gap 9 5-14 MMOL/L Blood Urea Nitrogen 14 7-18 MG/DL Creatinine 0.80 0.60-1.30 MG/DL Estimat Glomerular Filtration Rate 74 BUN/Creatinine Ratio 18 Glucose Level 143 H 70-105 MG/DL Calcium Level 10.0 8.5-10.1 MG/DL Urine Color YELLOW Urine Clarity CLOUDY Urine pH 6.0 5-9 Urine Specific [place] 1.015 L 1.016-1.022 Urine Protein NEGATIVE NEGATIVE Urine Glucose (UA) NEGATIVE NEGATIVE Urine Ketones NEGATIVE NEGATIVE Urine Nitrite POSITIVE H NEGATIVE Urine Bilirubin NEGATIVE NEGATIVE Urine Urobilinogen 0.2 < = 1.0 MG/DL Urine Leukocyte Esterase NEGATIVE NEGATIVE Urine RBC (Auto) TRACE-I H NEGATIVE Urine RBC NONE /HPF Urine WBC 0-2 /HPF Urine Squamous Epithelial Cells 0-2 /HPF Urine Crystals NONE /LPF Urine Bacteria LARGE H /HPF Urine Casts NONE /LPF Urine Mucus NEGATIVE /LPF Urine Yeast FEW H /HPF Urine Culture Indicated YES My Orders Orders - YRN CISSE MD Ed Iv/Invasive Line Start (06/26/22 15:17) Cbc With Automated Diff (06/26/22 15:17) Basic Metabolic Panel (06/26/22 15:17) Chest 1 View, Ap/Pa Only (06/26/22 15:17) Ua Culture If Indicated (06/26/22 15:22) Urine Culture (06/26/22 15:48) Vital Signs/I&O 06/26/22 06/26/22 14:46 14:46 Temp 36.6 Pulse 79 Resp 24 B/P (MAP) 139/91 (107) Pulse Ox 95 O2 Delivery Nasal Cannula O2 Flow Rate 5.00 Capillary Refill : Blood Pressure Mean: 107 Progress Note : Time: 16:24 Progress Note Patient reassessed, resting comfortably oxygen saturations 97% on her 4-1/2 L. Her chest x-ray shows some patchy bibasilar infiltrates right greater than left and extensive COPD changes. Her urine is infected with nitrite positivity, no squamous epithelial cells and large bacteria. I suspect that this is what is causing her confusion that her son mentioned earlier in the visit. She is quite perky and spry right now. Even if I recommended admission she would refuse. She has no desire to stay in the hospital. Clinically I do not think she needs any real requirements to do so. I am going to give her a gram of Rocephin here in the emergency department and put her on cefdinir which will cover both urine and pulmonary bugs. She states she has a follow-up appointment in Dr. Campos's clinic next week. Return precautions discussed. She is comfortable with discharge and very happy to go home. All questions are sought and answered. Diagnostic Imaging Diagonstic Imaging: Xray Plain Films/CT/US/NM/MRI: chest Comments [facility], [place] NAME: ZHAO RICHARDSON [facility] REC#: [id number] PT STATUS: REG ER : 1940 PHYSICIAN: YRN CISSE MD ADMIT DATE: 06/26/22/ER Draft Date of Exam:06/26/22 CHEST 1 VIEW, AP/PA ONLY INDICATION: Shortness of breath. Frontal chest obtained at 3:23 p.m. Comparison made to 11/03/2021. FINDINGS: Heart is normal in size. There is central vascular congestion with interstitial edema and bibasilar infiltrates, right greater than left. There is COPD change with hyperinflation. There is no pneumothorax or significant pleural fluid. IMPRESSION: COPD changes with central vascular congestion and interstitial edema as well as patchy bibasilar infiltrates, right greater than left. Follow-up is recommended. Dictated on workstation # [id number] Dict: 06/26/22 1534 Trans: 06/26/22 1539 [id number] Interpreted by: ARAM DO MD Electronically signed by: Departure Impression Primary Impression: Urinary tract infection Qualified Codes: N30.00 - Acute cystitis without hematuria Additional Impressions: Pneumonia Qualified Codes: J18.9 - Pneumonia, unspecified organism COPD (chronic obstructive pulmonary disease) Qualified Codes: J44.0 - Chronic obstructive pulmonary disease with (acute) lower respiratory infection Disposition: HOME, SELF-CARE Condition: Stable Departure-Patient Inst. Decision time for Depature: 16:26 Referrals: ANABELA CAMPOS MD (PCP/Family) Primary Care Physician Patient Instructions: Urinary Tract Infection, Adult ED Add. Discharge Instructions: Take the antibiotics, starting tomorrow. Cefdinir 300 mg twice daily for 7 days. Continue breathing treatments as needed and directed at home. Drink plenty of fluids to stay well-hydrated and to keep your bowel movements soft. You should be on a daily stool softener such as Colace to help prevent hard bulk y stools. You can also supplement with MiraLAX as needed. Qgzz-voa-drzarao TUCKS PADS (which are witch akden pads) will help with hemmorhoid discomfort/swelling. use these after every bowel movement. Return to the Emergency Department for any new, concerning or emergent complaints. . Scripts Cefdinir (Cefdinir) 300 Mg Capsule 300 MG PO BID for 7 Days, #14 CAP 0 Refills start tomorrow 06/27/22 Prov: YRN CISSE MD 06/26/22 Copy Copies To 1: ANABELA CAMPOS MD, KATHRYN M MD Jun 26, 2022 15:22
[2022-06-26 15:24] LABS: POTASSIUM 4.3 MMOL/L (3.6-5.0)
[2022-06-26 15:29] LABS: CREATININE SERUM 0.8 MG/DL (0.60-1.30)
[2022-06-26 15:32] LABS: BASOPHILS % (AUTO) 0 % (0-10); EOSINOPHILS # (AUTO) 0.1 10^3/uL (0.0-0.3); EOSINOPHILS % (AUTO) 1 % (0-10); HEMATOCRIT 43 % (35-52); HEMOGLOBIN 12.5 g/dL (11.5-16.0); LYMPHOCYTES % (AUTO) 11 % (12-44); MEAN CORPUSCULAR HEMOGLOBIN 28 pg (25-34); MEAN CORPUSCULAR HGB CONC 29 g/dL (32-36); MEAN CORPUSCULAR VOLUME 98 fL (80-99); MEAN PLATELET VOLUME 9.9 fL (9.0-12.2); MONOCYTES # (AUTO) 0.6 10^3/uL (0.0-1.0); MONOCYTES % (AUTO) 7 % (0-12); NEUTROPHILS # (AUTO) 7.5 10^3/uL (1.8-7.8); NEUTROPHILS % (AUTO) 80 % (42-75); PLATELET COUNT 219 10^3/uL (130-400); WHITE BLOOD COUNT 9.3 10^3/uL (4.3-11.0)
--- NOTE | 2022-06-26 15:39 | Diagnostic Imaging Report ---
INDICATION: Shortness of breath. Frontal chest obtained at 3:23 p.m. Comparison made to 11/03/2021. FINDINGS: Heart is normal in size. There is central vascular congestion with interstitial edema and bibasilar infiltrates, right greater than left. There is COPD change with hyperinflation. There is no pneumothorax or significant pleural fluid. IMPRESSION: COPD changes with central vascular congestion and interstitial edema as well as patchy bibasilar infiltrates, right greater than left. Follow-up is recommended. Dictated by: Dictated on workstation # [id number]
[2022-06-26 15:51] LABS: BILIRUBIN,URINE NEGATIVE (NEGATIVE); CLARITY,URINE CLOUDY; COLOR,URINE YELLOW; GLUCOSE, URINE (UA) NEGATIVE (NEGATIVE); KETONES,URINE NEGATIVE (NEGATIVE); LEUKOCYTE ESTERASE ,URINE NEGATIVE (NEGATIVE); NITRITE,URINE POSITIVE (NEGATIVE); PROTEIN,URINE NEGATIVE (NEGATIVE)
[2022-06-26 16:02] LABS: BACTERIA,URINE LARGE /HPF; SQUAMOUS EPITHELIAL CELL,UR 0-2 /HPF; WBC,URINE 0-2 /HPF; YEAST,URINE FEW /HPF
[2022-06-26] MEDS ORDERED: CEFD300C3 PO (16:29)
[2022-06-26] MEDS ORDERED: cefTRIAXone 1 GM PRE-MIX 50 ML IV ONE (16:45)
[2022-06-26 17:05] VITALS: BP 125/82
== END 2022-06-26 17:08 | disposition home or self-care (01) ==
LOC: EDUNIT# 14:28 → ER 14:31
DX: N39.0 Urinary tract infection, site not specified (principal); J43.9 Emphysema, unspecified; J18.9 Pneumonia, unspecified organism; Z87.891 Personal history of nicotine dependence; Z99.81 Dependence on supplemental oxygen
CPT/HCPCS: 36415; 71045; 80048; 81000; 85025; 87077; 87088; 87186

== ENCOUNTER → 2022-07-05 | Outpatient (CLI) | payer MEDICARE ==
[~2022-07-05] MED LIST changes: +CEFD300C3 PO
--- NOTE | 2022-07-05 11:37 | Diagnostic Imaging Report ---
INDICATION: Respiratory distress. EXAMINATION: PA and lateral chest. Comparison made with a study from 11/03/2021. FINDINGS: There is a mild diffuse reticulonodular interstitial pattern in the lungs. These are more confluent at the lung bases. There are no consolidating alveolar infiltrates. There are no effusions or pneumothoraces. IMPRESSION: Reticulonodular pattern of interstitial lung disease, more prevalent at the lung bases and progressive since 11/03/2021. Dictated by: Dictated on workstation # [id number]
== END ==
LOC: RAD 10:46
PROVIDERS: ATTEND Nurse Practitioner Family
DX: J84.9 Interstitial pulmonary disease, unspecified (principal); J44.9 Chronic obstructive pulmonary disease, unspecified
CPT/HCPCS: 71046

== ENCOUNTER 2022-07-18 15:03 | Emergency (ER) | payer MEDICARE ==
[~2022-07-18] VITALS: Ht 165.1 cm; Wt 73.0 kg
--- NOTE | 2022-07-18 15:34 | ED Fall/Injury ---
General Chief Complaint: Trauma-Non Activation Stated Complaint: FALL - HEAD LAC Source: patient Exam Limitations: no limitations History of Present Illness Date Seen by Provider: Jul 18, 2022 Time Seen by Provider: 15:20 Initial Comments Here with report of fall with head injury. Seen at outside facility and had laceration repair to the right upper eyelid done. Their CT scanner was unavailable so they sent her here for further evaluation due to need for CT of the head and possibly C-spine. Patient denies loss of consciousness. Apparently she tripped over her feet and fell and hit a chair and then the floor with her face and right side of her head. No loss of consciousness. No vomiting noted or reported. She did have some shoulder pain but is moving that well now and does not think that needs to be x-rayed. Denies other injury. She is chronically on oxygen and is quite hard of hearing. Occurred: this afternoon Severity: moderate Injuries/Pain Location: head, face, upper extremity Loss of Consciousness: no loss of consciousness Modifying Factors: Worse With Movement; Improves With Rest Associated Symptoms (Fall): No Abdominal Pain, No Chest Pain; Headache; No Nausea/Vomiting, No Neck Pain, No Shortness of Air Allergies and Home Medications Allergies Coded Allergies: No Known Drug Allergies (Unverified , 02/28/16) Patient Home Medication List Home Medication List Reviewed: Yes Albuterol Sulfate (Ventolin Hfa) 18 Gm Hfa.aer.ad, 1-2 PUFF IH Q4H PRN for SHORTNESS OF BREATH, (Reported) Entered as Reported by: SHERI RIOS on 02/21/16 1415 Arformoterol Tartrate (Brovana) 15 Mcg/2 Ml Vial.neb, 2 ML IH BID PRN for SHORTNESS OF BREATH, (Reported) Entered as Reported by: NATHAN REDDY on 10/26/21 1037 Cefdinir (Cefdinir) 300 Mg Capsule, 300 MG PO BID Prescribed by: YRN CISSE on 06/26/22 1629 Citalopram Hydrobromide (Citalopram HBr) 10 Mg Tablet, 10 MG PO DAILY, (Reported) Entered as Reported by: SHERI RIOS on 02/21/16 1415 Fluticasone Propionate (Flonase Allergy Relief) 9.9 Ml [place].susp, 2 SPRAYS NSEACH DAILY PRN for CONGESTION, (Reported) Entered as Reported by: SHERI RIOS on 02/21/16 1415 Hydrochlorothiazide (Hydrochlorothiazide) 25 Mg Tablet, 12.5 MG PO DAILY, (Reported) Entered as Reported by: CARMEN OLIVER on 07/26/21 1108 Levothyroxine Sodium (Levothyroxine Sodium) 50 Mcg Tablet, 50 MCG PO DAILY, (Reported) Entered as Reported by: NATHAN REDDY on 10/26/21 1037 Lorazepam (Ativan) 1 Mg Tablet, 1 MG PO BID PRN for ANXIETY, (Reported) Entered as Reported by: NATHAN REDDY on 10/26/21 1037 Montelukast Sodium (Montelukast Sodium) 10 Mg Tablet, 10 MG PO DAILY, (Reported) Entered as Reported by: CARMEN OLIVER on 07/26/21 1108 Naproxen Sodium (Aleve) 220 Mg Tablet, 220-440 MG PO BID PRN for PAIN-MILD (1- 4), (Reported) Entered as Reported by: NATHAN REDDY on 10/26/21 1037 Polyethylene Glycol 3350 (Miralax) 17 Gm Powd.pack, 17 GM PO DAILY PRN for CONSTIPATION-2ND LINE, (Reported) Entered as Reported by: NATHAN REDDY on 10/26/21 1037 Trazodone HCl (Trazodone HCl) 50 Mg Tablet, 25 MG PO HS, (Reported) Entered as Reported by: NATHAN REDDY on 10/26/21 1037 Review of Systems Review of Systems Constitutional: No chills, No fever Eyes: Pain; Denies Vision Changes Ears, Nose, Mouth, Throat: no symptoms reported Respiratory: no symptoms reported Cardiovascular: no symptoms reported Gastrointestinal: No nausea, No vomiting Musculoskeletal: joint pain, muscle pain Skin: change in color, lesions Psychiatric/Neurological: Headache; Denies Weakness Past Xcufnrp-Cndper-Rpipkv Hx Patient Social History Tobacco Use?: No Substance use?: No Alcohol Use?: No Immunizations Up To Date First/Initial COVID19 Vaccinat: STATES "HAD ALL THREE COVID SHOTS" Second COVID19 Vaccination Vishnu: STATES HAS HAD "3 COVID SHOTS" Third COVID19 Vaccination Date: STATES HAS HAD "3 COVID SHOTS" Seasonal Allergies Seasonal Allergies: No Past Medical History Surgery/Hospitalization HX: HYSTERECTOMY Surgeries: Yes Bowel Surgery, Hysterectomy, Orthopedic Respiratory: Yes Sleep Apnea, COPD, Emphysema Currently Using CPAP: No Currently Using BIPAP: No Cardiac: Yes Hypertension Neurological: No Reproductive Disorders: No Female Reproductive Disorders: Denies Sexually Transmitted Disease: No HIV/AIDS: No Genitourinary: No Gastrointestinal: Yes Gastroesophageal Reflux, Chronic Constipation, Gall Bladder Disease Musculoskeletal: Yes Arthritis, Chronic Back Pain, Fractures Endocrine: Yes Hypothyroidsim HEENT: No Loss of Vision: Denies Hearing Impairment: Hard of Hearing, Bilateral Hearing Aide Cancer: No Psychosocial: Yes Sleep Difficulties, Anxiety, Depression Integumentary: No Blood Disorders: No Adverse Reaction/Blood Tranf: No Family Medical History Reviewed Nursing Family Hx Hypertension G8 SISTER Neoplasm 19 MOTHER (LUNG CA) G8 BROTHER (LUNG CA) No Pertinent Family Hx SOCIAL HISTORY: -SMOKED HEAVY X 72 YEARS. -DENIES ETOH PAST SURGICAL HISTORY: -T6 VERTEBROPLASTY 2015, WITH POST OP RIGHT PNEUMOTHORAX AND RIGHT CHEST TUBE PLACEMENT -HYSTERECTOMY -COLONOSCOPY 07/28/[address] HOUGH Physical Exam Vital Signs Vital Signs - First Documented 07/18/22 15:15 Temp 37.1 Pulse 80 Resp 18 B/P (MAP) 125/73 (90) Pulse Ox 94 O2 Delivery Nasal Cannula O2 Flow Rate 4.00 Capillary Refill : Height, Weight, BMI Height: 5'0.00" Weight: 159lbs. 0.0oz. [id number]; 26.00 BMI Method: General Appearance: WD/WN, no apparent distress HEENT: PERRL/EOMI, pharynx normal Neck: non-tender, full range of motion, supple, normal inspection Cardiovascular: regular rate, rhythm, no murmur Respiratory: lungs clear, normal breath sounds Neurologic/Psychiatric: alert, oriented x 3 Skin: ecchymosis, other (Sutured wound right upper lid that is clean, dry and intact. Ecchymosis around the right eye and right side of forehead with contusion and swelling to right mid lateral upper head.) Progress/Results/Core Measures Results/Orders My Orders Orders - SEDRICK SEGURA MD Ct Head/Cervical Spine Wo (07/18/22 15:28) Vital Signs/I&O 07/18/22 15:15 Temp 37.1 Pulse 80 Resp 18 B/P (MAP) 125/73 (90) Pulse Ox 94 O2 Delivery Nasal Cannula O2 Flow Rate 4.00 Progress Progress Note : Progress Note Seen and evaluated. We will go ahead and get CT of the head and C-spine given her injury pattern. We discussed x-ray of the shoulder and she has declined. Declined pain medicine currently. Monitor patient. 1640: CT negative. Discharged home with return precautions. Patient verbalized understanding instructions and agreement with plan. Diagnostic Imaging Diagonstic Imaging: CT Plain Films/CT/US/NM/MRI: c-spine, head Comments [facility] [place], [place] NAME: ZHAO RICHARDSON [facility] REC#: [id number] PT STATUS: REG ER : 1940 PHYSICIAN: SEDRICK SEGURA MD ADMIT DATE: 07/18/22/ER Draft Date of Exam:07/18/22 CT HEAD/CERVICAL SPINE WO EXAMINATION: CT head and CT cervical spine without contrast. TECHNIQUE: Multiple contiguous axial images were obtained through the brain and cervical spine without the use of intravenous contrast. Sagittal and coronal reformations through the cervical spine were then performed. All CT scans use one or more of the following dose optimizing techniques: Automated exposure control, MA and/or KvP adjustment based on patient size and exam type or iterative reconstruction. HISTORY: Head and neck injury. COMPARISON: None available. FINDINGS: The willams-white matter differentiation is normal. No mass effect or midline shift. The ventricles are normal in size and configuration. Basilar cisterns are patent. There are no intra- or extra-axial fluid collections. There is no intracranial hemorrhage. The orbits are normal. There is sphenoid sinus mucosal disease. Mastoid air cells are clear. No soft tissue abnormality is seen. No osseous lesions or fractures are seen. The alignment of the cervical spine is normal. No fracture is seen. Vertebral body heights are normal. The craniocervical junction is normal. There is mild degenerative disease in the cervical spine. There is no spinal canal stenosis. No soft tissue abnormality is seen in the neck. Limited views of the superior thorax are normal. IMPRESSION: 1. No acute intracranial abnormality. 2. No cervical spine fracture. Dictated on workstation # [id number] Dict: 07/18/22 1602 Trans: 07/18/22 1608 [id number] Interpreted by: ERMELINDA GUTIERREZ MD Electronically signed by: Reviewed: Reviewed by Me Departure Impression Primary Impression: Closed head injury Qualified Codes: S09.90XA - Unspecified injury of head, initial encounter Additional Impression: Fall Qualified Codes: W19.XXXA - Unspecified fall, initial encounter Disposition: 01 HOME, SELF-CARE Condition: Stable Departure-Patient Inst. Decision time for Depature: 16:41 Referrals: ANABELA PORTER MD (PCP/Family) Primary Care Physician Patient Instructions: Closed Head Injury (DC), Preventing Falls in Older Adults Add. Discharge Instructions: All discharge instructions reviewed with patient and/or family. Voiced understanding. Continue with wound care instructions as given at previous facility. Sutures out as per previous facility instructions. Continue home medications as previously prescribed. You may use ice packs to areas of swelling 20 minutes/h as needed to reduce swelling and pain. You may take Tylenol/acetaminophen 1000 mg every 6-8 hours as needed for pain. You may take this with [id number] Aleve per package directions. Return for worse pain, fever, vomiting, weakness, vision problems, balance problems, difficulty with speech or other concerns as needed. SEDRICK SEGURA MD Jul 18, 2022 15:34
--- NOTE | 2022-07-18 16:09 | Diagnostic Imaging Report ---
EXAMINATION: CT head and CT cervical spine without contrast. TECHNIQUE: Multiple contiguous axial images were obtained through the brain and cervical spine without the use of intravenous contrast. Sagittal and coronal reformations through the cervical spine were then performed. All CT scans use one or more of the following dose optimizing techniques: Automated exposure control, MA and/or KvP adjustment based on patient size and exam type or iterative reconstruction. HISTORY: Head and neck injury. COMPARISON: None available. FINDINGS: The willams-white matter differentiation is normal. No mass effect or midline shift. The ventricles are normal in size and configuration. Basilar cisterns are patent. There are no intra- or extra-axial fluid collections. There is no intracranial hemorrhage. The orbits are normal. There is sphenoid sinus mucosal disease. Mastoid air cells are clear. No soft tissue abnormality is seen. No osseous lesions or fractures are seen. The alignment of the cervical spine is normal. No fracture is seen. Vertebral body heights are normal. The craniocervical junction is normal. There is mild degenerative disease in the cervical spine. There is no spinal canal stenosis. No soft tissue abnormality is seen in the neck. Limited views of the superior thorax are normal. IMPRESSION: 1. No acute intracranial abnormality. 2. No cervical spine fracture. Dictated by: Dictated on workstation # [id number]
[2022-07-18 17:06] VITALS: BP 118/73
== END 2022-07-18 17:02 | disposition home or self-care (01) ==
LOC: EDUNIT# 15:03 → ER 15:04
DX: S09.90XA Unspecified injury of head, initial encounter (principal); S00.83XA Contusion of other part of head, initial encounter; Z87.891 Personal history of nicotine dependence; W01.0XXA Fall on same level from slipping, tripping and stumbling without subsequent striking against object, initial encounter
CPT/HCPCS: 70450; 72125

== ENCOUNTER → 2022-10-26 | Outpatient (CLI) | payer MEDICARE | LOC: CARD 13:18 | PROVIDERS: ATTEND Internal Medicine Critical Care Medicine | DX: J96.11 Chronic respiratory failure with hypoxia (principal); J44.9 Chronic obstructive pulmonary disease, unspecified | CPT/HCPCS: 93306 ==

== ENCOUNTER 2022-11-19 12:23 | Inpatient (IN) | payer MEDICARE ==
[~2022-11-19] VITALS: Ht 165 cm; Wt 79.9 kg
[2022-11-19] MEDS ORDERED: methylPREDNISolone 125 MG (Solu-MEDROL) VIAL IV STA (12:29)
[2022-11-19] MEDS ORDERED: RT-ALBUTEROL SULF 2.5 MG/3 ML PRE-MIX VIAL INH STA (12:29)
[2022-11-19] MEDS ORDERED: AZITHROMYCIN INJECTION 500 MG in NS (IVPB) 250 ML IV ONE (12:30)
[2022-11-19] MEDS ORDERED: LACTATED RINGERS 1,000 ML IV ONE (12:30)
[2022-11-19] MEDS ORDERED: cefTRIAXone 1 GM PRE-MIX 50 ML IV ONE (12:30)
[2022-11-19] MEDS ORDERED: RT-ALBUTEROL/IPRATROPIUM 3 ML (DUONEB) VIAL INH ONE (12:30)
[2022-11-19 12:42] LABS: BASOPHILS % (AUTO) 0 % (0-10); EOSINOPHILS % (AUTO) 0 % (0-10); HEMATOCRIT 39 % (35-52); HEMOGLOBIN 11.4 g/dL (11.5-16.0); LYMPHOCYTES % (AUTO) 9 % (12-44); MEAN CORPUSCULAR HEMOGLOBIN 29 pg (25-34); MEAN CORPUSCULAR HGB CONC 30 g/dL (32-36); MEAN CORPUSCULAR VOLUME 98 fL (80-99); MEAN PLATELET VOLUME 9.8 fL (9.0-12.2); MONOCYTES # (AUTO) 0.8 10^3/uL (0.0-1.0); MONOCYTES % (AUTO) 7 % (0-12); NEUTROPHILS # (AUTO) 9.8 10^3/uL (1.8-7.8); NEUTROPHILS % (AUTO) 84 % (42-75); PLATELET COUNT 198 10^3/uL (130-400); WHITE BLOOD COUNT 11.8 10^3/uL (4.3-11.0)
[2022-11-19 12:54] LABS: INR 1.1 (0.8-1.4); PROTHROMBIN TIME PATIENT 14.9 SEC (12.2-14.7)
[2022-11-19 13:03] LABS: ERYTHROCYTE SEDIMENTATION RATE 76 MM/HR (0-30)
[2022-11-19 13:05] LABS: ALANINE AMINOTRANSFERASE 13 U/L (0-55); ALBUMIN 3.5 GM/DL (3.2-4.5); ALKALINE PHOSPHATASE 77 U/L (40-136); BILIRUBIN,TOTAL 0.4 MG/DL (0.1-1.0); BUN/CREATININE RATIO 15; CALCIUM 9.6 MG/DL (8.5-10.1); CARBON DIOXIDE 37 MMOL/L (21-32); CHLORIDE 97 MMOL/L (98-107); CREATINE KINASE 31 U/L (29-168); CREATININE SERUM 0.72 MG/DL (0.60-1.30); GFR ESTIMATED 84; GLUCOSE 89 MG/DL (70-105); MAGNESIUM 2.1 MG/DL (1.6-2.4); POTASSIUM 3.9 MMOL/L (3.6-5.0); SODIUM 142 MMOL/L (135-145)
[2022-11-19 13:18] LABS: CREATINE KINASE MB 1.6 NG/ML (<6.6)
[2022-11-19 13:41] LABS: ABG BASE EXCESS 12.4 MMOL/L (-2.5-2.5); ABG OXYGEN SATURATION 98 % (94-100); ABG PO2 96 MMHG (79-93)
--- NOTE | 2022-11-19 13:41 | Diagnostic Imaging Report ---
INDICATION: Dyspnea. TECHNIQUE/COMPARISON: An AP view of the chest was obtained with comparison made to the study of 06/26/2022. FINDINGS: There is background air trapping. Prominent interstitial markings have increased and there is focal subpleural density along the lateral right chest wall. No definite pneumothorax is seen. There is no significant pleural fluid. IMPRESSION: Increasing interstitial markings may reflect edema, pneumonitis, or progressive fibrotic findings with peripheral density in the right lung which could represent infiltrate or potential infarct. Clinical correlation is recommended. Dictated by: Dictated on workstation # [id number]
[2022-11-19 13:44] LABS: ABG PCO2 80 MMHG (35-45); ABG TCO2 41.6 MMOL/L (21.0-31.0); ALLENS TEST YES-POS; INSPIRED O2 6; PATIENT TEMP 36.5; VENTILATOR NO
--- NOTE | 2022-11-19 14:00 | ED Respiratory ---
General Chief Complaint: Respiratory Problems Stated Complaint: SOB Nursing Triage Note: Pt arrives by EMS with soa; pt states she has had breathing problems for years. Pt has hx of right lobectomy due to pneumonia. Pt had sp02 in the 80's and was given duoneb en route by EMS. Source: patient (LIMITED HISTORIAN), family, EMS, old records History of Present Illness Date Seen by Provider: Nov 19, 2022 Time Seen by Provider: 12:20 Initial Comments PT ARRIVES VIA EMS FROM HOME C/O SHORTNESS OF BREATH WHEN ASKED HOW LONG SHE HAD BEEN HAVING SHORTNESS OF BREATH, SHE STATES "YEARS". WHEN ASKED WHEN DID IT GET WORSE, SHE STATES "MONTHS". SHE HAS COPD, AND FREQUENT PNEUMONIA, WITH PREVIOUS PNEUMOTHORAX AND CHEST TUBE PLACEMENT SHE NORMALLY WEARS O2 AT 2-5 LITERS/NC--SHE HAS AN OXYGEN CONCENTRATOR WITH A 50 FOOT TUBING. O2 SATS ARE CURRENTLY IN THE 90'S AT REST, BUT IMMEDIATELY DROP TO LOW 80'S WITH VERY MINIMAL EXERTION SHE DENIES ANY OTHER SYMPTOMS OF ANY KIND NO COUGH NO CHEST PAIN NO FEVER/SWEATS/CHILLS NO PALPITATIONS NO DIZZINESS OR SYNCOPE NO SWELLING IN LEGS/FEET OR PAIN IN CALVES NO GI SYMPTOMS SHE HAS NOT TAKEN ANY MEDICATIONS TODAY, AND SHE HAS NOT DONE ANY INHALERS OR NEBULIZER TREATMENTS AT ALL TODAY SHE FINISHED STEROIDS ABOUT 3 WEEKS AGO, ACCORDING TO FAMILY MEMBER. SHE HAS SEEN DR. BARBARA GUZMAN, CHEERLEADING COACH FROM [facility] [facility]. HE HAS ORDERS FOR HER TO START PULMONARY REHAB AT [facility], BUT PT / FAMILY MEMBER STATE THAT IT GETS GETTING PUSHED BACK, AND NOW HER START DATE IS LATER THIS MONTH. SHE HAS HAD COVID VACCINE X 2. NO FLU VACCINE. PCP: DR. PORTER Allergies and Home Medications Allergies Coded Allergies: No Known Drug Allergies (Unverified , 02/28/16) Patient Home Medication List Home Medication List Reviewed: Yes Albuterol Sulfate (Ventolin Hfa) 18 Gm Hfa.aer.ad, 1-2 PUFF IH Q4H PRN for SHORTNESS OF BREATH, (Reported) Entered as Reported by: SHERI RIOS on 02/21/16 1415 Arformoterol Tartrate (Brovana) 15 Mcg/2 Ml Vial.neb, 2 ML IH BID PRN for SHORTNESS OF BREATH, (Reported) Entered as Reported by: NATHAN REDDY on 10/26/21 1037 Cefdinir (Cefdinir) 300 Mg Capsule, 300 MG PO BID Prescribed by: YRN CISSE on 06/26/22 1629 Citalopram Hydrobromide (Citalopram HBr) 10 Mg Tablet, 10 MG PO DAILY, (Reported) Entered as Reported by: SHERI RIOS on 02/21/16 1415 Fluticasone Propionate (Flonase Allergy Relief) 9.9 Ml [place].susp, 2 SPRAYS NSEACH DAILY PRN for CONGESTION, (Reported) Entered as Reported by: SHERI RIOS on 02/21/16 1415 Hydrochlorothiazide (Hydrochlorothiazide) 25 Mg Tablet, 12.5 MG PO DAILY, (Reported) Entered as Reported by: CARMEN OLIVER on 07/26/21 1108 Levothyroxine Sodium (Levothyroxine Sodium) 50 Mcg Tablet, 50 MCG PO DAILY, (Reported) Entered as Reported by: NATHAN REDDY on 10/26/21 1037 Lorazepam (Ativan) 1 Mg Tablet, 1 MG PO BID PRN for ANXIETY, (Reported) Entered as Reported by: NATHAN REDDY on 10/26/21 1037 Montelukast Sodium (Montelukast Sodium) 10 Mg Tablet, 10 MG PO DAILY, (Reported) Entered as Reported by: CARMEN OLIVER on 07/26/21 1108 Naproxen Sodium (Aleve) 220 Mg Tablet, 220-440 MG PO BID PRN for PAIN-MILD (1- 4), (Reported) Entered as Reported by: NATHAN REDDY on 10/26/21 1037 Polyethylene Glycol 3350 (Miralax) 17 Gm Powd.pack, 17 GM PO DAILY PRN for CONSTIPATION-2ND LINE, (Reported) Entered as Reported by: NATHAN REDDY on 10/26/21 1037 Trazodone HCl (Trazodone HCl) 50 Mg Tablet, 25 MG PO HS, (Reported) Entered as Reported by: NATHAN REDDY on 10/26/21 1037 Review of Systems Review of Systems Constitutional: no symptoms reported EENTM: no symptoms reported Respiratory: see HPI, short of breath Cardiovascular: no symptoms reported Gastrointestinal: no symptoms reported Genitourinary: no symptoms reported Musculoskeletal: no symptoms reported Skin: no symptoms reported Psychiatric/Neurological: No Symptoms Reported Hematologic/Lymphatic: No Symptoms Reported Immunological/Allergic: no symptoms reported Past Vmgmscj-Oefiym-Efnsze Hx Patient Social History Tobacco Use?: Yes Tobacco type used: Cigarettes Smoking Status: Former Smoker Smokeless Tobacco Frequency: Never a User Use of E-Cig and/or Vaping dev: No Use of E-Cig and/or Vaping Adin: Never a User Substance use?: No Alcohol Use?: No Immunizations Up To Date First/Initial COVID19 Vaccinat: STATES "HAD ALL THREE COVID SHOTS" Second COVID19 Vaccination Vishnu: STATES "HAD ALL THREE COVID SHOTS" Third COVID19 Vaccination Date: STATES "HAD ALL THREE COVID SHOTS" Seasonal Allergies Seasonal Allergies: No Past Medical History Surgery/Hospitalization HX: HYSTERECTOMY Surgeries: Yes (HX CHEST TUBE/PNEUMOTHORAX) Abdominal, Bowel Surgery, Hysterectomy, Orthopedic Respiratory: Yes (O2 DEPENDENT AT 2-5L/NC;HX PNEUMOTHORAX/CHEST TUBE) Pneumonia, Sleep Apnea, COPD, Emphysema Currently Using CPAP: No Currently Using BIPAP: No Cardiac: Yes Hypertension Neurological: No Reproductive Disorders: No Female Reproductive Disorders: Denies Sexually Transmitted Disease: No HIV/AIDS: No Genitourinary: No Gastrointestinal: Yes Gastroesophageal Reflux, Obstructive Bowel, Chronic Constipation, Gall Bladder Disease Musculoskeletal: Yes (T6 COMPRESSION FX WITH VERTEBROPLASTY 2015) Degenerate Disk Disease, Osteoporosis, Arthritis, Chronic Back Pain, Fractures Endocrine: Yes Hypothyroidsim HEENT: No Loss of Vision: Denies Hearing Impairment: Hard of Hearing, Bilateral Hearing Aide Cancer: No Psychosocial: Yes Sleep Difficulties, Anxiety, Depression Integumentary: No Blood Disorders: No Adverse Reaction/Blood Tranf: No Family Medical History Hypertension G8 SISTER Neoplasm 19 MOTHER (LUNG CA) G8 BROTHER (LUNG CA) No Pertinent Family Hx SOCIAL HISTORY: -SMOKED HEAVY X 70 YEARS. > 1 PPD -DENIES ETOH -DENIES DRUG USE PAST SURGICAL HISTORY: -T6 VERTEBROPLASTY 2015, WITH POST OP RIGHT PNEUMOTHORAX AND RIGHT CHEST TUBE PLACEMENT -HYSTERECTOMY -COLONOSCOPY 07/28/[address] HOUGH -10/25/21--SMALL BOWEL OBSTRUCTION WITH EXPLORATORY LAPAROTOMY/LYSIS OF ADHESIONS AND DECOMPRESSION OF SMALL BOWEL BY DR. SOLIS. Physical Exam Vital Signs - First Documented 11/19/22 11/19/22 12:28 13:30 Temp 36.5 Pulse 98 Resp 24 B/P (MAP) 113/64 (80) Pulse Ox 99 O2 Delivery OxyMask O2 Flow Rate 6.00 Capillary Refill : Less Than 3 Seconds Height: 5'0.00" Weight: 159lbs. 0.0oz. 72.797334yt; 31.00 BMI Method: General Appearance: WD/WN, no apparent distress, other (PT IS TALKING NON-STOP IN FULL SENTENCES, BUT IS SLIGHTLY DYSPNEIC ) HEENT: PERRL/EOMI, other (WEARING SUNGLASSES OVER HER REGULAR GLASSES) Respiratory: no respiratory distress, no accessory muscle use, other (DECREASED AERATION IN ALL LUNG COLBY, WITH DIFFUSE EXPIRATORY WHEEZING IN ALL LUNG COLBY. ) Cardiovascular: regular rate, rhythm, no edema, no murmur Gastrointestinal: non tender, soft Extremities: normal inspection, no pedal edema Neurologic/Psychiatric: no motor/sensory deficits, alert, normal mood/affect, oriented x 3 Skin: normal color, warm/dry Focused Exam Sepsis Stage: Sepsis Possible Source: Pulmonary (1355) Lactate Level 11/19/22 13:00: Lactic Acid Level 0.76 Time of Focused Exam: 13:55 Respiratory: No Accessory Muscle Use, No Respiratory Distress, Other (INCREASED AERATION, DECREASED WHEEZING) Cardiovascular: Regular Rate, Rhythm, No Murmur Skin: normal color, warm/dry Lactic Acid Level Laboratory Tests Test 11/19/22 13:00 Lactic Acid Level 0.76 MMOL/L (0.50-2.00) Within 3hrs of presentation: Admin fluids, Admin ABX, Blood cultures prior to ABX's, Focus exam, Lactate level Progress/Results/Core Measures Suspected Sepsis SIRS Temperature: Pulse: 98 Respiratory Rate: 24 Laboratory Tests 11/19/22 12:38: White Blood Count 11.8H Blood Pressure 113 /64 Mean: 80 11/19/22 13:00: Lactic Acid Level 0.76 Laboratory Tests 11/19/22 12:38: Creatinine 0.72, INR Comment 1.1, Platelet Count 198, Total Bilirubin 0.4 Results/Orders Lab Results Laboratory Tests Test 11/19/22 12:33 11/19/22 12:38 11/19/22 13:00 11/19/22 13:08 Range/Units Blood Gas Puncture Site LR Blood Gas Patient Temperature 36.5 Arterial Blood pH 7.30 *L 7.37-7.43 Arterial Blood Partial Pressure CO2 80 *H 35-45 MMHG Arterial Blood Partial Pressure O2 96 H 79-93 MMHG Arterial Blood HCO3 39 H 23-27 MMOL/L Arterial Blood Total CO2 41.6 *H 21.0-31.0 MMOL/L Arterial Blood Oxygen Saturation 98 94-100 % Arterial Blood Base Excess 12.4 H -2.5-2.5 MMOL/L Jd Test YES-POS Blood Gas Ventilator Setting NO Blood Gas Inspired Oxygen 6 White Blood Count 11.8 H 4.3-11.0 10^3/uL Red Blood Count 3.97 3.80-5.11 10^6/uL Hemoglobin 11.4 L 11.5-16.0 g/dL Hematocrit 39 35-52 % Mean Corpuscular Volume 98 80-99 fL Mean Corpuscular Hemoglobin 29 25-34 pg Mean Corpuscular Hemoglobin Concent 30 L 32-36 g/dL Red Cell Distribution Width 13.8 10.0-14.5 % Platelet Count 198 130-400 10^3/uL Mean Platelet Volume 9.8 9.0-12.2 fL Immature Granulocyte % (Auto) 0 % Neutrophils (%) (Auto) 84 H 42-75 % Lymphocytes (%) (Auto) 9 L 12-44 % Monocytes (%) (Auto) 7 0-12 % Eosinophils (%) (Auto) 0 0-10 % Basophils (%) (Auto) 0 0-10 % Neutrophils # (Auto) 9.8 H 1.8-7.8 10^3/uL Lymphocytes # (Auto) 1.0 1.0-4.0 10^3/uL Monocytes # (Auto) 0.8 0.0-1.0 10^3/uL Eosinophils # (Auto) 0.0 0.0-0.3 10^3/uL Basophils # (Auto) 0.0 0.0-0.1 10^3/uL Immature Granulocyte # (Auto) 0.1 0.0-0.1 10^3/uL Erythrocyte Sedimentation Rate 76 H 0-30 MM/HR Prothrombin Time 14.9 H 12.2-14.7 SEC INR Comment 1.1 0.8-1.4 Activated Partial Thromboplast Time 38 H 24-35 SEC Sodium Level 142 135-145 MMOL/L Potassium Level 3.9 3.6-5.0 MMOL/L Chloride Level 97 L 98-107 MMOL/L Carbon Dioxide Level 37 H 21-32 MMOL/L Anion Gap 8 5-14 MMOL/L Blood Urea Nitrogen 11 7-18 MG/DL Creatinine 0.72 0.60-1.30 MG/DL Estimat Glomerular Filtration Rate 84 BUN/Creatinine Ratio 15 Glucose Level 89 70-105 MG/DL Calcium Level 9.6 8.5-10.1 MG/DL Corrected Calcium 10.0 8.5-10.1 MG/DL Magnesium Level 2.1 1.6-2.4 MG/DL Total Bilirubin 0.4 0.1-1.0 MG/DL Aspartate Amino Transf (AST/SGOT) 11 5-34 U/L Alanine Aminotransferase (ALT/SGPT) 13 0-55 U/L Alkaline Phosphatase 77 40-136 U/L Total Creatine Kinase 31 29-168 U/L Creatine Kinase MB 1.6 <6.6 NG/ML Myoglobin 34.3 10.0-92.0 NG/ML Troponin I < 0.028 <0.028 NG/ML C-Reactive Protein High Sensitivity 27.45 H 0.00-0.50 MG/DL B-Type Natriuretic Peptide 33.7 <100.0 PG/ML Total Protein 8.0 6.4-8.2 GM/DL Albumin 3.5 3.2-4.5 GM/DL Procalcitonin 0.15 H <0.10 NG/ML Lactic Acid Level 0.76 0.50-2.00 MMOL/L Influenza Type A (RT-PCR) Not Detected Not Detecte Influenza Type B (RT-PCR) Not Detected Not Detecte SARS-CoV-2 RNA (RT-PCR) Not Detected Not Detecte My Orders Orders - RENATO SALAZAR DO Ed Iv/Invasive Line Start (11/19/22 12:29) Ekg Tracing (11/19/22 12:29) O2 (11/19/22 12:29) Monitor-Rhythm Ecg Trace Only (11/19/22 12:29) Chest 1 View, Ap/Pa Only (11/19/22 12:29) Bnp [place] (11/19/22 12:29) Cbc With Automated Diff (11/19/22 12:29) Comprehensive Metabolic Panel (11/19/22 12:29) Creatine Kinase (11/19/22 12:29) Creatine Kinase Mb (11/19/22 12:29) Hs C Reactive Protein (11/19/22 12:29) Lactic Acid Analyzer (11/19/22 12:29) Magnesium (11/19/22 12:29) Procalcitonin (Pct) (11/19/22 12:29) Protime With Inr (11/19/22 12:29) Partial Thromboplastin Time (11/19/22 12:29) Ua Culture If Indicated (11/19/22 12:29) Erythrocyte Sedimentation Rate (11/19/22 12:29) Myoglobin Serum (11/19/22 12:29) Troponin I Kat (11/19/22 12:29) Covid 19 Inhouse Test (11/19/22 12:29) Influenza A And B By Pcr (11/19/22 12:29) Isolation Central Supply Req (11/19/22 12:29) Blood Culture (11/19/22 12:29) Sputum Culture (11/19/22 12:29) Urine Culture (11/19/22 12:29) Ed Iv/Invasive Line Start (11/19/22 12:29) Ed Iv/Invasive Line Start (11/19/22 12:29) Vital Signs Adult Sepsis Patie Q15M (11/19/22 12:29) O2 (11/19/22 12:29) Remove Rings In Anticipation O (11/19/22 12:29) Ceftriaxone 1 Gm Pre-Mix (Rocephin 1 Gm (11/19/22 12:30) Azithromycin Injection (Zithromax Inject (11/19/22 12:30) Ed Iv/Invasive Line Start (11/19/22 12:29) Lactated Ringers (Lr 1000 Ml Iv Solution (11/19/22 12:30) Albuterol Pre-Mix Nebs (Rt) (Proventil (11/19/22 12:29) Albuterol/Ipra Inhalation Soln (Duoneb I (11/19/22 12:30) Dexamethasone Injection (Decadron Injec (11/19/22 12:30) Rt Request For Service (11/19/22 12:29) Methylprednisolone Sod Succ (Solu-Medrol (11/19/22 12:29) Svn Small Volume Nebulizer (11/19/22 12:29) Svn Small Volume Nebulizer (11/19/22 12:29) Arterial Blood Gas (11/19/22 13:37) Medications Given in ED Vital Signs/I&O 11/19/22 11/19/22 11/19/22 12:28 13:30 13:31 Temp 36.5 Pulse 98 Resp 24 B/P (MAP) 113/64 (80) Pulse Ox 99 92 O2 Delivery OxyMask Nasal Cannula O2 Flow Rate 6.00 5.00 6.00 11/20/22 00:00 Intake Total 50 ml Balance 50 ml Capillary Refill : Less Than 3 Seconds Blood Pressure Mean: 80 Progress Note : Progress Note PLACED IN ISOLATION ROOM PPE WORN COVID AND FLU TESTING DONE SEPSIS PROTOCOL INITIATED GIVEN IV FLUIDS AND ANTIBIOTICS. HOUR LONG NEB TREATMENT STARTED ON ARRIVAL ABG'S DONE, AND HAS SOME MILD ACIDOSIS, WITH ELEVATED PCO2--BIPAP INITIATED. GIVEN SOLU-MEDROL VITALS REMAIN STABLE O2 SATS REMAIN IN THE MID TO UPPER 90'S NO DETERIORATION IN PT'S CONDITION DURING ER STAY PT HAD NO COMPLAINTS FOR REMAINDER OF ER STAY REVIEWED ALL TEST RESULTS WITH PT AND FAMILY MEMBER, AND RECOMMENDATIONS FOR ADMIT, AND PT IS AGREEABLE TO THIS PLAN. ECG Initial ECG Impression Date: Nov 19, 2022 Initial ECG Impression Time: 13:14 Initial ECG Rate: 92 Initial ECG Rhythm: Normal Sinus Initial ECG Impression: Nonspecific Changes Initial ECG Comparisson: Unchanged (NO CHANGE FROM 11/07/21) Comment INTERPRETED BY ME Diagnostic Imaging Comments CXR--PER RADIOLOGIST REPORT AT 1400 FINDINGS: There is background air trapping. Prominent interstitial markings have increased and there is focal subpleural density along the lateral right chest wall. No definite pneumothorax is seen. There is no significant pleural fluid. IMPRESSION: Increasing interstitial markings may reflect edema, pneumonitis, or progressive fibrotic findings with peripheral density in the right lung which could represent infiltrate or potential infarct. Clinical correlation is recommended. Reviewed: Reviewed by Me Departure Communication (Admissions) [id number]--CALLED DR. PORTER'S CELL. NO ANSWER 1410--CALLED DR. PORTER'S OFFICE, MESSAGE LEFT 1411--SPOKE WITH DR. PORTER, ACCEPTS PT FOR ADMIT. Impression Primary Impression: Acute on chronic respiratory failure Additional Impressions: COPD exacerbation POSSIBLE SEPSIS Pneumonia Disposition: ADMITTED INPATIENT Condition: Improved Admissions Decision to Admit Reason: Admit from ER (General) Decision to Admit/Date: Nov 19, 2022 Time/Decision to Admit Time: 14:15 Departure-Patient Inst. Referrals: ANABELA PORTER MD (PCP/Family) Primary Care Physician RENATO SALAZAR DO Nov 19, 2022 14:00
[2022-11-19 14:12] VITALS: BP 119/55
[2022-11-19] MEDS ORDERED: ONDANSETRON 4 MG/2 ML (SDV) Z0FRAN IV PRN (16:00)
[2022-11-19 16:22] VITALS: BP 119/55
[2022-11-19 16:30] VITALS: BP 102/59
[2022-11-19] MEDS ORDERED: RT-ALBUTEROL/IPRATROPIUM 3 ML (DUONEB) VIAL INH PRN (16:30)
[2022-11-19 17:27] LABS: ABG BASE EXCESS 7.4 MMOL/L (-2.5-2.5); ABG OXYGEN SATURATION 74 % (94-100); ABG PO2 42 MMHG (79-93); ABG TCO2 35.8 MMOL/L (21.0-31.0)
[2022-11-19 17:36] LABS: ABG PCO2 71 MMHG (35-45); ALLENS TEST YES-POS; INSPIRED O2 6%; PATIENT TEMP 37.1; VENTILATOR NO
[2022-11-19] MEDS: methylPREDNISolone 125 MG (Solu-MEDROL) VIAL IV SCH ×2 (18:15→23:49)
[2022-11-19] MEDS: ACETAMINOPHEN 500 MG TAB (TYLENOL) PO PRN (18:15)
[2022-11-19] MEDS: LACTATED RINGERS 1,000 ML IV SCH ×3 (18:15→23:50)
[2022-11-19] MEDS ORDERED: FLU QUAD HIGH DOSE 240 MCG/0.7 ML 2022-23 (FLUZONE) IM ONE (19:45)
[2022-11-19 20:32] VITALS: BP 98/65
[2022-11-19 20:42] LABS: ABG BASE EXCESS 10.4 MMOL/L (-2.5-2.5); ABG OXYGEN SATURATION 85 % (94-100); ABG PCO2 65 MMHG (35-45); ABG PH 7.36 (7.37-7.43); ABG PO2 46 MMHG (79-93); ABG TCO2 38.1 MMOL/L (21.0-31.0)
[2022-11-19 20:53] LABS: ALLENS TEST YES-POS; INSPIRED O2 6%; PATIENT TEMP 36.8; VENTILATOR NO
[2022-11-19 20:58] VITALS: BP 98/65
[2022-11-19] MEDS: RT-ALBUTEROL/IPRATROPIUM 3 ML (DUONEB) VIAL INH SCH (20:58)
[2022-11-20] VITALS (8 sets, daily range): BP systolic 114–149; BP diastolic 67–92
[2022-11-20] MEDS: ACETAMINOPHEN 500 MG TAB (TYLENOL) PO PRN ×3 (02:33→23:44)
[2022-11-20] MEDS: RT-ALBUTEROL/IPRATROPIUM 3 ML (DUONEB) VIAL INH SCH ×4 (02:45→22:18)
[2022-11-20] MEDS: methylPREDNISolone 125 MG (Solu-MEDROL) VIAL IV SCH (05:36)
[2022-11-20] MEDS: LACTATED RINGERS 1,000 ML IV SCH ×2 (05:37→15:23)
[2022-11-20 06:07] LABS: BASOPHILS % (AUTO) 0 % (0-10); EOSINOPHILS % (AUTO) 0 % (0-10); HEMATOCRIT 32 % (35-52); HEMOGLOBIN 9.5 g/dL (11.5-16.0); LYMPHOCYTES # (AUTO) 0.4 10^3/uL (1.0-4.0); LYMPHOCYTES % (AUTO) 5 % (12-44); MEAN CORPUSCULAR HEMOGLOBIN 28 pg (25-34); MEAN CORPUSCULAR HGB CONC 30 g/dL (32-36); MEAN CORPUSCULAR VOLUME 96 fL (80-99); MEAN PLATELET VOLUME 10.4 fL (9.0-12.2); MONOCYTES # (AUTO) 0.2 10^3/uL (0.0-1.0); MONOCYTES % (AUTO) 2 % (0-12); NEUTROPHILS # (AUTO) 6.8 10^3/uL (1.8-7.8); NEUTROPHILS % (AUTO) 92 % (42-75); PLATELET COUNT 173 10^3/uL (130-400); WHITE BLOOD COUNT 7.4 10^3/uL (4.3-11.0)
[2022-11-20 06:25] LABS: ALBUMIN 3.1 GM/DL (3.2-4.5); BILIRUBIN,TOTAL 0.2 MG/DL (0.1-1.0); CREATININE SERUM 0.75 MG/DL (0.60-1.30); POTASSIUM 3.9 MMOL/L (3.6-5.0); TOTAL PROTEIN 7.1 GM/DL (6.4-8.2)
[2022-11-20 06:26] LABS: BAND NEUTROPHILS 3 %; LYMPHOCYTES % (MANUAL) 2 %; MONOCYTES % (MANUAL) 3 %; NEUTROPHILS % (MANUAL) 92 %
[2022-11-20 06:27] LABS: RBC MORPH NORMAL
--- NOTE | 2022-11-20 07:36 | History & Physical ---
CHING BERNAL 11/20/22 0736: History of Present Illness History of Present Illness Reason for visit/HPI Vilma Thorpe is a patient of Dr. Campos's with extensive smoking history of 70 years and past medical history of COPD, Emphysema, Sleep Apnea, and Pneumothorax who was admitted from the ER for shortness of breath. She reports she has always had "respiratory problems" but in the last week they have become worse. Her son was concerned and called EMS yesterday who brought her to the ER. She was given an hour long Duoneb treatment and solumedrol in ER. Also given some IVF and abx. Today, she still complains of shortness of breath. She is wearing NIV bilevel oxygen. She states at home she usually wears oxygen "03/06". She reports that she has been sleeping "all the time" and started having some diaphragmatic pain, which she thinks is due to pneumonia. She usually uses oxygen at at least 5L/NC with an oxygen concentrator that has 50 feet of tubing. She denies any chest pain or palpitations at this time. Does complain of some "arthritic pain". She sees Dr. 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, extension forester at [facility], who recommended that she have respiratory rehab at [facility]. She has not started this yet. Her respiratory regimen has recently changed as well. Date of Admission Nov 19, 2022 at 14:11 Date Seen by a Provider: Nov 20, 2022 Time Seen by a Provider: 07:45 I consulted on this patient on 11/20/22 07:34 Attending Physician Anabela Campos MD Admitting Physician Admitting Physician: Anabela Campos MD Attending Physician: Anabela Campos MD Consult Allergies and Home Medications Allergies Coded Allergies: No Known Drug Allergies (Unverified , 02/28/16) Patient Home Medication List Home Medication List Reviewed: Yes Albuterol Sulfate (Proventil Hfa) 90 Mcg Hfa.aer.ad, 2 PUFF INH Q6H PRN for SHORTNESS OF BREATH, (Reported) Entered as Reported by: NATHAN REDDY on 11/20/22 Last Action: Reviewed Azithromycin (Azithromycin) 250 Mg Tablet, 250 MG PO DAILY, (Reported) Entered as Reported by: NATHAN REDDY on 11/20/22 7119 Last Action: Reviewed Budesonide (Pulmicort) 0.5 Mg/2 Ml Ampul.neb, 0.5 MG NEB BID, (Reported) Entered as Reported by: NATHAN REDDY on 11/20/221558 Last Action: Reviewed Cetirizine HCl (Cetirizine HCl) 10 Mg Tablet, 10 MG PO DAILY, (Reported) Entered as Reported by: NATHAN REDDY on 11/20/221558 Last Action: Converted Citalopram Hydrobromide (Citalopram HBr) 40 Mg Tablet, 40 MG PO DAILY, (Rep orted) Entered as Reported by: NATHAN REDDY on 11/20/221558 Last Action: Reviewed Fluticasone Propionate (Flonase Allergy Relief) 9.9 Ml [place].susp, 2 SPRAYS NSEACH DAILY PRN for CONGESTION, (Reported) Entered as Reported by: SHERI RIOS on 02/21/16 1415 Last Action: Reviewed Formoterol Fumarate (Formoterol Fumarate) 20 Mcg/2 Ml Vial.neb, 2 ML NEB BID, (Reported) Entered as Reported by: NATHAN REDDY on 11/20/221558 Last Action: Reviewed Hydrochlorothiazide (Hydrochlorothiazide) 25 Mg Tablet, 12.5 MG PO DAILY, ( Reported) Entered as Reported by: CARMEN OLIVER on 07/26/21 1108 Last Action: Reviewed Levothyroxine Sodium (Levothyroxine Sodium) 50 Mcg Tablet, 50 MCG PO DAILY, (Reported) Entered as Reported by: NATHAN REDDY on 10/26/21 1037 Last Action: Continued Lorazepam (Ativan) 1 Mg Tablet, 1 MG PO TID PRN for ANXIETY, (Reported) Entered as Reported by: NATHAN REDDY on 11/20/221558 Last Action: Reviewed Montelukast Sodium (Montelukast Sodium) 10 Mg Tablet, 10 MG PO HS, (Reported) Entered as Reported by: CARMEN OLIVER on 07/26/21 110 Last Action: Continued Revefenacin (Yupelri) 175 Mcg/3 Ml Vial.neb, 3 ML NEB 1400, (Reported) Entered as Reported by: NATHAN REDDY on 11/20/221558 Last Action: Reviewed Trazodone HCl (Trazodone HCl) 50 Mg Tablet, 50 MG PO HS, (Reported) Entered as Reported by: NATHAN REDDY on 10/26/21 1037 Last Action: Continued Discontinued Medications Albuterol Sulfate (Ventolin Hfa) 18 Gm Hfa.aer.ad, 1-2 PUFF IH Q4H PRN for SHORTNESS OF BREATH, (Reported) Discontinued Reason: No Longer Taking Entered as Reported by: SHERI RIOS on 02/21/16 1415 Last Action: Discontinued Arformoterol Tartrate (Brovana) 15 Mcg/2 Ml Vial.neb, 2 ML IH BID PRN for SHORTNESS OF BREATH, (Reported) Discontinued Reason: No Longer Taking Entered as Reported by: NATHAN REDDY on 10/26/21 1037 Last Action: Discontinued Cefdinir (Cefdinir) 300 Mg Capsule, 300 MG PO BID Discontinued Reason: No Longer Taking Prescribed by: YRN CISSE on 06/26/22 1629 Last Action: Discontinued Citalopram Hydrobromide (Citalopram HBr) 10 Mg Tablet, 10 MG PO DAILY, (Repor karmen) Discontinued Reason: No Longer Taking Entered as Reported by: SHERI RIOS on 02/21/16 1415 Last Action: Discontinued Lorazepam (Ativan) 1 Mg Tablet, 1 MG PO BID PRN for ANXIETY, (Reported) Discontinued Reason: No Longer Taking Entered as Reported by: NATHAN REDDY on 10/26/21 1037 Last Action: Discontinued Naproxen Sodium (Aleve) 220 Mg Tablet, 220-440 MG PO BID PRN for PAIN-MILD (1- 4), (Reported) Discontinued Reason: No Longer Taking Entered as Reported by: NATHAN REDDY on 10/26/21 1037 Last Action: Discontinued Polyethylene Glycol 3350 (Miralax) 17 Gm Powd.pack, 17 GM PO DAILY PRN for CONSTIPATION-2ND LINE, (Reported) Discontinued Reason: No Longer Taking Entered as Reported by: NATHAN REDDY on 10/26/21 1037 Last Action: Discontinued Past Mbnilfo-Gcngmm-Ubuztw Hx Patient Social History Tobacco Use?: Yes Tobacco type used: Cigarettes Smoking Status: Former Smoker Smokeless Tobacco Frequency: Never a User Use of E-Cig and/or Vaping dev: No Use of E-Cig and/or Vaping Adin: Never a User Substance use?: No Alcohol Use?: No Pt feels they are or have been: No Immunizations Up To Date Date of Influenza Vaccine: Oct 14, 2021 First/Initial COVID19 Vaccinat: STATES "HAD ALL THREE COVID SHOTS" Second COVID19 Vaccination Vishnu: STATES "HAD ALL THREE COVID SHOTS" Tetanus Booster (TDap): Less Than 5 Years Hepatitis A: No Hepatitis B: No Date of Pneumonia Vaccine: Mar 01, 2016 Seasonal Allergies Seasonal Allergies: No Current Status status: No status: No Advance Directives: Unable to obtain Communicates: Verbally Primary Language: Nicaraguan Preferred Spoken Language: Nicaraguan Is interpretation needed?: No Sensory deficits: Vision impairment, Hearing impairment Past Medical History Surgeries: Abdominal, Bowel Surgery, Hysterectomy, Orthopedic Pneumonia, Sleep Apnea, COPD, Emphysema Currently Using CPAP: No Currently Using BIPAP: No Hypertension Sexually Transmitted Disease: No HIV/AIDS: No Gastroesophageal Reflux, Obstructive Bowel, Chronic Constipation, Gall Bladder Disease Degenerate Disk Disease, Osteoporosis, Arthritis, Chronic Back Pain, Fractures Hypothyroidsim Loss of Vision: Denies Hearing Impairment: Hard of Hearing, Bilateral Hearing Aide Sleep Difficulties, Anxiety, Depression Blood Disorders: No Adverse Reaction/Blood Tranf: No Family Medical History Hypertension G8 SISTER Neoplasm 19 MOTHER (LUNG CA) G8 BROTHER (LUNG CA) No Pertinent Family Hx SOCIAL HISTORY: -SMOKED HEAVY X 70 YEARS. > 1 PPD -DENIES ETOH -DENIES DRUG USE PAST SURGICAL HISTORY: -T6 VERTEBROPLASTY 2015, WITH POST OP RIGHT PNEUMOTHORAX AND RIGHT CHEST TUBE PLACEMENT -HYSTERECTOMY -COLONOSCOPY 07/28/[address] HOUGH -10/25/21--SMALL BOWEL OBSTRUCTION WITH EXPLORATORY LAPAROTOMY/LYSIS OF ADHESIONS AND DECOMPRESSION OF SMALL BOWEL BY DR. SOLIS. Review of Systems Constitutional: No chills, No fever EENTM: no symptoms reported Respiratory: dyspnea on exertion, short of breath Cardiovascular: No chest pain, No palpitations Gastrointestinal: No abdominal pain, No nausea, No vomiting Genitourinary: no symptoms reported Musculoskeletal: joint pain (due to arthritis) Skin: no symptoms reported Psychiatric/Neurological: No Symptoms Reported Physical Exam Vital Signs Vital Signs - First Documented 11/19/22 11/19/22 11/19/22 12:28 13:30 19:38 Temp 36.5 Pulse 98 Resp 24 B/P (MAP) 113/64 (80) Pulse Ox 99 O2 Delivery OxyMask O2 Flow Rate 6.00 FiO2 40 Capillary Refill : Less Than 3 Seconds Height, Weight, BMI Height: 5'0.00" Weight: 159lbs. 0.0oz. 72.727368mh; 28.42 BMI Method: General Appearance: Mild Distress, Obese Respiratory: Chest Non Tender, Accessory Muscle Use, Respiratory Distress, Wheezing (diffuse throughout bilateral lung regan) Cardiovascular: Regular Rate, Rhythm, No Edema, No Murmur Gastrointestinal: Non Tender, Soft Back: Normal Inspection, No CVA Tenderness Extremity: Non Tender, No Calf Tenderness Neurologic/Psychiatric: Alert, Oriented x3 Skin: Normal Color, Warm/Dry Assessment/Plan Admission Diagnosis Acute on Chronic Respiratory Failure CO2 retention COPD exacerbation Pneumonia CXR from ER shows increasing interstitial markings in bilateral lobes Hyperglycemia Likely due to steroid administration Anemia Hb down from 11.4 to 9.5 today Start insulin sliding scale A Repeat CXR Heme Occult test Solumedrol Azithromycin/Ceftriaxone Supplemental Oxygen Lactated Ringers ANABELA CAMPOS MD 11/20/221914: History of Present Illness History of Present Illness Reason for visit/HPI Vilma Thorpe is a patient of our practice who presented to the hospital with severe dyspnea. She had apparently been struggling at home for a few days with worsening shortness of breath, and was feeling so poorly she was sitting upright to sleep. Her son noticed that she was extremely somnolent, struggling to breathe, and had oxygen saturations that would dip into the low 80's. Date of Admission 11/19/22 Date Seen by a Provider: Nov 20, 2022 Time Seen by a Provider: 08:00 Attending Physician Anabela Campos MD Admitting Physician Anabela Campos MD Consult Critical Care pulmonology Allergies and Home Medications Allergies Coded Allergies: No Known Drug Allergies (Unverified , 02/28/16) Patient Home Medication List Home Medication List Reviewed: Yes Albuterol Sulfate (Proventil Hfa) 90 Mcg Hfa.aer.ad, 2 PUFF INH Q6H PRN for SHORTNESS OF BREATH, (Reported) Entered as Reported by: NATHAN REDDY on 11/20/221558 Last Action: Reviewed Azithromycin (Azithromycin) 250 Mg Tablet, 250 MG PO DAILY, (Reported) Entered as Reported by: NATHAN REDDY on 1/10/23 1559 Last Action: Reviewed Budesonide (Pulmicort) 0.5 Mg/2 Ml Ampul.neb, 0.5 MG NEB BID, (Reported) Entered as Reported by: NATHAN REDDY on 11/20/221558 Last Action: Reviewed Cetirizine HCl (Cetirizine HCl) 10 Mg Tablet, 10 MG PO DAILY, (Reported) Entered as Reported by: NATHAN REDDY on 11/20/221558 Last Action: Converted Citalopram Hydrobromide (Citalopram HBr) 40 Mg Tablet, 40 MG PO DAILY, (Reported) Entered as Reported by: NATHAN REDDY on 11/20/221558 Last Action: Reviewed Fluticasone Propionate (Flonase Allergy Relief) 9.9 Ml [place].susp, 2 SPRAYS NSEACH DAILY PRN for CONGESTION, (Reported) Entered as Reported by: SHERI RIOS on 02/21/16 1415 Last Action: Reviewed Formoterol Fumarate (Formoterol Fumarate) 20 Mcg/2 Ml Vial.neb, 2 ML NEB BID, (Reported) Entered as Reported by: NATHAN REDDY on 11/20/221558 Last Action: Reviewed Hydrochlorothiazide (Hydrochlorothiazide) 25 Mg Tablet, 12.5 MG PO DAILY, (Reported) Entered as Reported by: CARMEN OLIVER on 07/26/21 110 Last Action: Reviewed Levothyroxine Sodium (Levothyroxine Sodium) 50 Mcg Tablet, 50 MCG PO DAILY, (Reported) Entered as Reported by: NATHAN REDDY on 10/26/21 1037 Last Action: Continued Lorazepam (Ativan) 1 Mg Tablet, 1 MG PO TID PRN for ANXIETY, (Reported) Entered as Reported by: NATHAN REDDY on 11/20/221558 Last Action: Reviewed Montelukast Sodium (Montelukast Sodium) 10 Mg Tablet, 10 MG PO HS, (Reported) Entered as Reported by: CARMEN OLIVER on 07/26/211107 Last Action: Continued Revefenacin (Yupelri) 175 Mcg/3 Ml Vial.neb, 3 ML NEB 1400, (Reported) Entered as Reported by: NATHAN REDDY on 11/20/221558 Last Action: Reviewed Trazodone HCl (Trazodone HCl) 50 Mg Tablet, 50 MG PO HS, (Reported) Entered as Reported by: NATHAN REDDY on 10/26/21 1037 Last Action: Continued Discontinued Medications Albuterol Sulfate (Ventolin Hfa) 18 Gm Hfa.aer.ad, 1-2 PUFF IH Q4H PRN for SHORTNESS OF BREATH, (Reported) Discontinued Reason: No Longer Taking Entered as Reported by: SHERI RIOS on 02/21/16 1415 Last Action: Discontinued Arformoterol Tartrate (Brovana) 15 Mcg/2 Ml Vial.neb, 2 ML IH BID PRN for SHORTNESS OF BREATH, (Reported) Discontinued Reason: No Longer Taking Entered as Reported by: NATHAN REDDY on 10/26/21 1037 Last Action: Discontinued Cefdinir (Cefdinir) 300 Mg Capsule, 300 MG PO BID Discontinued Reason: No Longer Taking Prescribed by: YRN CISSE on 06/26/22 1629 Last Action: Discontinued Citalopram Hydrobromide (Citalopram HBr) 10 Mg Tablet, 10 MG PO DAILY, (Reported) Discontinued Reason: No Longer Taking Entered as Reported by: SHERI RIOS on 02/21/16 1415 Last Action: Discontinued Lorazepam (Ativan) 1 Mg Tablet, 1 MG PO BID PRN for ANXIETY, (Reported) Discontinued Reason: No Longer Taking Entered as Reported by: NAHTAN REDDY on 10/26/21 1037 Last Action: Discontinued Naproxen Sodium (Aleve) 220 Mg Tablet, 220-440 MG PO BID PRN for PAIN-MILD (1- 4), (Reported) Discontinued Reason: No Longer Taking Entered as Reported by: NATHAN REDDY on 10/26/21 1037 Last Action: Discontinued Polyethylene Glycol 3350 (Miralax) 17 Gm Powd.pack, 17 GM PO DAILY PRN for CONSTIPATION-2ND LINE, (Reported) Discontinued Reason: No Longer Taking Entered as Reported by: NATHAN REDDY on 10/26/21 1037 Last Action: Discontinued Past Cymhfig-Qesygc-Xepamu Hx Patient Social History Marrital Status: Living Status: lives with son Employed/Student: retired Tobacco Use?: No Smoking Status: Former Smoker Use of E-Cig and/or Vaping dev: No Substance use?: No Seasonal Allergies Seasonal Allergies: Yes Current Status status: No status: No Advance Directives: No Communicates: Verbally Sensory deficits: Hearing impairment Implanted or Applied Medical D: None Past Medical History Currently Using CPAP: No Currently Using BIPAP: No Chronic Constipation, Diverticulosis Arthritis Hearing Impairment: Hard of Hearing Anxiety Blood Disorders: No Adverse Reaction/Blood Tranf: No SOCIAL HISTORY: -SMOKED HEAVY 1.5 - 2 ppd X 72 YEARS. PAST SURGICAL HISTORY: -T6 VERTEBROPLASTY 2015, WITH POST OP RIGHT PNEUMOTHORAX AND RIGHT CHEST TUBE PLACEMENT -HYSTERECTOMY -COLONOSCOPY 07/28/[address] HOUGH Family Medical History Reviewed and Corrections made Hypertension G8 SISTER Neoplasm 19 MOTHER (LUNG CA) G8 BROTHER (LUNG CA) Heart Disease, Cancer, Hypertension Review of Systems Constitutional: No fever; malaise, weakness EENTM: No mouth pain, No nose congestion, No throat pain Respiratory: No cough; dyspnea on exertion, orthopnea, short of breath Cardiovascular: No chest pain, No palpitations Gastrointestinal: No abdominal pain, No constipation, No diarrhea, No nausea Genitourinary: frequency Musculoskeletal: joint pain (chronic) Skin: No change in color, No lesions Psychiatric/Neurological: Denies Headache, Denies Tremors; Weakness All Other Systems Reviewed Negative Unless Noted: Yes Physical Exam General Appearance: WD/WN, Mild Distress, Obese HEENT: PERRL/EOMI, Pharynx Normal Respiratory: Accessory Muscle Use, Decreased Breath Sounds (throughout), Respiratory Distress (with conversation), Wheezing (diffuse throughout bilateral lung regan) Cardiovascular: Regular Rate, Rhythm, No Edema, No Murmur Gastrointestinal: Normal Bowel Sounds, Non Tender, Soft Rectal: Deferred Back: Normal Inspection, No CVA Tenderness, No Vertebral Tenderness Extremity: No Calf Tenderness, No Pedal Edema Neurologic/Psychiatric: Alert, Oriented x3, No Motor/Sensory Deficits, Normal Mood/Affect Skin: Normal Color, Warm/Dry Lymphatic: No Adenopathy Assessment/Plan Assessment and Plan Respiratory failure Pneumonia COPD Exacerbation with CO2 retention Anemia Hyperglycemia Elevated Procalcitonin Weakness Hypothyroidism Respiratory failure due to Pneumonia and COPD Exacerbation with CO2 retention - pt was placed on BIPAP for respiratory support - consult to Pulmonology for additional insight into supportive treatments in the hospital, and recommendations for further outpatient management/support for the patient's chronic pulmonary disease. - RX for cephalosporin and azithromycin for pneumonia - RX for solumedrol for treatment of COPD exacerbation inflammation Anemia - worsening - check hemoccult stool. Hyperglycemia - sliding scale A and blood glucose readings ac/hs Elevated Procalcitonin - due to pulmonary distress/infection Weakness - will start therapy tomorrow if her pulmonary function is improved. Hypothyroidism - check tsh/free T4 GI prophylaxis with ppi DVT prophylaxis with scd's and anticoag Admission Diagnosis Respiratory failure Pneumonia COPD Exacerbation with CO2 retention Anemia Hyperglycemia Elevated Procalcitonin Weakness Hypothyroidism Admission Status: Inpatient Order (span 2 midnights) Reason for Inpatient Admission: inpatient admission for COPD exacerbation with pneumonia and respiratory failure Supervisory-Addendum Brief Verification & Attestation Participated in pt care: history, MDM, physical Personally performed: exam, history, MDM, supervision of care Care discussed with: Medical Student Procedures: n/a Results interpretation: Verified all documentation see my documentation for further details CHING BERNAL Nov 20, 2022 07:36 ANABELA CAMPOS MD Nov 20, 2022 19:15
[2022-11-20] MEDS: inSUlin ASPART (NovoLOG) 1 UNIT/0.01 ML (CHARGE PER UNIT) SC SCH ×3 (11:51→21:25)
[2022-11-20] MEDS: cefTRIAXone 1 GM PRE-MIX 50 ML IV SCH (12:25)
[2022-11-20] MEDS: methylPREDNISolone 40 MG/ML (Solu-MEDROL) VIAL IV SCH ×3 (12:26→23:44)
[2022-11-20] MEDS: AZITHROMYCIN 500 MG/NS 250 ML IVPB IV SCH ×2 (13:15)
--- NOTE | 2022-11-20 14:18 | Pulmonary Consultation ---
History of Present Illness History of Present Illness Date Seen by Provider: Nov 20, 2022 Time Seen by Provider: 14:16 Date of Admission (Tele-pulmonary Physician , consultation as per request of PCP Service provided via interactive audio and video telecommunDamage Hounds system to a patient admitted to [facility]. 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 All questions were answered. Plans in collaboration with bedside consultants and IM MDs., paged Dr Campos Discussed with RN to reach out if any questions or concerns Allergies and Home Medications Allergies Coded Allergies: No Known Drug Allergies (Unverified , 02/28/16) Home Medications Albuterol Sulfate 18 Gm Hfa.aer.ad, 1-2 PUFF IH Q4H PRN for SHORTNESS OF BREATH, (Reported) Arformoterol Tartrate 15 Mcg/2 Ml Vial.neb, 2 ML IH BID PRN for SHORTNESS OF BREATH, (Reported) Cefdinir 300 Mg Capsule, 300 MG PO BID start tomorrow 06/27/22 Prescribed by: YRN CISSE on 06/26/22 1629 Citalopram Hydrobromide 10 Mg Tablet, 10 MG PO DAILY, (Reported) Fluticasone Propionate 9.9 Ml [place].susp, 2 SPRAYS NSEACH DAILY PRN for CONGESTION, (Reported) Hydrochlorothiazide 25 Mg Tablet, 12.5 MG PO DAILY, (Reported) TAKES OF A 25MG TAB Levothyroxine Sodium 50 Mcg Tablet, 50 MCG PO DAILY, (Reported) Lorazepam 1 Mg Tablet, 1 MG PO BID PRN for ANXIETY, (Reported) Montelukast Sodium 10 Mg Tablet, 10 MG PO DAILY, (Reported) Naproxen Sodium 220 Mg Tablet, 220-440 MG PO BID PRN for PAIN-MILD (1-4), (Reported) Polyethylene Glycol 3350 17 Gm Powd.pack, 17 GM PO DAILY PRN for CONSTIPATION- 2ND LINE, (Reported) Trazodone HCl 50 Mg Tablet, 25 MG PO HS, (Reported) TAKES OF A 50MG TAB Past Medical/Social/Family Hx Patient Social History Tobacco Use?: Yes Tobacco type used: Cigarettes Smoking Status: Former Smoker Smokeless Tobacco Frequency: Never a User Use of E-Cig and/or Vaping dev: No E-Cig and/or Vaping Freq: Never a User Substance use?: No Alcohol Use?: No Pt stated abuse/neglect: No Immunizations Up To Date Influenza Vaccine Up-to-Date: Yes; Up-to-Date First/Initial COVID19 Vaccinat: STATES "HAD ALL THREE COVID SHOTS" Second COVID19 Vaccination Vishnu: STATES "HAD ALL THREE COVID SHOTS" Tetanus Booster (TDap): Less Than 5 Years Hepatitis A: No Hepatitis B: No TB Skin Test: None Date of Pneumonia Vaccine: Mar 01, 2016 Current Status status: No status: No Advance Directives: Unable to obtain Communicates: Verbally Primary Language: Hebrew Preferred Spoken Language: Hebrew Is interpretation needed?: No Sensory deficits: Vision impairment, Hearing impairment Family Medical History Family Hx: SOCIAL HISTORY: -SMOKED HEAVY X 70 YEARS. > 1 PPD -DENIES ETOH -DENIES DRUG USE PAST SURGICAL HISTORY: -T6 VERTEBROPLASTY 2015, WITH POST OP RIGHT PNEUMOTHORAX AND RIGHT CHEST TUBE PLACEMENT -HYSTERECTOMY -COLONOSCOPY 07/28/[address] HOUGH -10/25/21--SMALL BOWEL OBSTRUCTION WITH EXPLORATORY LAPAROTOMY/LYSIS OF ADHESIONS AND DECOMPRESSION OF SMALL BOWEL BY DR. SOLIS. Review of Systems Constitutional: see HPI Sepsis Event Evaluation Height, Weight, BMI Height: 5'0.00" Weight: 159lbs. 0.0oz. [id number]; 28.42 BMI Method: Exam Exam Patient acknowledged, consented, and participated in this virtual visit which was conducted using real time audio/video Vital Signs Date Time Temp Pulse Resp B/P (MAP) Pulse Ox O2 Delivery O2 Flow Rate FiO2 11/20/22 12:39 72 11/20/22 11:52 36.7 96 18 149/92 (111) 94 OxyMask 11/20/22 09:33 96 OxyMask 5.00 11/20/22 08:00 NIV Bilevel 30 11/20/22 07:59 37.4 84 18 127/89 (102) 96 NIV Bilevel 11/20/22 07:15 56 11/20/22 06:23 86 22 96 30.00 11/20/22 05:36 62 23 118/67 (84) 95 NIV Bilevel 30.00 11/20/22 04:00 70 22 93 NIV Bilevel 30.00 11/20/22 04:00 36.6 11/20/22 02:45 70 97 30.00 11/20/22 01:00 80 11/20/22 00:21 76 114/70 (85) 95 NIV Bilevel 30.00 11/20/22 00:00 36.9 11/19/22 22:00 NIV Bilevel 30.00 11/19/22 21:32 Nasal Cannula 5.00 11/19/22 20:58 79 97 40.00 11/19/22 20:32 77 98/65 (76) 96 NIV Bilevel 40.00 11/19/22 20:00 36.8 11/19/22 20:00 97 Nasal Cannula 5.00 11/19/22 19:38 96 NIV Bilevel 40 11/19/22 19:00 83 11/19/22 16:30 95 28 102/59 (73) 95 OxyMask 5.00 11/19/22 16:22 36.5 99 100 11/19/22 15:57 99 11/19/22 15:33 36.5 104 28 119/55 100 Nasal Cannula 6.00 6.00 I & O 11/20/22 07:00 Intake Total 3655 ml Output Total 200 ml Balance 3455 ml Height & Weight Height: 5'0.00" Weight: 159lbs. 0.0oz. 72.675161zb; 28.42 BMI Method: General Appearance: No Apparent Distress, Mild Distress, Obese Respiratory: Chest Non Tender, Accessory Muscle Use, Respiratory Distress, Wheezing (diffuse throughout bilateral lung regan) Cardiovascular: Regular Rate, Rhythm, No Edema, No Murmur Capillary Refill: Less Than 3 Seconds Gastrointestinal: non tender, soft Extremity: Non Tender, No Calf Tenderness Neurologic/Psychiatric: Alert, Oriented x3 Skin: Normal Color, Warm/Dry Results Lab Laboratory Tests 11/19/22 12:38 11/20/22 05:06 Assessment/Plan Assessment/Plan 1 KARLEY CAMACHO MD Nov 20, 2022 14:18
[2022-11-20] MEDS ORDERED: FUROSEMIDE 40 MG/4 ML INJ (LASIX) IVP NR (15:00)
--- NOTE | 2022-11-20 15:26 | Diagnostic Imaging Report ---
INDICATION: Wheezing. Frontal chest obtained at 3:15 p.m. and compared to 11/19/2022. FINDINGS: Heart is normal in size. There is hyperinflation compatible with COPD. There is some patchy infiltrate in the right mid lung and upper lobe, which appears similar to the prior study. There is no pneumothorax or pleural fluid. IMPRESSION: COPD changes with some right-sided infiltrate appearing similar to the previous study. No pneumothorax or pleural fluid. Dictated by: Dictated on workstation # [id number]
[2022-11-20] MEDS ORDERED: CITA40TA13 PO (15:59)
[2022-11-20] MEDS ORDERED: FORM20VI3 NEB (15:59)
[2022-11-20] MEDS ORDERED: LORA-405 PO (15:59)
[2022-11-20] MEDS ORDERED: CETI10TA17 PO (15:59)
[2022-11-20] MEDS ORDERED: REVE175V NEB (15:59)
[2022-11-20] MEDS ORDERED: BUDE0.5A7 NEB (15:59)
[2022-11-20] MEDS ORDERED: AZIT250T12 PO (15:59)
[2022-11-20] MEDS ORDERED: ALBU6.7H13 INH (15:59)
[2022-11-20 18:32] LABS: BILIRUBIN,URINE NEGATIVE (NEGATIVE); CLARITY,URINE CLEAR; COLOR,URINE YELLOW; GLUCOSE, URINE (UA) NEGATIVE (NEGATIVE); KETONES,URINE NEGATIVE (NEGATIVE); LEUKOCYTE ESTERASE ,URINE NEGATIVE (NEGATIVE); NITRITE,URINE NEGATIVE (NEGATIVE); PROTEIN,URINE NEGATIVE (NEGATIVE)
[2022-11-20 18:46] LABS: BACTERIA,URINE NEGATIVE /HPF; RBC,URINE 0-2 /HPF; SQUAMOUS EPITHELIAL CELL,UR 0-2 /HPF; WBC,URINE RARE /HPF
[2022-11-20 18:47] LABS: HYALINE CASTS, URINE 0-2 /LPF
[2022-11-20 21:09] LABS: FREE T4 (FREE THYROXINE) 0.92 NG/DL (0.70-1.48)
[2022-11-20] MEDS: MONTELUKAST 10 MG (SINGULAIR) TAB PO SCH (21:26)
[2022-11-20] MEDS: traZODone 50 MG (DESYREL) TAB PO SCH (21:26)
[2022-11-21] VITALS (8 sets, daily range): BP systolic 122–142; BP diastolic 64–90
[2022-11-21] MEDS: RT-ALBUTEROL/IPRATROPIUM 3 ML (DUONEB) VIAL INH SCH ×4 (03:34→22:03)
[2022-11-21 05:53] LABS: BASOPHILS % (AUTO) 0 % (0-10); EOSINOPHILS % (AUTO) 0 % (0-10); HEMATOCRIT 32 % (35-52); HEMOGLOBIN 9.5 g/dL (11.5-16.0); LYMPHOCYTES # (AUTO) 0.6 10^3/uL (1.0-4.0); LYMPHOCYTES % (AUTO) 6 % (12-44); MEAN CORPUSCULAR HEMOGLOBIN 29 pg (25-34); MEAN CORPUSCULAR HGB CONC 30 g/dL (32-36); MEAN CORPUSCULAR VOLUME 96 fL (80-99); MONOCYTES # (AUTO) 0.4 10^3/uL (0.0-1.0); MONOCYTES % (AUTO) 4 % (0-12); NEUTROPHILS % (AUTO) 88 % (42-75); PLATELET COUNT 185 10^3/uL (130-400); WHITE BLOOD COUNT 9.1 10^3/uL (4.3-11.0)
[2022-11-21] MEDS: LEVOTHYROXINE 50 MCG (LEVOTHROID) TAB PO SCH (06:21)
[2022-11-21] MEDS: inSUlin ASPART (NovoLOG) 1 UNIT/0.01 ML (CHARGE PER UNIT) SC SCH ×4 (06:21→20:46)
[2022-11-21] MEDS: methylPREDNISolone 40 MG/ML (Solu-MEDROL) VIAL IV SCH ×3 (06:21→17:53)
[2022-11-21 06:23] LABS: ALBUMIN 3.2 GM/DL (3.2-4.5); BILIRUBIN,TOTAL 0.1 MG/DL (0.1-1.0); CALCIUM 8.9 MG/DL (8.5-10.1); CREATININE SERUM 0.81 MG/DL (0.60-1.30); POTASSIUM 3.7 MMOL/L (3.6-5.0)
[2022-11-21] MEDS: ACETAMINOPHEN 500 MG TAB (TYLENOL) PO PRN ×2 (06:26→17:58)
--- NOTE | 2022-11-21 07:31 | Progress Note ---
Subjective Subjective Date Seen by Provider: Nov 21, 2022 Time Seen by Provider: 07:36 Patient is using BIPAP this morning for respiratory support. She states she was able to finally get some rest last night and feels her breathing may have improved slightly. States that her stomach hurts and she is hungry. She is r equesting antacids for this. Review of Systems General: No Chills; Fatigue, Appetite (hungry) Pulmonary: Dyspnea, Cough Cardiovascular: No: Chest Pain, Palpitations Neurological: Weakness All Other Systems Reviewed All Other Systems Reviewed: Yes Objective Exam Vital Signs Vital Signs Date Time Temp Pulse Resp B/P (MAP) Pulse Ox O2 Delivery O2 Flow Rate FiO2 11/21/22 04:00 36.5 79 21 94 11/21/22 03:58 79 32 133/73 (93) 93 NIV Bilevel 30.00 11/21/22 03:43 NIV Bilevel 30.00 11/21/22 03:34 58 24 95 30.00 11/21/22 01:00 53 11/21/22 00:00 36.2 56 24 122/64 (83) 97 OxyMask 5.00 11/20/22 22:18 92 OxyMask 5.00 11/20/22 20:00 36.3 57 22 131/70 (90) 98 OxyMask 5.00 11/20/22 20:00 92 OxyMask 5.00 11/20/22 19:00 68 11/20/22 16:00 36.2 70 23 125/70 (88) 96 OxyMask 5.00 11/20/22 14:39 98 OxyMask 5.00 11/20/22 14:35 99 OxyMask 8.00 11/20/22 12:39 72 11/20/22 11:52 36.7 96 18 149/92 (111) 94 OxyMask 11/20/22 09:33 96 OxyMask 5.00 11/20/22 08:00 NIV Bilevel 30 11/20/22 07:59 37.4 84 18 127/89 (102) 96 NIV Bilevel I & O 11/21/22 07:00 Intake Total 700 ml Output Total 900 ml Balance -200 ml General Appearance: WD/WN, Mild Distress, Obese HEENT: PERRL/EOMI, Pharynx Normal Respiratory: Accessory Muscle Use, Respiratory Distress (with conversation), Wheezing (diffuse throughout bilateral lung regan) Cardiovascular: Regular Rate, Rhythm, No Edema, No Murmur Gastrointestinal: Normal Bowel Sounds, Non Tender, Soft Rectal: Deferred Back: Normal Inspection, No CVA Tenderness, No Vertebral Tenderness Extremity: No Calf Tenderness, No Pedal Edema Neurologic/Psychiatric: Alert, Oriented x3, No Motor/Sensory Deficits, Normal Mood/Affect Skin: Normal Color, Warm/Dry Lymphatic: No Adenopathy Results Lab Laboratory Tests 11/20/22 09:36: Stool Occult Blood Immunoassay NEGATIVE 11/20/22 10:36: Glucometer 170H 11/20/22 15:26: Glucometer 144H 11/20/22 17:46: Urine Color YELLOW, Urine Clarity CLEAR, Urine pH 5.0, Urine Specific [place] 1.015L, Urine Protein NEGATIVE, Urine Glucose (UA) NEGATIVE, Urine Ketones NEGATIVE, Urine Nitrite NEGATIVE, Urine Bilirubin NEGATIVE, Urine Urobilinogen 0.2, Urine Leukocyte Esterase NEGATIVE, Urine RBC (Auto) 1+H, Urine RBC 0-2, Urine WBC RARE, Urine Squamous Epithelial Cells 0-2, Urine Crystals NONE, Urine Bacteria NEGATIVE, Urine Casts PRESENT, Urine Hyaline Casts 0-2H, Urine Mucus SMALLH, Urine Culture Indicated NO 11/20/22 21:10: Glucometer 156H 11/21/22 05:40: White Blood Count 9.1, Red Blood Count 3.32L, Hemoglobin 9.5L, Hematocrit 32L, Mean Corpuscular Volume 96, Mean Corpuscular Hemoglobin 29, Mean Corpuscular Hemoglobin Concent 30L, Red Cell Distribution Width 14.1, Platelet Count 185, Mean Platelet Volume 10.0, Immature Granulocyte % (Auto) 1, Neutrophils (%) (Auto) 88H, Lymphocytes (%) (Auto) 6L, Monocytes (%) (Auto) 4, Eosinophils (%) (Auto) 0, Basophils (%) (Auto) 0, Neutrophils # (Auto) 8.0H, Lymphocytes # (Auto) 0.6L, Monocytes # (Auto) 0.4, Eosinophils # (Auto) 0.0, Basophils # (Auto) 0.0, Immature Granulocyte # (Auto) 0.1, Sodium Level 142, Potassium Level 3.7, Chloride Level 99, Carbon Dioxide Level 34H, Anion Gap 9, Blood Urea Nitrogen 21H, Creatinine 0.81, Estimat Glomerular Filtration Rate 73, BUN/Creatinine Ratio 26, Glucose Level 165H, Calcium Level 8.9, Corrected Calcium 9.5, Total Bilirubin 0.1, Aspartate Amino Transf (AST/SGOT) 15, Alanine Aminotransferase (ALT/SGPT) 13, Alkaline Phosphatase 65, Total Protein 7.0, Albumin 3.2 11/21/22 05:47: Glucometer 160H Microbiology 11/19/22 Blood Culture - Preliminary, Resulted No growth Assessment/Plan Assessment/Plan Admission Dx Respiratory failure Pneumonia COPD Exacerbation with CO2 retention Anemia Hyperglycemia Elevated Procalcitonin Weakness Hypothyroidism Assessment and Plan Respiratory failure due to Pneumonia and COPD Exacerbation with CO2 retention - pt was placed on BIPAP for respiratory support - consult to Pulmonology for additional insight into supportive treatments in the hospital, and recommendations for further outpatient management/support for the patient's chronic pulmonary disease. - RX for cephalosporin and azithromycin for pneumonia - RX for solumedrol for treatment of COPD exacerbation inflammation Anemia - Hb is stable today and remains at 9.5 - heme occult stool was negative Hyperglycemia - sliding scale A and blood glucose readings ac/hs Elevated Procalcitonin - due to pulmonary distress/infection Weakness - will start therapy tomorrow if her pulmonary function is improved. Hypothyroidism - check tsh/free T4 Admission Dx Acute on Chronic Respiratory Failure CO2 retention COPD exacerbation Pneumonia CXR from ER shows increasing interstitial markings in bilateral lobes Hyperglycemia Likely due to steroid administration Anemia Hb down from 11.4 to 9.5 today Start insulin sliding scale A Repeat CXR Heme Occult test Solumedrol Azithromycin/Ceftriaxone Supplemental Oxygen Lactated Ringers Clinical Quality Measures Admission Status Admission Dx Acute on Chronic Respiratory Failure CO2 retention COPD exacerbation Pneumonia CXR from ER shows increasing interstitial markings in bilateral lobes Hyperglycemia Likely due to steroid administration Anemia Hb down from 11.4 to 9.5 today Start insulin sliding scale A Repeat CXR Heme Occult test Solumedrol Azithromycin/Ceftriaxone Supplemental Oxygen Lactated Ringers Supervisory-Addendum Brief Verification & Attestation Participated in pt care: history, MDM, physical Personally performed: exam, history, MDM, supervision of care Care discussed with: Medical Student Procedures: n/a Results interpretation: Verified all documentation Respiratory failure Pneumonia COPD Exacerbation with CO2 retention Anemia Hyperglycemia Elevated Procalcitonin Weakness Hypothyroidism Respiratory failure due to Pneumonia and COPD Exacerbation with CO2 retention - pt was placed on BIPAP for respiratory support - consult was placed to Pulmonology for additional insight into supportive treatments and recommendations for further outpatient management/support for the patient's chronic pulmonary disease. We will get the patient set up for CPAP for chronic CO2 retention - RX for cephalosporin and azithromycin for pneumonia - RX for solumedrol for treatment of COPD exacerbation inflammation Anemia - stable - checked hemoccult stool.- negative Hyperglycemia - sliding scale A and blood glucose readings ac/hs Elevated Procalcitonin - due to pulmonary distress/infection Weakness - will start therapy tomorrow if her pulmonary function is improved. Hypothyroidism - check tsh/free T4 GI prophylaxis with ppi DVT prophylaxis with scd's and anticoag CHING BERNAL Nov 21, 2022 07:31 ANABELA PORTER MD Nov 21, 2022 09:56
[2022-11-21] MEDS ORDERED: NON-FORMULARY MEDICATION 1 EA EA (Cetirizine HCl 10 MG) PO SCH (09:00)
--- NOTE | 2022-11-21 09:47 | Diagnostic Imaging Report ---
INDICATION: Follow-up pneumonia. COMPARISON: 11/20/2022 FINDINGS: Single frontal radiograph view of the chest was obtained and demonstrates persistent, but improved infiltrate within the inferolateral margins of the right upper lobe. Left lung is relatively clear. Background emphysematous changes are noted. There is no large effusion or pneumothorax. Cardiac silhouette and pulmonary vasculature are within normal limits. Osseous structures show no gross acute interval change. IMPRESSION: 1. Persistent, but improved right-sided infiltrate. Dictated by: Dictated on workstation # [id number]
[2022-11-21] MEDS: ENOXAPARIN 40 MG/0.4 ML (LOVENOX) SYR SC SCH (10:15)
[2022-11-21] MEDS: LORATADINE (CLARITIN) 10 MG TAB PO SCH (10:16)
--- NOTE | 2022-11-21 12:49 | ST Dysphagia Evaluation ---
Speech Evaluation-General Medical Diagnosis Hypoxic Respiratory Failure Onset Date: Nov 19, 2022 Therapy Diagnosis Therapy Diagnosis: Suspected Oropharyngeal Dysphagia Precautions Precautions: Fall, Pressure Ulcer, Aspiration Precautions/Isolations: Aspiration, Fall Prevention, Standard Precautions, Pressure Ulcer Referral Referring Physician: Dr. Tamra Campos Reason for Referral: Evaluation/Treatment Medical History Pertinent Medical History: Arthritis, GERD, Hypothroidism, Smoking Current History The patient is an 82 year-old female with a past medical history of pneumonia, sleep apnea, COPD, emphysema, HTN, GERD, arthritis, hypothyroidism, anxiety, and depression, who arrived to [facility] with shortness of breath. The patient was admitted with a diagnosis of hypoxic respiratory failure. CXR: 11/21/22: 1. Persistent, but improved right-sided infiltrate. Speech PLF/Current-Dysphagia Prior Level of Function The patient stated she consumes a regular consistency diet with thin liquids at home (however, the patient's son stated she consumes soft diet at home). The patient states she consumes smaller, more frequent meals because, "It's gets to right here (her mid esophageal region) and doesn't go down." Subjective Upon entrance, the patient was wearing BiPAP. The RN removed the patient from BiPAP and placed her on 8L supplemental oxygen via nasal cannula. Per patient's son, the patient wears a face mask throughout the day. The mask is removed (or moved to the side) during meals. While the nasal cannula is in place, the patient takes short, shallow breaths through her mouth regardless of the clinician's verbal cues to breath in through her nose where the oxygen is located. Per patient, "I choked two times yesterday. One was on meatloaf." Prior to P.O. intake, following the patient's medical chart review and dis cussion with the patient's son, the patient is at a high risk for aspiration due to the increased level of oxygen needed and her past medical history. Cognitive Status Patient Orientation: Person, Place, Time, Situation Oral Motor Skills Dentition: Edentalous (Upper.), Natural (Lower.) Current Food Consistancy: Regular, Thin Liquids Ability to Follow Directions: Good Oral Expression Ability: Mild Impairment Voice Voice Phonatory-Based Quality: Weak, Phonation Breaks Voice Pitch: Normal Voice Loudness: Normal Face Facial Symmetry: Symmetrical Oral-Facial Assessment Oral-Facial Dentition: Normal Labial Seal Description: Normal Smile: Normal Puff Cheeks: Normal Lingual Protrusion: Normal Lingual ROM: Normal Lingual Strength: Normal Volitional Dry Swallow: Yes Voluntary Cough: Yes Can Clear Throat Volitionally: Yes Productive Cough: Yes Productive Throat Clear: Yes Dysphagia Evaluation Consistencies Presented: Regular, Thin Liquid, Pureed Prolonged mastication time was present with solid consistencies. Additionally, the patient's respiratory effort and rate increased from 22 bpm to 65 bpm. Overa ll, the patient appeared greatly fatigued with mastication. Laryngeal elevation was present to palpation. Overt pharyngeal concerns were not present. The clinician is concerned of the patient's ability to appropriately time inhalation and swallowing. While the patient does not display overt s/s of suspected aspiration with teaspoons of thin liquid, straw drinks of thin liquid, puree, or solid, the patient appears greatly fatigued with increasing respiratory rate and effort. The patient is able to recover with small rest breaks throughout bolus trials. The clinician is greatly concerned of the patient's ability to coordinate the respiratory/swallow cycle. Dietary Recommendations: Mechanical Soft (MM5) Liquid Recommendations: Thin Recommendations: - MM5 (minced and moist) consistency with thin liquids, as tolerated. - Fully upright and alert for P.O. intake. - Cease P.O. intake during periods of respiratory fatigue. - Consume smaller, more frequent meals to aid in energy conservation and stable respiratory rate. - Crush medication and place in puree for administration. - Monitor for s/s of suspected aspiration with P.O. intake. If demonstrated, place the patient N.P.O. and contact speech pathology. - Completion of a modified barium swallow evaluation (scheduled for 11/22/22 at 0945). - Speech pathology to continue monitoring the oropharyngeal swallow function three times per week or as appropriate. Due to the patient's high risk for aspiration (including silent aspiration due to her prior medical history of COPD and high level of supplemental oxygen), the clinician recommends a modified barium swallow. The patient and the patient's son agree to the plan of care and deny additional questions at this time. The above recommendations were discussed extensively to the patient and provided to the patient's RN. Dysphagia Evaluation Summary The patient is at a high risk for aspiration secondary to her prior medical history of COPD and her current respiratory needs. The clinician is concerned of the patient's ability to coordinate the inhalation and swallowing cycling without aspirating bolus material from the oral cavity. Due to this, a modified barium swallow has been recommended. Speech Short Term Goals Short Term Goals Short Term Goals 1. The patient will tolerate trials of the least restrictive diet consistency without s/s of suspected aspiration. 2. The patient will display safe swallowing strategies with 80% accuracy, independently. Time Frame-STG: Three Days. Speech Penitentiary Goals Penitentiary Goals 1. The patient will tolerate the least restrictive diet consistency without s/s of suspected aspiration. Time Frame: One Week. Speech-Plan Treatment Plan Speech Therapy Treatment Plan: Continue Plan of Care Treatment Duration: Nov 30, 2022 Frequency: 4 times per week Estimated Hrs Per Day: .25 hour per day Rehab Potential: Guarded Safety Risks/Education Teaching Recipient: Patient, Family Teaching Methods: Discussion Response to Teaching: Reinforcement Needed Education Topics Provided: Results, Recommendations, Plan of Care, Safe Swallowing Procedures Time Speech Therapy Time In: 09:00 Speech Therapy Time Out: 09:40 DATE: Nov 21, 2022 Total Billed Time: 40 Billed Treatment Time 1, WALE [facility] Nov 21, 2022 12:49
[2022-11-21] MEDS: cefTRIAXone 1 GM PRE-MIX 50 ML IV SCH (12:54)
[2022-11-21] MEDS: AZITHROMYCIN 500 MG/NS 250 ML IVPB IV SCH ×2 (12:56)
[2022-11-21] MEDS: LACTATED RINGERS 1,000 ML IV SCH (14:45)
[2022-11-21] MEDS: ALPRAZolam 0.25 MG (XANAX) TAB PO PRN (17:04)
[2022-11-21] MEDS: traZODone 50 MG (DESYREL) TAB PO SCH (21:17)
[2022-11-21] MEDS: MONTELUKAST 10 MG (SINGULAIR) TAB PO SCH (21:17)
[2022-11-22] VITALS (8 sets, daily range): BP systolic 142–152; BP diastolic 77–91
[2022-11-22] MEDS: methylPREDNISolone 40 MG/ML (Solu-MEDROL) VIAL IV SCH ×4 (00:06→20:46)
[2022-11-22] MEDS: LACTATED RINGERS 1,000 ML IV SCH ×3 (00:07→22:50)
[2022-11-22] MEDS: RT-ALBUTEROL/IPRATROPIUM 3 ML (DUONEB) VIAL INH SCH ×5 (03:15→20:31)
[2022-11-22] MEDS: ACETAMINOPHEN 500 MG TAB (TYLENOL) PO PRN (03:57)
[2022-11-22] MEDS: ALPRAZolam 0.25 MG (XANAX) TAB PO PRN ×3 (03:57→22:24)
[2022-11-22 06:15] LABS: BASOPHILS % (AUTO) 0 % (0-10); EOSINOPHILS % (AUTO) 0 % (0-10); HEMATOCRIT 32 % (35-52); HEMOGLOBIN 9.7 g/dL (11.5-16.0); LYMPHOCYTES # (AUTO) 0.5 10^3/uL (1.0-4.0); LYMPHOCYTES % (AUTO) 9 % (12-44); MEAN CORPUSCULAR HEMOGLOBIN 29 pg (25-34); MEAN CORPUSCULAR HGB CONC 30 g/dL (32-36); MEAN CORPUSCULAR VOLUME 97 fL (80-99); MEAN PLATELET VOLUME 10.1 fL (9.0-12.2); MONOCYTES # (AUTO) 0.4 10^3/uL (0.0-1.0); MONOCYTES % (AUTO) 7 % (0-12); NEUTROPHILS # (AUTO) 4.3 10^3/uL (1.8-7.8); NEUTROPHILS % (AUTO) 82 % (42-75); PLATELET COUNT 166 10^3/uL (130-400); WHITE BLOOD COUNT 5.3 10^3/uL (4.3-11.0)
[2022-11-22 06:16] LABS: POTASSIUM 4.1 MMOL/L (3.6-5.0)
[2022-11-22 06:17] LABS: CALCIUM 8.6 MG/DL (8.5-10.1)
[2022-11-22 06:18] LABS: TOTAL PROTEIN 6.5 GM/DL (6.4-8.2)
[2022-11-22 06:20] LABS: BILIRUBIN,TOTAL 0.1 MG/DL (0.1-1.0)
[2022-11-22] MEDS: LEVOTHYROXINE 50 MCG (LEVOTHROID) TAB PO SCH (06:20)
[2022-11-22] MEDS: inSUlin ASPART (NovoLOG) 1 UNIT/0.01 ML (CHARGE PER UNIT) SC SCH ×4 (06:20→20:46)
[2022-11-22 06:22] LABS: CREATININE SERUM 0.75 MG/DL (0.60-1.30)
[2022-11-22] MEDS ORDERED: DEXTROSE 50% 50 ML (IMS) SYR IV ONE (07:30)
--- NOTE | 2022-11-22 08:24 | Progress Note ---
Subjective Subjective Date Seen by Provider: Nov 22, 2022 Time Seen by Provider: 08:20 Pt reports that she is feeling better today. She states that she is anxious about going home because her son "preaches to me about what I should be doing, so I turn off my hearing aides sometimes". She states that she knows he loves her and is "preaching at me" to do the things that will make me better, but she just wants to do things her own way sometimes even if it is not right. She states that she is trying to work on doing the things that will help to make her better so Louis does not have to be so worried about her. She reports a significant amount of anxiety all of the time, worse when she is short of breath. Review of Systems General: No Chills; Fatigue, Appetite (hungry) Pulmonary: Dyspnea, Cough Cardiovascular: No: Chest Pain, Palpitations Gastrointestinal: No: Nausea, Abdominal Pain Neurological: Weakness, Other (anxiety) All Other Systems Reviewed All Other Systems Reviewed: Yes Objective Exam Vital Signs Vital Signs Date Time Temp Pulse Resp B/P (MAP) Pulse Ox O2 Delivery O2 Flow Rate FiO2 11/22/22 07:35 98 High Flow N/C 6.00 11/22/22 07:00 64 11/22/22 06:30 Nasal Cannula 5.00 11/22/22 03:41 36.1 69 20 147/91 (109) 94 NIV Bilevel 35.00 11/22/22 03:20 60 22 99 50.00 11/22/22 03:12 NIV Bilevel 35.00 11/22/22 01:31 NIV Bilevel 50.00 11/22/22 01:00 52 11/22/22 00:00 36.5 69 28 152/77 (102) 97 NIV Bilevel 80.00 11/21/22 22:04 58 21 95 30.00 11/21/22 22:02 NIV Bilevel 30.00 11/21/22 20:00 94 Nasal Cannula 5.00 11/21/22 20:00 36.4 65 19 142/90 (107) 97 Nasal Cannula 6.00 11/21/22 19:00 71 11/21/22 15:28 37.2 88 20 140/70 (93) 94 Room Air 11/21/22 15:15 98 High Flow N/C 6.00 11/21/22 13:36 67 11/21/22 12:53 37.3 75 21 140/79 (99) 98 11/21/22 10:22 98 High Flow N/C 8.00 I & O 11/22/22 07:00 Intake Total 1880 ml Output Total 600 ml Balance 1280 ml General Appearance: WD/WN, Mild Distress (due to shortness of breath/anxiety), Obese HEENT: PERRL/EOMI, Pharynx Normal Respiratory: Chest Non Tender, Accessory Muscle Use, Decreased Breath Sounds (with some wheezing at times) Cardiovascular: Regular Rate, Rhythm, No Edema, No Murmur Gastrointestinal: Normal Bowel Sounds, Non Tender, Soft Rectal: Deferred Back: Normal Inspection, No CVA Tenderness, No Vertebral Tenderness Extremity: No Calf Tenderness, No Pedal Edema Neurologic/Psychiatric: Alert, Oriented x3, No Motor/Sensory Deficits, Normal Mood/Affect Skin: Normal Color, Warm/Dry Lymphatic: No Adenopathy Results Lab Laboratory Tests 11/21/22 11:20: Glucometer 175H 11/21/22 15:37: Glucometer 140H 11/21/22 20:10: Glucometer 147H 11/22/22 05:31: White Blood Count 5.3, Red Blood Count 3.34L, Hemoglobin 9.7L, Hematocrit 32L, Mean Corpuscular Volume 97, Mean Corpuscular Hemoglobin 29, Mean Corpuscular Hemoglobin Concent 30L, Red Cell Distribution Width 14.3, Platelet Count 166, Mean Platelet Volume 10.1, Immature Granulocyte % (Auto) 3, Neutrophils (%) (Auto) 82H, Lymphocytes (%) (Auto) 9L, Monocytes (%) (Auto) 7, Eosinophils (%) (Auto) 0, Basophils (%) (Auto) 0, Neutrophils # (Auto) 4.3, Lymphocytes # (Auto) 0.5L, Monocytes # (Auto) 0.4, Eosinophils # (Auto) 0.0, Basophils # (Auto) 0.0, Immature Granulocyte # (Auto) 0.1, Sodium Level 141, Potassium Level 4.1, Chloride Level 102, Carbon Dioxide Level 30, Anion Gap 9, Blood Urea Nitrogen 22H, Creatinine 0.75, Estimat Glomerular Filtration Rate 80, BUN/Creatinine Ratio 29, Glucose Level 187H, Calcium Level 8.6, Corrected Calcium 9.4, Total Bilirubin 0.1, Aspartate Amino Transf (AST/SGOT) 13, Alanine Aminotransferase (ALT/SGPT) 11, Alkaline Phosphatase 61, Total Protein 6.5, Albumin 3.0L 11/22/22 06:06: Glucometer 178H Microbiology 11/19/22 Blood Culture - Preliminary, Resulted No growth Assessment/Plan Assessment/Plan Admission Dx Respiratory failure Pneumonia COPD Exacerbation with CO2 retention Anemia Hyperglycemia Elevated Procalcitonin Weakness Hypothyroidism Assessment and Plan Respiratory failure Pneumonia COPD Exacerbation with CO2 retention Anemia Hyperglycemia Elevated Procalcitonin Weakness Hypothyroidism Anxiety Respiratory failure due to Pneumonia and COPD Exacerbation with CO2 retention - pt was placed on BIPAP for respiratory support - consult was placed to Pulmonology for additional insight into supportive treatments and recommendations for further outpatient management/support for the patient's chronic pulmonary disease. We will get the patient set up for CPAP for chronic CO2 retention (order sent to [facility]) - RX for cephalosporin and azithromycin for pneumonia - RX for solumedrol for treatment of COPD exacerbation inflammation - dosing decreased Anemia - stable - checked hemoccult stool.- negative Hyperglycemia - sliding scale A and blood glucose readings ac/hs Elevated Procalcitonin - due to pulmonary distress/infection Weakness - will start therapy tomorrow if her pulmonary function is improved. Hypothyroidism - checked tsh/free T4 - free T4 stable, continue current regimen Anxiety - schedule low dose of anxiolytic Swing bed eval for a few more days in the hospital GI prophylaxis with ppi DVT prophylaxis with scd's and anticoag Admission Dx Respiratory failure Pneumonia COPD Exacerbation with CO2 retention Anemia Hyperglycemia Elevated Procalcitonin Weakness Hypothyroidism Clinical Quality Measures Admission Status Admission Dx Respiratory failure Pneumonia COPD Exacerbation with CO2 retention Anemia Hyperglycemia Elevated Procalcitonin Weakness Hypothyroidism ANABELA PORTER MD Nov 22, 2022 08:24
[2022-11-22] MEDS: LORATADINE (CLARITIN) 10 MG TAB PO SCH (08:26)
[2022-11-22] MEDS: ENOXAPARIN 40 MG/0.4 ML (LOVENOX) SYR SC SCH (08:26)
--- NOTE | 2022-11-22 10:38 | ST Mod Barium Swallow ---
Speech Evaluation-General Medical Diagnosis Hypoxic Respiratory Failure Onset Date: Nov 19, 2022 Therapy Diagnosis Therapy Diagnosis: Mild Oropharyngeal Dysphagia Precautions Precautions: Fall, Pressure Ulcer, Aspiration Precautions/Isolations: Aspiration, Fall Prevention, Standard Precautions Referral Referring Physician: Dr. Campos Reason for Referral: Evaluation/Treatment Medical History Pertinent Medical History: Arthritis, GERD, Hypothroidism, Smoking Reviewed History: Yes Speech Mod Barium Swallow Prior Level of Function Please find prior level of P.O. intake consistency details located in the clinical bedside swallowing report details. Oral Motor Skills Dentition Natural Dentures: Partial Lower (Sparse.) Dentition Comments: The patient stated she has upper dentures but "They make me choke." Lingual Protrusion: Normal Lingual ROM: Normal Lingual Strength: Normal Volitional Dry Swallow: Yes Voluntary Cough: Yes Can Clear Throat Volitionally: Yes Textures-Lateral View Lateral View Food Presentation: Thin Liquid via Straw, Pureed Solids, Regular Solids Oral Phase Labial Closure: No Impairment (WFL) Bolus Formation Pooling L/R: Mild Impairment Bolus Formation Placement: No Impairment (WFL) Prolonged mastication of solid consistencies appreciated. A/P Lingual Propulsion: No Impairment (WFL) Lingual Movement: Mild Impairment Prolonged mastication of the solid consistency was appreciated, as mastication appeared more like a mashing motion. Premature spillage of thin liquids was observed to the level of the valleculae consistently. One occurrence of premature spillage of a large bolus of thin liquid reached the laryngeal surface of the epiglottis resulting in flash laryngeal penetration of thin liquids prior to the swallow. Pharyngeal Phase Swallow Response: No Impairment (WFL) Base of Tongue: Minimal Impairment Epiglottic Movement: No Impairment (WFL) Laryngeal Elevation: No Impairment (WFL) Vallecular Residue: Mild Pharyngeal Wall Residue: Mild Piriform Sinus Residue: Mild Laryngeal Penetration: Mild Aspiration Observations: None The patient initiated the pharyngeal swallow onset as the head of the bolus reached the angle of the mandible and base of tongue. Complete hyo-laryngeal excursion and laryngeal elevation occurred which resulted in complete epiglottic inversion. No laryngeal penetration or aspiration occurred with any consistency during or following the swallow. The one episode of flash laryngeal penetration with thin liquids occurred prior to the swallow secondary to premature spillage onto the laryngeal surface of the epiglottis. Minimally reduced base of tongue and pharyngeal contraction were present which resulted in mild vallecular, pharyngeal wall, and pyriform sinus residue. Complete clearance of bolus material through the cricopharyngeal region was appreciated. Summary/Impressions The patient demonstrated mild oropharyngeal dysphagia secondary to poor lingual coordination, absent posterior dentition, decreased base of tongue retraction and reduced pharyngeal contraction. One occurrence of flash laryngeal penetration occurred with a large bolus of thin liquid prior to the swallow secondary to premature spillage. No laryngeal penetration or aspiration occurred with small drinks of thin liquid, puree, soft solid or solid. Recommendations: - MM5 with thin liquids, as tolerated. Due to the patient's high oxygen needs, a soft diet consistency remains appropriate for energy conservation and ease of mastication. - Fully upright and alert for P.O. intake. - SMALL, single bites and sips, only. - Cease P.O. intake during periods of respiratory fatigue. - Smaller, more frequent meals for energy conservation. - Crush medication and place in puree for administration. - Remain upright for 30 minutes following P.O. intake. - Monitor for s/s of suspected aspiration with P.O. intake. If demonstrated, place the patient N.P.O. and contact speech pathology. - Speech pathology to continue to monitor the patient's tolerance with the current diet consistency and progression throughout acute care. The results and recommendations were immediately provided to the patient following the study. The patient denied questions or concerns for the clinician at this time. Speech Short Term Goals Short Term Goals Short Term Goals 1. The patient will tolerate trials of the least restrictive diet consistency without s/s of suspected aspiration. 2. The patient will display safe swallowing strategies with 80% accuracy, independently. Time Frame-STG: Three Days. Speech Chcf Goals Chcf Goals 1. The patient will tolerate the least restrictive diet consistency without s/s of suspected aspiration. Time Frame: One Week. Speech-Plan Treatment Plan Speech Therapy Treatment Plan: Continue Plan of Care Treatment Duration: Nov 30, 2022 Frequency: 4 times per week Estimated Hrs Per Day: .25 hour per day Rehab Potential: Guarded Safety Risks/Education Teaching Recipient: Patient Teaching Methods: Discussion Response to Teaching: Verbalize Understanding, Reinforcement Needed Education Topics Provided: Results, Recommendations, Safe Swallowing Precautions Time Speech Therapy Time In: 09:45 Speech Therapy Time Out: 10:05 DATE: Nov 22, 2022 Total Billed Time: 20 Billed Treatment Time 1, MOD, SHERI CLAUDIO Nov 22, 2022 10:38
--- NOTE | 2022-11-22 10:44 | Diagnostic Imaging Report ---
INDICATION: Dysphagia. TECHNIQUE: Procedure was performed in conjunction with speech pathology. Videofluoroscopy was performed during the swallowing of barium in multiple consistencies. 0.8 minutes of fluoroscopic time was utilized. FINDINGS: Patient ingested thin as well as puree and solid consistency. Oral phase is unremarkable. There is normal epiglottic tilt and laryngeal elevation. Swallow study is essentially unremarkable. There was a single episode of flash penetration during the swallowing of a large volume of thin barium. No aspiration was observed. No significant vallecular residue is seen. IMPRESSION: Unremarkable modified barium swallow. Dictated by: Dictated on workstation # [id number]
[2022-11-22] MEDS ORDERED: ARTIFICAL TEARS 0.4 ML UNIT DOSE (REFRESH PLUS) OD PRN (13:15)
[2022-11-22] MEDS: AZITHROMYCIN 500 MG/NS 250 ML IVPB IV SCH ×2 (13:26)
[2022-11-22] MEDS: cefTRIAXone 1 GM PRE-MIX 50 ML IV SCH (13:26)
--- NOTE | 2022-11-22 14:19 | Physical Therapy Evaluation ---
PT Evaluation-General Medical Diagnosis Admission Date Nov 19, 2022 at 14:11 Medical Diagnosis: Hypoxic Respiratory Failure Onset Date: Nov 19, 2022 Therapy Diagnosis Therapy Diagnosis: debility/weakness Height/Weight Height (Feet): 5 Height (Inches): 0.00 Weight (Pounds): 159 Weight (Ounces): 0.0 Precautions Precautions/Isolations: Aspiration, Fall Prevention, Standard Precautions, Pressure Ulcer Referral Physician: Beth Reason for Referral: Evaluation/Treatment Medical History Pertinent Medical History: Arthritis, COPD (O2 dependent 2-5L), GERD, Hypothroidism, Smoking Current History EMS from home secondary to increase SOA and decreased SAO2 on home O2. Reviewed History: Yes Social History Home: Single Level Current Living Status: Children Entry Into Home: Stairs With Railing PT Steps Into Home: 4 Prior Prior Level of Function SCALE: Activities may be completed with or without assistive devices. 8-Dqezjcyjfa-zimvcid completes the activity by him/herself with no assistance from a helper. 5-Set-up or Clean-up Assistance-helper sets up or cleans up; patient completes activity. [place] assists only prior to or following the activity. 4-Supervision or Touching Assistance-helper provides verbal cues and/or touching/steadying and/or contact guard assistance as patient completes activity. Assistance may be provided throughout the activity or intermittently. 3-Partial/Moderate Assistance-helper does LESS THAN HALF the effort. [place] lifts, holds or supports trunk or limbs, but provides less than half the effort. 2-Substantial/Maximal Assistance-helper does MORE THAN HALF the effort. [place] lifts or holds trunk or limbs and provides more than half the effort. 7-Dthhwlwzw-mzdzte does ALL the effort. Patient does none of the effort to complete the activity. Or, the assistance of 2 or more helpers is required for the patient to complete the activity. If activity was not attempted, code reason: 7-Patient Refused. 9-Not Applicable-not attempted and the patient did not perform the activity before the current illness, exacerbation or injury. 10-Not Attempted due to Environmental Limitations-(lack of equipment, weather restraints, etc.). 88-Not Attempted due to Medical Conditions or Safety Concerns. Bed Mobility: 6 Transfers (B,C,W/C): 6 Gait: 6 Stairs: 6 Indoor Mobility (Ambulation): Independent Stairs: Independent Prior Devices Use: Walker (4WW) Patient states she puts her O2 tank in the basket of her 4WW for mobility in home PT Evaluation-Current Subjective Patient agrees to PT. Objective Patient Orientation: Normal For Age Attachments: Oxygen, Guzman Catheter ROM/Strength ROM Lower Extremities bilateral LE WFL Strength Lower Extremities 3+/5 grossly bilateral LE all planes Integumentary/Posture Bowel Incontinence: Yes Bladder Incontinence: Guzman Cath Posture WFL Neuromuscular (Tone, Coordination, Reflexes) grossly intact Sensory Vision: Wears Glasses Hearing: Impaired Transfers Roll Left to Right (QC): 6 Lying to Sitting/Side of Bed(Q: 6 Sit to Stand (QC): 4 (SBA) Toilet Transfer (QC): 4 (SBA) Gait Mode of Locomotion: Walk Anticipated Mode of Locomotion: Walk Walk 10 feet (QC): 4 Walk 50 ft with 2 Turns(QC): 4 Walk 150 ft (QC): 88 Distance: 50' Gait Assistive Device: FWW Comments/Gait Description safe and functional gait sequence Balance Sitting Static: Normal Sitting Dynamic: Normal Standing Static: Normal Standing Dynamic: Normal Assessment/Needs Noted increase SOA with minimal activity. Per patient, this is normal. Patient will benefit from skilled PT to address pulmonary function with functional mobility to ensure safe return to home with son. Rehab Potential: Fair PT Mcc Goals Environmental Communications Specialist Goals PT Mcc Goals Time Frame: Dec 01, 2022 Roll Left & Right (QC): 6 Sit to Lying (QC): 6 Lying-Sitting on Side/Bed(QC): 6 Sit to Stand (QC): 6 Chair/Knx-qz-Lyuqs Xfer(QC): 6 Toilet Transfer (QC): 6 Walk 10 feet (QC): 5 Walk 50ft with 2 Turns (QC): 5 Walk 150 ft (QC): 5 PT Plan Problem List Problem List: Activity Tolerance Treatment/Plan Treatment Plan: Continue Plan of Care Treatment Plan: Education, Functional Activity Garo, Functional Strength, Gait, Safety, Therapeutic Exercise Treatment Duration: Dec 01, 2022 Frequency: 6 times per week Estimated Hrs Per Day: .25 hour per day Patient and/or Family Agrees t: Yes Time Time In: 1342 Time Out: 1354 DATE: Nov 22, 2022 Total Billed Treatment Time: 12 Total Billed Treatment 1 visit EVMod 12 IWONA Olsen PT Nov 22, 2022 14:19
[2022-11-22] MEDS: MONTELUKAST 10 MG (SINGULAIR) TAB PO SCH (20:46)
[2022-11-22] MEDS: traZODone 50 MG (DESYREL) TAB PO SCH (22:24)
[2022-11-23] VITALS: BP 143/80
[2022-11-23] MEDS: RT-ALBUTEROL/IPRATROPIUM 3 ML (DUONEB) VIAL INH SCH ×2 (03:09→09:42)
[2022-11-23 04:00] VITALS: BP 160/86
[2022-11-23 04:44] LABS: BASOPHILS % (AUTO) 0 % (0-10); EOSINOPHILS % (AUTO) 0 % (0-10); HEMATOCRIT 34 % (35-52); HEMOGLOBIN 10.2 g/dL (11.5-16.0); LYMPHOCYTES # (AUTO) 0.7 10^3/uL (1.0-4.0); LYMPHOCYTES % (AUTO) 9 % (12-44); MEAN CORPUSCULAR HEMOGLOBIN 29 pg (25-34); MEAN CORPUSCULAR HGB CONC 30 g/dL (32-36); MEAN CORPUSCULAR VOLUME 96 fL (80-99); MEAN PLATELET VOLUME 9.8 fL (9.0-12.2); MONOCYTES # (AUTO) 0.6 10^3/uL (0.0-1.0); MONOCYTES % (AUTO) 8 % (0-12); NEUTROPHILS # (AUTO) 6.1 10^3/uL (1.8-7.8); NEUTROPHILS % (AUTO) 77 % (42-75); PLATELET COUNT 182 10^3/uL (130-400); WHITE BLOOD COUNT 7.9 10^3/uL (4.3-11.0)
[2022-11-23 05:06] LABS: ALBUMIN 3.2 GM/DL (3.2-4.5); BILIRUBIN,TOTAL 0.2 MG/DL (0.1-1.0); CALCIUM 8.4 MG/DL (8.5-10.1); CREATININE SERUM 0.74 MG/DL (0.60-1.30); POTASSIUM 4.1 MMOL/L (3.6-5.0); TOTAL PROTEIN 6.6 GM/DL (6.4-8.2)
[2022-11-23] MEDS: ALPRAZolam 0.25 MG (XANAX) TAB PO PRN (05:26)
[2022-11-23] MEDS: LEVOTHYROXINE 50 MCG (LEVOTHROID) TAB PO SCH (05:26)
[2022-11-23] MEDS: methylPREDNISolone 40 MG/ML (Solu-MEDROL) VIAL IV SCH (05:27)
[2022-11-23] MEDS: ACETAMINOPHEN 500 MG TAB (TYLENOL) PO PRN (05:27)
[2022-11-23] MEDS: inSUlin ASPART (NovoLOG) 1 UNIT/0.01 ML (CHARGE PER UNIT) SC SCH ×2 (06:31→12:23)
--- NOTE | 2022-11-23 07:29 | Progress Note ---
Subjective Subjective Date Seen by Provider: Nov 23, 2022 Time Seen by Provider: 07:31 Vilma is no longer on BiPAP this morning, she states she has been able to use NC instead without any difficulties. She also states she feels like her breathing has improved. However, she Vilma reports that starting physical th erapy yesterday has made her feel "more stressed out". She states that she would prefer to use her walker from home to move around because "it has wheels" and "she does not have to pick it up to turn it". She reports a history of left shoulder problems. She also states that her "stress medication is helping", but she wants it to be given more often. Denies any chest pain or other complaints at this time. Review of Systems General: No Chills; Fatigue Pulmonary: Dyspnea, Cough Cardiovascular: No: Chest Pain, Palpitations Gastrointestinal: No: Nausea, Abdominal Pain Neurological: Weakness, Other (anxiety) All Other Systems Reviewed All Other Systems Reviewed: Yes Objective Exam Vital Signs Vital Signs Date Time Temp Pulse Resp B/P (MAP) Pulse Ox O2 Delivery O2 Flow Rate FiO2 11/23/22 04:00 36.9 66 22 160/86 (110) 94 NIV Bilevel 11/23/22 03:10 65 28 96 35.00 11/23/22 01:00 70 11/23/22 00:00 37.0 65 20 143/80 (101) 98 NIV Bilevel 11/22/22 23:10 72 33 96 35.00 11/22/22 20:32 96 High Flow N/C 5.00 11/22/22 20:00 98 Nasal Cannula 5.00 11/22/22 20:00 36.2 90 28 143/86 (105) 97 Nasal Cannula 5.00 11/22/22 19:00 75 11/22/22 16:00 36.6 74 17 146/90 (108) 94 Nasal Cannula 5.00 11/22/22 14:41 100 High Flow N/C 6.00 11/22/22 12:54 61 11/22/22 12:00 36.6 67 17 152/78 (102) 97 Nasal Cannula 6.00 11/22/22 08:00 95 Nasal Cannula 5.00 11/22/22 08:00 36.4 65 29 150/83 (105) Nasal Cannula 6.00 11/22/22 07:35 98 High Flow N/C 6.00 I & O 11/23/22 06:59 Intake Total 1895 ml Output Total 650 ml Balance 1245 ml General Appearance: WD/WN, Mild Distress (due to shortness of breath/anxiety), Obese HEENT: PERRL/EOMI, Pharynx Normal Respiratory: Chest Non Tender, Accessory Muscle Use, Respiratory Distress, Wheezing (throughout bilateral lung regan ) Cardiovascular: Regular Rate, Rhythm, No Edema, No Murmur Gastrointestinal: Normal Bowel Sounds, Non Tender, Soft Rectal: Deferred Back: Normal Inspection, No CVA Tenderness, No Vertebral Tenderness Extremity: No Calf Tenderness, No Pedal Edema Neurologic/Psychiatric: Alert, Oriented x3, No Motor/Sensory Deficits, Normal Mood/Affect Skin: Normal Color, Warm/Dry Lymphatic: No Adenopathy Results Lab Laboratory Tests 11/22/22 10:31: Glucometer 150H 11/22/22 15:40: Glucometer 145H 11/22/22 20:21: Glucometer 193H 11/23/22 04:30: White Blood Count 7.9, Red Blood Count 3.57L, Hemoglobin 10.2L, Hematocrit 34L, Mean Corpuscular Volume 96, Mean Corpuscular Hemoglobin 29, Mean Corpuscular Hemoglobin Concent 30L, Red Cell Distribution Width 14.3, Platelet Count 182, Mean Platelet Volume 9.8, Immature Granulocyte % (Auto) 5, Neutrophils (%) (Auto) 77H, Lymphocytes (%) (Auto) 9L, Monocytes (%) (Auto) 8, Eosinophils (%) (Auto) 0, Basophils (%) (Auto) 0, Neutrophils # (Auto) 6.1, Lymphocytes # (Auto) 0.7L, Monocytes # (Auto) 0.6, Eosinophils # (Auto) 0.0, Basophils # (Auto) 0.0, Immature Granulocyte # (Auto) 0.4H, Sodium Level 142, Potassium Level 4.1, Chloride Level 101, Carbon Dioxide Level 34H, Anion Gap 7, Blood Urea Nitrogen 18, Creatinine 0.74, Estimat Glomerular Filtration Rate 82, BUN/Creatinine Ratio 24, Glucose Level 145H, Calcium Level 8.4L, Corrected Calcium 9.0, Total Bilirubin 0.2, Aspartate Amino Transf (AST/SGOT) 13, Alanine Aminotransferase (ALT/SGPT) 16, Alkaline Phosphatase 57, Total Protein 6.6, Albumin 3.2 Microbiology 11/19/22 Blood Culture - Preliminary, Resulted No growth Assessment/Plan Assessment/Plan Admission Dx Respiratory failure Pneumonia COPD Exacerbation with CO2 retention Anemia Hyperglycemia Elevated Procalcitonin Weakness Hypothyroidism Assessment and Plan Respiratory failure due to Pneumonia and COPD Exacerbation with CO2 retention - pt was placed on BIPAP for respiratory support - consult to Pulmonology for additional insight into supportive treatments in the hospital, and recommendations for further outpatient management/support for the patient's chronic pulmonary disease. - RX for cephalosporin and azithromycin for pneumonia - RX for solumedrol for treatment of COPD exacerbation inflammation Anemia - Hb is improved today from 9.7 yesterday to 10.2 today - heme occult stool was negative Hyperglycemia - sliding scale A and blood glucose readings ac/hs Elevated Procalcitonin - due to pulmonary distress/infection - resolved Weakness - will start therapy tomorrow if her pulmonary function is improved. Hypothyroidism - check tsh/free T4 - TSH low at 0.31 - T4 levels are WNL Anxiety - anxiolytic Q6hr PRN Patient will remain on swing bed for a few more days, before she can be DC. Admission Dx Respiratory failure Pneumonia COPD Exacerbation with CO2 retention Anemia Hyperglycemia Elevated Procalcitonin Weakness Hypothyroidism Clinical Quality Measures Admission Status Admission Dx Respiratory failure Pneumonia COPD Exacerbation with CO2 retention Anemia Hyperglycemia Elevated Procalcitonin Weakness Hypothyroidism Supervisory-Addendum Brief Verification & Attestation Participated in pt care: history, MDM, physical Personally performed: exam, history, MDM, supervision of care Care discussed with: Medical Student Procedures: n/a Results interpretation: Verified all documentation see my dc summary for full details. extend iv azithromycin x 5 more days per recommendations from contract forester decrease solumedrol from tid to bid, will transition to oral steroids for tomorrow. dc ro[facility] place pure wick device for pt's urinary incontinence continue with therapy dc fluids monitor symptoms planning on swing bed to be initiated today - possible dc to home on saturday if her strength is improved enough to safely transition to home. CHING BERNAL Nov 23, 2022 07:29 ANABELA PORTER MD Nov 23, 2022 09:07
[2022-11-23 08:00] VITALS: BP 156/90
--- NOTE | 2022-11-23 09:13 | Physician Query Clarification ---
Physician Query-General Query to Physician: The medical record reflects the following clinical scenario: The patient, in the setting of History/Risk factors, _Pneumonia with Respiratory failure Clinical Findings Admission VS/Labs: HR 98, RR 24, BP 113/64, SpO2 99% sat on 6 L T 36.5, WBC 11.8, lactic acid 0.76, PCT 0.15 Treatment ER: Placed on BiPAP in ER on 40% oxygen ceftriaxone IV, azithromycin IV, lactated Ringer's 1 L, albuterol and ipratropium, dexamethasone IV, Solu- Medrol IV Question: Do you agree with the impression of Possible Sepsis per Dr. Srinivasan Mccray? 1. Yes; will document Possible Sepsis, present on admission, in the Progress Notes 2. No; will continue current documentation in the Progress Notes 3. Other; will document explanation of clinical findings 4. Clinically undetermined; no explanation for clinical findings Please clarify and document your clinical opinion in the Progress Notes and Discharge Summary including the definitive and/or presumptive diagnosis, (suspected or probable), related to the above clinical findings. Please include clinical findings supporting your diagnosis. In responding to this query, please exercise your independent professional judgment. The purpose of this communication is to more accurately reflect the complexity of your patients condition. The fact that a question is asked does not imply that any particular answer is desired or expected. Thank you for timely response to this clarification. Heidi Husain RN, MSN Clinical Nutrition Faculty Member [phone] [email or web address] PHYSICIAN RESPONSE: Based on the clinical findings in the record, please respond to the query above on this document as an addendum. Physician Response: If you have questions please contact: Conservation Of Resources Commissioner: Ext: Thank you for your time and cooperation. Clinical Nutrition Faculty Member/Conservation Of Resources Commissioner This is a permanent part of the medical record HEIDI HUSAIN Nov 23, 2022 09:13
--- NOTE | 2022-11-23 09:36 | Physical Therapy Daily Note ---
PT Daily Note-Current Subjective Patient states she will not use FWW due to left UE pain and wants family to bring her 4WW for use. Patient agrees to PT. Pain Section J - Health Conditions 1. Rarely or not at all 2. Occasionally 3. Frequently 4. Almost constantly 8. Unable to answer Pain Effect on Sleep: 2 Pain Interference with Therapy: 2 Pain Interference w/Day-to-Day: 2 Mental Status Patient Orientation: Normal For Age Attachments: Oxygen Transfers SCALE: Activities may be completed with or without assistive devices. 1-Gxgvidqnzv-ocgdtva completes the activity by him/herself with no assistance from a helper. 5-Set-up or Clean-up Assistance-helper sets up or cleans up; patient completes activity. [place] assists only prior to or following the activity. 4-Supervision or Touching Assistance-helper provides verbal cues and/or touching/steadying and/or contact guard assistance as patient completes activity. Assistance may be provided throughout the activity or intermittently. 3-Partial/Moderate Assistance-helper does LESS THAN HALF the effort. [place] lifts, holds or supports trunk or limbs, but provides less than half the effort. 2-Substantial/Maximal Assistance-helper does MORE THAN HALF the effort. [place] lifts or holds trunk or limbs and provides more than half the effort. 1-Ulpiazawa-inqqmu does ALL the effort. Patient does none of the effort to complete the activity. Or, the assistance of 2 or more helpers is required for the patient to complete the activity. If activity was not attempted, code reason: 7-Patient Refused. 9-Not Applicable-not attempted and the patient did not perform the activity before the current illness, exacerbation or injury. 10-Not Attempted due to Environmental Limitations-(lack of equipment, weather restraints, etc.). 88-Not Attempted due to Medical Conditions or Safety Concerns. Lying to Sitting/Side of Bed(Q: 6 Sit to Stand (QC): 4 Chair/Yyc-il-Nziul Xfer(QC): 4 Toilet Transfer (QC): 4 CGA for safety with MACHINE CEMENTER AND FOLDER and gait belt use Gait Training Distance: 15' x 2 Walk 10 feet (QC): 4 (MACHINE CEMENTER AND FOLDER due to patient's refusal to use FWW due to left UE pain.) Gait Assistive Device: None Assessment Patient up in straight back chair to eat breakfast after session. Patient required assist to cleanse after BM. Patient has noted increase SOA with minimal activity with O2 continuous. RN aware. PT Fpc Goals Fpc Goals PT Fpc Goals Time Frame: Dec 01, 2022 Roll Left & Right (QC): 6 Sit to Lying (QC): 6 Lying-Sitting on Side/Bed(QC): 6 Sit to Stand (QC): 6 Chair/Zgs-bo-Fmwgq Xfer(QC): 6 Toilet Transfer (QC): 6 Walk 10 feet (QC): 5 Walk 50ft with 2 Turns (QC): 5 Walk 150 ft (QC): 5 PT Plan Treatment/Plan Treatment Plan: Continue Plan of Care Treatment Plan: Education, Functional Activity Garo, Functional Strength, Gait, Safety, Therapeutic Exercise Treatment Duration: Dec 01, 2022 Frequency: 6 times per week Estimated Hrs Per Day: .25 hour per day Patient and/or Family Agrees t: Yes Time Time In: 750 Time Out: 813 DATE: Nov 23, 2022 Total Billed Treatment Time: 23 Total Billed Treatment 1 visit FA x 2 23 min IWONA LOPEZ PT Nov 23, 2022 09:36
[2022-11-23] MEDS: ENOXAPARIN 40 MG/0.4 ML (LOVENOX) SYR SC SCH (10:18)
[2022-11-23] MEDS: LORATADINE (CLARITIN) 10 MG TAB PO SCH (10:18)
--- NOTE | 2022-11-23 11:25 | Speech Therapy Daily Note ---
Speech Daily Progress Note Subjective Date Seen by Provider: Nov 23, 2022 Time Seen by Provider: 09:15 The patient was seated upright in her recliner, awake and alert, upon entrance to her room by the clinician. The patient greeted the clinician appropriately and was agreeable to participation in the dysphagia treatment session. The patient appeared in great spirits, remaining pleasant and cooperative throughout the skilled treatment session. Objective The patient is receiving 5l of supplemental oxygen via nasal cannula with SpO2% at 95% prior to, during, and following the session. The patient does display intermittent anxious breathing, with an increase in respirations, however, no P.O. intake is involved. The patient does calm breathing following periods of conversation. The patient has a baseline throat clear prior to P.O. intake. The patient and clinician extensively discussed the patient's safe swallowing strategies from the day prior. The patient verbalized agreement and said, "I haven't choked on anything since those cubed potatoes." The patient stated she has consumed small sips of thin liquids. The patient sips on water via straw throughout the treatment session. Overt s/s of suspected aspiration were not demonstrated and the patient's vocal quality remained clear. Continue with current plan of care. Assessment Assessment Current Status: Good Progress Treatment Plan Continue Plan of Care Speech Short Term Goals Short Term Goals Short Term Goals 1. The patient will tolerate trials of the least restrictive diet consistency without s/s of suspected aspiration. 2. The patient will display safe swallowing strategies with 80% accuracy, independently. Time Frame-STG: Three Days. Speech Penitentiary Goals Penitentiary Goals 1. The patient will tolerate the least restrictive diet consistency without s/s of suspected aspiration. Time Frame: One Week. Speech-Plan Treatment Plan Speech Therapy Treatment Plan: Continue Plan of Care Treatment Duration: Nov 30, 2022 Frequency: 4 times per week Estimated Hrs Per Day: .25 hour per day Rehab Potential: Fair Safety Risks/Education Teaching Recipient: Patient Teaching Methods: Demonstration, Discussion Response to Teaching: Verbalize Understanding, Reinforcement Needed Education Topics Provided: Recommendations, Safe Swallowing Precautions Time Speech Therapy Time In: 09:15 Speech Therapy Time Out: 09:30 DATE: Nov 23, 2022 Total Billed Time: 15 Billed Treatment Time WALE Jasso ELIZABETH Nov 23, 2022 11:25
[2022-11-23 12:00] VITALS: BP 152/87
[2022-11-23] MEDS: cefTRIAXone 1 GM PRE-MIX 50 ML IV SCH (12:23)
[2022-11-23] MEDS: AZITHROMYCIN 500 MG/NS 250 ML IVPB IV SCH ×2 (12:23)
[2022-11-23 13:22] VITALS: BP 152/87
[2022-11-23] MEDS ORDERED: methylPREDNISolone 40 MG/ML (Solu-MEDROL) VIAL IV SCH (21:00)
== END 2022-11-23 12:11 | disposition swing bed (61) | DRG 193 ==
LOC: EDUNIT# 12:23 → ER 12:25 → CSD 14:11
PROVIDERS: ADMIT Family Medicine; ATTEND Family Medicine
PROC: 5A09357 Assistance with Respiratory Ventilation, Less than 24 Consecutive Hours, Continuous Positive Airway Pressure (ICD-10-PCS; principal; 2022-11-19)
DX: J18.9 Pneumonia, unspecified organism (principal); J96.20 Acute and chronic respiratory failure, unspecified whether with hypoxia or hypercapnia; J44.1 Chronic obstructive pulmonary disease with (acute) exacerbation; J44.0 Chronic obstructive pulmonary disease with (acute) lower respiratory infection; R73.9 Hyperglycemia, unspecified; D64.9 Anemia, unspecified; Z87.891 Personal history of nicotine dependence; F41.9 Anxiety disorder, unspecified; M19.90 Unspecified osteoarthritis, unspecified site; K57.90 Diverticulosis of intestine, part unspecified, without perforation or abscess without bleeding; R53.1 Weakness; E03.9 Hypothyroidism, unspecified; Z20.822 Contact with and (suspected) exposure to COVID-19
CPT/HCPCS: 36415; 71045; 74230; 80053; 81000; 82274; 82550; 82553; 82805; 82947; 83605; 83735; 83874; 83880; 84145; 84439; 84443; 84484; 85007; 85025; 85027; 85610; 85652; 85730; 86141; 87040; 87636; 93005; 94640; 94660

== ENCOUNTER 2022-11-23 10:12 | Inpatient (IN) | payer MEDICARE ==
[~2022-11-23] VITALS: Ht 165 cm; Wt 79.9 kg
[~2022-11-23 10:12] MED LIST changes: +ALBU6.7H13 INH; +AZIT250T12 PO; +BUDE0.5A7 NEB; +CETI10TA17 PO; +CITA40TA13 PO; +FORM20VI3 NEB; +REVE175V NEB
[2022-11-23] MEDS ORDERED: RT-ALBUTEROL/IPRATROPIUM 3 ML (DUONEB) VIAL INH PRN (12:45)
[2022-11-23] MEDS ORDERED: ONDANSETRON 4 MG/2 ML (SDV) Z0FRAN IV PRN (12:45)
[2022-11-23] MEDS ORDERED: ARTIFICAL TEARS 0.4 ML UNIT DOSE (REFRESH PLUS) OD PRN (12:45)
--- NOTE | 2022-11-23 14:00 | Physical Therapy Evaluation ---
PT Evaluation-General Medical Diagnosis Admission Date Nov 23, 2022 at 12:57 Medical Diagnosis: COPD exacerbation Onset Date: Nov 21, 2022 Therapy Diagnosis Therapy Diagnosis: debility/weakness/decreased pulmonary function Height/Weight Height (Feet): 5 Height (Inches): 0.00 Weight (Pounds): 159 Weight (Ounces): 0.0 Precautions Precautions/Isolations: Aspiration, Standard Precautions Referral Physician: Beth Reason for Referral: Evaluation/Treatment Medical History Pertinent Medical History: Arthritis, COPD, GERD, Hypothroidism, Smoking Current History SWB status Reviewed History: Yes Social History Home: Single Level Current Living Status: Children Entry Into Home: Stairs With Railing PT Steps Into Home: 4 Prior Prior Level of Function SCALE: Activities may be completed with or without assistive devices. 3-Yasayggurs-ileniuy completes the activity by him/herself with no assistance from a helper. 5-Set-up or Clean-up Assistance-helper sets up or cleans up; patient completes activity. [place] assists only prior to or following the activity. 4-Supervision or Touching Assistance-helper provides verbal cues and/or touching/steadying and/or contact guard assistance as patient completes activity. Assistance may be provided throughout the activity or intermittently. 3-Partial/Moderate Assistance-helper does LESS THAN HALF the effort. [place] lifts, holds or supports trunk or limbs, but provides less than half the effort. 2-Substantial/Maximal Assistance-helper does MORE THAN HALF the effort. [place] lifts or holds trunk or limbs and provides more than half the effort. 0-Dgqsazksv-ybdvwi does ALL the effort. Patient does none of the effort to complete the activity. Or, the assistance of 2 or more helpers is required for the patient to complete the activity. If activity was not attempted, code reason: 7-Patient Refused. 9-Not Applicable-not attempted and the patient did not perform the activity before the current illness, exacerbation or injury. 10-Not Attempted due to Environmental Limitations-(lack of equipment, weather restraints, etc.). 88-Not Attempted due to Medical Conditions or Safety Concerns. Bed Mobility: 6 Transfers (B,C,W/C): 6 Gait: 6 Stairs: 6 Wheelchair Mobility: 9 Indoor Mobility (Ambulation): Independent Stairs: Independent Prior Devices Use: Walker (4WW) PT Evaluation-Current Subjective Patient agrees to PT. Pain Section J - Health Conditions 1. Rarely or not at all 2. Occasionally 3. Frequently 4. Almost constantly 8. Unable to answer Pain Effect on Sleep: 2 Pain Interference with Therapy: 2 Pain Interference w/Day-to-Day: 2 Objective Patient Orientation: Normal For Age Attachments: Oxygen (4-6L NC) ROM/Strength ROM Lower Extremities bilateral LE WFL Strength Lower Extremities 4-/5 grossly bilateral LE all planes Integumentary/Posture Bowel Incontinence: No Bladder Incontinence: No Posture WFL Neuromuscular (Tone, Coordination, Reflexes) grossly intact Sensory Vision: Wears Glasses Hearing: Impaired Transfers Roll Left & Right (QC): 6 Sit to Lying (QC): 6 Lying to Sitting/Side of Bed(Q: 6 Sit to Stand (QC): 4 Chair/Wzy-qe-Jafpe Xfer(QC): 4 Toilet Transfer (QC): 4 Car Transfer (QC): 4 Gait Mode of Locomotion: Walk Anticipated Mode of Locomotion: Walk Walk 10 feet (QC): 4 Walk 50 ft with 2 Turns(QC): 4 Walk 150 ft (QC): 4 Walking 10ft/uneven surface-QC: 4 Distance: 150' x 2 Gait Assistive Device: Walker 4 Wheeled Comments/Gait Description 1 recovery period due to SOA Wheelchair Training Wheel 50 ft with 2 turns (QC): 9 Wheel 150 ft (QC): 9 Type of Wheelchair: N/A Stairs #of Steps: 1 1 Step (curb) (QC): 4 4 Steps (QC): 88 12 Steps (QC): 9 Balance Sitting Static: Normal Sitting Dynamic: Normal Standing Static: Normal Standing Dynamic: Normal Picking up an Object (QC): 4 Treatment Patient ambulated with 4WW 150' x 2 SBA on 6L O2 NC with 1 recovery period due to SOA. SAO2 decreased to 84% on 6L with slight prolonged period. RN aware Assessment/Needs Patient will benefit from skilled PT to address functional strength and mobility, as well as, pulmonary function to ensure safe return to home with family at maximum LOF. Rehab Potential: Fair PT Fpc Goals Business Database Analyst Goals PT Business Database Analyst Goals Time Frame: Dec 15, 2022 Roll Left to Right (QC): 6 Sit to Lying (QC): 6 Lying-Sitting on Side/Bed(QC): 6 Sit to Stand (QC): 6 Chair/Dex-jk-Gmafi Xfer(QC): 6 Toilet/Commode Transfer (QC): 6 Car Transfer (QC): 6 Does the Patient Walk: Yes Walk 10 feet (QC): 6 Walk 10ft-Uneven Surface(QC): 6 Walk 50ft with 2 Turns (QC): 6 Walk 150 ft (QC): 6 Wheel 50 feet with 2 turns (QC: 9 Type: N/A Wheel 150 feet: 9 Type: N/A 1 Step (curb) (QC): 4 4 Steps (QC): 4 12 Steps (QC): 9 Picking up an Object (QC): 4 PT Plan Problem List Problem List: Activity Tolerance, Functional Strength, Balance Treatment/Plan Treatment Plan: Continue Plan of Care Treatment Plan: Education, Functional Activity Garo, Functional Strength, Gait, Safety, Therapeutic Exercise, Transfers Treatment Duration: Dec 15, 2022 Frequency: 6 times per week Estimated Hrs Per Day: .25 hour per day Patient and/or Family Agrees t: Yes Time Time In: 1330 Time Out: 1354 DATE: Nov 23, 2022 Total Billed Treatment Time: 24 Total Billed Treatment 1 visit EVModC 9 min FA 15 min IWONA LOPEZ PT Nov 23, 2022 14:00
[2022-11-23] MEDS: RT-ALBUTEROL SULF 2.5 MG/3 ML PRE-MIX VIAL INH SCH ×2 (14:35→21:50)
--- NOTE | 2022-11-23 14:53 | Occupational Therapy Eval ---
OT Evaluation-General/PLF Medical Diagnosis Admission Date Nov 23, 2022 at 12:57 Medical Diagnosis: COPD exacerbation Onset Date: Nov 21, 2022 Therapy Diagnosis Therapy Diagnosis: decreased ADL status Height/Weight Height (Feet): 5 Height (Inches): 0.00 Weight (Pounds): 159 Weight (Ounces): 0.0 Precautions Precautions/Isolations: Aspiration, Standard Precautions Referral Physician: Beth Referral Reason: Evaluation/Treatment Medical History Pertinent Medical History: Arthritis, COPD, GERD, Hypothroidism, Smoking Additional Medical History COPD, Emphysema, sleep apnea, pneumothorax, GERD, DDD, arthritis, hypothyroidism, anxiety/depression Current History ED with SOB. Transferred SWB 11/23/22 Social History Home: Single Level Current Living Status: Children Entry Into Home: Stairs With Railing Steps Into Home: 4 ADL-Prior Level of Function SCALE: Activities may be completed with or without assistive devices. 8-Nthkvtahru-guxkuvc completes the activity by him/herself with no assistance from a helper. 5-Set-up or Clean-up Assistance-helper sets up or cleans up; patient completes activity. [place] assists only prior to or following the activity. 4-Supervision or Touching Assistance-helper provides verbal cues and/or touching/steadying and/or contact guard assistance as patient completes activity. Assistance may be provided throughout the activity or intermittently. 3-Partial/Moderate Assistance-helper does LESS THAN HALF the effort. [place] lifts, holds or supports trunk or limbs, but provides less than half the effort. 2-Substantial/Maximal Assistance-helper does MORE THAN HALF the effort. [place] lifts or holds trunk or limbs and provides more than half the effort. 6-Xkiqhicrk-uruubp does ALL the effort. Patient does none of the effort to com plete the activity. Or, the assistance of 2 or more helpers is required for the patient to complete the activity. If activity was not attempted, code reason: 7-Patient Refused. 9-Not Applicable-not attempted and the patient did not perform the activity before the current illness, exacerbation or injury. 10-Not Attempted due to Environmental Limitations-(lack of equipment, weather restraints, etc.). 88-Not Attempted due to Medical Conditions or Safety Concerns. ADL PLOF Comments Pt reports increased difficulty with ADLs due to SOB with minimal activity. Pt states she was still able to complete ADLs, with increased time. She only completes sponge baths, pt unable to state how long it has been since she showered at home. Self Care: Needed Some Help Functional Cognition: Independent DME/Equipment Comments 4WW OT Current Status Subjective Pt just [place] 4th floor [facility] [place] Pt agreeable to OT evaluation. Mental Status/Objective Patient Orientation: Person, Place, Situation Attachments: Oxygen Current Upper Extremity ROM Pt reports pain in LUE shoulder, states she has thin ligaments that could easily tear. WFL RUE WFL, pt does not move R wrist due to IV placement, ADL-Treatment Eating (QC): 5 Oral Hygiene (QC): 5 Shower/Bathe Self (QC): 7 (Pt refused. Per clinical judgment, pt would be able to complete with CGA) Upper Body Dressing (QC): 5 Lower Body Dressing (QC): 7 (Pt declined task, per clinical judgment, pt would be able to complete with CGA.) On/Off Footwear (QC): 5 Toileting Hygiene (QC): 7 (Pt declined task, per clinical judgment, pt would be able to complete with CGA.) Other Treatments Pt arrived to 4th floor [facility]/surge via w/c from ICU. CGA BAND REAMER MACHINE OPERATOR from transport chair to EOB. Pt able to transfer supine with SBA. Pt hyperverbal, had multiple complaints about the room when she got settled (lights bother her eyes due to macular degeneration, door can't be shut due to claustrophobia). OT attempted to make room comfortable to pt. Pt states she needs to scoot up in bed, insisting OT needs 2 person. OT informed pt that pt and OT can manage, pt kept talking over OT during instruction. OT assisted pt with placing LUE on bed rail, and bending BLES, pt c/o L shoulder pain and thin ligaments, insisting again that 2 person needed to scoot up. OT informed pt not to use her arms, and just push through her legs. 1 person assistance to scoot up towards HOB. Pt able to doff bilateral gripper socks without difficulty at bed level. Pt declined other ADLs at this time. Per clinical judgment, pt would require CGA-set up with most ADLs. Post tx, pt in bed, call light in reach and all needs met. Education OT Patient Education: Correct positioning, Energy conservation, Modified ADL techniques, Progress toward Goal/Update tx plan, Purpose of tx/functional activities Teaching Recipient: Patient Teaching Methods: Discussion Response to Teaching: Verbalize Understanding, Reinforcement Needed OT Board Layer Goals Board Layer Goals Time Frame: Dec 14, 2022 Eating (QC): 6 Oral Hygiene (QC): 6 Toileting Hygiene (QC): 6 Shower/Bathe Self (QC): 5 Upper Body Dressing (QC): 6 Lower Body Dressing (QC): 6 On/Off Footwear (QC): 6 Additional Goals: 1-Demonstrate ADL Tasks, 2-Verbalize Understanding, 3-Impro veStrength/Garo 1=Demonstrate adherence to instructed precautions during ADL tasks. 2=Patient will verbalize/demonstrate understanding of assistive devices/modifications for ADL. 3=Patient will improve strength/tolerance for activity to enable patient to perform ADL's. OT Education/Plan Problem List/Assessment Assessment: Decreased Activ Tolerance, Decreased UE Strength, Impaired Funct Balance, Impaired I ADL's, Impaired Self-Care Skills Discharge Recommendations Plan/Recommendations: Continue POC Treatment Plan/Plan of Care Patient would benefit from OT for education, treatment and training to promote independence in ADL's, mobility, safety and/or upper extremity function for ADL's. Plan of Care: ADL Retraining, Functional Mobility, UE Funct Exercise/Act Treatment Duration: Dec 14, 2022 Frequency: 5 times per week Estimated Hrs Per Day: .25 hour per day Agreement: Yes Rehab Potential: Fair Time Start Time: 14:08 Stop Time: 14:31 DATE: Nov 23, 2022 Total Time Billed (hr/min): 23 Billed Treatment Time 1, EVL (8'), ADL (15') ROSY CARD OT Nov 23, 2022 14:52
[2022-11-23 15:37] VITALS: BP 161/101
[2022-11-23] MEDS: inSUlin ASPART (NovoLOG) 1 UNIT/0.01 ML (CHARGE PER UNIT) SC SCH ×2 (16:14→21:07)
[2022-11-23 18:09] VITALS: BP 178/86
[2022-11-23] MEDS: methylPREDNISolone 40 MG/ML (Solu-MEDROL) VIAL IV SCH (21:07)
[2022-11-23] MEDS: MONTELUKAST 10 MG (SINGULAIR) TAB PO SCH (21:07)
[2022-11-23] MEDS: traZODone 50 MG (DESYREL) TAB PO SCH (21:07)
[2022-11-24] MEDS: RT-ALBUTEROL SULF 2.5 MG/3 ML PRE-MIX VIAL INH SCH ×4 (02:44→20:56)
[2022-11-24] MEDS: ACETAMINOPHEN 500 MG TAB (TYLENOL) PO PRN ×2 (03:55→13:22)
[2022-11-24] MEDS: LEVOTHYROXINE 50 MCG (LEVOTHROID) TAB PO SCH (05:57)
[2022-11-24] MEDS: inSUlin ASPART (NovoLOG) 1 UNIT/0.01 ML (CHARGE PER UNIT) SC SCH ×4 (06:05→20:34)
[2022-11-24 06:07] VITALS: BP 158/78
--- NOTE | 2022-11-24 09:03 | Physical Therapy Daily Note ---
PT Daily Note-Current Subjective Patient agrees to PT. Pain Section J - Health Conditions 1. Rarely or not at all 2. Occasionally 3. Frequently 4. Almost constantly 8. Unable to answer Pain Effect on Sleep: 2 Pain Interference with Therapy: 2 Pain Interference w/Day-to-Day: 2 Mental Status Patient Orientation: Normal For Age Attachments: Oxygen Transfers SCALE: Activities may be completed with or without assistive devices. 2-Nvklyqyuch-vvhmdte completes the activity by him/herself with no assistance from a helper. 5-Set-up or Clean-up Assistance-helper sets up or cleans up; patient completes activity. [place] assists only prior to or following the activity. 4-Supervision or Touching Assistance-helper provides verbal cues and/or touching/steadying and/or contact guard assistance as patient completes activity. Assistance may be provided throughout the activity or intermittently. 3-Partial/Moderate Assistance-helper does LESS THAN HALF the effort. [place] lifts, holds or supports trunk or limbs, but provides less than half the effort. 2-Substantial/Maximal Assistance-helper does MORE THAN HALF the effort. [place] lifts or holds trunk or limbs and provides more than half the effort. 5-Sxwadaydp-buoonn does ALL the effort. Patient does none of the effort to complete the activity. Or, the assistance of 2 or more helpers is required for the patient to complete the activity. If activity was not attempted, code reason: 7-Patient Refused. 9-Not Applicable-not attempted and the patient did not perform the activity before the current illness, exacerbation or injury. 10-Not Attempted due to Environmental Limitations-(lack of equipment, weather restraints, etc.). 88-Not Attempted due to Medical Conditions or Safety Concerns. Lying to Sitting/Side of Bed(Q: 6 Sit to Stand (QC): 5 Chair/Vqy-lx-Jascu Xfer(QC): 5 Toilet Transfer (QC): 5 Gait Training Distance: 175' x 2 Walk 10 feet (QC): 5 Walk 50 ft with 2 Turns(QC): 5 Walk 150 ft (QC): 5 Gait Assistive Device: Walker 4 Wheeled seated recovery period due to SOA Assessment Patient progressing with treatment plan and is up in chair for breakfast. PT to increase activity as tolerated by patient. PT Group Home Goals Regulatory Services Consultant Goals PT Regulatory Services Consultant Goals Time Frame: Dec 15, 2022 Roll Left & Right (QC): 6 Sit to Lying (QC): 6 Lying-Sitting on Side/Bed(QC): 6 Sit to Stand (QC): 6 Chair/Tvb-pc-Qtziz Xfer(QC): 6 Toilet Transfer (QC): 6 Car Transfer (QC): 6 Does the Patient Walk: Yes Walk 10 feet (QC): 6 Walk 50ft with 2 Turns (QC): 6 Walk 150 ft (QC): 6 Walking 10ft on Uneven Surface: 6 1 Step (curb) (QC): 4 4 Steps (QC): 4 12 Steps (QC): 9 Picking up an Object (QC): 4 Wheel 50 feet with 2 turns (QC: 9 Type: N/A Wheel 150 feet: 9 Type: N/A PT Plan Treatment/Plan Treatment Plan: Continue Plan of Care Treatment Plan: Education, Functional Activity Garo, Functional Strength, Gait, Safety, Therapeutic Exercise, Transfers Treatment Duration: Dec 15, 2022 Frequency: 6 times per week Estimated Hrs Per Day: .25 hour per day Patient and/or Family Agrees t: Yes Time Time In: 747 Time Out: 815 DATE: Nov 24, 2022 Total Billed Treatment Time: 28 Total Billed Treatment 1 visit FA x 2 28 min IWONA LOPEZ PT Nov 24, 2022 09:03
[2022-11-24] MEDS: LORATADINE (CLARITIN) 10 MG TAB PO SCH (09:16)
[2022-11-24] MEDS: methylPREDNISolone 40 MG/ML (Solu-MEDROL) VIAL IV SCH (09:16)
[2022-11-24] MEDS: ENOXAPARIN 40 MG/0.4 ML (LOVENOX) SYR SC SCH (09:16)
[2022-11-24] MEDS: ALPRAZolam 0.25 MG (XANAX) TAB PO PRN (09:40)
--- NOTE | 2022-11-24 09:58 | Progress Note ---
Subjective Date Seen by a Provider: Nov 24, 2022 Time Seen by a Provider: 09:52 Subjective/Events-last exam Fwup acute on chronic respiratory failure, pneumonia, COPD, anxiety, HTN, debility. Resting in bed with oxygen on. States has ongoing stress but just got her anxiety pill. Shortness of air not as bad. Objective Exam Vital Signs Date Time Temp Pulse Resp B/P (MAP) Pulse Ox O2 Delivery O2 Flow Rate FiO2 11/24/22 06:07 36.4 73 16 158/78 (104) 98 Nasal Cannula 5.00 11/24/22 02:44 96 Nasal Cannula 5.00 11/23/22 22:30 67 24 98 35.00 11/23/22 21:51 98 Nasal Cannula 5.00 11/23/22 20:16 Nasal Cannula 5.00 11/23/22 18:09 37.2 68 22 178/86 (116) 93 High Flow N/C 5.00 11/23/22 15:37 36.8 69 18 161/101 (121) 94 Room Air 11/23/22 14:35 97 Nasal Cannula 5.00 I & O 11/24/22 07:00 Intake Total 1665 ml Output Total 1925 ml Balance -260 ml Capillary Refill : General Appearance: Mild Distress Neck: Supple Respiratory: Decreased Breath Sounds Cardiovascular: Regular Rate, Rhythm Gastrointestinal: normal bowel sounds, soft, distended (mild), tenderness Extremity: Non Tender, No Calf Tenderness, No Pedal Edema Neurologic/Psychiatric: Alert, Oriented x3 Skin: Warm/Dry Results Lab Laboratory Tests 11/24/22 05:53: Glucometer 144H Assessment/Plan Assessment/Plan Assess & Plan/Chief Complaint 1. Acute on Chronic Respiratory Failure--on oxygen via NC with BIPAP at night 2. COPD with exacerbation--on SVNs and now on oral prednisone 3. Pneumonia--on Rocephin and Zithromax 4. Anxiety--using alprazolam q6hrs and on citalopram 5. Hypertension--add low dose amlodopine 2.5mg 6. Debility--doing PT/OT FLIP CHRISTIANSEN DO Nov 24, 2022 09:58
[2022-11-24] MEDS ORDERED: amLODIPine 2.5MG (NORVASC) TAB PO NR (10:00)
[2022-11-24] MEDS ORDERED: AZITHROMYCIN INJECTION 500 MG in NS (IVPB) 250 ML IV SCH (12:00)
[2022-11-24] MEDS ORDERED: cefTRIAXone 1 GM PRE-MIX 50 ML IV SCH (12:00)
[2022-11-24] MEDS ORDERED: ALPRAZolam 0.25 MG (XANAX) TAB PO NR (13:30)
[2022-11-24 17:46] VITALS: BP 164/76
[2022-11-24] MEDS ORDERED: FAMOTIDINE 20 MG (PEPCID) TABLET PO SCH (21:00)
[2022-11-24] MEDS: MONTELUKAST 10 MG (SINGULAIR) TAB PO SCH (21:05)
[2022-11-24] MEDS: traZODone 50 MG (DESYREL) TAB PO SCH (21:05)
[2022-11-25] MEDS: RT-ALBUTEROL SULF 2.5 MG/3 ML PRE-MIX VIAL INH SCH ×4 (03:09→21:56)
[2022-11-25 05:15] VITALS: BP 155/93
[2022-11-25] MEDS: ACETAMINOPHEN 500 MG TAB (TYLENOL) PO PRN (05:41)
[2022-11-25] MEDS: inSUlin ASPART (NovoLOG) 1 UNIT/0.01 ML (CHARGE PER UNIT) SC SCH ×4 (05:41→20:47)
[2022-11-25] MEDS: LEVOTHYROXINE 50 MCG (LEVOTHROID) TAB PO SCH (05:41)
[2022-11-25] MEDS: predniSONE 20 MG TAB PO SCH (05:42)
--- NOTE | 2022-11-25 09:35 | Diagnostic Imaging Report ---
CHEST PA/LAT (2 VIEW) Indication: Pneumonia Comparison: 11/21/2022 Findings: Chronic reticular and nodular opacities in lung bases are stable. No consolidations have developed. Small bilateral pleural effusions are present. No pneumothorax. Normal heart size and mediastinal contours. Impression: 1. Small bilateral pleural effusions. 2. Chronic reticular and nodular opacities in lung bases may be due to interstitial lung disease or sequelae of remote infection. Dictated by: Dictated on workstation # [id number]
[2022-11-25] MEDS: ALPRAZolam 0.25 MG (XANAX) TAB PO PRN (09:36)
[2022-11-25] MEDS: amLODIPine 2.5MG (NORVASC) TAB PO SCH (09:36)
[2022-11-25] MEDS: LORATADINE (CLARITIN) 10 MG TAB PO SCH (09:36)
[2022-11-25] MEDS: ENOXAPARIN 40 MG/0.4 ML (LOVENOX) SYR SC SCH (09:37)
[2022-11-25] MEDS ORDERED: AZITHROMYCIN 250 MG TAB (ZITHROMAX) PO NR (12:00)
--- NOTE | 2022-11-25 13:23 | Progress Note ---
Subjective Date Seen by a Provider: Nov 25, 2022 Time Seen by a Provider: 11:45 Subjective/Events-last exam Fwup acute on chronic respiratory failure, pneumonia, COPD exacerbation, anxiety, HTN, debility. IV infiltrated yesterday and patient was screaming in pain--had to be given an extra dose of xanax and then refused another IV start. Arm is doing better today after war compresses. Objective Exam Vital Signs Date Time Temp Pulse Resp B/P (MAP) Pulse Ox O2 Delivery O2 Flow Rate FiO2 11/25/22 08:31 96 Nasal Cannula 5.00 11/25/22 08:00 Nasal Cannula 5.00 11/25/22 05:15 36.1 80 16 155/93 (113) 96 Nasal Cannula 5.00 11/25/22 03:09 98 Nasal Cannula 5.00 11/24/22 20:57 99 Nasal Cannula 5.00 11/24/22 19:52 Nasal Cannula 5.00 11/24/22 17:46 36.8 84 20 164/76 (105) 97 Nasal Cannula 5.00 11/24/22 15:49 97 Nasal Cannula 5.00 I & O 11/25/22 07:00 Intake Total 1230 ml Output Total 3350 ml Balance -2120 ml Capillary Refill : General Appearance: No Apparent Distress Neck: Supple Respiratory: Decreased Breath Sounds, Wheezing Cardiovascular: Regular Rate, Rhythm Extremity: Non Tender, No Calf Tenderness, No Pedal Edema Neurologic/Psychiatric: Alert, Oriented x3 Results Lab Laboratory Tests 11/24/22 15:35: Glucometer 133H 11/24/22 20:26: Glucometer 130H 11/25/22 05:12: Glucometer 89 11/25/22 11:02: Glucometer 265H Assessment/Plan Assessment/Plan Assess & Plan/Chief Complaint 1. Acute on Chronic Respiratory Failure--on oxygen via NC with BIPAP at night 2. COPD with exacerbation--on SVNs and oral prednisone 3. Pneumonia--change Rocephin to cefdinir and Zithromax to oral, repeat CXR improving and clinically improving 4. Anxiety--using alprazolam q6hrs and on citalopram 5. Hypertension--added low dose amlodopine 2.5mg yesterday 6. Debility--doing PT/OT FLIP CHRISTIANSEN DO Nov 25, 2022 13:23
[2022-11-25 17:55] VITALS: BP 155/79
[2022-11-25] MEDS: FAMOTIDINE 20 MG (PEPCID) TABLET PO SCH (20:53)
[2022-11-25] MEDS: CEFDINIR 300 MG (OMNICEF) CAP PO SCH (20:53)
[2022-11-25] MEDS: traZODone 50 MG (DESYREL) TAB PO SCH (20:53)
[2022-11-25] MEDS: MONTELUKAST 10 MG (SINGULAIR) TAB PO SCH (20:53)
[2022-11-26] MEDS: ACETAMINOPHEN 500 MG TAB (TYLENOL) PO PRN (02:58)
[2022-11-26] MEDS: ALPRAZolam 0.25 MG (XANAX) TAB PO PRN ×3 (02:58→20:24)
[2022-11-26] MEDS: RT-ALBUTEROL SULF 2.5 MG/3 ML PRE-MIX VIAL INH SCH ×4 (03:18→20:24)
[2022-11-26] MEDS: predniSONE 20 MG TAB PO SCH (05:34)
[2022-11-26] MEDS: LEVOTHYROXINE 50 MCG (LEVOTHROID) TAB PO SCH (05:34)
[2022-11-26] MEDS: inSUlin ASPART (NovoLOG) 1 UNIT/0.01 ML (CHARGE PER UNIT) SC SCH ×4 (05:34→20:56)
[2022-11-26 05:43] VITALS: BP 165/77
--- NOTE | 2022-11-26 08:03 | Progress Note ---
Subjective Subjective Date Seen by Provider: Nov 26, 2022 Time Seen by Provider: 07:59 Vilma Thorpe is being followed up for acute on chronic respiratory failure, pneumonia, COPD exacerbation, anxiety, HTN, debility. She is up and working with physical therapy this morning. States she slept well and feels better now that she was able to eat some oatmeal for breakfast. Her blood pressure continues to be slightly elevated at 165/77. Review of Systems General: Fatigue, Appetite (improved) Pulmonary: Dyspnea; No Cough Cardiovascular: No: Chest Pain, Palpitations Gastrointestinal: No: Nausea, Vomiting, Abdominal Pain Neurological: No: Weakness, Confusion All Other Systems Reviewed All Other Systems Reviewed: Yes Objective Exam Vital Signs Vital Signs Date Time Temp Pulse Resp B/P (MAP) Pulse Ox O2 Delivery O2 Flow Rate FiO2 11/26/22 05:43 36.6 68 16 165/77 (106) 98 Nasal Cannula 5.00 11/26/22 03:18 99 Nasal Cannula 5.00 11/25/22 21:56 98 Nasal Cannula 5.00 11/25/22 20:09 Nasal Cannula 5.00 11/25/22 17:55 37.2 76 20 155/79 (104) 97 Nasal Cannula 5.00 11/25/22 14:59 96 Nasal Cannula 5.00 11/25/22 08:31 96 Nasal Cannula 5.00 11/25/22 08:00 Nasal Cannula 5.00 I & O 11/26/22 06:59 Intake Total 1160 ml Output Total 1450 ml Balance -290 ml General Appearance: No Apparent Distress, Chronically ill HEENT: TMs Normal, Moist Mucous Membranes Neck: Non Tender, Supple Respiratory: Chest Non Tender, Crackles, Decreased Breath Sounds, Wheezing Cardiovascular: Regular Rate, Rhythm, No Edema, No Murmur Gastrointestinal: Non Tender, Soft Back: No CVA Tenderness, No Vertebral Tenderness Extremity: Non Tender, No Calf Tenderness, No Pedal Edema Neurologic/Psychiatric: Alert, Oriented x3 Skin: Normal Color, Warm/Dry Lymphatic: No Adenopathy Results Lab Laboratory Tests 11/25/22 11:02: Glucometer 265H 11/25/22 15:32: Glucometer 159H 11/25/22 20:43: Glucometer 138H 11/26/22 05:34: Glucometer 85 Assessment/Plan Assessment/Plan Admission Dx 1. Acute on Chronic Respiratory Failure 2. COPD with exacerbation 3. Pneumonia 4. Anxiety 5. Hypertension 6. Debility Admission Status: Inpatient Order (span 2 midnights) Assessment and Plan 1. Acute on Chronic Respiratory Failure--on oxygen via NC with BIPAP at night 2. COPD with exacerbation--on SVNs and oral prednisone 3. Pneumonia--change Rocephin to cefdinir and Zithromax to oral, repeat CXR improving and clinically improving 4. Anxiety--using alprazolam q6hrs and on citalopram 5. Hypertension--added low dose amlodopine 2.5mg 6. Debility--doing PT/OT Supervisory-Addendum Brief Verification & Attestation Participated in pt care: history, MDM, physical Personally performed: exam, history, MDM, supervision of care Care discussed with: Medical Student Procedures: n/a Results interpretation: Verified all documentation Agree with student note as documented Respiratory failure due to COPD Exacerbation with CO2 retention with Pneumonia - improved symptoms - pt is on her baseline oxygen requirement, receiving breathing treatments scheduled, she refused overnight CPAP. I will see if they can utilize a nasal pillow device to see if that will help with tolerating the CPAP therapy for her chronic CO2 retention. - pt is on cefdinir and azithromycin - continue until 11/28/22 Anemia - stable Hyperglycemia - improving - was partially due to higher steroid dosing. Weakness - improved with therapy - will continue with therapy for another 24 - 48 hours. Hypothyroidism - on home regimen. Anticipate DC to home on 11/27/22 or 11/28/22 CHIGN BERNAL Nov 26, 2022 08:03 ANABELA PORTER MD Nov 26, 2022 09:09
[2022-11-26] MEDS: amLODIPine 2.5MG (NORVASC) TAB PO SCH (08:17)
[2022-11-26] MEDS: AZITHROMYCIN 250 MG TAB (ZITHROMAX) PO SCH (08:17)
[2022-11-26] MEDS: CEFDINIR 300 MG (OMNICEF) CAP PO SCH ×2 (08:17→20:24)
[2022-11-26] MEDS: ENOXAPARIN 40 MG/0.4 ML (LOVENOX) SYR SC SCH (08:18)
[2022-11-26] MEDS: LORATADINE (CLARITIN) 10 MG TAB PO SCH (08:18)
--- NOTE | 2022-11-26 09:27 | Physical Therapy Daily Note ---
PT Daily Note-Current Subjective Patient reports she is happy and slept well last night. Pain Section J - Health Conditions 1. Rarely or not at all 2. Occasionally 3. Frequently 4. Almost constantly 8. Unable to answer Pain Effect on Sleep: 1 Pain Interference with Therapy: 1 Pain Interference w/Day-to-Day: 1 Mental Status Patient Orientation: Normal For Age Attachments: Oxygen Transfers SCALE: Activities may be completed with or without assistive devices. 1-Zbaujolxwj-nfchvlh completes the activity by him/herself with no assistance from a helper. 5-Set-up or Clean-up Assistance-helper sets up or cleans up; patient completes activity. Story assists only prior to or following the activity. 4-Supervision or Touching Assistance-helper provides verbal cues and/or touching/steadying and/or contact guard assistance as patient completes activity. Assistance may be provided throughout the activity or intermittently. 3-Partial/Moderate Assistance-helper does LESS THAN HALF the effort. Story lifts, holds or supports trunk or limbs, but provides less than half the effort. 2-Substantial/Maximal Assistance-helper does MORE THAN HALF the effort. Story lifts or holds trunk or limbs and provides more than half the effort. 4-Innzoykwj-ajfvvr does ALL the effort. Patient does none of the effort to complete the activity. Or, the assistance of 2 or more helpers is required for the patient to complete the activity. If activity was not attempted, code reason: 7-Patient Refused. 9-Not Applicable-not attempted and the patient did not perform the activity be fore the current illness, exacerbation or injury. 10-Not Attempted due to Environmental Limitations-(lack of equipment, weather restraints, etc.). 88-Not Attempted due to Medical Conditions or Safety Concerns. Roll Left & Right (QC): 6 Sit to Lying (QC): 6 Lying to Sitting/Side of Bed(Q: 6 Sit to Stand (QC): 6 Chair/Eqy-dx-Xygqd Xfer(QC): 6 Toilet Transfer (QC): 6 Car Transfer (QC): 6 (simulated) Gait Training Distance: 175'x 2 Walk 10 feet (QC): 6 Walk 50 ft with 2 Turns(QC): 6 Walk 150 ft (QC): 6 Walking 10ft/uneven surface-QC: 6 Gait Assistive Device: Walker 4 Wheeled Assessment Patient tolerated treatment well and remains seated in 4WW. Patient is currently at independent PLOF with gross motor skills. PT will address stairs tomorrow prior to dismissal. PT Custodial Goals [place] Goals PT [place] Goals Time Frame: Dec 15, 2022 Roll Left & Right (QC): 6 Sit to Lying (QC): 6 Lying-Sitting on Side/Bed(QC): 6 Sit to Stand (QC): 6 Chair/Usz-xa-Uergh Xfer(QC): 6 Toilet Transfer (QC): 6 Car Transfer (QC): 6 Does the Patient Walk: Yes Walk 10 feet (QC): 6 Walk 50ft with 2 Turns (QC): 6 Walk 150 ft (QC): 6 Walking 10ft on Uneven Surface: 6 1 Step (curb) (QC): 4 4 Steps (QC): 4 12 Steps (QC): 9 Picking up an Object (QC): 4 Wheel 50 feet with 2 turns (QC: 9 Type: N/A Wheel 150 feet: 9 Type: N/A PT Plan Treatment/Plan Treatment Plan: Continue Plan of Care Treatment Plan: Education, Functional Activity Garo, Functional Strength, Gait, Safety, Therapeutic Exercise, Transfers Treatment Duration: Dec 15, 2022 Frequency: 6 times per week Estimated Hrs Per Day: .25 hour per day Patient and/or Family Agrees t: Yes Time Time In: 750 Time Out: 813 DATE: Nov 26, 2022 Total Billed Treatment Time: 23 Total Billed Treatment 1 visit FA x 2 23 min IWONA LOPEZ PT Nov 26, 2022 09:27
--- NOTE | 2022-11-26 09:35 | Occupational Ther Daily Note ---
OT Current Status-Daily Note Subjective Pt alert, getting ready to lay in bed. Pt states that she can only concentrate on one thing at a time and that she has already been up and moving so she will participate with OT while lying in bed. Pt states that she will be able to do things when she gets home and has already had people preaching to her about getting around and moving. Mental Status/Objective Patient Orientation: Person, Place, Time, Situation Attachments: Oxygen ADL-Treatment Therapy Code Descriptions/Definitions Functional [place] Measure: 0=Not Assessed/NA 4=Minimal Assistance 1=Total Assistance 5=Supervision or Setup 2=Maximal Assistance 6=Modified [place] 3=Moderate Assistance 7=Complete IndependenceSCALE: Activities may be completed with or without assistive devices. 0-Idwqapojgo-lqiacuu completes the activity by him/herself with no assistance from a helper. 5-Set-up or Clean-up Assistance-helper sets up or cleans up; patient completes activity. Onset assists only prior to or following the activity. 4-Supervision or Touching Assistance-helper provides verbal cues and/or touching/steadying and/or contact guard assistance as patient completes activity. Assistance may be provided throughout the activity or intermittently. 3-Partial/Moderate Assistance-helper does LESS THAN HALF the effort. Onset lifts, holds or supports trunk or limbs, but provides less than half the effort. 2-Substantial/Maximal Assistance-helper does MORE THAN HALF the effort. Onset lifts or holds trunk or limbs and provides more than half the effort. 4-Tcdhtemfx-ynknsp does ALL the effort. Patient does none of the effort to complete the activity. Or, the assistance of 2 or more helpers is required for the patient to complete the activity. If activity was not attempted, code reason: 7-Patient Refused. 9-Not Applicable-not attempted and the patient did not perform the activity before the current illness, exacerbation or injury. 10-Not Attempted due to Environmental Limitations-(lack of equipment, weather restraints, etc.). 88-Not Attempted due to Medical Conditions or Safety Concerns. Other Treatment B UE exercises completed to increase strength and activity tolerance for daily functional tasks. Pt took increased time to complete tasks due to SOA with recovery breaks and discussing why she is doing specific things. After therapy, pt lying in bed with call light/phone in reach. All needs met in room. OT Engineer System Administrator Goals Engineer System Administrator Goals Time Frame: Dec 14, 2022 Eating (QC): 6 Oral Hygiene (QC): 6 Toileting Hygiene (QC): 6 Shower/Bathe Self (QC): 5 Upper Body Dressing (QC): 6 Lower Body Dressing (QC): 6 On/Off Footwear (QC): 6 Additional Goals: 1-Demonstrate ADL Tasks, 2-Verbalize Understanding, 3- ImproveStrength/Garo 1=Demonstrate adherence to instructed precautions during ADL tasks. 2=Patient will verbalize/demonstrate understanding of assistive devices/modifications for ADL. 3=Patient will improve strength/tolerance for activity to enable patient to perform ADL's. OT Education/Plan Problem List/Assessment Assessment: Decreased Activ Tolerance, Decreased UE Strength Discharge Recommendations Plan/Recommendations: Continue POC Treatment Plan/Plan of Care Patient would benefit from OT for education, treatment and training to promote independence in ADL's, mobility, safety and/or upper extremity function for ADL's. Plan of Care: ADL Retraining, Functional Mobility, UE Funct Exercise/Act Treatment Duration: Dec 14, 2022 Frequency: 5 times per week Estimated Hrs Per Day: .25 hour per day Agreement: Yes Rehab Potential: Fair Time Start Time: 09:00 Stop Time: 09:15 DATE: Nov 26, 2022 Total Time Billed (hr/min): 15 Billed Treatment Time 1 visit-EX 1 (15 min) JAMES SPEAR Nov 26, 2022 09:35
[2022-11-26 17:50] VITALS: BP 152/70
[2022-11-26 19:21] VITALS: BP 143/79
[2022-11-26] MEDS: FAMOTIDINE 20 MG (PEPCID) TABLET PO SCH (20:24)
[2022-11-26] MEDS: traZODone 50 MG (DESYREL) TAB PO SCH (20:24)
[2022-11-26] MEDS: MONTELUKAST 10 MG (SINGULAIR) TAB PO SCH (20:24)
[2022-11-27] MEDS: RT-ALBUTEROL SULF 2.5 MG/3 ML PRE-MIX VIAL INH SCH ×3 (03:06→15:32)
[2022-11-27] MEDS: ACETAMINOPHEN 500 MG TAB (TYLENOL) PO PRN (05:15)
[2022-11-27] MEDS: LEVOTHYROXINE 50 MCG (LEVOTHROID) TAB PO SCH (05:15)
[2022-11-27] MEDS: predniSONE 20 MG TAB PO SCH (05:15)
[2022-11-27] MEDS: inSUlin ASPART (NovoLOG) 1 UNIT/0.01 ML (CHARGE PER UNIT) SC SCH ×3 (05:42→15:52)
[2022-11-27 07:20] VITALS: BP 152/85
--- NOTE | 2022-11-27 07:46 | Progress Note ---
Subjective Subjective Date Seen by Provider: Nov 27, 2022 Time Seen by Provider: 07:42 Patient states she is having some arthritis pain this morning, but other than that she is feeling good. She was able to sleep well. She would like to go home after getting her oxygen requirements in order. Denies any other complaints at this time. Review of Systems Pulmonary: Dyspnea; No Cough Cardiovascular: No: Chest Pain, Palpitations Gastrointestinal: No: Nausea, Vomiting, Abdominal Pain All Other Systems Reviewed All Other Systems Reviewed: Yes Objective Exam Vital Signs Vital Signs Date Time Temp Pulse Resp B/P (MAP) Pulse Ox O2 Delivery O2 Flow Rate FiO2 11/27/22 07:20 36.7 72 20 152/85 (107) 97 Nasal Cannula 5.00 5.00 11/27/22 03:06 98 Nasal Cannula 5.00 11/26/22 20:33 97 Nasal Cannula 5.00 11/26/22 20:20 Nasal Cannula 5.00 11/26/22 19:21 36.7 75 18 143/79 (100) 99 Nasal Cannula 5.00 11/26/22 17:50 36.9 78 20 152/70 (97) 97 Nasal Cannula 5.00 11/26/22 14:51 98 Nasal Cannula 6.00 11/26/22 09:29 97 Nasal Cannula 6.00 11/26/22 08:20 Nasal Cannula 5.00 I & O 11/27/22 07:00 Intake Total 920 ml Output Total 600 ml Balance 320 ml General Appearance: No Apparent Distress, Chronically ill HEENT: TMs Normal, Moist Mucous Membranes Neck: Non Tender, Supple Respiratory: Chest Non Tender, Respiratory Distress, Wheezing (improved from initial presentation ) Cardiovascular: Regular Rate, Rhythm, No Edema, No Murmur Gastrointestinal: Non Tender, Soft Back: No CVA Tenderness, No Vertebral Tenderness Extremity: Non Tender, No Calf Tenderness, No Pedal Edema Neurologic/Psychiatric: Alert, Oriented x3 Skin: Normal Color, Warm/Dry Lymphatic: No Adenopathy Results Lab Laboratory Tests 11/26/22 10:40: Glucometer 205H 11/26/22 16:12: Glucometer 110 11/26/22 20:50: Glucometer 92 11/27/22 05:38: Glucometer 128H Assessment/Plan Assessment/Plan Admission Dx 1. Acute on Chronic Respiratory Failure 2. COPD with exacerbation 3. Pneumonia 4. Anxiety 5. Hypertension 6. Debility Admission Status: Inpatient Order (span 2 midnights) Assessment and Plan 1. Acute on Chronic Respiratory Failure -on oxygen via NC with BIPAP -needs oxygen study to obtain appropriate O2 equipment for home 2. Pneumonia - pt is on cefdinir and azithromycin - continue until 11/28/22 3. COPD with exacerbation -on SVNs and oral prednisone 4. Hyperglycemia - likely due to being on oral steroids 4. Anxiety -using alprazolam q6hrs and on citalopram 5. Hypertension -added low dose amlodopine 2.5mg 6. Debility -doing PT/OT - - improved with therapy - will continue with therapy for ano ther 24 - 48 hours. 7. Hypothyroidism - on home regimen. Anticipate DC to home on 11/27/22 or 11/28/22 Admission Dx 1. Acute on Chronic Respiratory Failure 2. COPD with exacerbation 3. Pneumonia 4. Anxiety 5. Hypertension 6. Debility Clinical Quality Measures Admission Status Admission Dx 1. Acute on Chronic Respiratory Failure 2. COPD with exacerbation 3. Pneumonia 4. Anxiety 5. Hypertension 6. Debility Supervisory-Addendum Brief Verification & Attestation Participated in pt care: history, MDM, physical Personally performed: exam, history, MDM, supervision of care Care discussed with: Medical Student Procedures: n/a Results interpretation: Verified all documentation SEE DC SUMMARY CHING BERNAL Nov 27, 2022 07:46 ANABELA PORTER MD Nov 27, 2022 08:40
--- NOTE | 2022-11-27 08:44 | Discharge Summary ---
Diagnosis/Chief Complaint Date of Admission Nov 23, 2022 at 12:57 Date of Discharge Discharge Date: Nov 27, 2022 Discharge Time: 09:00 Admission Diagnosis Admission Diagnosis Respiratory failure due to COPD Exacerbation with CO2 retention with Pneumonia Anemia Hyperglycemia Weakness Hypothyroidism Discharge Diagnosis Respiratory failure due to COPD Exacerbation with CO2 retention with Pneumonia Anemia Hyperglycemia Weakness Hypothyroidism Reason Hospital Visit Vilma Thorpe is a patient of [facility] with extensive smoking history of 70 years and past medical history of COPD, Emphysema, Sleep Apnea, and Pneumothorax who was admitted from the ER for shortness of breath. She reports she has always had "respiratory problems" but in the last week they have become worse. Her son was concerned and called EMS yesterday who brought her to the ER. She was given an hour long Duoneb treatment and solumedrol in ER. Also given some IVF and abx. Today, she still complains of shortness of breath. She is wearing NIV bilevel oxygen. She states at home she usually wears oxygen "24/7". She reports that she has been sleeping "all the time" and started having some diaphragmatic pain, which she thinks is due to pneumonia. She usually uses oxygen at at least 5L/NC with an oxygen concentrator that has 50 feet of tubing. She denies any chest pain or palpitations at this time. Does complain of some "arthritic pain". She sees Dr. 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, field assembly supervisor at [facility], who recommended that she have respiratory rehab at [place]. She has not started this yet. Her respiratory regimen has recently changed as well. Discharge Summary Discharge Physical Examination Allergies: Coded Allergies: No Known Drug Allergies (Unverified , 02/28/16) Vitals & I&Os Vital Signs Date Time Temp Pulse Resp B/P (MAP) Pulse Ox O2 Delivery O2 Flow Rate FiO2 11/27/22 07:20 36.7 72 20 152/85 (107) 97 Nasal Cannula 5.00 5.00 General Appearance: Alert, Oriented X3, Cooperative HEENT: Atraumatic, PERRLA, Mucous Memb Moist/[place] Respiratory: Other (WHEEZING THROUGHOUT) Cardiovascular: Regular Rate Abdominal: Normal Bowel Sounds, Soft, No Tenderness Extremities: No Cyanosis Skin: No Rashes, No Breakdown Neuro: Normal Speech Psych/Mental Status: Mental Status NL, Mood NL Hospital Course Respiratory failure due to COPD Exacerbation with CO2 retention with Pneumonia Anemia Hyperglycemia Weakness Hypothyroidism Respiratory failure due to COPD Exacerbation with CO2 retention with Pneumonia - improved symptoms - pt is on her baseline oxygen requirement, receiving breathing treatments scheduled, she refused overnight CPAP. I will see if they can utilize a nasal pillow device to see if that will help with tolerating the CPAP therapy for her chronic CO2 retention. - pt is on cefdinir and azithromycin - continue until 11/28/22 Anemia - stable Hyperglycemia - improving - was partially due to higher steroid dosing. Weakness - improved with therapy - will continue with therapy for another 24 - 48 hours. Hypothyroidism - on home regimen. DC to home 11/27/22 Pending Labs Laboratory Tests 11/27/22 05:38: Glucometer 128 Discharge Condition at discharge improving Instructions to patient/family Please see electronic discharge instructions given to patient. Discharge Medications Reviewed and agree with Discharge Medication list on patient's Discharge Instruction sheet ANABELA PORTER MD Nov 27, 2022 08:44
[2022-11-27] MEDS ORDERED: PRD20T PO (08:52)
[2022-11-27] MEDS ORDERED: FAMO20TA5 PO (08:52)
[2022-11-27] MEDS ORDERED: ALPR.25T PO (08:52)
[2022-11-27] MEDS ORDERED: IPRA3AMP31 INH (08:52)
[2022-11-27] MEDS ORDERED: AZIT250T12 PO (08:52)
[2022-11-27] MEDS ORDERED: ALBU6.7H13 INH (08:52)
[2022-11-27] MEDS ORDERED: AMLO2.5T4 PO (08:52)
[2022-11-27] MEDS: amLODIPine 2.5MG (NORVASC) TAB PO SCH (08:54)
[2022-11-27] MEDS: AZITHROMYCIN 250 MG TAB (ZITHROMAX) PO SCH (08:54)
[2022-11-27] MEDS: CEFDINIR 300 MG (OMNICEF) CAP PO SCH (08:54)
[2022-11-27] MEDS: LORATADINE (CLARITIN) 10 MG TAB PO SCH (08:55)
[2022-11-27] MEDS: ENOXAPARIN 40 MG/0.4 ML (LOVENOX) SYR SC SCH (08:56)
--- NOTE | 2022-11-27 08:56 | D/C HH Face to Face Order ---
D/C Face to Face Orders Reconcile Patient Problems Problems Reviewed?: Yes Instructions for Patient Via [facility], Patient Instructions/FollowUp: 1 wk follow up [facility] Physician to follow Patient: [facility] Discharge Diet for Home: Regular Diet Patient Problems: 1. Acute on Chronic Respiratory Failure 2. COPD with exacerbation 3. Pneumonia 4. Anxiety 5. Hypertension 6. Debility Patient Data-Allergies,Ht & Wt Patient Allergies: Coded Allergies: No Known Drug Allergies (Unverified , 02/28/16) Height (Feet): 5 Height (Inches): 0.00 Weight (Pounds): 159 Weight (Ounces): 0.0 Home Health Need/Face to Face Date of Face to Face: Nov 27, 2022 Clinical Findings: Generalized weakness and fatigue I have seen Pt [id number]: Yes Discharged To: Home Diagnosis/Conditions: 1. Acute on Chronic Respiratory Failure 2. COPD with exacerbation 3. Pneumonia 4. Anxiety 5. Hypertension 6. Debility Patient is Homebound due to: Muscle weakness, Shortness of breath/distress Homebound Status Due to the above stated illness, injury or surgical procedure (medical condition or diagnosis) and associated clinical findings, the patient is homebound because of his/her inability to leave home except with aid of a supportive device and/or person AND leaving the home requires a considerable and taxing effort or is medically contraindicated. Pt req the following assistanc: [facility] Nursing Orders Home Health Services Order: Nursing Services, Government Relations Manager-Evaluate & Curt at, Physical Therapy-Evaluate & Treat Therapy Orders Therapy Orders: PT to assess for OT Therapy Specific Orders: Eval assistive deivces Certify Stmt I certify that this patient is under my care and that I, a nurse practitioner or a physician; a human resources benefits assistant working with me, had a face to face encounter that - meets the physician face to face encounter requirements with this patient as dated. Medication List: Active Scripts Active Prednisone 20 Mg Tab 40 Mg PO DAILY@0700 2 tab daily x 2 weeks then 1 tab daily x [address] tirado's office for further taper Famotidine 20 Mg Tablet 20 Mg PO HS Xanax Tablet (Alprazolam) 0.25 Mg Tab 0.25 Mg PO Q6HR PRN Amlodipine Besylate 2.5 Mg Tablet 2.5 Mg PO DAILY Iprat-Albut 0.5-3(2.5) mg/3 ml (Ipratropium/Albuterol Sulfate) 0.5 Mg-3 Mg (2.5 Mg Base)/3 Ml Ampul.neb 3 Ml INH Q6H use four times a day scheduled Proventil Hfa (Albuterol Sulfate) 90 Mcg Hfa.aer.ad 2 Puff INH Q4H PRN Azithromycin 250 Mg Tablet 250 Mg PO DAILY Reported Cetirizine HCl 10 Mg Tablet 10 Mg PO DAILY Yupelri (Revefenacin) 175 Mcg/3 Ml Vial.neb 3 Ml NEB 1400 Pulmicort (Budesonide) 0.5 Mg/2 Ml Ampul.neb 0.5 Mg NEB BID Citalopram HBr (Citalopram Hydrobromide) 40 Mg Tablet 40 Mg PO DAILY Ativan (Lorazepam) 1 Mg Tablet 1 Mg PO TID PRN Formoterol Fumarate 20 Mcg/2 Ml Vial.neb 2 Ml NEB BID Levothyroxine Sodium 50 Mcg Tablet 50 Mcg PO DAILY Trazodone HCl 50 Mg Tablet 50 Mg PO HS Montelukast Sodium 10 Mg Tablet 10 Mg PO HS Hydrochlorothiazide 25 Mg Tablet 12.5 Mg PO DAILY TAKES OF A 25MG TAB Flonase Allergy Relief (Fluticasone Propionate) 9.9 Ml [place].susp 2 Sprays NSEACH DAILY PRN Lab results: Laboratory Tests Test 11/26/22 10:40 11/26/22 16:12 11/26/22 20:50 11/27/22 05:38 Range/Units Glucometer 205 H 110 92 128 H 70-110 MG/DL My orders: Orders - ANABELA TIRADO MD Communication For Respiratory (11/26/22 09:17) Patient Visit (11/26/22 ) Functional Activities, Ea 15 (11/26/22 ) Attending Discharge Inpt/Inobs (11/27/22 08:45) Home Riky Services Dischage (11/27/22 08:45) ANABELA TIRADO MD Nov 27, 2022 08:56
--- NOTE | 2022-11-27 09:59 | Therapy Team Discharge Summary ---
Therapy Discharge Summary Discharge Recommendations Date of Discharge Physical Therapy Patient seen by skilled PT to address pulmonary function with functional strengthening and mobility. Patient was compliant with PT and progressed to independent with all mobility safely with good negotiation of O2 tubing. Patien t does require recovery period due to increase SOA with activity. Patient adamantly declined to allow PT to assess stair mobility due to patient has 5 steps at home with a handrail. Patient reports she will utilize handrail and her son will also assist. SWB coordinator notified. Patient to dismiss to home with home health intervention and family assist. Roll Left to Right (QC): 6 Sit to Lying (QC): 6 Lying to Sitting/Side of Bed(Q: 6 Sit to Stand (QC): 6 Chair/Ung-fe-Jqemy Xfer(QC): 6 Toilet Transfer (QC): 5 Car Transfer (QC): 6 (simulated) Mode of Locomotion: Walk Anticipated Mode of Locomotion: Walk Walk 10 feet (QC): 6 Walk 50 ft with 2 Turns(QC): 6 Walk 150 ft (QC): 6 Walking 10ft on uneven surface: 6 Distance: 150' x 2 Gait Assistive Device: Walker 4 Wheeled Wheel 50 ft with 2 turns (QC): 9 Wheel 150 ft (QC): 9 Type of Wheelchair: N/A #of Steps: 4 1 Step (curb) (QC): 7 4 Steps (QC): 7 12 Steps (QC): 9 Balance Sitting Static: Normal Balance Sitting Dynamic: Normal Balance-Standing Static: Normal Picking up an Object (QC): 4 Occupational Therapy Decreased Activ Tolerance, Decreased UE Strength Eating (QC): 5 Oral Hygiene (QC): 5 Shower/Bathe Self (QC): 7 (Pt refused. Per clinical judgment, pt would be able to complete with CGA) Upper Body Dressing (QC): 5 Lower Body Dressing (QC): 7 (Pt declined task, per clinical judgment, pt would be able to complete with CGA.) On/Off Footwear (QC): 5 Toileting Hygiene (QC): 7 (Pt declined task, per clinical judgment, pt would be able to complete with CGA.) PT Station Tender Goals Assisted Goals PT Assisted Goals Time Frame: Dec 15, 2022 Roll Left to Right (QC): 6 Sit to Lying (QC): 6 Lying-Sitting on Side/Bed(QC): 6 Sit to Stand (QC): 6 Chair/Jqn-ig-Gpcwe Xfer(QC): 6 Toilet/Commode Transfer (QC): 6 Car Transfer (QC): 6 Does the Patient Walk: Yes Walk 10 feet (QC): 6 Walk 10ft-Uneven Surface(QC): 6 Walk 50ft with 2 Turns (QC): 6 Walk 150 ft (QC): 6 Wheel 50 feet with 2 turns (QC: 9 Type: N/A Wheel 150 feet: 9 Type: N/A 1 Step (curb) (QC): 4 4 Steps (QC): 4 12 Steps (QC): 9 Picking up an Object (QC): 4 OT Assisted Goals Assisted Goals Time Frame: Dec 14, 2022 Eating (QC): 6 Oral Hygiene (QC): 6 Toileting Hygiene (QC): 6 Shower/Bathe Self (QC): 5 Upper Body Dressing (QC): 6 Lower Body Dressing (QC): 6 On/Off Footwear (QC): 6 Additional Goals: 1-Demonstrate ADL Tasks, 2-Verbalize Understanding, 3-ImproveStrength/Garo 1=Demonstrate adherence to instructed precautions during ADL tasks. 2=Patient will verbalize/demonstrate understanding of assistive devices/modifications for ADL. 3=Patient will improve strength/tolerance for activity to enable patient to perf orm ADL's. IWONA LOPEZ PT Nov 27, 2022 09:59
--- NOTE | 2022-11-27 12:43 | Occupational Ther Daily Note ---
OT Current Status-Daily Note Subjective Pt alert, lying in bed. Nrsg student in room. Pt stated that she couldn't handle 2 people at once and that she was going to get stressed out and she had to concentrate on her breathing. STEIN attempted to just talk calmly to pt, pt continued to interrupt and state how she was stressed and only could do one t darnell at a time which was concerntrate on her breathing. Pt hollered out for PT to come and help make SARITA understand this then asked for the nurse. Mental Status/Objective Patient Orientation: Person, Place, Time, Situation ADL-Treatment Therapy Code Descriptions/Definitions Functional [place]olt Measure: 0=Not Assessed/NA 4=Minimal Assistance 1=Total Assistance 5=Supervision or Setup 2=Maximal Assistance 6=Modified Molt 3=Moderate Assistance 7=Complete IndependenceSCALE: Activities may be completed with or without assistive devices. 0-Koagqdulcw-nvbxmia completes the activity by him/herself with no assistance from a helper. 5-Set-up or Clean-up Assistance-helper sets up or cleans up; patient completes activity. [place] assists only prior to or following the activity. 4-Supervision or Touching Assistance-helper provides verbal cues and/or touching/steadying and/or contact guard assistance as patient completes activity. Assistance may be provided throughout the activity or intermittently. 3-Partial/Moderate Assistance-helper does LESS THAN HALF the effort. [place] lifts, holds or supports trunk or limbs, but provides less than half the effort. 2-Substantial/Maximal Assistance-helper does MORE THAN HALF the effort. [place] lifts or holds trunk or limbs and provides more than half the effort. 6-Zddvgpcyo-xeoynw does ALL the effort. Patient does none of the effort to complete the activity. Or, the assistance of 2 or more helpers is required for the patient to complete the activity. If activity was not attempted, code reason: 7-Patient Refused. 9-Not Applicable-not attempted and the patient did not perform the activity before the current illness, exacerbation or injury. 10-Not Attempted due to Environmental Limitations-(lack of equipment, weather restraints, etc.). 88-Not Attempted due to Medical Conditions or Safety Concerns. Other Treatment Pt eventually allowed STEIN to ask a few questions about home environment but then cut of questions and stated that Dr Campos will take care of everything and that she is getting OT/PT/Nrsg HH. Pt did tell SARITA that she has everything for a tub and that it was all taken care of. Per PT, pt is able to get OOB and complete tasks though slowly and fatigues. Pt to discharge to home with HH today. Pt refused any further discussions with STEIN and would not attempt any ADLs. At end of session, pt lying in bed with call light/phone in reach. All needs met in room. OT Fdc Goals Fdc Goals Time Frame: Dec 14, 2022 Eating (QC): 6 Oral Hygiene (QC): 6 Toileting Hygiene (QC): 6 Shower/Bathe Self (QC): 5 Upper Body Dressing (QC): 6 Lower Body Dressing (QC): 6 On/Off Footwear (QC): 6 Additional Goals: 1-Demonstrate ADL Tasks, 2-Verbalize Understanding, 3- ImproveStrength/Garo 1=Demonstrate adherence to instructed precautions during ADL tasks. 2=Patient will verbalize/demonstrate understanding of assistive devices/modifications for ADL. 3=Patient will improve strength/tolerance for activity to enable patient to perform ADL's. OT Education/Plan Discharge Recommendations Plan/Recommendations: Discharge/Goals Met (Discharge to home with HH) Therapy Discharge Recommendati: Home & Family, Post Acute PT, Post Acute OT Treatment Plan/Plan of Care Patient would benefit from OT for education, treatment and training to promote independence in ADL's, mobility, safety and/or upper extremity function for ADL's. Plan of Care: ADL Retraining, Functional Mobility, UE Funct Exercise/Act Treatment Duration: Dec 14, 2022 Frequency: 5 times per week Estimated Hrs Per Day: .25 hour per day Agreement: Yes Rehab Potential: Fair Time Start Time: 09:00 Stop Time: 09:08 DATE: Nov 27, 2022 Total Time Billed (hr/min): 8 Billed Treatment Time 1 visit-FA 1 (8 min) JAMES SPEAR Nov 27, 2022 12:43
[2022-11-27] MEDS: ALPRAZolam 0.25 MG (XANAX) TAB PO PRN (15:12)
[2022-11-27 16:30] VITALS: BP 152/85
--- NOTE | 2022-11-28 11:03 | Therapy Team Discharge Summary ---
Therapy Discharge Summary Discharge Recommendations Date of Discharge Nov 27, 2022 at 16:30 Physical Therapy Roll Left to Right (QC): 6 Sit to Lying (QC): 6 Lying to Sitting/Side of Bed(Q: 6 Sit to Stand (QC): 6 Chair/Gfc-lt-Vndeg Xfer(QC): 6 Toilet Transfer (QC): 5 Car Transfer (QC): 6 (simulated) Mode of Locomotion: Walk Anticipated Mode of Locomotion: Walk Walk 10 feet (QC): 6 Walk 50 ft with 2 Turns(QC): 6 Walk 150 ft (QC): 6 Walking 10ft on uneven surface: 6 Distance: 150' x 2 Gait Assistive Device: Walker 4 Wheeled Wheel 50 ft with 2 turns (QC): 9 Wheel 150 ft (QC): 9 Type of Wheelchair: N/A #of Steps: 4 1 Step (curb) (QC): 7 4 Steps (QC): 7 12 Steps (QC): 9 Balance Sitting Static: Normal Balance Sitting Dynamic: Normal Balance-Standing Static: Normal Picking up an Object (QC): 4 Occupational Therapy Pt admitted to [facility] with COPD exacerbation. at [facility], pt was able to complete ADLS and mobility with increased time due to SOB. Upon initial evaluation, pt required set up with eating, oral care, UE dressing and footwear. Pt refused showering, LE dressing and toileting, but per pt's abilities would be able to complete with CGA. OT tx focused on increasing BUE strength and activity tolerance, and education on increasing safety and independence with ADLs and functional mobility. Pt refused ADLs prior to discharge, thus no progress towards goals were made, and pt attained no LTGs. Pt discharged from facility, d/c from OT. Decreased Activ Tolerance, Decreased UE Strength Eating (QC): 7 Oral Hygiene (QC): 7 Shower/Bathe Self (QC): 7 Upper Body Dressing (QC): 7 Lower Body Dressing (QC): 7 On/Off Footwear (QC): 7 Toileting Hygiene (QC): 7 PT Assistant Scientist Goals Assistant Scientist Goals PT Assistant Scientist Goals Time Frame: Dec 15, 2022 Roll Left to Right (QC): 6 Sit to Lying (QC): 6 Lying-Sitting on Side/Bed(QC): 6 Sit to Stand (QC): 6 Chair/Jsp-en-Iaukl Xfer(QC): 6 Toilet/Commode Transfer (QC): 6 Car Transfer (QC): 6 Does the Patient Walk: Yes Walk 10 feet (QC): 6 Walk 10ft-Uneven Surface(QC): 6 Walk 50ft with 2 Turns (QC): 6 Walk 150 ft (QC): 6 Wheel 50 feet with 2 turns (QC: 9 Type: N/A Wheel 150 feet: 9 Type: N/A 1 Step (curb) (QC): 4 4 Steps (QC): 4 12 Steps (QC): 9 Picking up an Object (QC): 4 OT Intermediate Goals Assistant Scientist Goals Time Frame: Dec 14, 2022 Eating (QC): 6 Oral Hygiene (QC): 6 Toileting Hygiene (QC): 6 Shower/Bathe Self (QC): 5 Upper Body Dressing (QC): 6 Lower Body Dressing (QC): 6 On/Off Footwear (QC): 6 Additional Goals: 1-Demonstrate ADL Tasks, 2-Verbalize Understanding, 3- ImproveStrength/Garo 1=Demonstrate adherence to instructed precautions during ADL tasks. 2=Patient will verbalize/demonstrate understanding of assistive devices/modifications for ADL. 3=Patient will improve strength/tolerance for activity to enable patient to perform ADL's. ROSY CARD OT Nov 28, 2022 11:03
== END 2022-11-27 16:30 | disposition home health service (06) | DRG 193 ==
LOC: 4TH 12:57
PROVIDERS: ADMIT Family Medicine; ATTEND Family Medicine
PROC: 5A0935A Assistance with Respiratory Ventilation, Less than 24 Consecutive Hours, High Flow/Velocity Cannula (ICD-10-PCS; principal; 2022-11-23)
DX: J18.9 Pneumonia, unspecified organism (principal); J96.20 Acute and chronic respiratory failure, unspecified whether with hypoxia or hypercapnia; F41.9 Anxiety disorder, unspecified; I10 Essential (primary) hypertension; R53.81 Other malaise; R73.9 Hyperglycemia, unspecified; R53.1 Weakness; E03.9 Hypothyroidism, unspecified; D64.9 Anemia, unspecified; J43.9 Emphysema, unspecified
CPT/HCPCS: 71046; 82947; 94640; 94760; 94761

== ENCOUNTER 2023-04-21 11:25 | Emergency (ER) | payer MEDICARE ==
[~2023-04-21] VITALS: Ht 165 cm; Wt 73.0 kg
[~2023-04-21 11:25] MED LIST changes: +ALPR.25T PO; +AMLO2.5T4 PO; +FAMO20TA5 PO; +IPRA3AMP31 INH; +PRD20T PO
[2023-04-21 12:07] LABS: BASOPHILS % (AUTO) 0 % (0-10); EOSINOPHILS # (AUTO) 0.2 10^3/uL (0.0-0.3); EOSINOPHILS % (AUTO) 2 % (0-10); HEMATOCRIT 42 % (35-52); HEMOGLOBIN 12.6 g/dL (11.5-16.0); LYMPHOCYTES # (AUTO) 1.1 10^3/uL (1.0-4.0); LYMPHOCYTES % (AUTO) 15 % (12-44); MEAN CORPUSCULAR HEMOGLOBIN 29 pg (25-34); MEAN CORPUSCULAR HGB CONC 30 g/dL (32-36); MEAN CORPUSCULAR VOLUME 97 fL (80-99); MEAN PLATELET VOLUME 10.1 fL (9.0-12.2); MONOCYTES # (AUTO) 0.4 10^3/uL (0.0-1.0); MONOCYTES % (AUTO) 6 % (0-12); NEUTROPHILS # (AUTO) 5.7 10^3/uL (1.8-7.8); NEUTROPHILS % (AUTO) 77 % (42-75); PLATELET COUNT 156 10^3/uL (130-400); WHITE BLOOD COUNT 7.4 10^3/uL (4.3-11.0)
[2023-04-21 12:09] LABS: ALBUMIN 4.3 GM/DL (3.2-4.5); POTASSIUM 4.2 MMOL/L (3.6-5.0)
[2023-04-21 12:10] LABS: CALCIUM 9.7 MG/DL (8.5-10.1)
[2023-04-21 12:11] LABS: TOTAL PROTEIN 7.9 GM/DL (6.4-8.2)
[2023-04-21 12:13] LABS: BILIRUBIN,TOTAL 0.3 MG/DL (0.1-1.0)
[2023-04-21 12:15] LABS: CREATININE SERUM 0.76 MG/DL (0.60-1.30)
--- NOTE | 2023-04-21 12:45 | Diagnostic Imaging Report ---
EXAM: CHEST 1 VIEW, AP/PA ONLY INDICATION: Shortness of air. Cough. COMPARISON: 11/21/2022. FINDINGS: Cardiomegaly with mild pulmonary vascular congestion. Prominence of the interstitium is similar to the prior exam. No new focal pulmonary opacity. No pleural effusion or pneumothorax. No acute osseous findings. IMPRESSION: Overall stable exam including cardiomegaly, mild pulmonary vascular congestion and prominence of the interstitium which is at least partially chronic. Dictated by: Dictated on workstation # [id number]
[2023-04-21] MEDS ORDERED: RT-ALBUTEROL/IPRATROPIUM 3 ML (DUONEB) VIAL INH ONE ×2 (13:15→14:30)
--- NOTE | 2023-04-21 13:30 | ED Respiratory ---
General Chief Complaint: Respiratory Problems Stated Complaint: SOA Nursing Triage Note: PT STATES SOB FOR 3 DAYS, LT NECK PAIN, PROBABLY FROM CPAP MASK. COUGH CHILLS AND HOT FLASHES FOR A COUPLE DAYS Source: patient, family Exam Limitations: no limitations History of Present Illness Date Seen by Provider: Apr 21, 2023 Time Seen by Provider: 12:00 Initial Comments This 82 year old woman presents to the ER with primary complaint of increased SOA. History of difficult to obtain because she and her son are constantly arguing and bickering, and they give conflicting histories. The neck pain seems to be more of a chronic issue and related to use of her BiPAP mask. Patient reports nonproductive cough. She has had chills and hot flashes without fever. She does nebulizer treatments 4-5 times per day. She uses oxygen continuously via mask or nasal cannula. No chest pain. She is on chronic steroid therapy and has been gradually tapering down on very small doses. Allergies and Home Medications Allergies Coded Allergies: No Known Drug Allergies (Unverified , 02/28/16) Patient Home Medication List Home Medication List Reviewed: Yes ALPRAZolam (Xanax Tablet) 0.25 Mg Tab, 0.25 MG PO Q6HR PRN for ANXIETY Prescribed by: ANABELA CAMPOS on 11/27/22 0853 Albuterol Sulfate (Proventil Hfa) 90 Mcg Hfa.aer.ad, 2 PUFF INH Q4H PRN for DYSPNEA Prescribed by: ANABELA CAMPOS on 11/27/22 08 Amlodipine Besylate (Amlodipine Besylate) 2.5 Mg Tablet, 2.5 MG PO DAILY Prescribed by: ANABELA CAMPOS on 11/27/22851 Azithromycin (Azithromycin) 250 Mg Tablet, 250 MG PO DAILY Prescribed by: ANABELA CAMPOS on 11/27/22851 Budesonide (Pulmicort) 0.5 Mg/2 Ml Ampul.neb, 0.5 MG NEB BID, (Reported) Entered as Reported by: NATHAN REDDY on 11/20/221558 Cetirizine HCl (Cetirizine HCl) 10 Mg Tablet, 10 MG PO DAILY, (Reported) Entered as Reported by: NATHAN REDDY on 11/20/221558 Citalopram Hydrobromide (Citalopram HBr) 40 Mg Tablet, 40 MG PO DAILY, (Reported) Entered as Reported by: NATHAN REDDY on 11/20/22 1559 Famotidine (Famotidine) 20 Mg Tablet, 20 MG PO HS Prescribed by: ANABELA CAMPOS on 11/27/22 0852 Fluticasone Propionate (Flonase Allergy Relief) 9.9 Ml Newman.susp, 2 SPRAYS NSEACH DAILY PRN for CONGESTION, (Reported) Entered as Reported by: SHERI RIOS on 02/21/16 1415 Formoterol Fumarate (Formoterol Fumarate) 20 Mcg/2 Ml Vial.neb, 2 ML NEB BID, (Reported) Entered as Reported by: NATHAN REDDY on 11/20/22 1559 Ipratropium/Albuterol Sulfate (Iprat-Albut 0.5-3(2.5) mg/3 ml) 0.5 Mg-3 Mg (2.5 Mg Base)/3 Ml Ampul.neb, 3 ML INH Q6H Prescribed by: ANABELA CAMPOS on 11/27/22 0852 Levothyroxine Sodium (Levothyroxine Sodium) 50 Mcg Tablet, 50 MCG PO DAILY, (Reported) Entered as Reported by: NATHAN REDDY on 10/26/21 1037 Montelukast Sodium (Montelukast Sodium) 10 Mg Tablet, 10 MG PO HS, (Reported) Entered as Reported by: CARMEN OLIVER on 07/26/21 1108 Prednisone (Prednisone) 20 Mg Tab, 40 MG PO DAILY@0700 Prescribed by: ANABELA CAMPOS on 11/27/22 0852 Trazodone HCl (Trazodone HCl) 50 Mg Tablet, 50 MG PO HS, (Reported) Entered as Reported by: NATHAN REDDY on 10/26/21 1037 Review of Systems Review of Systems Constitutional: no symptoms reported EENTM: see HPI Respiratory: see HPI Cardiovascular: no symptoms reported Gastrointestinal: no symptoms reported Genitourinary: no symptoms reported Musculoskeletal: no symptoms reported Skin: no symptoms reported Psychiatric/Neurological: See HPI Hematologic/Lymphatic: No Symptoms Reported Past Osjvvrg-Xjiaup-Ctzhgi Hx Patient Social History Tobacco Use?: No Substance use?: No Alcohol Use?: No Immunizations Up To Date First/Initial COVID19 Vaccinat: STATES "HAD ALL THREE COVID SHOTS" Second COVID19 Vaccination Vishnu: STATES "HAD ALL THREE COVID SHOTS" Third COVID19 Vaccination Date: STATES "HAD ALL THREE COVID SHOTS" Seasonal Allergies Seasonal Allergies: Yes Past Medical History Surgery/Hospitalization HX: HYSTERECTOMY, COPD, ASTHMA, EXPLORATORY LAP FOR BLOCKAGE Surgeries: Yes (HX CHEST TUBE/PNEUMOTHORAX) Abdominal, Bowel Surgery, Hysterectomy, Orthopedic Respiratory: Yes (O2 DEPENDENT AT 2-5L/NC;HX PNEUMOTHORAX/CHEST TUBE) Pneumonia, Sleep Apnea, COPD, Emphysema Currently Using CPAP: No Currently Using BIPAP: No Cardiac: Yes Hypertension Neurological: No Reproductive Disorders: No Female Reproductive Disorders: Denies Sexually Transmitted Disease: No HIV/AIDS: No Genitourinary: No Gastrointestinal: Yes Chronic Constipation, Diverticulosis Musculoskeletal: Yes (T6 COMPRESSION FX WITH VERTEBROPLASTY 2015) Arthritis Endocrine: Yes Hypothyroidsim HEENT: No Loss of Vision: Denies Hearing Impairment: Hard of Hearing, Bilateral Hearing Aide Cancer: No Psychosocial: Yes Anxiety Integumentary: No Blood Disorders: No Adverse Reaction/Blood Tranf: No Family Medical History Hypertension G8 SISTER Neoplasm 19 MOTHER (LUNG CA) G8 BROTHER (LUNG CA) Heart Disease, Cancer, Hypertension SOCIAL HISTORY: -SMOKED HEAVY X 70 YEARS. > 1 PPD -DENIES ETOH -DENIES DRUG USE PAST SURGICAL HISTORY: -T6 VERTEBROPLASTY 2015, WITH POST OP RIGHT PNEUMOTHORAX AND RIGHT CHEST TUBE PLACEMENT -HYSTERECTOMY -COLONOSCOPY 07/28/[address] HOUGH -10/25/21--SMALL BOWEL OBSTRUCTION WITH EXPLORATORY LAPAROTOMY/LYSIS OF ADHESIONS AND DECOMPRESSION OF SMALL BOWEL BY DR. SOLIS. Physical Exam Vital Signs - First Documented 04/21/23 11:29 Temp 35.7 Pulse 85 Resp 22 B/P (MAP) 150/94 (112) Pulse Ox 98 O2 Delivery OxyMask O2 Flow Rate 8.00 Capillary Refill : Less Than 3 Seconds Height: 5'0.00" Weight: 159lbs. 0.0oz. 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, no motor/sensory deficits, alert, oriented x 3, other (Irritated with son) Skin: normal color, warm/dry Progress/Results/Core Measures Suspected Sepsis SIRS Temperature: Pulse: 85 Respiratory Rate: 22 Laboratory Tests 04/21/23 11:40: White Blood Count 7.4 Blood Pressure 150 /94 Mean: 112 Laboratory Tests 04/21/23 11:40: Creatinine 0.76, Platelet Count 156, Total Bilirubin 0.3 Results/Orders Lab Results Laboratory Tests Test 04/21/23 11:40 Range/Units White Blood Count 7.4 4.3-11.0 10^3/uL Red Blood Count 4.29 3.80-5.11 10^6/uL Hemoglobin 12.6 11.5-16.0 g/dL Hematocrit 42 35-52 % Mean Corpuscular Volume 97 80-99 fL Mean Corpuscular Hemoglobin 29 25-34 pg Mean Corpuscular Hemoglobin Concent 30 L 32-36 g/dL Red Cell Distribution Width 13.2 10.0-14.5 % Platelet Count 156 130-400 10^3/uL Mean Platelet Volume 10.1 9.0-12.2 fL Immature Granulocyte % (Auto) 0 % Neutrophils (%) (Auto) 77 H 42-75 % Lymphocytes (%) (Auto) 15 12-44 % Monocytes (%) (Auto) 6 0-12 % Eosinophils (%) (Auto) 2 0-10 % Basophils (%) (Auto) 0 0-10 % Neutrophils # (Auto) 5.7 1.8-7.8 10^3/uL Lymphocytes # (Auto) 1.1 1.0-4.0 10^3/uL Monocytes # (Auto) 0.4 0.0-1.0 10^3/uL Eosinophils # (Auto) 0.2 0.0-0.3 10^3/uL Basophils # (Auto) 0.0 0.0-0.1 10^3/uL Immature Granulocyte # (Auto) 0.0 0.0-0.1 10^3/uL Sodium Level 141 135-145 MMOL/L Potassium Level 4.2 3.6-5.0 MMOL/L Chloride Level 99 98-107 MMOL/L Carbon Dioxide Level 32 21-32 MMOL/L Anion Gap 10 5-14 MMOL/L Blood Urea Nitrogen 9 7-18 MG/DL Creatinine 0.76 0.60-1.30 MG/DL Estimat Glomerular Filtration Rate 79 BUN/Creatinine Ratio 12 Glucose Level 121 H 70-105 MG/DL Calcium Level 9.7 8.5-10.1 MG/DL Corrected Calcium 9.5 8.5-10.1 MG/DL Total Bilirubin 0.3 0.1-1.0 MG/DL Aspartate Amino Transf (AST/SGOT) 16 5-34 U/L Alanine Aminotransferase (ALT/SGPT) 12 0-55 U/L Alkaline Phosphatase 62 40-136 U/L C-Reactive Protein High Sensitivity 1.57 H 0.00-0.50 MG/DL Total Protein 7.9 6.4-8.2 GM/DL Albumin 4.3 3.2-4.5 GM/DL Influenza Type A (RT-PCR) Not Detected Not Detecte Influenza Type B (RT-PCR) Not Detected Not Detecte SARS-CoV-2 RNA (RT-PCR) Not Detected Not Detecte My Orders Orders - JASMYNE VERMA MD Cbc With Automated Diff (04/21/23 12:00) Comprehensive Metabolic Panel (04/21/23 12:00) Hs C Reactive Protein (04/21/23 12:00) Ed Iv/Invasive Line Start (04/21/23 12:00) O2 (04/21/23 12:00) Monitor-Rhythm Ecg Trace Only (04/21/23 12:00) Covid 19 Inhouse Test (04/21/23 12:00) Influenza A And B By Pcr (04/21/23 12:00) Chest 1 View, Ap/Pa Only (04/21/23 12:00) Albuterol/Ipra Inhalation Soln (Duoneb I (04/21/23 13:15) Svn Small Volume Nebulizer (04/21/23 13:09) Methylprednisolone Sod Succ (Solu-Medrol (04/21/23 14:30) Albuterol Pre-Mix Nebs (Rt) (Proventil (04/21/23 14:18) Albuterol/Ipra Inhalation Soln (Duoneb I (04/21/23 14:30) Svn Small Volume Nebulizer (04/21/23 14:18) Svn Small Volume Nebulizer (04/21/23 14:18) Medications Given in ED Vital Signs/I&O 04/21/23 04/21/23 04/21/23 04/21/23 11:29 11:35 11:35 13:31 Temp 35.7 Pulse 85 Resp 22 B/P (MAP) 150/94 (112) Pulse Ox 98 99 92 O2 Delivery OxyMask OxyMask OxyMask OxyMask O2 Flow Rate 8.00 8.00 8.00 3.00 04/21/23 04/21/23 14:39 16:45 Pulse 96 Resp 26 B/P (MAP) 146/68 Pulse Ox 94 98 O2 Delivery OxyMask OxyMask O2 Flow Rate 3.00 Capillary Refill : Less Than 3 Seconds Blood Pressure Mean: 112 Progress Note : Progress Note Chest was rather tight on auscultation. DuoNeb and Solu-medrol 125 mg were administered with little improvement on re-examination. Labs reviewed and interpreted by me as grossly unremarkable including CBC, CMP, CRP and flu/COVID swabs. Chest x-ray revealed no acute changes. An hour-long neb was then given. Patient has some improvement but was still wheezing. VS were stable. She was feeling better and desired discharge. She did not want admission. See discharge instructions for further discussion. Short term steroid burst was pr escribed. Diagnostic Imaging Diagonstic Imaging: Xray Plain Films/CT/US/NM/MRI: chest Comments NAME: [facility]ON [facility] REC#: [id number] PT STATUS: DEP ER : 1940 PHYSICIAN: JASMYNE VERMA MD ADMIT DATE: 04/21/23/ER Signed Date of Exam:04/21/23 CHEST 1 VIEW, AP/PA ONLY EXAM: CHEST 1 VIEW, AP/PA ONLY INDICATION: Shortness of air. Cough. COMPARISON: 11/21/2022. FINDINGS: Cardiomegaly with mild pulmonary vascular congestion. Prominence of the interstitium is similar to the prior exam. No new focal pulmonary opacity. No pleural effusion or pneumothorax. No acute osseous findings. IMPRESSION: Overall stable exam including cardiomegaly, mild pulmonary vascular congestion and prominence of the interstitium which is at least partially chronic. Dictated by: Dictated on workstation # [id number] Dict: 04/21/23 1241 Trans: 04/21/23 1746 [facility] [id number] Interpreted by: HUGO BEATTY MD Electronically signed by: HUGO BEATTY MD 04/21/23 1746 Departure Impression Primary Impression: COPD exacerbation Disposition: 01 HOME, SELF-CARE Condition: Improved Departure-Patient Inst. Decision time for Depature: 16:00 Referrals: ANABELA CAMPOS MD (PCP/Family) Primary Care Physician Patient Instructions: COPD Exacerbation, Adult ED Add. Discharge Instructions: Increase your prednisone to 40 mg daily. If the treatment you received in the emergency room tonight did not seem sufficient, you may take your first dose of prednisone at home this evening after 8 PM. You may continue taking prednisone 40 mg daily until you discuss with Dr. Campos at your appointment on Saturday. Please call Dr. Campos's office tomorrow morning to inform them of your current status and your visit to the ER. Otherwise continue your medications as previously prescribed. Continue using BiPAP when you go to bed or anytime you are feeling severely short of breath. Return to the emergency room if you have worsening symptoms despite following these instructions. All discharge instructions reviewed with patient and/or family. Voiced understanding. Copy Copies To 1: ANABELA CAMPOS MD, JOSHUA T MD Apr 21, 2023 13:30
[2023-04-21] MEDS ORDERED: RT-ALBUTEROL SULF 2.5 MG/3 ML PRE-MIX VIAL INH STA (14:18)
[2023-04-21] MEDS ORDERED: methylPREDNISolone 125 MG (Solu-MEDROL) VIAL IVP ONE (14:30)
[2023-04-21 16:45] VITALS: BP 146/68
== END 2023-04-21 16:46 | disposition home or self-care (01) ==
LOC: EDUNIT# 11:25 → ER 11:27
DX: J43.9 Emphysema, unspecified (principal); Z99.81 Dependence on supplemental oxygen; Z20.822 Contact with and (suspected) exposure to COVID-19
CPT/HCPCS: 36415; 71045; 80053; 85025; 86141; 87636; 93041; 94640; 94644

== ENCOUNTER → 2023-04-25 | Outpatient (CLI) | payer MEDICARE ==
[2023-04-25 18:35] LABS: HEMATOCRIT 39 % (35-52); HEMOGLOBIN 12.1 g/dL (11.5-16.0); MEAN CORPUSCULAR HEMOGLOBIN 30 pg (25-34); MEAN CORPUSCULAR HGB CONC 31 g/dL (32-36); MEAN CORPUSCULAR VOLUME 96 fL (80-99); MEAN PLATELET VOLUME 9.8 fL (9.0-12.2); PLATELET COUNT 187 10^3/uL (130-400); WHITE BLOOD COUNT 7.4 10^3/uL (4.3-11.0)
[2023-04-25 18:42] LABS: ALBUMIN 4.1 GM/DL (3.2-4.5); POTASSIUM 3.8 MMOL/L (3.6-5.0)
[2023-04-25 18:43] LABS: CALCIUM 9.4 MG/DL (8.5-10.1)
--- NOTE | 2023-04-25 18:44 | Diagnostic Imaging Report ---
INDICATION: Dyspnea. COMPARISON: Prior examination from 11/25/2022. FINDINGS: Heart size is normal. There is mild venous congestion. There is some patchy bibasilar scarring or atelectasis. There is no pleural effusion or pneumothorax. There is some air trapping compatible with COPD. The mediastinum is unremarkable. IMPRESSION: 1. COPD with some bibasilar scarring or atelectasis. 2. Mild central pulmonary venous congestion. Dictated by: Dictated on workstation # [id number]
[2023-04-25 18:45] LABS: TOTAL PROTEIN 7.4 GM/DL (6.4-8.2)
[2023-04-25 18:46] LABS: BILIRUBIN,TOTAL 0.2 MG/DL (0.1-1.0)
[2023-04-25 18:47] LABS: ABG BASE EXCESS 7.3 MMOL/L (-2.5-2.5); ABG OXYGEN SATURATION 99 % (94-100); ABG PCO2 46 MMHG (35-45); ABG PH 7.45 (7.37-7.43); ABG PO2 120 MMHG (79-93); ABG TCO2 32.8 MMOL/L (21.0-31.0)
[2023-04-25 18:48] LABS: CREATININE SERUM 0.79 MG/DL (0.60-1.30)
[2023-04-25 18:48] LABS: VENTILATOR NO
[2023-04-25 18:49] LABS: ALLENS TEST YES-POS
== END ==
LOC: RAD 17:56
PROVIDERS: ATTEND Family Medicine
DX: J44.9 Chronic obstructive pulmonary disease, unspecified (principal); I87.8 Other specified disorders of veins; F39 Unspecified mood [affective] disorder
CPT/HCPCS: 36415; 36600; 71046; 80053; 82805; 85027

== ENCOUNTER 2023-04-29 19:34 | Emergency (ER) | payer MEDICARE ==
[~2023-04-29] VITALS: Ht 165.1 cm; Wt 78.5 kg
[2023-04-29 20:01] LABS: BILIRUBIN,URINE NEGATIVE (NEGATIVE); CLARITY,URINE CLEAR; COLOR,URINE YELLOW; GLUCOSE, URINE (UA) NEGATIVE (NEGATIVE); KETONES,URINE NEGATIVE (NEGATIVE); LEUKOCYTE ESTERASE ,URINE NEGATIVE (NEGATIVE); NITRITE,URINE NEGATIVE (NEGATIVE); PH,URINE 5.5 (5-9); PROTEIN,URINE NEGATIVE (NEGATIVE)
[2023-04-29 20:11] LABS: BASOPHILS % (AUTO) 0 % (0-10); EOSINOPHILS # (AUTO) 0.4 10^3/uL (0.0-0.3); EOSINOPHILS % (AUTO) 4 % (0-10); HEMATOCRIT 42 % (35-52); HEMOGLOBIN 12.7 g/dL (11.5-16.0); LYMPHOCYTES # (AUTO) 2.6 10^3/uL (1.0-4.0); LYMPHOCYTES % (AUTO) 27 % (12-44); MEAN CORPUSCULAR HEMOGLOBIN 29 pg (25-34); MEAN CORPUSCULAR HGB CONC 31 g/dL (32-36); MEAN CORPUSCULAR VOLUME 96 fL (80-99); MEAN PLATELET VOLUME 9.5 fL (9.0-12.2); MONOCYTES # (AUTO) 0.8 10^3/uL (0.0-1.0); MONOCYTES % (AUTO) 8 % (0-12); NEUTROPHILS # (AUTO) 5.9 10^3/uL (1.8-7.8); NEUTROPHILS % (AUTO) 60 % (42-75); PLATELET COUNT 204 10^3/uL (130-400); WHITE BLOOD COUNT 9.8 10^3/uL (4.3-11.0)
[2023-04-29 20:14] LABS: AMORPHOUS SEDIMENT,UR FEW AMOR URATES /LPF; BACTERIA,URINE TRACE /HPF; SQUAMOUS EPITHELIAL CELL,UR RARE /HPF
[2023-04-29 20:19] LABS: AMPHETAMINE SCREEN, URINE POSITIVE (NEGATIVE); BARBITURATE SCREEN URINE NEGATIVE (NEGATIVE); BENZODIAZEPINES SCREEN URINE NEGATIVE (NEGATIVE); CANNABINOID SCREEN, URINE NEGATIVE (NEGATIVE); COCAINE SCREEN URINE NEGATIVE (NEGATIVE); METHADONE STAT NEGATIVE (NEGATIVE); OPIATE SCREEN URINE NEGATIVE (NEGATIVE); OXYCODONE STAT NEGATIVE (NEGATIVE); PROPOXYPHENE STAT NEGATIVE (NEGATIVE); TRICYCLIC ANTIDEPRESSANTS SCRE NEGATIVE (NEGATIVE)
[2023-04-29 20:31] LABS: ALANINE AMINOTRANSFERASE 14 U/L (0-55); ALKALINE PHOSPHATASE 55 U/L (40-136); BILIRUBIN,TOTAL 0.3 MG/DL (0.1-1.0); BUN/CREATININE RATIO 21; CARBON DIOXIDE 30 MMOL/L (21-32); CHLORIDE 100 MMOL/L (98-107); GFR ESTIMATED 74; GLUCOSE 101 MG/DL (70-105); POTASSIUM 3.4 MMOL/L (3.6-5.0); SALICYLATE < 5.0 MG/DL (5.0-20.0); SODIUM 140 MMOL/L (135-145); TOTAL PROTEIN 7.2 GM/DL (6.4-8.2)
--- NOTE | 2023-04-29 20:32 | Diagnostic Imaging Report ---
INDICATION: dyspnea. TECHNIQUE: Single view chest 8:14 PM. CORRELATION STUDY: 04/25/2023 FINDINGS: The heart size, mediastinal configuration and pulmonary vascularity are within normal limits. Lung regan hyperinflated. Question minimal patchy opacities of both lung bases, right greater than left, may reflect small areas of pneumonitis. Findings are superimposed on what appears to be severely advanced COPD. IMPRESSION: 1. Advanced COPD with question superimposed infiltrate both lung bases, right greater than left. Dictated by: Dictated on workstation # [id number]
[2023-04-29 20:52] LABS: ACETAMINOPHEN < 10 UG/ML (10-30)
--- NOTE | 2023-04-29 21:53 | ED General ---
General Chief Complaint: General Problems/Pain Stated Complaint: UTI SYMPTOMS/SOA/AGGRESIVE BEHAVIOR Nursing Triage Note: PT TO [facility] 5 VIA WC, STATES SHE'S HERE TO PROVIDE A URINE SAMPLE AND HER SON IS LYING. PT SON STATES PT HAS BEEN AGGRESSIVE AND MAKING ALLEGATIONS OF HIM ABUSING HER. PT SON REPORTS POSS UTI OR PT CO2 MAY BE HIGH SINCE PT REFUSED ADMISSION RECENTLY, SON REPORTS HE'S UNSURE IF PT HAS BEEN WEARING O2. PT HOME O2 VIA OXYMASK AT 7L. Source of Information: Patient Exam Limitations: No Limitations History of Present Illness Date Seen by Provider: Apr 29, 2023 Time Seen by Provider: 19:56 Initial Comments 82-year-old female presents emergency department today at the request of her son for medical clearance for psychiatric screening. She has an appointment in [place] for psychiatric screening but they stated she needed to come here and be cleared medically first. He is concerned because she has had aggressive behavior at home. When asked what is going on she states that "he will shut his mouth." She cannot specifically state what she is frustrated with other than he "keeps making the situation sound worse than it is." She specifically denies any suicidal homicidal ideation. No fevers chills chest pain abdominal pain, changes in bowel or bladder habits. She does complain of some left neck pain that is chronic in nature I spoke with her son. He states that she has been told multiple times for oxygen via facemask rather than nasal cannula with the patient for his nasal cannula at home. He states that she will ambulate or fall asleep at home and fr equently have oxygen saturations drop. She does have history of COPD and wears it every 23 to 5 L of oxygen chronically. All other systems reviewed and negative except documented per HPI. Voice recognition software was used to help create this chart Allergies and Home Medications Allergies Coded Allergies: No Known Drug Allergies (Unverified , 02/28/16) Patient Home Medication List Home Medication List Reviewed: Yes ALPRAZolam (Xanax Tablet) 0.25 Mg Tab, 0.25 MG PO Q6HR PRN for ANXIETY Prescribed by: ANABELA PORTER on 11/27/22 0853 Albuterol Sulfate (Proventil Hfa) 90 Mcg Hfa.aer.ad, 2 PUFF INH Q4H PRN for DYSPNEA Prescribed by: ANABELA PORTER on 1/17/23 0852 Amlodipine Besylate (Amlodipine Besylate) 2.5 Mg Tablet, 2.5 MG PO DAILY Prescribed by: ANABELA PORTER on 11/27/22851 Azithromycin (Azithromycin) 250 Mg Tablet, 250 MG PO DAILY Prescribed by: ANABELA PORTER on 11/27/22851 Budesonide (Pulmicort) 0.5 Mg/2 Ml Ampul.neb, 0.5 MG NEB BID, (Reported) Entered as Reported by: NATHAN REDDY on 11/20/22 155 Cetirizine HCl (Cetirizine HCl) 10 Mg Tablet, 10 MG PO DAILY, (Reported) Entered as Reported by: NATHAN REDDY on 11/20/22 155 Citalopram Hydrobromide (Citalopram HBr) 40 Mg Tablet, 40 MG PO DAILY, (Reported) Entered as Reported by: NATHAN REDDY on 11/20/22 155 Famotidine (Famotidine) 20 Mg Tablet, 20 MG PO HS Prescribed by: ANABELA PORTER on 11/27/22851 Fluticasone Propionate (Flonase Allergy Relief) 9.9 Ml [place].susp, 2 SPRAYS NSEACH DAILY PRN for CONGESTION, (Reported) Entered as Reported by: SHERI RIOS on 02/21/16 1415 Formoterol Fumarate (Formoterol Fumarate) 20 Mcg/2 Ml Vial.neb, 2 ML NEB BID, (Reported) Entered as Reported by: NATHAN REDDY on 11/20/22 155 Ipratropium/Albuterol Sulfate (Iprat-Albut 0.5-3(2.5) mg/3 ml) 0.5 Mg-3 Mg (2.5 Mg Base)/3 Ml Ampul.neb, 3 ML INH Q6H Prescribed by: ANABELA PORTER on 11/27/22851 Levothyroxine Sodium (Levothyroxine Sodium) 50 Mcg Tablet, 50 MCG PO DAILY, (Reported) Entered as Reported by: NATHAN REDDY on 10/26/21 1037 Montelukast Sodium (Montelukast Sodium) 10 Mg Tablet, 10 MG PO HS, (Reported) Entered as Reported by: CARMEN OLIVER on 07/26/21 1108 Prednisone (Prednisone) 20 Mg Tab, 40 MG PO DAILY@0700 Prescribed by: ANABELA PORTER on 11/27/22 0852 Trazodone HCl (Trazodone HCl) 50 Mg Tablet, 50 MG PO HS, (Reported) Entered as Reported by: NATHAN REDDY on 10/26/21 1037 Review of Systems Review of Systems Constitutional: see HPI Past Wenvrbd-Lvbkag-Iqaxhf Hx Patient Social History Tobacco Use?: No Use of E-Cig and/or Vaping dev: No Substance use?: No Alcohol Use?: No Immunizations Up To Date First/Initial COVID19 Vaccinat: STATES "HAD ALL THREE COVID SHOTS" Second COVID19 Vaccination Vishnu: STATES "HAD ALL THREE COVID SHOTS" Third COVID19 Vaccination Date: STATES "HAD ALL THREE COVID SHOTS" Seasonal Allergies Seasonal Allergies: Yes Past Medical History Surgery/Hospitalization HX: HYSTERECTOMY, COPD, ASTHMA, EXPLORATORY LAP FOR BLOCKAGE Surgeries: Yes (HX CHEST TUBE/PNEUMOTHORAX) Abdominal, Bowel Surgery, Hysterectomy, Orthopedic Respiratory: Yes (O2 DEPENDENT AT 2-5L/NC;HX PNEUMOTHORAX/CHEST TUBE) Pneumonia, Sleep Apnea, COPD, Emphysema Currently Using CPAP: No Currently Using BIPAP: No Cardiac: Yes Hypertension Neurological: No Reproductive Disorders: No Female Reproductive Disorders: Denies Sexually Transmitted Disease: No HIV/AIDS: No Genitourinary: No Gastrointestinal: Yes Chronic Constipation, Diverticulosis Musculoskeletal: Yes (T6 COMPRESSION FX WITH VERTEBROPLASTY 2015) Arthritis Endocrine: Yes Hypothyroidsim HEENT: No Loss of Vision: Denies Hearing Impairment: Hard of Hearing, Bilateral Hearing Aide Cancer: No Psychosocial: Yes Anxiety Integumentary: No Blood Disorders: No Adverse Reaction/Blood Tranf: No Family Medical History Hypertension G8 SISTER Neoplasm 19 MOTHER (LUNG CA) G8 BROTHER (LUNG CA) Heart Disease, Cancer, Hypertension SOCIAL HISTORY: -SMOKED HEAVY X 70 YEARS. > 1 PPD -DENIES ETOH -DENIES DRUG USE PAST SURGICAL HISTORY: -T6 VERTEBROPLASTY 2015, WITH POST OP RIGHT PNEUMOTHORAX AND RIGHT CHEST TUBE PLACEMENT -HYSTERECTOMY -COLONOSCOPY 07/28/[address] HOUGH -10/25/21--SMALL BOWEL OBSTRUCTION WITH EXPLORATORY LAPAROTOMY/LYSIS OF ADHESIONS AND DECOMPRESSION OF SMALL BOWEL BY DR. SOLIS. Physical Exam Vital Signs Vital Signs - First Documented 04/29/23 19:37 Temp 36.9 Pulse 81 Resp 20 B/P (MAP) 136/67 (90) Pulse Ox 99 O2 Delivery OxyMask O2 Flow Rate 4.00 Capillary Refill : Less Than 3 Seconds Height, Weight, BMI Height: 5'0.00" Weight: 159lbs. 0.0oz. [id number]; 28.00 BMI Method: General Appearance: No Apparent Distress, WD/WN, Other (Patient is aggravated) Eyes: Bilateral Eye Normal Inspection, Bilateral Eye PERRL, Bilateral Eye EOMI HEENT: PERRL/EOMI, TMs Normal, Normal ENT Inspection, Pharynx Normal Neck: Full Range of Motion, Normal Inspection, Non Tender, Supple Respiratory: Chest Non Tender, Lungs Clear, Normal Breath Sounds, No Accessory Muscle Use, No Respiratory Distress Cardiovascular: Regular Rate, Rhythm, No Murmur, Normal Peripheral Pulses Gastrointestinal: Normal Bowel Sounds, No Organomegaly, Non Tender, Soft Extremity: Normal Capillary Refill, Normal Inspection, Normal Range of Motion, Non Tender, No Calf Tenderness, No Pedal Edema Neurologic/Psychiatric: Alert, Oriented x3, No Motor/Sensory Deficits Skin: Normal Color, Warm/Dry Progress/Results/Core Measures Suspected Sepsis SIRS Temperature: Pulse: 81 Respiratory Rate: 20 Laboratory Tests 04/29/23 20:05: White Blood Count 9.8 Blood Pressure 136 /67 Mean: 90 Laboratory Tests 04/29/23 19:45: Creatinine 0.80, Total Bilirubin 0.3 04/29/23 20:05: Platelet Count 204 Results/Orders Lab Results Laboratory Tests Test 04/29/23 19:45 04/29/23 20:05 Range/Units Urine Color YELLOW Urine Clarity CLEAR Urine pH 5.5 5-9 Urine Specific [place] <=1.005 1.016-1.022 Urine Protein NEGATIVE NEGATIVE Urine Glucose (UA) NEGATIVE NEGATIVE Urine Ketones NEGATIVE NEGATIVE Urine Nitrite NEGATIVE NEGATIVE Urine Bilirubin NEGATIVE NEGATIVE Urine Urobilinogen 0.2 < = 1.0 MG/DL Urine Leukocyte Esterase NEGATIVE NEGATIVE Urine RBC (Auto) NEGATIVE NEGATIVE Urine RBC NONE /HPF Urine WBC NONE /HPF Urine Squamous Epithelial Cells RARE /HPF Urine Crystals PRESENT H /LPF Urine Amorphous Sediment FEW MARIA LUISA URATES H /LPF Urine Bacteria TRACE /HPF Urine Casts NONE /LPF Urine Mucus NEGATIVE /LPF Urine Culture Indicated NO Sodium Level 140 135-145 MMOL/L Potassium Level 3.4 L 3.6-5.0 MMOL/L Chloride Level 100 98-107 MMOL/L Carbon Dioxide Level 30 21-32 MMOL/L Anion Gap 10 5-14 MMOL/L Blood Urea Nitrogen 17 7-18 MG/DL Creatinine 0.80 0.60-1.30 MG/DL Estimat Glomerular Filtration Rate 74 BUN/Creatinine Ratio 21 Glucose Level 101 70-105 MG/DL Calcium Level 9.0 8.5-10.1 MG/DL Corrected Calcium 9.0 8.5-10.1 MG/DL Total Bilirubin 0.3 0.1-1.0 MG/DL Aspartate Amino Transf (AST/SGOT) 11 5-34 U/L Alanine Aminotransferase (ALT/SGPT) 14 0-55 U/L Alkaline Phosphatase 55 40-136 U/L Total Protein 7.2 6.4-8.2 GM/DL Albumin 4.0 3.2-4.5 GM/DL Salicylates Level < 5.0 L 5.0-20.0 MG/DL Urine Opiates Screen NEGATIVE NEGATIVE Urine Oxycodone Screen NEGATIVE NEGATIVE Urine Methadone Screen NEGATIVE NEGATIVE Urine Propoxyphene Screen NEGATIVE NEGATIVE Acetaminophen Level < 10 L 10-30 UG/ML Urine Barbiturates Screen NEGATIVE NEGATIVE Ur Tricyclic Antidepressants Screen NEGATIVE NEGATIVE Urine Phencyclidine Screen NEGATIVE NEGATIVE Urine Amphetamines Screen POSITIVE H NEGATIVE Urine Methamphetamines Screen NEGATIVE NEGATIVE Urine Benzodiazepines Screen NEGATIVE NEGATIVE Urine Cocaine Screen NEGATIVE NEGATIVE Urine Cannabinoids Screen NEGATIVE NEGATIVE Serum Alcohol < 10 <10 MG/DL White Blood Count 9.8 4.3-11.0 10^3/uL Red Blood Count 4.32 3.80-5.11 10^6/uL Hemoglobin 12.7 11.5-16.0 g/dL Hematocrit 42 35-52 % Mean Corpuscular Volume 96 80-99 fL Mean Corpuscular Hemoglobin 29 25-34 pg Mean Corpuscular Hemoglobin Concent 31 L 32-36 g/dL Red Cell Distribution Width 13.5 10.0-14.5 % Platelet Count 204 130-400 10^3/uL Mean Platelet Volume 9.5 9.0-12.2 fL Immature Granulocyte % (Auto) 1 % Neutrophils (%) (Auto) 60 42-75 % Lymphocytes (%) (Auto) 27 12-44 % Monocytes (%) (Auto) 8 0-12 % Eosinophils (%) (Auto) 4 0-10 % Basophils (%) (Auto) 0 0-10 % Neutrophils # (Auto) 5.9 1.8-7.8 10^3/uL Lymphocytes # (Auto) 2.6 1.0-4.0 10^3/uL Monocytes # (Auto) 0.8 0.0-1.0 10^3/uL Eosinophils # (Auto) 0.4 H 0.0-0.3 10^3/uL Basophils # (Auto) 0.0 0.0-0.1 10^3/uL Immature Granulocyte # (Auto) 0.1 0.0-0.1 10^3/uL My Orders Orders - MARKEL ROBERTSON DO Chest 1 View, Ap/Pa Only (04/29/23:43) Cbc With Automated Diff (04/29/23:43) Comprehensive Metabolic Panel (04/29/23:43) Ua Culture If Indicated (04/29/23:43) Alcohol (04/29/23 20:04) Drug Screen Stat (Urine) (04/29/23 20:04) Acetaminophen (04/29/23 20:04) Salicylate (04/29/23 20:04) Ekg Tracing (04/29/23 20:04) Vital Signs/I&O 04/29/23 19:37 Temp 36.9 Pulse 81 Resp 20 B/P (MAP) 136/67 (90) Pulse Ox 99 O2 Delivery OxyMask O2 Flow Rate 4.00 Capillary Refill : Less Than 3 Seconds Blood Pressure Mean: 90 Departure Impression Primary Impression: Changeable mood Additional Impression: Encounter for medical screening examination Disposition: 01 HOME, SELF-CARE Departure-Patient Inst. Referrals: ANABELA PORTER MD (PCP/Family) Primary Care Physician Add. Discharge Instructions: Patient emergency room today for medical screening for psychiatric clearance. No other medical conditions are identified. You do not have a urinary tract infection and labs are otherwise unremarkable. Follow-up with your primary doctor and continue with your psychiatric screening. All discharge instructions reviewed with patient and/or family. Voiced understanding. MARKEL ROBERTSON DO Apr 29, 2023 21:53
[2023-04-29 22:05] VITALS: BP 134/76
== END 2023-04-29 22:20 | disposition home or self-care (01) ==
LOC: EDUNIT# 19:34 → ER 19:36
DX: Z00.00 Encounter for general adult medical examination without abnormal findings (principal); F39 Unspecified mood [affective] disorder; J43.9 Emphysema, unspecified; F17.210 Nicotine dependence, cigarettes, uncomplicated; Z99.81 Dependence on supplemental oxygen
CPT/HCPCS: 71045; 80053; 80306; 81000; 85025; 93005; 99283; G0480 ×3; 36415; 80320; 80329